=== PATIENT | male | born 1945 | race Caucasian/White ===

== ENCOUNTER 2017-05-23 09:51 | Emergency (ER) | payer MEDICARE, BC ==
[2017-05-23 09:58] VITALS: RESP 18
--- NOTE | 2017-05-23 10:19 | ED ---
General Adult HPI - General Chief complaint: Abdominal Pain Stated complaint: constipation Time Seen by Provider: 05/23/17 10:00 Source: patient, RN notes reviewed Mode of arrival: ambulatory Limitations: no limitations - History of Present Illness Initial comments: This is a 72-year-old male who presents emergency Department stating he has been constipated for the last week. Patient states he's been taking MiraLAX but has not helped is done some suppositories and handheld fleets enemas and nothing is helping. Patient states he seems to be having some stool but he feels as though is going around a blockage. Patient states he had a colonoscopy this year was normal. Patient states she's decreased his by mouth intake because of the constant feeling like he has to go to bathroom. Patient denies any fever chills. Patient denies any recent abdominal pain. Patient just complains abdominal distention. Patient denies any epigastric pain patient denies any vomiting. - Related Data Home Medications Medication Instructions Recorded Confirmed Aspirin EC [Ecotrin Low Dose] 81 mg PO HS 05/23/17 05/23/17 Cholecalciferol [Vitamin D3] 1,000 unit PO HS 05/23/17 05/23/17 Glucosamine Sulfate 500 mg PO HS 05/23/17 05/23/17 HYDROcodone/APAP 7.5-325MG [[place] 1 tab PO Q6H PRN 05/23/17 05/23/17 7.5-325] Pravastatin Sodium [Pravachol] 40 mg PO HS 05/23/17 05/23/17 Allergies Allergy/AdvReac Type Severity Reaction Status Date / Time No Known Allergies Allergy Verified 05/23/17 10:24 Review of Systems ROS Statement: Those systems with pertinent positive or pertinent negative responses have been documented in the HPI. ROS Other: All systems not noted in ROS Statement are negative. Past Medical History Past Medical History: COPD, Hyperlipidemia Additional Past Medical History / Comment(s): chronic back pain History of Any Multi-Drug Resistant Organisms: None Reported Past Surgical History: Orthopedic Surgery Past Psychological History: No Psychological Hx Reported Smoking Status: Current some day smoker Past Alcohol Use History: Occasional Past Drug Use History: None Reported General Exam - General Exam Comments Initial Comments: GENERAL: Patient is well-developed and well-nourished. Patient is nontoxic and well- hydrated and is in mild distress. ENT: Neck is soft and supple. No significant lymphadenopathy is noted. Oropharynx is clear. Moist mucous membranes. Neck has full range of motion without eliciting any pain. EYES: The sclera were anicteric and conjunctiva were pink and moist. Extraocular movements were intact and pupils were equal round and reactive to light. Eyelids were unremarkable. PULMONARY: Unlabored respirations. Good breath sounds bilaterally. No audible rales rhonchi or wheezing was noted. CARDIOVASCULAR: There is a regular rate and rhythm without any murmurs gallops or rubs. ABDOMEN: Soft and nontender with normal bowel sounds. No palpable organomegaly was noted. There is no palpable pulsatile mass. SKIN: Skin is clear with no lesions or rashes and otherwise unremarkable. NEUROLOGIC: Patient is alert and oriented x3. Cranial nerves II through XII are grossly intact. Motor and sensory are also intact. Normal speech, volume and content. Symmetrical smile. MUSCULOSKELETAL: Normal extremities with adequate strength and full range of motion. LYMPHATICS: No significant lymphadenopathy is noted PSYCHIATRIC: Normal psychiatric evaluation. Limitations: no limitations Course Vital Signs 05/23/17 05/23/17 09:53 11:54 Temperature 98.2 F 97.9 F Pulse Rate 67 60 Respiratory 18 18 Rate Blood Pressure 180/84 143/73 O2 Sat by Pulse 91 L 100 Oximetry Medical Decision Making - Medical Decision Making KUB shows no constipation. I spoke with Dr. Guy he is willing to follow the patient in his office. Disposition Clinical Impression: Bowel habit changes Disposition: HOME SELF-CARE Condition: Good Instructions: High Fiber Diet (ED), Constipation (ED) Additional Instructions: Patient should take Benefiber daily. Referrals: Fritz Guy MD [Primary Care Provider] - 1-2 days Time of Disposition: 12:05
--- NOTE | 2017-05-23 11:16 | XR ---
Abdomen HISTORY: Pain and constipation Frontal view of the abdomen on 2 images Lung bases are clear. Heart may be enlarged. No pneumoperitoneum or bowel obstruction evident. There are air-fluid levels without bowel distention. Vascular calcifications noted incidentally. Degenerati ve disc changes in the visualized spine. IMPRESSION: Findings could represent an enteritis or ileus, follow-up as indicated. Possible cardiome sarina.
[2017-05-23 11:56] VITALS: BP 143/73; PULSE 60; TEMP 97.9
== END 2017-05-23 12:36 | disposition home or self-care (01) ==
LOC: EC 09:51
DX: R19.4 Change in bowel habit (principal); J44.9 Chronic obstructive pulmonary disease, unspecified; E78.5 Hyperlipidemia, unspecified; F17.200 Nicotine dependence, unspecified, uncomplicated; Z79.82 Long term (current) use of aspirin; Z79.899 Other long term (current) drug therapy
CPT/HCPCS: 74000; 99284

== ENCOUNTER 2017-08-17 10:07 | Inpatient (IN) | payer MEDICARE, BC ==
[2017-08-17] MEDS ORDERED: NITROGLYCERIN SL TABS 0.4 MG TAB SUBLINGUAL STA ×3 (10:21)
[2017-08-17] MEDS ORDERED: ASPIRIN 81 MG PO STA (10:21)
--- NOTE | 2017-08-17 10:24 | ED ---
General Adult HPI - General Chief complaint: Chest Pain Stated complaint: Chest pressure Time Seen by Provider: 08/17/17 10:16 Source: patient, family, RN notes reviewed Mode of arrival: wheelchair Limitations: no limitations - History of Present Illness Initial comments: Patient is a pleasant 72-year-old male presenting to the emergency department chest discomfort. Symptoms have been intermittent since Sunday. Discomfort feels like an ache with radiation to the left shoulder. Discomfort is currently 5/10. No associated dyspnea or nausea. Patient has been sweaty at times. Symptoms at times are somewhat positional. Patient does have a history of A. fib and is scheduled to have pacemaker. - Related Data Home Medications Medication Instructions Recorded Confirmed Cholecalciferol [Vitamin D3] 1,000 unit PO HS 05/23/17 08/17/17 Glucosamine Sulfate 500 mg PO HS 05/23/17 08/17/17 HYDROcodone/APAP 7.5-325MG [[place] 1 tab PO Q6H PRN 05/23/17 08/17/17 7.5-325] Pravastatin Sodium [Pravachol] 40 mg PO HS 05/23/17 08/17/17 Tamsulosin HCl [Flomax] 0.8 mg PO HS 05/29/17 08/17/17 Zolpidem [Ambien] 10 mg PO HS PRN 06/10/17 08/17/17 Nadolol [Corgard] 10 mg PO HS 08/17/17 08/17/17 Rivaroxaban [Xarelto] 20 mg PO HS 08/17/17 08/17/17 Allergies Allergy/AdvReac Type Severity Reaction Status Date / Time cefuroxime Allergy Anaphylaxis Verified 08/17/17 11:02 ciprofloxacin [From Cipro] Allergy Unknown Verified 08/17/17 11:02 metronidazole Allergy Anaphylaxis Verified 08/17/17 11:02 Review of Systems ROS Statement: Those systems with pertinent positive or pertinent negative responses have been documented in the HPI. ROS Other: All systems not noted in ROS Statement are negative. Constitutional: Denies: fever Eyes: Denies: eye pain ENT: Denies: ear pain Respiratory: Denies: cough Cardiovascular: Reports: chest pain Endocrine: Denies: fatigue Gastrointestinal: Denies: abdominal pain Genitourinary: Denies: dysuria Musculoskeletal: Reports: arthralgia (Chronic) Skin: Denies: rash Neurological: Denies: weakness Past Medical History Past Medical History: Atrial Fibrillation, COPD, Hyperlipidemia Additional Past Medical History / Comment(s): chronic back pain, diverticulosis, History of Any Multi-Drug Resistant Organisms: None Reported Past Surgical History: Orthopedic Surgery Past Anesthesia/Blood Transfusion Reactions: No Reported Reaction Past Psychological History: No Psychological Hx Reported Smoking Status: Former smoker Past Alcohol Use History: None Reported Past Drug Use History: None Reported - Past Family History Father Family Medical History: Coronary Artery Disease (CAD) General Exam Limitations: no limitations General appearance: alert, in no apparent distress Head exam: Present: atraumatic Eye exam: Present: normal appearance, EOMI ENT exam: Present: normal oropharynx Neck exam: Present: normal inspection Respiratory exam: Present: normal lung sounds bilaterally. Absent: chest wall tenderness Cardiovascular Exam: Present: regular rate, normal rhythm Expanded Peripheral pulses: 2+: Radial (R), Radial (L), Posterior Tibialis (R), Posterior Tibialis (L) GI/Abdominal exam: Present: soft. Absent: tenderness Extremities exam: Present: normal inspection. Absent: pedal edema, calf tenderness Neurological exam: Present: alert Psychiatric exam: Present: normal affect, normal mood Skin exam: Present: normal color Course Vital Signs 08/17/17 08/17/17 08/17/17 10:11 10:39 10:55 Temperature 98 F Pulse Rate 54 L 58 L 55 L Respiratory 16 16 16 Rate Blood Pressure 149/71 125/71 96/60 O2 Sat by Pulse 97 95 98 Oximetry EKG Findings - EKG Comments: EKG Findings:: Sinus bradycardia with frequent PVCs at 58. W[place] 132. QRS 124. QT 410. QTc 402. Left axis. Right bundle branch block. Left anterior fascicular block. No acute ST change. Medical Decision Making - Medical Decision Making Patient reevaluated and resting comfortably in bed. Patient did receive improvement with nitroglycerin. Patient and family updated on results and plan. Dr. Coronado has been paged for admission for Dr. Guy. Patient is already on anticoagulation at this time. - Lab Data Result diagrams: 08/17/17 10:24 08/17/17 10:24 Lab Results 08/17/17 08/17/17 08/17/17 Range/Units 10:24 10:24 10:24 WBC 9.8 (3.8-10.6) k/uL RBC 5.13 (4.30-5.90) m/uL Hgb 15.9 (13.0-17.5) gm/dL Hct 49.4 (39.0-53.0) % MCV 96.3 (80.0-100.0) fL MCH 30.9 (25.0-35.0) pg MCHC 32.1 (31.0-37.0) g/dL RDW 12.5 (11.5-15.5) % Plt Count 242 (150-450) k/uL Neutrophils % 72 % Lymphocytes % 19 % Monocytes % 4 % Eosinophils % 3 % Basophils % 0 % Neutrophils # 7.0 (1.3-7.7) k/uL Lymphocytes # 1.8 (1.0-4.8) k/uL Monocytes # 0.4 (0-1.0) k/uL Eosinophils # 0.3 (0-0.7) k/uL Basophils # 0.0 (0-0.2) k/uL PT (9.0-12.0) sec INR (<1.2) APTT (22.0-30.0) sec Sodium 140 (137-145) mmol/L Potassium 4.9 (3.5-5.1) mmol/L Chloride 101 (98-107) mmol/L Carbon Dioxide 30 (22-30) mmol/L Anion Gap 9 mmol/L BUN 32 H (9-20) mg/dL Creatinine 0.80 (0.66-1.25) mg/dL Est GFR (MDRD) Af Amer >60 (>60 ml/min/1.73 sqM) Est GFR (MDRD) Non-Af >60 (>60 ml/min/1.73 sqM) Glucose 94 (74-99) mg/dL Calcium 9.9 (8.4-10.2) mg/dL Magnesium 2.1 (1.6-2.3) mg/dL Total Bilirubin 0.6 (0.2-1.3) mg/dL AST 28 (17-59) U/L ALT 30 (21-72) U/L Alkaline Phosphatase 56 (38-126) U/L Total Creatine Kinase 50 L (55-170) U/L CK-MB (CK-2) 0.8 (0.0-2.4) ng/mL CK-MB (CK-2) Rel Index 1.6 Troponin I <0.012 (0.000-0.034) ng/mL Total Protein 7.0 (6.3-8.2) g/dL Albumin 4.2 (3.5-5.0) g/dL 08/17/17 Range/Units 10:24 WBC (3.8-10.6) k/uL RBC (4.30-5.90) m/uL Hgb (13.0-17.5) gm/dL Hct (39.0-53.0) % MCV (80.0-100.0) fL MCH (25.0-35.0) pg MCHC (31.0-37.0) g/dL RDW (11.5-15.5) % Plt Count (150-450) k/uL Neutrophils % % Lymphocytes % % Monocytes % % Eosinophils % % Basophils % % Neutrophils # (1.3-7.7) k/uL Lymphocytes # (1.0-4.8) k/uL Monocytes # (0-1.0) k/uL Eosinophils # (0-0.7) k/uL Basophils # (0-0.2) k/uL PT 10.3 (9.0-12.0) sec INR 1.1 (<1.2) APTT 25.2 (22.0-30.0) sec Sodium (137-145) mmol/L Potassium (3.5-5.1) mmol/L Chloride (98-107) mmol/L Carbon Dioxide (22-30) mmol/L Anion Gap mmol/L BUN (9-20) mg/dL Creatinine (0.66-1.25) mg/dL Est GFR (MDRD) Af Amer (>60 ml/min/1.73 sqM) Est GFR (MDRD) Non-Af (>60 ml/min/1.73 sqM) Glucose (74-99) mg/dL Calcium (8.4-10.2) mg/dL Magnesium (1.6-2.3) mg/dL Total Bilirubin (0.2-1.3) mg/dL AST (17-59) U/L ALT (21-72) U/L Alkaline Phosphatase (38-126) U/L Total Creatine Kinase (55-170) U/L CK-MB (CK-2) (0.0-2.4) ng/mL CK-MB (CK-2) Rel Index Troponin I (0.000-0.034) ng/mL Total Protein (6.3-8.2) g/dL Albumin (3.5-5.0) g/dL - Radiology Data Radiology results: image reviewed (Chest x-ray shows right basilar atelectasis or scar.) Disposition Clinical Impression: Chest pain, Bradycardia Disposition: ADMITTED IP TO THIS HOSP Referrals: Fritz Guy MD [Primary Care Provider] - 1-2 days Decision Time: 11:40
[2017-08-17 10:39] LABS: Basophils % (A) 0 %; Eosinophils # (A) 0.3 k/uL (0-0.7); Eosinophils % (A) 3 %; HCT 49.4 % (39.0-53.0); HGB 15.9 gm/dL (13.0-17.5); Lymphocytes # (A) 1.8 k/uL (1.0-4.8); Lymphocytes % (A) 19 %; MCH 30.9 pg (25.0-35.0); MCHC 32.1 g/dL (31.0-37.0); MCV 96.3 fL (80.0-100.0); Mean Platelet Volume 6.8; Monocytes # (A) 0.4 k/uL (0-1.0); Monocytes % (A) 4 %; Neutrophils % (A) 72 %; Platelet Count 242 k/uL (150-450); RBC 5.13 m/uL (4.30-5.90); RDW 12.5 % (11.5-15.5); WBC 9.8 k/uL (3.8-10.6)
--- NOTE | 2017-08-17 10:46 | XR ---
EXAMINATION TYPE: XR chest 2V DATE OF EXAM: 08/17/2017 COMPARISON: 07/08/2017 TECHNIQUE: PA and lateral views submitted. HISTORY: Chest pain FINDINGS: The lungs are clear and there is no pneumothorax, pleural effusion, or focal pneumonia. Diffuse ost eopenia and arthropathy of the shoulders. No overt failure. Linear change right lung base. Hypertroph ic and degenerative change of the spine noted. IMPRESSION: 1. Right basilar atelectasis or scar.
[2017-08-17 10:48] LABS: ALT 30 U/L (21-72); AST 28 U/L (17-59); Albumin 4.2 g/dL (3.5-5.0); Alkaline Phosphatase 56 U/L (38-126); Anion Gap 9 mmol/L; Blood Urea Nitrogen 32 mg/dL (9-20); Calcium 9.9 mg/dL (8.4-10.2); Carbon Dioxide 30 mmol/L (22-30); Chloride 101 mmol/L (98-107); Glucose 94 mg/dL (74-99); INR 1.1 (<1.2); Magnesium 2.1 mg/dL (1.6-2.3); Partial Thromboplastin Time 25.2 sec (22.0-30.0); Potassium 4.9 mmol/L (3.5-5.1); Prothrombin Time 10.3 sec (9.0-12.0); Sodium 140 mmol/L (137-145); Total Bilirubin 0.6 mg/dL (0.2-1.3)
[2017-08-17 11:12] LABS: Creatine Kinase 50 U/L (55-170)
[2017-08-17 11:23] LABS: Creatine Kinase MB 0.8 ng/mL (0.0-2.4); Troponin I <0.012 ng/mL (0.000-0.034)
[2017-08-17] MEDS ORDERED: NITROGLYCERIN SL TABS 0.4 MG TAB SUBLINGUAL PRN (11:41)
[2017-08-17] MEDS ORDERED: HYDROcodone/APAP 7.5-325MG 1 EACH TAB PO PRN (15:09)
[2017-08-17 16:57] LABS: Creatine Kinase 43 U/L (55-170)
[2017-08-17 17:10] LABS: Creatine Kinase MB 0.5 ng/mL (0.0-2.4); Troponin I <0.012 ng/mL (0.000-0.034)
[2017-08-17] MEDS: NITROGLYCERIN OINT 1 INCH/GM PACKET TOPICAL SCH ×2 (20:26→23:19)
[2017-08-17] MEDS ORDERED: NADOLOL 20 MG TAB PO SCH (21:00)
[2017-08-17] MEDS: HYDROcodone/APAP 10-325MG 1 EACH TAB PO PRN (21:08)
[2017-08-17] MEDS: RIVAROXABAN 10 MG TAB PO SCH (21:48)
[2017-08-17] MEDS: PRAVASTATIN SODIUM 40 MG TAB PO SCH (21:48)
--- NOTE | 2017-08-17 21:51 | P.HPIM ---
History of Present Illness H&P Date: 08/17/17 Chief Complaint: Chest pain Patient is a pleasant 72-year-old male with a known history of COPD, diverticulosis, recently diagnosed atrial fibrillation, hyperlipidemia and chronic back pain presenting to the emergency department chest discomfort. Symptoms have been intermittent since Sunday. Patient presented to Dr. Guy's office today and was sent to ER for further evaluation. Discomfort feels like an ache with radiation to the left shoulder. Discomfort is currently 5/10. No associated dyspnea or nausea. Patient does have dizziness and lightheadedness. Patient has been sweaty at times. Symptoms at times are somewhat positional. Patient was initially diagnosed with atrial fibrillation in early June 2017 and was also admitted about a month back and has also had cardioversion. Patient does follow with Dr. Nair and Dr. Mckeon. Patient is scheduled for pacemaker placement on August 27. Denied any fever or chills. No nausea vomiting or abdominal pain. Chest x-ray showed right basilar atelectasis EKG showed sinus bradycardia with heart rate 48 Review of Systems Constitutional: Patient denies any fever or chills . No generalized weakness or weight loss. Abdomen: Patient denied nausea vomiting and diarrhea and abdominal pain. Cardiovascular: Patient does have chest pain radiating down the left arm and no short of breath no palpitations. Respiratory: patient denied any cough is from production. No shortness of breath Neurologic: Patient denied any numbness or tingling headache. Musculoskeletal: Patient denies any complaints of joint swelling or deformity. Skin: Negative Psychiatric: Negative Endocrine: No heat or cold intolerance. No recent weight gain. Genitourinary: No dysuria or hematuria. All other 14 point ROS negative except the above Past Medical History Past Medical History: Atrial Fibrillation, COPD, Hyperlipidemia Additional Past Medical History / Comment(s): chronic back pain, diverticulosis, History of Any Multi-Drug Resistant Organisms: None Reported Past Surgical History: Orthopedic Surgery Past Anesthesia/Blood Transfusion Reactions: No Reported Reaction Past Psychological History: No Psychological Hx Reported Smoking Status: Former smoker Past Alcohol Use History: None Reported Past Drug Use History: None Reported - Past Family History Father Family Medical History: Coronary Artery Disease (CAD) Mother History Unknown: Yes Medications and Allergies Home Medications Medication Instructions Recorded Confirmed Type Cholecalciferol [Vitamin D3] 1,000 unit PO HS 05/23/17 08/17/17 History Glucosamine Sulfate 500 mg PO HS 05/23/17 08/17/17 History Pravastatin Sodium [Pravachol] 40 mg PO HS 05/23/17 08/17/17 History Tamsulosin HCl [Flomax] 0.8 mg PO HS 05/29/17 08/17/17 History Hydrocodone/Acetaminophen 1 each PO Q6H PRN 08/17/17 08/17/17 History [Hydrocodon-Acetaminophn 10-325] Nadolol [Corgard] 10 mg PO HS 08/17/17 08/17/17 History Rivaroxaban [Xarelto] 20 mg PO HS 08/17/17 08/17/17 History Zolpidem Tartrate [Ambien Cr] 12.5 mg PO HS PRN 08/17/17 08/17/17 History Allergies Allergy/AdvReac Type Severity Reaction Status Date / Time cefuroxime Allergy Anaphylaxis Verified 08/17/17 11:02 ciprofloxacin [From Cipro] Allergy Unknown Verified 08/17/17 11:02 metronidazole Allergy Anaphylaxis Verified 08/17/17 11:02 Physical Exam Vitals: Vital Signs Temp Pulse Resp BP Pulse Ox 08/17/17 13:00 51 L 16 129/68 96 08/17/17 12:14 45 L 16 155/76 95 08/17/17 10:55 55 L 16 96/60 98 08/17/17 10:39 58 L 16 125/71 95 08/17/17 10:11 98 F 54 L 16 149/71 97 Intake and Output 08/17/17 08/17/17 08/17/17 06:59 14:59 22:59 Other: Weight 76.204 kg Patient Weight 08/18/17 06:59 Weight 76.204 kg PHYSICAL EXAMINATION: Patient is lying in the bed comfortably, no acute distress, awake alert and oriented.. HEENT: Normocephalic. Neck is supple. Pupils reactive. Nostrils clear. Oral cavity is moist. Ears reveal no drainage. Neck reveals no JVD, carotid bruits, or thyromegaly. CHEST EXAMINATION: Trachea is central. Symmetrical expansion. No wheezing. Diminished breath sounds bibasilar. CARDIAC: Normal S1, S2 with no gallops. No murmurs ABDOMEN: Soft. Bowel sounds normal. No organomegaly. No abdominal bruits. Extremities: reveal no edema. No clubbing or cyanosis Neurologically awake, alert, oriented x3 with well-coordinated movements. No focal deficits noted Skin: No rash or skin lesions. Psychiatric: Coperative. Nonsuicidal Musculoskeletal: No joint swelling or deformity. Normal range of motion. Results CBC & Chem 7: 08/17/17 10:24 08/17/17 10:24 Labs: Abnormal Lab Results - Last 24 Hours (Table) 08/17/17 08/17/17 Range/Units 10:24 10:24 BUN 32 H (9-20) mg/dL Total Creatine Kinase 50 L (55-170) U/L Assessment and Plan Assessment: Chest pain. possible unstable angina Sinus bradycardia Persistent atrial fibrillation with recent history of cardioversion Severely enlarged right ventricle Diverticulosis Hyperlipidemia COPD Plan: Patient will be continued on telemetry monitoring. Serial EKG and troponin. Currently on anticoagulation with Riveroxaban. Will hold nadolol due to bradycardia. Cardiology has been consulted. Patient is supposed to be getting pacemaker placement on August 27. Will follow closely. Further recommendations based on the clinical course. Time with Patient: Greater than 30
[2017-08-17 22:48] LABS: Creatine Kinase 39 U/L (55-170)
[2017-08-17 23:01] LABS: Creatine Kinase MB 0.4 ng/mL (0.0-2.4); Troponin I <0.012 ng/mL (0.000-0.034)
[2017-08-17] MEDS: ZOLPIDEM 10 MG TAB PO PRN (23:23)
[2017-08-17 23:41] LABS: Cholesterol 175 mg/dL (<200); HDL Cholesterol 48 mg/dL (40-60); LDL Cholesterol,Calculated 79 mg/dL (0-99); Triglycerides 240 mg/dL (<150)
[2017-08-18] MEDS: NITROGLYCERIN OINT 1 INCH/GM PACKET TOPICAL SCH ×4 (06:12→22:28)
[2017-08-18] MEDS: HYDROcodone/APAP 10-325MG 1 EACH TAB PO PRN ×3 (07:08→19:40)
[2017-08-18] MEDS: ASPIRIN 325 MG TAB PO SCH (10:09)
--- NOTE | 2017-08-18 13:32 | P.CRDCN ---
History of Present Illness Consult date: 08/18/17 Requesting physician: Fritz Guy Reason for Consult (text): chest pain, bradycardia Chief complaint: intermittent left-sided chest and arm pain History of present illness: This is a pleasant 72-year-old gentleman who follows with Dr. Nair in the office. He has a history of symptomatic atrial fibrillation, status post MATEUS and cardioversion last month and subsequently developed symptomatic bradycardia while on very low dose beta blockers. He is scheduled on August 27 to undergo permanent pacemaker implantation by Dr. Mckeon. Presented to his primary care physician for preoperative blood draw and was complaining of some intermittent left-sided chest discomfort and left arm pain and weakness. The pain seems to be positional as he noticed that when he raised his arms for chest x-ray and while lifting his 5 pound dog as well as turning to his left side in bed. EKG on admission showed sinus bradycardia with a right bundle branch block and PVCs, similar to previous. Heart rates are maintaining between the high 30s to 50. His nadolol 10 mg is on hold. Troponins have been negative 3. Chest x-ray on admission showed right basilar atelectasis or scar. Echocardiogram from prior admission in June 2017 showed LV systolic function to be low normal with an ejection fraction between 50-55%, moderate to severely enlarged RV, severely dilated LA, mildly enlarged RA, mild aortic valve sclerosis, mild mitral regurgitation, mild tricuspid regurgitation with no evidence of pulmonary hypertension. Upon examination, patient is resting in bed. He reports overall not feeling well but has not been feeling well since initial episode of atrial fibrillation. He continues to complain of intermittent left-sided chest discomfort, lasting about 4 or 5 minutes, some radiation to the interscapular area and radiation to his left bicep area. Currently pain-free. Past Medical History Past Medical History: Atrial Fibrillation, COPD, Hyperlipidemia Additional Past Medical History / Comment(s): chronic back pain, diverticulosis, History of Any Multi-Drug Resistant Organisms: None Reported Past Surgical History: Orthopedic Surgery Additional Past Surgical History / Comment(s): cardioversion,mateus rt knee/lower leg ssx has 3 screws, colonoscopy, "bone aspiration" Past Anesthesia/Blood Transfusion Reactions: No Reported Reaction Past Psychological History: No Psychological Hx Reported Smoking Status: Former smoker Past Alcohol Use History: None Reported Past Drug Use History: None Reported - Past Family History Father Family Medical History: Coronary Artery Disease (CAD) Mother History Unknown: Yes Medications and Allergies Home Medications Medication Instructions Recorded Confirmed Type Cholecalciferol [Vitamin D3] 1,000 unit PO HS 05/23/17 08/17/17 History Glucosamine Sulfate 500 mg PO HS 05/23/17 08/17/17 History Pravastatin Sodium [Pravachol] 40 mg PO HS 05/23/17 08/17/17 History Tamsulosin HCl [Flomax] 0.8 mg PO HS 05/29/17 08/17/17 History Hydrocodone/Acetaminophen 1 each PO Q6H PRN 08/17/17 08/17/17 History [Hydrocodon-Acetaminophn 10-325] Nadolol [Corgard] 10 mg PO HS 08/17/17 08/17/17 History Rivaroxaban [Xarelto] 20 mg PO HS 08/17/17 08/17/17 History Zolpidem Tartrate [Ambien Cr] 12.5 mg PO HS PRN 08/17/17 08/17/17 History Allergies Allergy/AdvReac Type Severity Reaction Status Date / Time cefuroxime Allergy Anaphylaxis Verified 08/17/17 11:02 ciprofloxacin [From Cipro] Allergy Unknown Verified 08/17/17 11:02 metronidazole Allergy Anaphylaxis Verified 08/17/17 11:02 Physical Exam Vitals: Vital Signs Temp Pulse Pulse Resp BP BP Pulse Ox 08/18/17 04:00 97.0 F L 46 L 18 110/62 93 L 08/18/17 00:00 96.9 F L 52 L 18 116/60 92 L 08/17/17 21:00 97.6 F 40 L 18 115/57 94 L 08/17/17 19:35 97.3 F L 56 L 18 127/67 95 08/17/17 17:00 56 L 16 158/89 100 08/17/17 13:00 51 L 16 129/68 96 08/17/17 12:14 45 L 16 155/76 95 08/17/17 10:55 55 L 16 96/60 98 08/17/17 10:39 58 L 16 125/71 95 08/17/17 10:11 98 F 54 L 16 149/71 97 Intake and Output 08/17/17 08/18/17 08/18/17 22:59 06:59 14:59 Intake Total 0 Output Total 300 Balance -300 0 Intake: Oral 0 Output: Urine 300 Other: # Voids 1 1 Weight 74.7 kg PHYSICAL EXAMINATION: HEENT: Head is atraumatic, normocephalic. Pupils equal, round. Neck is supple. There is no elevated jugular venous pressure. HEART EXAMINATION: Heart sounds regular, S1 and S2 normal. No murmur or gallop heard. The cardia noted. CHEST EXAMINATION: Lungs are clear to auscultation and precussion. No chest wall tenderness is noted on palpation or with deep breathing. ABDOMEN: Soft, nontender. Bowel sounds are heard. No organomegaly noted. EXTREMITIES: 2+ peripheral pulses with no evidence of peripheral edema and no calf tenderness noted. NEUROLOGIC patient is awake, alert and oriented x3. . Results 08/17/17 10:24 08/17/17 10:24 Cardiac Enzymes 08/17/17 08/17/17 08/17/17 Range/Units 10:24 10:24 16:23 AST 28 (17-59) U/L CK-MB (CK-2) 0.8 0.5 (0.0-2.4) ng/mL Troponin I <0.012 <0.012 (0.000-0.034) ng/mL 08/17/17 Range/Units 21:56 AST (17-59) U/L CK-MB (CK-2) 0.4 (0.0-2.4) ng/mL Troponin I <0.012 (0.000-0.034) ng/mL Coagulation 08/17/17 Range/Units 10:24 PT 10.3 (9.0-12.0) sec APTT 25.2 (22.0-30.0) sec Lipids 08/17/17 Range/Units 10:24 Triglycerides 240 H (<150) mg/dL Cholesterol 175 (<200) mg/dL HDL Cholesterol 48 (40-60) mg/dL CBC 08/17/17 Range/Units 10:24 WBC 9.8 (3.8-10.6) k/uL RBC 5.13 (4.30-5.90) m/uL Hgb 15.9 (13.0-17.5) gm/dL Hct 49.4 (39.0-53.0) % Plt Count 242 (150-450) k/uL Comprehensive Metabolic Panel 08/17/17 Range/Units 10:24 Sodium 140 (137-145) mmol/L Potassium 4.9 (3.5-5.1) mmol/L Chloride 101 (98-107) mmol/L Carbon Dioxide 30 (22-30) mmol/L BUN 32 H (9-20) mg/dL Creatinine 0.80 (0.66-1.25) mg/dL Glucose 94 (74-99) mg/dL Calcium 9.9 (8.4-10.2) mg/dL AST 28 (17-59) U/L ALT 30 (21-72) U/L Alkaline Phosphatase 56 (38-126) U/L Total Protein 7.0 (6.3-8.2) g/dL Albumin 4.2 (3.5-5.0) g/dL Current Medications Generic Name Dose Route Start Last Admin Trade Name Freq PRN Reason Stop Dose Admin Hydrocodone Bitart/Acetaminophen 1 each 08/17/17 19:58 08/18/17 07:08 Kinsley 10 PO 1 each Q6H PRN Administration Pain Aspirin 325 mg 08/18/17 09:00 Aspirin PO DAILY EVENS Nitroglycerin 1 inch 08/17/17 18:00 08/18/17 06:12 Nitro-Bid Oint TOPICAL 1 inch Q6HR EVENS Administration Nitroglycerin 0.4 mg 08/17/17 11:41 Nitrostat SUBLINGUAL Q5M PRN Chest Pain Pravastatin Sodium 40 mg 08/17/17 21:00 08/17/17 21:48 Pravachol PO 40 mg HS EVENS Administration Rivaroxaban 20 mg 08/17/17 21:00 08/17/17 21:48 Xarelto PO 20 mg HS EVENS Administration Sodium Chloride 10 ml 08/17/17 21:00 08/17/17 21:09 Saline Flush IV 10 ml BID EVENS Administration Zolpidem Tartrate 10 mg 08/17/17 19:58 08/17/17 23:23 Ambien PO 10 mg HS PRN Administration Insomnia Intake and Output 08/17/17 08/18/17 08/18/17 22:59 06:59 14:59 Intake Total 0 Output Total 300 Balance -300 0 Intake: Oral 0 Output: Urine 300 Other: # Voids 1 1 Weight 74.7 kg 08/17/17 10:24 08/17/17 10:24 Assessment and Plan Assessment: #1 symptoms of atypical chest pain with negative troponins and no evidence of EKG changes, likely musculoskeletal in origin #2 symptomatic bradycardia, scheduled to undergo permanent pacemaker implantation on August 27 #3 persistent atrial fibrillation, status post cardioversion, maintaining sinus rhythm Plan: From 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 Patient continues to have symptomatic bradycardia. Continue to hold nadolol. We will discuss with Dr. Nair and Dr. Mckeon regarding possible pacemaker implantation at a sooner date. Further recommendations to follow. JEWELRY MANAGER note has been reviewed, I agree with a documented findings and plan of care. Patient was seen and examined.
[2017-08-18] MEDS: PRAVASTATIN SODIUM 40 MG TAB PO SCH (20:17)
[2017-08-18] MEDS: RIVAROXABAN 10 MG TAB PO SCH (20:17)
[2017-08-18] MEDS: ZOLPIDEM 10 MG TAB PO PRN (22:28)
[2017-08-19] MEDS: NITROGLYCERIN OINT 1 INCH/GM PACKET TOPICAL SCH ×4 (06:25→22:10)
[2017-08-19] MEDS: HYDROcodone/APAP 10-325MG 1 EACH TAB PO PRN ×3 (07:14→18:51)
[2017-08-19] MEDS: ASPIRIN 325 MG TAB PO SCH (08:33)
[2017-08-19] MEDS ORDERED: POLYETHYLENE GLYCOL 3350 17 GM POWD.PACK PO STA (09:13)
--- NOTE | 2017-08-19 12:29 | P.PN ---
Subjective Progress Note Date: 08/19/17 Mr. George is seen and examined today resting comfortably in bed with family at the bedside. He continues to complain of generalized weakness and fatigue with intermittent episodes of dizziness. Telemetry tracings reveal sinus bradycardia with rate as low as 40. He denies chest pain, palpitations, nausea, vomiting or acute diaphoresis. He does still have left shoulder pain with movement of the left arm. He is scheduled for pacemaker insertion with Dr. Mckeon 08/27, this will be discussed with Dr. Mckeon to possibly move up to tomorrow for symptomatic bradycardia. Nadolol continues to be held. Objective - Vital Signs Vital signs: Vital Signs Temp 97.0 F L 08/19/17 09:02 Pulse 52 L 08/19/17 09:02 Resp 18 08/19/17 09:02 BP 101/56 08/19/17 09:02 Pulse Ox 95 08/19/17 09:02 Intake & Output 08/18/17 08/19/17 08/19/17 18:59 06:59 18:59 Intake Total 240 600 240 Balance 240 600 240 Weight 74.6 kg Intake: Oral 240 600 240 Other: # Voids 1 2 2 - Exam Blood pressure 101/56 heart rate 52 afebrile. GENERAL: Well-appearing, well-nourished and in no acute distress. NECK: Supple without JVD or thyromegaly. LUNGS: Breath sounds clear to auscultation bilaterally. Respiration equal and unlabored. No wheezes, rales or rhonchi. HEART: Regular rate and rhythm without murmurs, rubs or gallops. S1 and S2 heard. EXTREMITIES: Normal range of motion, no edema. No clubbing or cyanosis. Peripheral pulses intact and strong. - Labs CBC & Chem 7: 08/17/17 10:24 08/17/17 10:24 Assessment and Plan Assessment: ASSESSMENT 1. Atypical chest pain, musculoskeletal in nature. Acute coronary event has been ruled out. 2. Symptomatic bradycardia s/p CARON and cardioversion 3. Atrial fibrillation maintain sinus mechanism s/p cardioversion 4. Dyslipidemia 5. COPD 6. Constipation, chronic PLAN Continue to hold nadolol. Case will be discussed with Dr. Mckeon tomorrow for possible pacemaker implantation. NPO after midnight until decision is made. Hold dose of xarelto tonight. Further recommendations will be based upon clinical course. Nurse Practitioner note has been reviewed, I agree with a documented findings and plan of care. Patient was seen and examined.
--- NOTE | 2017-08-19 16:30 | P.PN ---
Subjective Progress Note Date: 08/18/17 Principal diagnosis: Symptomatic bradycardia Patient is a pleasant 72-year-old male with a known history of COPD, diverticulosis, recently diagnosed atrial fibrillation, hyperlipidemia and chronic back pain presenting to the emergency department chest discomfort. Symptoms have been intermittent since Sunday. Patient presented to Dr. Guy's office today and was sent to ER for further evaluation. Discomfort feels like an ache with radiation to the left shoulder. Discomfort is currently 5/10. No associated dyspnea or nausea. Patient does have dizziness and lightheadedness. Patient has been sweaty at times. Symptoms at times are somewhat positional. Patient was initially diagnosed with atrial fibrillation in early June 2017 and was also admitted about a month back and has also had cardioversion. Patient does follow with Dr. Nair and Dr. Mckeon. Patient is scheduled for pacemaker placement on August 27. Denied any fever or chills. No nausea vomiting or abdominal pain. Chest x-ray showed right basilar atelectasis EKG showed sinus bradycardia with heart rate 48 On 08/18/2017 Patient is having chest pain is reproducible with left hand moment and applying pressure on the left lateral chest wall. Otherwise patient still bradycardic. EP consult is pending for possible pacemaker placement. Otherwise no short of breath. No nausea vomiting or abdominal pain. No other acute overnight issues. Patient is still feeling dizziness when he is trying to get up and walk. All other review of systems negative except the above Current medications reviewed Objective - Vital Signs Vital signs: Vital Signs Temp 97.1 F L 08/18/17 16:41 Pulse 47 L 08/18/17 16:41 Resp 18 08/18/17 16:41 BP 101/59 08/18/17 16:41 Pulse Ox 96 08/18/17 16:41 Intake & Output 08/18/17 08/18/17 08/19/17 06:59 18:59 06:59 Intake Total 240 Output Total 300 Balance -300 240 Weight 74.7 kg Intake: Oral 240 Output: Urine 300 Other: # Voids 1 1 - Exam PHYSICAL EXAMINATION: Patient is lying in the bed comfortably, no acute distress, awake alert and oriented.. HEENT: Normocephalic. Neck is supple. Pupils reactive. Nostrils clear. Oral cavity is moist. Ears reveal no drainage. Neck reveals no JVD, carotid bruits, or thyromegaly. CHEST EXAMINATION: Trachea is central. Symmetrical expansion. Lung varela clear to auscultation and percussion. CARDIAC: Normal S1, S2 with no gallops. No murmurs . Left lateral chest wall tenderness. ABDOMEN: Soft. Bowel sounds normal. No organomegaly. No abdominal bruits. Extremities: reveal no edema. No clubbing or cyanosis Neurologically awake, alert, oriented x3 with well-coordinated movements. No focal deficits noted Skin: No rash or skin lesions. Psychiatric: Coperative. Nonsuicidal Musculoskeletal: No joint swelling or deformity. Normal range of motion. - Labs CBC & Chem 7: 08/17/17 10:24 08/17/17 10:24 Labs: Abnormal Lab Results - Last 24 Hours (Table) 08/17/17 08/17/17 Range/Units 10:24 21:56 Total Creatine Kinase 39 L (55-170) U/L Triglycerides 240 H (<150) mg/dL Assessment and Plan Assessment: Chest pain. Likely due to musculoskeletal origin Sinus bradycardia/symptomatic bradycardia Persistent atrial fibrillation with recent history of cardioversion Severely enlarged right ventricle Diverticulosis Hyperlipidemia COPD Plan: Patient will be continued on telemetry monitoring. Serial EKG and troponin. Currently on anticoagulation with Riveroxaban. Will hold nadolol due to bradycardia. Cardiology has been consulted. Patient is supposed to be getting pacemaker placement on August 27. EP consult while in the hospital. Further recommendations based on the clinical course. Time with Patient: Greater than 30
[2017-08-19] MEDS ORDERED: IBUPROFEN 400 MG TAB PO STA (16:32)
--- NOTE | 2017-08-19 16:33 | P.PN ---
Subjective Progress Note Date: 08/19/17 Principal diagnosis: Symptomatic bradycardia Patient is a pleasant 72-year-old male with a known history of COPD, diverticulosis, recently diagnosed atrial fibrillation, hyperlipidemia and chronic back pain presenting to the emergency department chest discomfort. Symptoms have been intermittent since Sunday. Patient presented to Dr. Guy's office today and was sent to ER for further evaluation. Discomfort feels like an ache with radiation to the left shoulder. Discomfort is currently 5/10. No associated dyspnea or nausea. Patient does have dizziness and lightheadedness. Patient has been sweaty at times. Symptoms at times are somewhat positional. Patient was initially diagnosed with atrial fibrillation in early June 2017 and was also admitted about a month back and has also had cardioversion. Patient does follow with Dr. Nair and Dr. Mckeon. Patient is scheduled for pacemaker placement on August 27. Denied any fever or chills. No nausea vomiting or abdominal pain. Chest x-ray showed right basilar atelectasis EKG showed sinus bradycardia with heart rate 48 On 08/18/2017 Patient is having chest pain is reproducible with left hand moment and applying pressure on the left lateral chest wall. Otherwise patient still bradycardic. EP consult is pending for possible pacemaker placement. Otherwise no short of breath. No nausea vomiting or abdominal pain. No other acute overnight issues. Patient is still feeling dizziness when he is trying to get up and walk. 08/19/2017 Patient denied any new complaints today. Still having sinus bradycardia. Possible pacemaker placement tomorrow after EP evaluation. Nothing by mouth from midnight. Will hold and anticoagulation. All other review of systems negative except the above Current medications reviewed Objective - Vital Signs Vital signs: Vital Signs Temp 97.2 F L 08/19/17 12:00 Pulse 47 L 08/19/17 12:00 Resp 18 08/19/17 12:00 BP 110/54 08/19/17 12:00 Pulse Ox 96 08/19/17 12:00 Intake & Output 08/18/17 08/19/17 08/19/17 18:59 06:59 18:59 Intake Total 240 600 480 Balance 240 600 480 Weight 74.6 kg Intake: Oral 240 600 480 Other: # Voids 1 2 2 - Exam PHYSICAL EXAMINATION: Patient is lying in the bed comfortably, no acute distress, awake alert and oriented.. HEENT: Normocephalic. Neck is supple. Pupils reactive. Nostrils clear. Oral cavity is moist. Ears reveal no drainage. Neck reveals no JVD, carotid bruits, or thyromegaly. CHEST EXAMINATION: Trachea is central. Symmetrical expansion. Lung varela clear to auscultation and percussion. CARDIAC: Normal S1, S2 with no gallops. No murmurs . Left lateral chest wall tenderness. ABDOMEN: Soft. Bowel sounds normal. No organomegaly. No abdominal bruits. Extremities: reveal no edema. No clubbing or cyanosis Neurologically awake, alert, oriented x3 with well-coordinated movements. No focal deficits noted Skin: No rash or skin lesions. Psychiatric: Coperative. Nonsuicidal Musculoskeletal: No joint swelling or deformity. Normal range of motion. - Labs CBC & Chem 7: 08/17/17 10:24 08/17/17 10:24 Assessment and Plan Assessment: Chest pain. Likely due to musculoskeletal origin Sinus bradycardia/symptomatic bradycardia Persistent atrial fibrillation with recent history of cardioversion Severely enlarged right ventricle Diverticulosis Hyperlipidemia COPD Mild hypertriglyceridemia Plan: Patient will be continued on telemetry monitoring. Serial EKG and troponin negative . Currently on anticoagulation with Riveroxaban. Will hold nadolol due to bradycardia. Cardiology has been consulted. Patient is supposed to be getting pacemaker placement on August 27. EP consult while in the hospital. Possible pacemaker placement tomorrow. Further recommendations based on the clinical course. Time with Patient: Greater than 30
[2017-08-19] MEDS: TAMSULOSIN 0.4 MG CAP.ER.24H PO SCH (21:54)
[2017-08-19] MEDS: PRAVASTATIN SODIUM 40 MG TAB PO SCH (21:55)
[2017-08-19] MEDS: ZOLPIDEM 10 MG TAB PO PRN (22:09)
[2017-08-20] MEDS: NITROGLYCERIN OINT 1 INCH/GM PACKET TOPICAL SCH ×3 (04:44→19:06)
[2017-08-20] MEDS: ASPIRIN 325 MG TAB PO SCH (06:17)
[2017-08-20] MEDS: HYDROcodone/APAP 10-325MG 1 EACH TAB PO PRN ×2 (06:17→14:31)
[2017-08-20] MEDS ORDERED: ceFAZolin IN SWFI 2 GM/20 ML SYRINGE IVP ONE (09:23)
[2017-08-20] MEDS ORDERED: ceFAZolin 1,000 MG in SODIUM CHLORIDE 0.9% IRRIGATIO 250 ML IRRIGATION ONE (09:23)
[2017-08-20] MEDS ORDERED: CLINDAMYCIN 900 MG in DEXTROSE 5% IN WATER 50 ML IVPB ONE ×2 (09:28)
[2017-08-20] MEDS ORDERED: CLINDAMYCIN 600 MG in SODIUM CHLORIDE 0.9% IRRIGATIO 250 ML IRRIGATION ONE (09:28)
[2017-08-20] MEDS ORDERED: SODIUM CHLORIDE 0.9% 1,000 ML IV SCH (09:30)
--- NOTE | 2017-08-20 11:07 | P.PN ---
Subjective Patient resting in bed without complaint. Nothing by mouth at this time for pacemaker placement this afternoon Objective - Vital Signs Vital signs: Vital Signs Temp 97 F L 08/20/17 08:00 Pulse 50 L 08/20/17 08:00 Resp 18 08/20/17 08:00 BP 128/61 08/20/17 08:00 Pulse Ox 92 L 08/20/17 08:00 Intake & Output 08/19/17 08/20/17 08/20/17 18:59 06:59 18:59 Intake Total 960 250 Balance 960 250 Weight 75.1 kg 75.3 kg Intake: Oral 960 250 Other: # Voids 2 2 - Constitutional General appearance: Present: average body habitus - EENT Eyes: Present: PERRLA Ears: bilateral: normal - Neck Neck: Present: normal ROM - Respiratory Respiratory: bilateral: CTA - Cardiovascular Rhythm: regular - Gastrointestinal General gastrointestinal: Present: soft - Integumentary Integumentary: Present: normal - Neurologic Neurologic: Present: CNII-XII intact - Musculoskeletal Musculoskeletal: Present: gait normal - Psychiatric Psychiatric: Present: A&O x's 3, appropriate affect, intact judgment & insight - Labs CBC & Chem 7: 08/17/17 10:24 08/17/17 10:24 - Imaging and Cardiology Chest x-ray: report reviewed Assessment and Plan Plan: Assessment Chest pain atypical likely musculoskeletal in origin Symptomatic bradycardia Paroxysmal atrial fibrillation with recent cardioversion Enlarged right ventricle History of diverticulosis Hyperlipidemia COPD stable Hypertriglyceridemia Plan Pacemaker this afternoon Continue consultation with cardiology
[2017-08-20] MEDS: SODIUM CHLORIDE 0.9% 1,000 ML IV SCH ×2 (13:57→20:30)
[2017-08-20 15:44] LABS: Hemoglobin A1C 6.3 % (4.0-6.0)
[2017-08-20] MEDS ORDERED: HYDROcodone/APAP 5-325MG 1 EACH TAB PO PRN (16:45)
[2017-08-20] MEDS ORDERED: ACETAMINOPHEN TAB 325 MG TAB PO PRN (16:45)
[2017-08-20] MEDS ORDERED: CLINDAMYCIN 900 MG in DEXTROSE 5% IN WATER 50 ML IVPB SCH ×2 (16:45)
--- NOTE | 2017-08-20 16:45 | P.PN ---
Progress Note - Text Patient referred by Dr. Montoya and Dr. Sorensen for implantation of dual- chamber pacemaker Symptomatic bradycardia, sinus despite holding nadolol. Patient has atrial fibrillation RVR, tachybradycardia syndrome preserved LV systolic function with mild LV enlargement, dilated RA and dilated atria, bilaterally Normal cardiac enzymes Normal electrolytes Plan Dual-chamber pacemaker implant
[2017-08-20] MEDS ORDERED: SODIUM CHLORIDE 0.9% 1,000 ML IV ONE (16:46)
[2017-08-20] MEDS ORDERED: IOHEXOL 300 MG/ML 50 ML BOTTLE IV ONE (16:57)
[2017-08-20] MEDS ORDERED: IODIXANOL 270 MG/ML 50 ML ML IV ONE (16:57)
[2017-08-20] MEDS ORDERED: IOHEXOL 350 MG/ML 50ML BOTTLE INJ ONE (16:57)
[2017-08-20] MEDS ORDERED: ACETAMINOPHEN IV (For NPO) 1,000 MG in EMPTY BAG 1 BAG IVPB ONE (17:00)
[2017-08-20] MEDS ORDERED: fentaNYL (PF) 50 MCG/ML 2 ML AMP ONE (17:02)
[2017-08-20] MEDS ORDERED: MIDAZOLAM 2 MG/2 ML VIAL ONE (17:02)
[2017-08-20] MEDS ORDERED: fentaNYL (PF) 50 MCG/ML 2 ML AMP IV ONE (17:08)
[2017-08-20] MEDS ORDERED: LIDOCAINE 1% INJ 10MG/ML (20 ML MDV) SQ ONE ×2 (17:15→17:34)
[2017-08-20] MEDS: MIDAZOLAM 2 MG/2 ML VIAL IV ONE ×2 (17:17→17:29)
[2017-08-20] MEDS: LIDOCAINE 1% INJ 10MG/ML (20 ML MDV) SQ ONE ×2 (17:24→17:30)
[2017-08-20] MEDS ORDERED: ASPIRIN 81 MG PO SCH (18:30)
--- NOTE | 2017-08-20 18:36 | P.PCN ---
Preoperative Diagnosis: Patient underwent EP procedure under conscious sedation/moderate sedation, monitoring of the level of consciousness and physiologic parameters including but not limited to vital signs and oxygenation. Patient tolerated the procedure well without any acute complications. Start time: 1711 Stop time: 1824
[2017-08-20] MEDS: RIVAROXABAN 10 MG TAB PO SCH (20:17)
[2017-08-20] MEDS: NADOLOL 20 MG TAB PO SCH (20:25)
[2017-08-20] MEDS: PRAVASTATIN SODIUM 40 MG TAB PO SCH (20:30)
[2017-08-20] MEDS: TAMSULOSIN 0.4 MG CAP.ER.24H PO SCH (20:30)
--- NOTE | 2017-08-20 21:18 | PCN ---
PROCEDURE NOTE Mr. George is a 72-year-old male patient, who presented with symptomatic sinus bradycardia. He was complaining of tiredness and fatigue and was unable to carry on his activities of daily living. Low-dose beta blockers are being discontinued and he had been scheduled for a dual-chamber pacemaker as an outpatient in mid August. However, he came in over the weekend complaining of tiredness, fatigue and chest pain and a dual-chamber pacemaker was recommended. His 2D echo shows preserved LV systolic function, mildly dilated LV, dilated RV and biatrial enlargement with severe enlargement of the left atrium. He has known coronary artery disease. PROCEDURE: The patient is brought to the EP lab in a fasting state. Written informed consent was obtained prior to the procedure. The left shoulder area was prepped and draped as per protocol. 1% lidocaine was used for local anesthesia. A 4 cm incision made parallel to the deltopectoral groove, about 1.5 cm medial to it. The incision was carried down to the level of the pectoralis muscle. A subfascial pocket was made. Hemostasis was assured. The left axillary vein was accessed at 2 points under fluoroscopy and via appropriately-sized introducer sheaths 2 leads were positioned in the right heart. The atrial lead was a [employer]onic model #5076, 45 cm cm in length and serial number [id number]. P waves were between 1 and 1.5 mV, pacing impedance 945 ohms, pacing threshold 0.9 V at 0.5 milliseconds, 10 V test negative. The lead was stable with deep inspiration and coughing. The RV lead was a Medtronic model #5076, 58 cm length, serial number [id number]. R- waves 5.2, mV pacing impedance 708 ohms, pacing threshold 0.4 V at 0.5 milliseconds, 0 V test negative. Both leads were secured to the underlying pectoralis fascia. The RV lead was positioned in the mid RV septum. Both leads were secured to the underlying pectoralis fascia using 2 nonabsorbable sutures. Pocket was irrigated with antibiotic solution. Leads were connected to the generator. ([employer] [place] SDR MRI, model number X2HRC08, serial number [id number]). The leads and the generator were then placed in the subfascial pocket. The wound was closed in 3 layers and dressed per protocol. The leads and generator were then placed in subfascial pocket and the wound was closed in 3 layers and dressed per protocol. RESULTS: Successful dual chamber pacemaker implantation for symptomatic sick sinus syndrome, tachy-marcello syndrome, history of atrial fibrillation with RVR, status post electrical cardioversion. PLAN: Restart beta blockers. Restart Xarelto and follow with Dr. Nair. JONATHAN / STEPHEN: [id number] /
[2017-08-20] MEDS: CLINDAMYCIN 900 MG in DEXTROSE 5% IN WATER 50 ML IVPB SCH ×2 (22:15)
[2017-08-20] MEDS: ZOLPIDEM 10 MG TAB PO PRN (22:15)
[2017-08-21] MEDS: NITROGLYCERIN OINT 1 INCH/GM PACKET TOPICAL SCH ×5 (00:13→22:37)
[2017-08-21] MEDS: CLINDAMYCIN 900 MG in DEXTROSE 5% IN WATER 50 ML IVPB SCH ×6 (05:11→16:40)
[2017-08-21] MEDS: HYDROcodone/APAP 10-325MG 1 EACH TAB PO PRN ×2 (07:00→15:05)
--- NOTE | 2017-08-21 08:36 | XR ---
EXAMINATION TYPE: XR chest 2V DATE OF EXAM: 08/21/2017 COMPARISON: Prior chest x-ray 08/17/2017 HISTORY: Lead placement check TECHNIQUE: Frontal and lateral views of the chest are obtained. FINDINGS: Prominent lung volumes may be indicative of underlying COPD. There is been interval placem ent of a generator in the left pectoral region, leads are present in the right atrium and ventricle. No evident pneumothorax or pleural effusion. Cardiac mediastinal silhouette, pulmonary vascularity an d elida are stable. Patchy basilar density noted on the right. There are overlying cardiac leads. IMPRESSION: No evident complication status post pacemaker placement. Right lower lobe atelectasis.
[2017-08-21] MEDS: ASPIRIN 81 MG PO SCH (09:49)
--- NOTE | 2017-08-21 13:24 | P.DS ---
Providers Date of admission: 08/17/17 11:41 Expected date of discharge: 08/21/17 Attending physician: Fritz Guy Consults: 08/17/17 11:41 Consult Physician Urgent Consulting Provider: Christoph Nair Consult Reason/Comments: cp, bradycardia Do you want consulting provider notified?: Yes Primary care physician: Fritz Guy [facility] Course: 72 year old male presented to [facility] from PCP Dr Fritz Guy with complaints of chest pain and fatigue. Decision was made to insert pacemaker for symptomatic bradycardia.Chest pain deemed muscular skeletal.Pacemaker waas inserted.May be discharged after last dose of clindamyacin. assessment chest pain atypical symptomatic bradycardia with pacemaker insertion atrial fib enlarged rt ventricle hx diverticulosis hyperlipidemia COPD Plan Follow up with cardiology and PCP Dr Fritz Guy Plan - Discharge Summary Discharge Rx Participant: No New Discharge Prescriptions: New Aspirin 81 mg PO DAILY chew Continue Cholecalciferol [Vitamin D3] 1,000 unit PO HS Glucosamine Sulfate 500 mg PO HS Pravastatin Sodium [Pravachol] 40 mg PO HS Tamsulosin HCl [Flomax] 0.8 mg PO HS Rivaroxaban [Xarelto] 20 mg PO HS Nadolol [Corgard] 10 mg PO HS Zolpidem Tartrate [Ambien Cr] 12.5 mg PO HS PRN PRN Reason: Insomnia Hydrocodone/Acetaminophen [Hydrocodon-Acetaminophn 10-325] 1 each PO Q6H PRN PRN Reason: Pain Discharge Medication List Cholecalciferol [Vitamin D3] 1,000 unit PO HS 05/23/17 [History] Glucosamine Sulfate 500 mg PO HS 05/23/17 [History] Pravastatin Sodium [Pravachol] 40 mg PO HS 05/23/17 [History] Tamsulosin HCl [Flomax] 0.8 mg PO HS 05/29/17 [History] Hydrocodone/Acetaminophen [Hydrocodon-Acetaminophn 10-325] 1 each PO Q6H PRN 03/26 [History] Nadolol [Corgard] 10 mg PO HS 08/17/17 [History] Rivaroxaban [Xarelto] 20 mg PO HS 08/17/17 [History] Zolpidem Tartrate [Ambien Cr] 12.5 mg PO HS PRN 08/17/17 [History] Aspirin 81 mg PO DAILY chew 08/21/17 [Rx] Follow up Appointment(s)/Referral(s): Fritz Guy MD [Primary Care Provider] - 08/28/17 10:30 am (sunday) Christoph Nair MD [STAFF PHYSICIAN] - 1 Week Patient Instructions/Handouts: Chest Pain (DC), Bradycardia (DC) Activity/Diet/Wound Care/Special Instructions: PATIENT EDUCATION MATERIAL Instructions following a heart rhythm device implant. 1. Keep dressing DRY for 5 DAYS. You may cover the area with Saran or Cling Wrap, prior to a shower. 2. The dressing will be removed in the Device Clinic @ [facility]. Absorbable sutures were used to close the wound. 3. Avoid raising the [left] arm above the shoulder level. [4 week restriction] 4. Avoid arm movements, like backscratching, rubbing the head, or pulling on a cord. (4 weeks restriction) 5. Gentle range of motion movements of the shoulder, closest to the incision should be performed to avoid a frozen shoulder. (Pendulum exercises of the shoulder) 6. The opposite arm may be used freely. 7. Avoid driving for 7 days. 8. Avoid activities such as golfing, swimming, weed whacking, lifting more than 10 pounds weight, bowling, gymnastics and weight training/lifting. (6 weeks restriction) 9. Activities such as wood chopping with an axe, pull-ups in the gymnasium, power lifting, arc-welding, being close to home induction cooktops will always be a problem. 10. Arm sling is a mere reminder not to raise the arm above the head. However you do not need to keep the arm completely immobilized. Your free to move the arm and use it and for normal activities. In case of any problems, please call [facility], [place], @ [phone], Attention: Device Clinic Discharge Disposition: HOME SELF-CARE
--- NOTE | 2017-08-21 14:57 | P.PN ---
Subjective Progress Note Date: 08/21/17 This is a pleasant 72-year-old gentleman who follows with Dr. Nair in the office. He has a history of symptomatic atrial fibrillation, status post CARON and cardioversion last month and subsequently developed symptomatic bradycardia while on very low dose beta blockers. He is scheduled on August 27 to undergo permanent pacemaker implantation by Dr. Mckeno. Presented to his primary care physician for preoperative blood draw and was complaining of some intermittent left-sided chest discomfort and left arm pain and weakness. The pain seems to be positional as he noticed that when he raised his arms for chest x-ray and while lifting his 5 pound dog as well as turning to his left side in bed. EKG on admission showed sinus bradycardia with a right bundle branch block and PVCs, similar to previous. Heart rates are maintaining between the high 30s to 50. His nadolol 10 mg is on hold. Troponins have been negative 3. Chest x-ray on admission showed right basilar atelectasis or scar. Echocardiogram from prior admission in June 2017 showed LV systolic function to be low normal with an ejection fraction between 50-55%, moderate to severely enlarged RV, severely dilated LA, mildly enlarged RA, mild aortic valve sclerosis, mild mitral regurgitation, mild tricuspid regurgitation with no evidence of pulmonary hypertension. Upon examination, patient is resting in bed. He reports overall not feeling well but has not been feeling well since initial episode of atrial fibrillation. He continues to complain of intermittent left-sided chest discomfort, lasting about 4 or 5 minutes, some radiation to the interscapular area and radiation to his left bicep area. Currently pain-free. 08/21/2017 Patient underwent implantation of a permanent pacemaker for symptomatic bradycardia. Seen and examined this morning, device was interrogated and is functioning appropriately. Chest x-ray was reviewed and does not reveal any evidence of pneumothorax. Patient had some symptoms of mild dizziness and lightheadedness when he was up to the bathroom, he states that he has had these symptoms previously when he was on an antibiotic and refuses to take the antibiotic any further. The IV antibiotic was stopped, and within a few minutes patient states his symptoms resolved. Therefore he does attribute symptoms to that. He is otherwise hemodynamically stable. Objective - Vital Signs Vital signs: Vital Signs Temp 97.8 F 08/21/17 11:19 Pulse 54 L 08/21/17 11:19 Resp 16 08/21/17 11:19 BP 108/67 08/21/17 11:19 Pulse Ox 94 L 08/21/17 11:19 Intake & Output 08/20/17 08/21/17 08/21/17 18:59 06:59 18:59 Intake Total 431 400 960 Output Total 250 Balance 431 150 960 Weight 75.3 kg 75.4 kg Intake: IV 181 Intake, IV Titration 400 240 Amount ACETAMINOPHEN IV (For NPO 400 ) 1,000 mg In Empty Bag 1 bag @ 400 mls/hr IVPB ONCE ONE Rx#:[id number] Clindamycin 900 mg In 100 Dextrose 5% in Water 50 ml @ 100 mls/hr IVPB Q6H [facility] Rx#:[id number] Sodium Chloride 0.9% 1, 140 000 ml @ 20 mls/hr IV . Q24H [facility] Rx#:[id number] Oral 250 720 Output: Urine 250 Other: Voiding Method Toilet Toilet Urinal Urinal # Voids 3 1 - Exam PHYSICAL EXAMINATION: HEENT: Head is atraumatic, normocephalic. Pupils equal, round. Neck is supple. There is no elevated jugular venous pressure. HEART EXAMINATION: Heart S1, S2 normal. No murmur or gallop heard. Site of pacemaker implantation dressing dry and intact. CHEST EXAMINATION: Lungs are clear to auscultation and precussion. No chest wall tenderness is noted on palpation or with deep breathing. ABDOMEN: Soft, nontender. Bowel sounds are heard. No organomegaly noted. EXTREMITIES: 2+ peripheral pulses with no evidence of peripheral edema and no calf tenderness noted. NEUROLOGIC patient is awake, alert and oriented -3. . - Labs CBC & Chem 7: 08/17/17 10:24 08/17/17 10:24 Labs: Abnormal Lab Results - Last 24 Hours (Table) 08/17/17 Range/Units 10:24 Hemoglobin A1c 6.3 H (4.0-6.0) % Assessment and Plan Plan: Assessment: #1 symptoms of atypical chest pain with negative troponins and no evidence of EKG changes, likely musculoskeletal in origin #2 symptomatic bradycardia, status post implantation of a permanent pacemaker yesterday #3 persistent atrial fibrillation, status post cardioversion, maintaining sinus rhythm Plan I will discuss with Dr. Mckeon regarding use of antibiotic as the patient is refusing to take the Cleocin, and is ALLERGIC to Keflex. Continue Other medications. Plan for discharge home once patient has received adequate antibiotic coverage. DNP note has been reviewed, I agree with a documented findings and plan of care. Patient was seen and examined.
--- NOTE | 2017-08-21 15:10 | P.PN ---
Progress Note - Text Progress Note Date: 08/21/17 This is an addendum to the cardiology progress note dictated today. I spoke with Dr. Mckeon regarding the fact the patient refuses to take current antibiotic because he may be having a reaction. Dr. Mckeon stated to hold the last antibiotic based on this, he may be able to be discharged home tomorrow if stable. DNP note has been reviewed, I agree with a documented findings and plan of care. Patient was seen and examined.
[2017-08-21] MEDS: RIVAROXABAN 10 MG TAB PO SCH (17:43)
[2017-08-21] MEDS: NADOLOL 20 MG TAB PO SCH (21:52)
[2017-08-21] MEDS: PRAVASTATIN SODIUM 40 MG TAB PO SCH (21:53)
[2017-08-21] MEDS: TAMSULOSIN 0.4 MG CAP.ER.24H PO SCH (21:54)
[2017-08-21] MEDS: ZOLPIDEM 10 MG TAB PO PRN (21:59)
[2017-08-22] MEDS: NITROGLYCERIN OINT 1 INCH/GM PACKET TOPICAL SCH (06:30)
[2017-08-22] MEDS: ASPIRIN 81 MG PO SCH (07:45)
[2017-08-22] MEDS: HYDROcodone/APAP 10-325MG 1 EACH TAB PO PRN (07:58)
[2017-08-22 09:06] VITALS: RESP 16; TEMP 97.1
[2017-08-22] MEDS: SODIUM CHLORIDE 0.9% 1,000 ML IV SCH (09:45)
--- NOTE | 2017-08-22 11:04 | P.PN ---
Progress Note - Text Discussed case with cardiology cleared for discharge. No evidence of ALLERGIC reaction to clindamycin
[2017-08-22 11:47] VITALS: BP 138/87
[2017-08-22 12:49] VITALS: PULSE 51
--- NOTE | 2017-08-22 15:58 | P.PN ---
Subjective Progress Note Date: 08/22/17 This is a pleasant 72-year-old gentleman who follows with Dr. Nair in the office. He has a history of symptomatic atrial fibrillation, status post CARON and cardioversion last month and subsequently developed symptomatic bradycardia while on very low dose beta blockers. He is scheduled on August 27 to undergo permanent pacemaker implantation by Dr. Mckeon. Presented to his primary care physician for preoperative blood draw and was complaining of some intermittent left-sided chest discomfort and left arm pain and weakness. The pain seems to be positional as he noticed that when he raised his arms for chest x-ray and while lifting his 5 pound dog as well as turning to his left side in bed. EKG on admission showed sinus bradycardia with a right bundle branch block and PVCs, similar to previous. Heart rates are maintaining between the high 30s to 50. His nadolol 10 mg is on hold. Troponins have been negative 3. Chest x-ray on admission showed right basilar atelectasis or scar. Echocardiogram from prior admission in June 2017 showed LV systolic function to be low normal with an ejection fraction between 50-55%, moderate to severely enlarged RV, severely dilated LA, mildly enlarged RA, mild aortic valve sclerosis, mild mitral regurgitation, mild tricuspid regurgitation with no evidence of pulmonary hypertension. Upon examination, patient is resting in bed. He reports overall not feeling well but has not been feeling well since initial episode of atrial fibrillation. He continues to complain of intermittent left-sided chest discomfort, lasting about 4 or 5 minutes, some radiation to the interscapular area and radiation to his left bicep area. Currently pain-free. 08/21/2017 Patient underwent implantation of a permanent pacemaker for symptomatic bradycardia. Seen and examined this morning, device was interrogated and is functioning appropriately. Chest x-ray was reviewed and does not reveal any evidence of pneumothorax. Patient had some symptoms of mild dizziness and lightheadedness when he was up to the bathroom, he states that he has had these symptoms previously when he was on an antibiotic and refuses to take the antibiotic any further. The IV antibiotic was stopped, and within a few minutes patient states his symptoms resolved. Therefore he does attribute symptoms to that. He is otherwise hemodynamically stable. 08/22/2017 Patient seen and examined this morning, denies any palpitations, no shortness of breath, no dizziness or lightheadedness. He's been up ambulating without any difficulty. Hemodynamically stable. Objective - Vital Signs Vital signs: Vital Signs Temp 97.1 F L 08/22/17 11:05 Pulse 51 L 08/22/17 11:46 Resp 16 08/22/17 11:05 BP 138/87 08/22/17 11:46 Pulse Ox 91 L 08/22/17 08:30 Intake & Output 08/21/17 08/22/17 08/22/17 18:59 06:59 18:59 Intake Total 1182 200 440 Output Total 200 Balance 1182 0 440 Weight 75.1 kg Intake: Intake, IV Titration 240 0 Amount Clindamycin 900 mg In 100 Dextrose 5% in Water 50 ml @ 100 mls/hr IVPB Q6H [facility] Rx#:[id number] Sodium Chloride 0.9% 1, 140 0 000 ml @ 20 mls/hr IV . Q24H [facility] Rx#:[id number] Oral 942 200 440 Output: Urine 200 Other: Voiding Method Toilet Toilet Toilet Urinal Urinal # Voids 1 - Exam PHYSICAL EXAMINATION: HEENT: Head is atraumatic, normocephalic. Pupils equal, round. Neck is supple. There is no elevated jugular venous pressure. HEART EXAMINATION: Heart S1, S2 normal. No murmur or gallop heard. Site of pacemaker implantation dressing dry and intact. CHEST EXAMINATION: Lungs are clear to auscultation and precussion. No chest wall tenderness is noted on palpation or with deep breathing. ABDOMEN: Soft, nontender. Bowel sounds are heard. No organomegaly noted. EXTREMITIES: 2+ peripheral pulses with no evidence of peripheral edema and no calf tenderness noted. NEUROLOGIC patient is awake, alert and oriented -3. . - Labs CBC & Chem 7: 08/17/17 10:24 08/17/17 10:24 Assessment and Plan Plan: Assessment: #1 symptoms of atypical chest pain with negative troponins and no evidence of EKG changes, likely musculoskeletal in origin #2 symptomatic bradycardia, status post implantation of a permanent pacemaker yesterday #3 persistent atrial fibrillation, status post cardioversion, maintaining sinus rhythm Plan Patient may be discharged home today from cardiology's perspective, we'll make an appointment in the office as well as a device clinic in one week. DNP note has been reviewed, I agree with a documented findings and plan of care. Patient was seen and examined.
--- NOTE | 2017-08-28 16:16 | CDI ---
Last Revision, June 2017 Documentation Clarification Form Date: 08/28/2017 4:01:00 PM From: Lisette Browne Phone: If you have a question regarding this query, please contact Ariana [facility] Emergency Services Professional at [phone] between 8am and 5pm. Admit Date: 08/17/2017 11:41:00 AM Patient Name: Hossein George Visit Number: [id number] Discharge Date: ATTENTION: The Clinical Documentation Specialists (CDI) and [facility] Coding Staff appreciate your assistance in clarifying documentation. Please respond to the clarification below the line at the bottom and electronically sign. The CDI & [facility] Coding staff will review the response and follow-up if needed. Please note: Queries are made part of the Legal Health Record. If you have any questions, please contact the author of this message via ITS. Dr. Fritz Guy Conflicting documentation has been found in the medical record. Documentation in Dr. Montoya's progress notes states symptomatic bracycardia. Documentation in Dr. oLpez's H&P also states sinus bradycardia. Gemma Singh also documented symptomatic bradycardia in the discharge summary and in her progress notes. Dr. Mckeon gave a diagnosis of symptomatic sick sinus syndrome in the procedure note for the pacemaker implantation. History/Risk Factors: Patient has a history of persistent atrial fibrillation with a recent history of cardioversion. The patient was scheduled to get a pacemaker placement on August 27. He also has a history of CAD. Clinical Indicators: Pulse running in the 40s on the day of admission. Treatment: Placement of dual chamber pacemaker. In your opinion what is the most clinically appropriate diagnosis for this patient? Bradycardia Sick Sinus Syndrome Other explanation of clinical findings Unable to determine (no explanation for clinical findings) Please continue to document in your progress notes and discharge summary in order to capture severity of illness and risk of mortality. Include clinical findings that support your diagnosis. MTDD
--- NOTE | 2017-09-04 10:17 | P.PN ---
Progress Note - Text Addendum Clarification of bradycardia Symptomatic bradycardia secondary to sick sinus syndrome Post pacemaker placement
== END 2017-08-22 12:50 | disposition home or self-care (01) | DRG 243 ==
LOC: EC 10:07 → 3OBS 11:41 → OBSVTOIN 11:41 → 6SEL 12:17
PROVIDERS: ADMIT Family Medicine; ATTEND Family Medicine
PROC: 02H63JZ Insertion of Pacemaker Lead into Right Atrium, Percutaneous Approach (ICD-10-PCS; 2017-08-20)
PROC: 02HK3JZ Insertion of Pacemaker Lead into Right Ventricle, Percutaneous Approach (ICD-10-PCS; 2017-08-20)
PROC: 0JH606Z Insertion of Pacemaker, Dual Chamber into Chest Subcutaneous Tissue and Fascia, Open Approach (ICD-10-PCS; principal; 2017-08-20 16:46)
DX: I49.5 Sick sinus syndrome (principal); J98.11 Atelectasis; I48.1 Persistent atrial fibrillation; I08.3 Combined rheumatic disorders of mitral, aortic and tricuspid valves; I45.10 Unspecified right bundle-branch block; I48.0 Paroxysmal atrial fibrillation; J44.9 Chronic obstructive pulmonary disease, unspecified; R07.89 Other chest pain; E78.1 Pure hyperglyceridemia; E78.5 Hyperlipidemia, unspecified; I25.10 Atherosclerotic heart disease of native coronary artery without angina pectoris; K57.90 Diverticulosis of intestine, part unspecified, without perforation or abscess without bleeding; G89.29 Other chronic pain; M54.9 Dorsalgia, unspecified; K59.09 Other constipation; I51.7 Cardiomegaly; Z79.01 Long term (current) use of anticoagulants; Z79.899 Other long term (current) drug therapy; Z87.891 Personal history of nicotine dependence; Z88.1 Allergy status to other antibiotic agents; Z82.49 Family history of ischemic heart disease and other diseases of the circulatory system
CPT/HCPCS: 33208; 36415; 71046; 80053; 80061; 82550; 82553; 83036; 83735; 84484; 85025; 85610; 85730; 93005; 99285

== ENCOUNTER 2017-09-10 06:25 | Day surgery (SDC) | payer MEDICARE, BC ==
[2017-09-05 14:48] VITALS: BMI 24.0
[~2017-09-10 06:25] MED LIST: ALPRAZolam 0.25 MG TAB PO PRN; ASPIRIN 325 MG TAB PO ONE; SODIUM CHLORIDE 0.9% 1,000 ML in EMPTY BAG 1 BAG IV ONE
[2017-09-10] MEDS ORDERED: ASPIRIN 81 MG ONE (06:46)
[2017-09-10] MEDS ORDERED: LIDOCAINE 2% INJ 20 MG/ML (20 ML MDV) ONE (07:10)
[2017-09-10] MEDS ORDERED: MIDAZOLAM 2 MG/2 ML VIAL ONE ×2 (07:10→07:46)
[2017-09-10] MEDS ORDERED: MIDAZOLAM 2 MG/2 ML VIAL IVP ONE (07:40)
[2017-09-10] MEDS ORDERED: LIDOCAINE 2% INJ 20 MG/ML SQ ONE ×2 (07:45→07:46)
[2017-09-10] MEDS: VERAPAMIL SYRINGE (5 MG/10 ML) INTRAARTER ONE ×2 (07:46→08:29)
[2017-09-10] MEDS: MIDAZOLAM 2 MG/2 ML VIAL IVP ONE ×2 (07:47→08:09)
[2017-09-10] MEDS ORDERED: CLOPIDOGREL 75 MG TAB ONE ×2 (08:07)
[2017-09-10] MEDS ORDERED: CLOPIDOGREL 75 MG TAB PO ONE (08:10)
[2017-09-10] MEDS ORDERED: HEPARIN SODIUM 1,000 UN/ML (10ML VL) ONE ×2 (08:11→08:30)
[2017-09-10] MEDS ORDERED: NITROGLYCERIN 1000MCG/10ML SYRINGE INTRACORON ONE (08:24)
[2017-09-10] MEDS ORDERED: IOHEXOL INJ ONE (08:28)
[2017-09-10] MEDS ORDERED: IOHEXOL 350 MG/ML 125ML BOTTLE INJ ONE (08:28)
[2017-09-10] MEDS ORDERED: ZOLPIDEM 10 MG TAB PO PRN (08:32)
[2017-09-10] MEDS ORDERED: NITROGLYCERIN SL TABS 0.4 MG TAB SUBLINGUAL PRN (08:33)
[2017-09-10] MEDS ORDERED: MAG HYDROX/AL HYDROX/SIMETH 30 ML CUP PO PRN (08:33)
[2017-09-10] MEDS ORDERED: RX INFO: IV CONTRAST WAS GIVEN 1 EACH MISC MISCELLANE PRN (08:33)
[2017-09-10] MEDS ORDERED: ZOLPIDEM 5 MG TAB PO PRN (08:33)
[2017-09-10] MEDS ORDERED: ATROPINE SULFATE 0.1 MG/ML 10ML SYRINGE IV PRN (08:33)
[2017-09-10] MEDS ORDERED: SODIUM CHLORIDE 0.9% 1,000 ML IV SCH (08:45)
[2017-09-10] MEDS ORDERED: ASPIRIN 325 MG TAB PO SCH (09:00)
--- NOTE | 2017-09-10 09:38 | LTR ---
September 10, 2017 Re: Hossein George Dear. Dr. Guy: Mr. Hossein George underwent a heart catheterization and underwent successful stenting of the LAD with good angiographic results and without any complication. I want to thank you for allowing me to participate in his care and please do not hesitate to call if you have any question or concern. Sincerely, MD ELLE RainesL / CORBINN: [id number] /
--- NOTE | 2017-09-10 09:38 | CC ---
CARDIAC CATHETERIZATION REPORT DATE OF SERVICE: 09/10/2017 PERFORMING PHYSICIAN: Christoph Nair MD, [employer]. PROCEDURE PERFORMED: 1. Selective right and left coronary angiogram. 2. Left heart catheterization. 3. Successful stenting of the mid LAD using 2.75 x 16 mm Promus Premier drug-eluting stent with good angiographic results. INDICATION: This is a pleasant 72-year-old gentleman who continues to be not feeling well and having low energy. I was concerned about severe underlying CAD and for that reason, he was brought today to undergo a heart catheterization. APPROACH: Right radial artery. COMPLICATION: None. LEVEL OF SEDATION: Moderate sedation length of 45 minutes. PROCEDURE DESCRIPTION: After obtaining an informed consent, the patient was brought to the [facility] [employer]. The right radial artery was cannulated using micropuncture technique and a micropuncture wire passed easily, then I placed a 6-Indonesian sheath in the right radial artery. After that, I did give the patient 2 mg of verapamil IA and 8000 units of heparin IV. Additional 2000 units of heparin were given during the procedure. After that, I did selective right and left coronary angiogram using JR4 and JL3.5 catheters. I did also use JL3 to get to the LAD. After that, I did left heart catheterization using the JR4 which flipped into the LV then I did pullback across aortic valve. After that, I did intervene on the LAD, please see a separate paragraph for that. SELECTIVE CORONARY ANGIOGRAM: 1. The RCA is a large caliber vessel and it is a codominant vessel. The RCA appeared to be angiographically normal. 2. The left main does not exist. There is separate ostial of the left circumflex and LAD. 3. The left circumflex is a large caliber vessel. It is a codominant vessel with the left circumflex is angiographically normal. In the proximal portion gives rise into a medium size first OM branch. In the midportion, gives rise into two, a second and third OM branches. Distally bifurcates into PDA and PLV branches both are angiographically normal. 4. The left anterior descending artery, the proximal LAD appeared to be angiographically normal. The mid LAD has a lesion appeared to be in the range of 70%, seems to be eccentric. The LAD distally appeared to be angiographically normal. HEMODYNAMICS: The left ventricular end-diastolic pressure was 12 mmHg and no gradient was identified across the aortic valve. PCI of the LAD anticoagulation was initiated using Angiomax. Subsequently, I took JL3 guide and the LAD was engaged. A whisper wire was used to wire the LAD. After that, I did PTCA ballooning using 2.5 x 12 mm balloon, then I deployed 2.75 x 15 mm Promus KERA where the stent was positioned under fluoroscopic guidance and deployed under 16 atmospheres for 20 seconds with the following angiogram showing excellent angiographic results. The procedure was completed without any complication. CONCLUSION: 1. Calcified left coronary system. 2. Separate ostial between the left circumflex and left anterior descending artery with non-existing left main coronary artery. 3. Severe disease involving the mid left anterior descending artery. 4. Successful stenting of the left anterior descending artery as described above. POSTPROCEDURE MANAGEMENT: 1. Maximize medical treatment. 2. Follow up with the patient. JONATHAN / CORBINN: [id number] /
[2017-09-10] MEDS: HYDROcodone/APAP 10-325MG 1 EACH TAB PO PRN (15:29)
[2017-09-10] MEDS ORDERED: RIVAROXABAN 20 MG TAB PO SCH (19:45)
[2017-09-10] MEDS ORDERED: CHOLECALCIFEROL 1,000 UNIT TAB PO SCH (21:00)
[2017-09-10] MEDS ORDERED: PRAVASTATIN SODIUM 40 MG TAB PO SCH (21:00)
[2017-09-10] MEDS ORDERED: NON-FORMULARY DRUG (Glucosamine Sulfate 500 MG) PO SCH (21:00)
[2017-09-10] MEDS ORDERED: ATORVASTATIN 80 MG TAB PO SCH (21:00)
[2017-09-10] MEDS ORDERED: TAMSULOSIN 0.4 MG CAP.ER.24H PO SCH (21:00)
[2017-09-10] MEDS ORDERED: NADOLOL 20 MG TAB PO SCH (21:00)
[2017-09-11 01:06] VITALS: RESP 16
[2017-09-11] MEDS: HYDROcodone/APAP 10-325MG 1 EACH TAB PO PRN (06:22)
[2017-09-11 06:37] LABS: Basophils % (A) 1 %; Eosinophils # (A) 0.2 k/uL (0-0.7); Eosinophils % (A) 3 %; HGB 13.9 gm/dL (13.0-17.5); Lymphocytes % (A) 26 %; MCH 31.9 pg (25.0-35.0); MCHC 34.7 g/dL (31.0-37.0); MCV 91.8 fL (80.0-100.0); Mean Platelet Volume 6.9; Monocytes # (A) 0.4 k/uL (0-1.0); Monocytes % (A) 5 %; Neutrophils % (A) 64 %; Platelet Count 193 k/uL (150-450); RBC 4.36 m/uL (4.30-5.90); RDW 13.1 % (11.5-15.5); WBC 7.7 k/uL (3.8-10.6)
[2017-09-11 06:49] LABS: Anion Gap 6 mmol/L; Blood Urea Nitrogen 19 mg/dL (9-20); Calcium 9.5 mg/dL (8.4-10.2); Carbon Dioxide 29 mmol/L (22-30); Chloride 104 mmol/L (98-107); Glucose 88 mg/dL (74-99); Potassium 4.4 mmol/L (3.5-5.1); Sodium 139 mmol/L (137-145)
[2017-09-11 07:58] VITALS: BP 114/60; PULSE 54; TEMP 98
[2017-09-11] MEDS ORDERED: CLOPIDOGREL 75 MG TAB PO SCH (09:00)
[2017-09-11] MEDS ORDERED: ASPIRIN 81 MG PO SCH (09:00)
--- NOTE | 2017-09-11 09:44 | DS ---
DISCHARGE SUMMARY ADMISSION DATE: 09/10/2017. DISCHARGE DATE: 09/10/2017 BRIEF HISTORY: This is a pleasant 72-year-old gentleman who was not feeling well. He was feeling tired and fatigued and short of breath. A heart catheterization was recommended. The patient underwent a heart catheterization yesterday and that revealed severe disease involving the mid LAD where he underwent successful stenting of the LAD with good angiographic results and without any complication. He is going to be discharged today on Xarelto at 15 mg p.o. daily along with Plavix and without any aspirin. I will follow up with the patient next week in the office. MMODL / IJN: [id number] /
== END 2017-09-11 10:12 | disposition home or self-care (01) ==
LOC: CATHCVL 06:25 → 6SEL 08:27 → CATHCVL 09-11 10:12
PROVIDERS: ATTEND Internal Medicine Interventional Cardiology
DX: I25.110 Atherosclerotic heart disease of native coronary artery with unstable angina pectoris (principal); I25.84 Coronary atherosclerosis due to calcified coronary lesion; R00.1 Bradycardia, unspecified; I10 Essential (primary) hypertension; Z87.891 Personal history of nicotine dependence; E78.5 Hyperlipidemia, unspecified; I48.0 Paroxysmal atrial fibrillation; Z79.01 Long term (current) use of anticoagulants; Z79.82 Long term (current) use of aspirin; Z79.899 Other long term (current) drug therapy; Z88.1 Allergy status to other antibiotic agents
CPT/HCPCS: 93458; 80048; 85025; C9600; C1769; C1887; C1725; C1894; C1874; J2001; J2250; Q9967 ×2; J1644

== ENCOUNTER → 2017-10-17 | Outpatient (CLI) | payer MEDICARE, BC ==
[2017-10-17 12:37] LABS: Basophils % (A) 0 %; Eosinophils # (A) 0.2 k/uL (0-0.7); Eosinophils % (A) 2 %; HCT 42.6 % (39.0-53.0); HGB 14.3 gm/dL (13.0-17.5); Lymphocytes # (A) 1.7 k/uL (1.0-4.8); Lymphocytes % (A) 21 %; MCH 31.1 pg (25.0-35.0); MCHC 33.7 g/dL (31.0-37.0); MCV 92.5 fL (80.0-100.0); Mean Platelet Volume 6.8; Monocytes # (A) 0.4 k/uL (0-1.0); Monocytes % (A) 4 %; Neutrophils # (A) 5.7 k/uL (1.3-7.7); Neutrophils % (A) 70 %; Platelet Count 203 k/uL (150-450); RBC 4.61 m/uL (4.30-5.90); RDW 12.7 % (11.5-15.5); WBC 8.2 k/uL (3.8-10.6)
[2017-10-17 13:00] LABS: ALT 29 U/L (21-72); AST 21 U/L (17-59); Albumin 4.2 g/dL (3.5-5.0); Alkaline Phosphatase 67 U/L (38-126); Anion Gap 13 mmol/L; Blood Urea Nitrogen 15 mg/dL (9-20); C Reactive Protein 6.8 mg/L (<10.0); Carbon Dioxide 29 mmol/L (22-30); Chloride 102 mmol/L (98-107); Glucose 101 mg/dL (74-99); Potassium 4.3 mmol/L (3.5-5.1); Sodium 144 mmol/L (137-145); Total Bilirubin 0.5 mg/dL (0.2-1.3); Total Protein 6.9 g/dL (6.3-8.2)
[2017-10-17 14:01] LABS: Erythrocyte Sedimentation Rate 17 mm/hr (0-15)
[2017-10-17 16:39] LABS: Hepatitis A Antibody IgM Non-Reactive (Non-Reactive); Hepatitis B Core IgM Non-Reactive (Non-Reactive)
== END | disposition home or self-care (01) ==
LOC: LABWHC1 11:54
PROVIDERS: ATTEND Internal Medicine Infectious Disease
DX: M46.23 Osteomyelitis of vertebra, cervicothoracic region (principal); R53.83 Other fatigue
CPT/HCPCS: 36415; 80053; 80074; 84443; 85025; 85652; 86140

== ENCOUNTER 2018-03-05 14:28 | Inpatient (IN) | payer MEDICARE, BC ==
[2018-03-05] MEDS ORDERED: SODIUM CHLORIDE 0.9% 1,000 ML IV STA (14:55)
[2018-03-05] MEDS ORDERED: SODIUM CHLORIDE 0.9% 500 ML IV STA (14:55)
--- NOTE | 2018-03-05 14:57 | ED ---
Chest Pain HPI - General Chief Complaint: Chest Pain Stated Complaint: chest pain Time Seen by Provider: 03/05/18 14:41 Source: patient, family, RN notes reviewed Mode of arrival: wheelchair Limitations: no limitations - History of Present Illness Initial Comments: This is a 73-year-old male who presents with complaints of chest pain, generalized weakness and progressive decline in his health. Apparently went to get up this morning and passed out briefly he felt lightheaded. His him some nonspecific chest discomfort. He apparently had a declining since April of last year. He developed a colon infection was placed on antibiotics was started. Atrial fibrillation heater for ablation. His been evaluated. He had a cardiac stent and pacemaker. He states he's had decreased oral intake and appetite. No overt fevers chills or sweats no dysuria. MD Complaint: chest pain, other - Related Data Home Medications Medication Instructions Recorded Confirmed Cholecalciferol [Vitamin D3] 1,000 unit PO HS 05/23/17 03/05/18 Glucosamine Sulfate 500 mg PO HS 05/23/17 03/05/18 Pravastatin Sodium [Pravachol] 40 mg PO HS 05/23/17 03/05/18 Tamsulosin HCl [Flomax] 0.8 mg PO HS 05/29/17 03/05/18 Hydrocodone/Acetaminophen 1 each PO Q6H PRN 08/17/17 03/05/18 [Hydrocodon-Acetaminophn 10-325] Nadolol [Corgard] 10 mg PO DAILY 08/17/17 03/05/18 Aspirin [Adult Low Dose Aspirin EC] 81 mg PO DAILY 03/05/18 03/05/18 Psyllium Husk (with Sugar) 6 gm PO DAILY 03/05/18 03/05/18 [Metamucil Powder] Rivaroxaban [Xarelto] 20 mg PO DAILY 03/05/18 03/05/18 Zolpidem Tartrate [Ambien] 10 mg PO HS PRN 03/05/18 03/05/18 Allergies Allergy/AdvReac Type Severity Reaction Status Date / Time clindamycin Allergy Severe Rapid Verified 03/05/18 15:18 Heart Rate cefuroxime Allergy Intermediate Rapid Verified 03/05/18 15:18 Heart Rate ciprofloxacin [From Cipro] Allergy Unknown Verified 03/05/18 15:18 metronidazole Allergy Anaphylaxis Verified 03/05/18 15:18 Review of Systems ROS Statement: Those systems with pertinent positive or pertinent negative responses have been documented in the HPI. ROS Other: All systems not noted in ROS Statement are negative. 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) Past Medical History Past Medical History: Atrial Fibrillation, COPD, Hyperlipidemia Additional Past Medical History / Comment(s): chronic back pain, diverticulosis, History of Any Multi-Drug Resistant Organisms: None Reported Past Surgical History: Orthopedic Surgery Additional Past Surgical History / Comment(s): cardioversion,mateus rt knee/lower leg sx has 3 screws, colonoscopy, "bone aspiration" Past Anesthesia/Blood Transfusion Reactions: No Reported Reaction Past Psychological History: No Psychological Hx Reported Smoking Status: Current every day smoker Past Alcohol Use History: None Reported Past Drug Use History: None Reported - Past Family History Father Family Medical History: Coronary Artery Disease (CAD) Mother History Unknown: Yes General Exam - General Exam Comments Initial Comments: This is a well-developed well-nourished awake alert oriented 3 male General appearance: alert, lethargic Head exam: Present: atraumatic, normocephalic, normal inspection Eye exam: Present: normal appearance, PERRL, EOMI. Absent: scleral icterus, conjunctival injection, periorbital swelling ENT exam: Present: mucous membranes dry Neck exam: Present: normal inspection. Absent: tenderness, meningismus, lymphadenopathy Respiratory exam: Present: normal lung sounds bilaterally. Absent: respiratory distress, wheezes, rales, rhonchi, stridor Cardiovascular Exam: Present: irregular rhythm. Absent: systolic murmur, diastolic murmur, rubs, gallop, clicks GI/Abdominal exam: Present: soft, normal bowel sounds. Absent: distended, tenderness, guarding, rebound, rigid Extremities exam: Present: normal inspection, full ROM, normal capillary refill. Absent: tenderness, pedal edema, joint swelling, calf tenderness Back exam: Present: normal inspection Neurological exam: Present: alert, oriented X3, CN II-XII intact Psychiatric exam: Present: normal affect, normal mood Skin exam: Present: warm, dry, intact, normal color. Absent: rash Course Vital Signs 03/05/18 14:29 Temperature 97.6 F Pulse Rate 68 Respiratory 18 Rate Blood Pressure 128/69 O2 Sat by Pulse 98 Oximetry - Reevaluation(s) Reevaluation #1: 03/05/18 16:20 31 minutes of critical care time which includes initial presentation with history physical labs x-rays several reevaluation patient response to therapy discuss with the admitting physician discussion with the patient's . Admission orders documentation the above. Chest Pain MDM - MDM Review the imaging shows no acute findings. I did discuss [employer] the patient has as well as with Dr. Guy patient will be admitted for evaluation. Cardiology will be consulted. Disposition Clinical Impression: Syncope and collapse, Chronic atrial fibrillation Disposition: ADMITTED IP TO THIS HOSP Condition: Stable Referrals: Fritz Guy MD [Primary Care Provider] - 1-2 days
[2018-03-05 15:14] LABS: Basophils % (A) 0 %; Eosinophils # (A) 0.2 k/uL (0-0.7); Eosinophils % (A) 2 %; HCT 48.6 % (39.0-53.0); HGB 15.7 gm/dL (13.0-17.5); Lymphocytes # (A) 2.1 k/uL (1.0-4.8); Lymphocytes % (A) 18 %; MCH 30.6 pg (25.0-35.0); MCHC 32.2 g/dL (31.0-37.0); MCV 95.1 fL (80.0-100.0); Mean Platelet Volume 6.8; Monocytes # (A) 0.6 k/uL (0-1.0); Monocytes % (A) 5 %; Neutrophils # (A) 8.4 k/uL (1.3-7.7); Neutrophils % (A) 73 %; Platelet Count 249 k/uL (150-450); RBC 5.11 m/uL (4.30-5.90); RDW 12.2 % (11.5-15.5); WBC 11.4 k/uL (3.8-10.6)
[2018-03-05 15:20] LABS: ALT 38 U/L (21-72); AST 27 U/L (17-59); Albumin 4.2 g/dL (3.5-5.0); Alkaline Phosphatase 58 U/L (38-126); Amylase 47 U/L (30-110); Anion Gap 9 mmol/L; Blood Urea Nitrogen 19 mg/dL (9-20); Calcium 9.8 mg/dL (8.4-10.2); Carbon Dioxide 25 mmol/L (22-30); Chloride 104 mmol/L (98-107); Glucose 111 mg/dL (74-99); Lipase 146 U/L (23-300); Potassium 4.4 mmol/L (3.5-5.1); Sodium 138 mmol/L (137-145); Total Bilirubin 0.6 mg/dL (0.2-1.3); Total Protein 6.9 g/dL (6.3-8.2)
[2018-03-05 15:36] LABS: Appearance,Urine Clear (Clear); Bilirubin,Urine Negative (Negative); Blood,Urine Negative (Negative); Color,Urine Light Yellow; Glucose,Urine (UA) Negative (Negative); Ketones,Urine Negative (Negative); Leukocyte Esterase,Urine Negative (Negative); Nitrite,Urine Negative (Negative); Protein,Urine Trace (Negative); Specific Gravity,Urine 1.007 (1.001-1.035); Urobilinogen,Urine <2.0 mg/dL (<2.0)
[2018-03-05 15:39] LABS: Creatine Kinase 50 U/L (55-170)
[2018-03-05 15:40] LABS: INR 1.2 (<1.2); Partial Thromboplastin Time 29.1 sec (22.0-30.0); Prothrombin Time 11.4 sec (9.0-12.0)
--- NOTE | 2018-03-05 15:45 | XR ---
EXAMINATION TYPE: XR chest 2V DATE OF EXAM: 03/05/2018 COMPARISON: 08/21/2017 HISTORY: 73-year-old male with chest pain TECHNIQUE: PA and lateral views FINDINGS: Heart normal size. Elongation/ectasia of the thoracic aorta unchanged. Mild interstitial prominence a s a chronic appearance. Strandy atelectasis left base. No consolidation or pleural effusion. Left ant erior chest wall pacemaker generator with right atrial and right ventricular leads. Endplate spondylo sis throughout the thoracic spine. IMPRESSION: Chronic changes without acute cardiopulmonary process.
[2018-03-05 15:52] LABS: Creatine Kinase MB 0.9 ng/mL (0.0-2.4); Troponin I <0.012 ng/mL (0.000-0.034)
[2018-03-05] MEDS ORDERED: NALOXONE 0.4 MG/ML 1 ML VIAL IV PRN (16:22)
[2018-03-05] MEDS: HYDROcodone/APAP 10-325MG 1 EACH TAB PO PRN ×2 (17:47→22:17)
[2018-03-05] MEDS: TAMSULOSIN 0.4 MG CAP.ER.24H PO SCH (20:05)
[2018-03-05] MEDS: CHOLECALCIFEROL 1,000 UNIT TAB PO SCH (20:05)
[2018-03-05] MEDS: PRAVASTATIN SODIUM 40 MG TAB PO SCH (20:05)
[2018-03-05] MEDS ORDERED: NON-FORMULARY DRUG (Glucosamine Sulfate 500 MG) PO SCH (21:00)
[2018-03-05 21:01] LABS: Creatine Kinase 44 U/L (55-170)
[2018-03-05 21:10] LABS: Creatine Kinase MB 0.7 ng/mL (0.0-2.4); Troponin I <0.012 ng/mL (0.000-0.034)
[2018-03-05] MEDS: ZOLPIDEM 10 MG TAB PO PRN (22:18)
[2018-03-06 02:59] LABS: Basophils # (A) 0.1 k/uL (0-0.2); Basophils % (A) 1 %; Eosinophils # (A) 0.3 k/uL (0-0.7); Eosinophils % (A) 3 %; HCT 45.1 % (39.0-53.0); HGB 14.5 gm/dL (13.0-17.5); Lymphocytes # (A) 3.3 k/uL (1.0-4.8); Lymphocytes % (A) 35 %; MCH 31.2 pg (25.0-35.0); MCHC 32.2 g/dL (31.0-37.0); MCV 96.7 fL (80.0-100.0); Mean Platelet Volume 6.3; Monocytes # (A) 0.5 k/uL (0-1.0); Monocytes % (A) 5 %; Neutrophils # (A) 5.2 k/uL (1.3-7.7); Neutrophils % (A) 55 %; Platelet Count 184 k/uL (150-450); RBC 4.66 m/uL (4.30-5.90); RDW 12.3 % (11.5-15.5); WBC 9.4 k/uL (3.8-10.6)
[2018-03-06 03:10] LABS: Calcium 9.1 mg/dL (8.4-10.2); Potassium 4.3 mmol/L (3.5-5.1)
[2018-03-06 03:18] LABS: Creatine Kinase 42 U/L (55-170)
[2018-03-06 03:31] LABS: Creatine Kinase MB 0.6 ng/mL (0.0-2.4); Troponin I <0.012 ng/mL (0.000-0.034)
[2018-03-06] MEDS: HYDROcodone/APAP 10-325MG 1 EACH TAB PO PRN ×3 (07:26→19:48)
--- NOTE | 2018-03-06 08:57 | P.CRDCN ---
History of Present Illness Consult date: 03/06/18 Requesting physician: Fritz Guy Consult reason: chest pain Chief complaint: Weakness, dizziness, brief syncopal episode History of present illness: This is a pleasant 73-year-old gentleman who follows regularly with Dr. Sorensen in the office. He has known history of paroxysmal atrial fibrillation , hypertension, hyperlipidemia, COPD, prior history of smoking, family history of premature coronary artery disease, underwent successful stenting of the LAD in September of this year, he also has history of dual-chamber pacemaker which was placed in August of this year, and has undergone a cardioversion electively in the past by Dr. Sorensen. Patient presents to the hospital with symptoms of dizziness and lightheadedness with progressive weakness. Patient also states that he had 1 episode where he became extremely weak and lost consciousness for a few seconds. He states that since his stenting in September he has not felt well , he has been laying around more than usual because of his weakness and symptoms of dizziness. Chest x-ray on admission showed chronic changes without acute cardiopulmonary process. His initial EKG on presentation here showed atrial fibrillation with a right bundle branch block pattern, left anterior fascicular block, heart rate in the 80s. On review of his rhythm strips, it was noted that the patient had an episode of A. fib with RVR at around 7:30 this morning. He continues to be in A. fib at this time his rate is under adequate control. Blood pressure on arrival here 128/60, 98% on room air. White blood cell count 11.4, hemoglobin 15.7, platelet count 249. Sodium 138, potassium 4.4, BUN 18, creatinine 0.8. Troponins are negative 3. At the time of my examination, patient continues to state that he feels so weak. Denies any dizziness or lightheadedness at present. He does state that he had 1 episode of chest discomfort at home which she described as a sharp pain which felt like a line being drawn across his heart. Very atypical in nature, worsened with breathing. Past Medical History Past Medical History: Atrial Fibrillation, Chest Pain / Angina, COPD, Hyperlipidemia Additional Past Medical History / Comment(s): chronic back pain, diverticulosis, History of Any Multi-Drug Resistant Organisms: None Reported Past Surgical History: Orthopedic Surgery, Pacemaker Additional Past Surgical History / Comment(s): cardioversion,mateus rt knee/lower leg sx has 3 screws, colonoscopy, "bone aspiration" Past Anesthesia/Blood Transfusion Reactions: No Reported Reaction Additional Past Anesthesia/Blood Transfusion Reaction / Comment(s): per -pt never recieved any blood in past Type of Cardiac Device: Permanent Pacemaker Device Placement Date:: . Smoking Status: Former smoker - Past Family History Father Family Medical History: Coronary Artery Disease (CAD) Mother History Unknown: Yes Medications and Allergies Home Medications Medication Instructions Recorded Confirmed Type Cholecalciferol [Vitamin D3] 1,000 unit PO HS 05/23/17 03/05/18 History Glucosamine Sulfate 500 mg PO HS 05/23/17 03/05/18 History Pravastatin Sodium [Pravachol] 40 mg PO HS 05/23/17 03/05/18 History Tamsulosin HCl [Flomax] 0.8 mg PO HS 05/29/17 03/05/18 History Hydrocodone/Acetaminophen 1 each PO Q6H PRN 08/17/17 03/05/18 History [Hydrocodon-Acetaminophn 10-325] Nadolol [Corgard] 10 mg PO DAILY 08/17/17 03/05/18 History Aspirin [Adult Low Dose Aspirin EC] 81 mg PO DAILY 03/05/18 03/05/18 History Psyllium Husk (with Sugar) 6 gm PO DAILY 03/05/18 03/05/18 History [Metamucil Powder] Rivaroxaban [Xarelto] 20 mg PO DAILY 03/05/18 03/05/18 History Zolpidem Tartrate [Ambien] 10 mg PO HS PRN 03/05/18 03/05/18 History Allergies Allergy/AdvReac Type Severity Reaction Status Date / Time clindamycin Allergy Severe Rapid Verified 03/05/18 15:18 Heart Rate cefuroxime Allergy Intermediate Rapid Verified 03/05/18 15:18 Heart Rate ciprofloxacin [From Cipro] Allergy Unknown Verified 03/05/18 15:18 metronidazole Allergy Anaphylaxis Verified 03/05/18 15:18 Physical Exam Vitals: Vital Signs Temp Pulse Pulse Pulse Pulse Resp BP 03/06/18 04:00 97.6 F 65 64 17 03/06/18 00:00 97.4 F L 65 60 16 03/05/18 20:00 97.1 F L 86 75 17 03/05/18 18:31 97.1 F L 93 18 03/05/18 17:00 76 105/75 03/05/18 16:30 78 116/83 03/05/18 16:00 76 118/73 03/05/18 15:30 76 119/85 03/05/18 15:00 78 115/75 03/05/18 14:29 97.6 F 68 18 128/69 BP BP BP Pulse Ox 03/06/18 04:00 98/57 95 03/06/18 00:00 103/66 97 03/05/18 20:00 88/54 104/67 91/51 95 03/05/18 18:31 121/71 94 L 03/05/18 17:00 94 L 03/05/18 16:30 94 L 03/05/18 16:00 94 L 03/05/18 15:30 92 L 03/05/18 15:00 96 03/05/18 14:29 98 Intake and Output 03/05/18 03/06/18 03/06/18 22:59 06:59 14:59 Intake Total 236 Output Total 0 375 Balance 236 -375 Intake: Oral 236 Output: Urine 0 375 Other: Voiding Method Toilet Toilet Urinal Urinal Weight 65.5 kg PHYSICAL EXAMINATION: GENERAL: 73-year-old gentleman in no acute distress at the time of my examination HEENT: Head is atraumatic, normocephalic. Pupils equal, round. Sclera anicteric. Conjunctiva are clear. Mucous membranes of the mouth are moist. Neck is supple. There is no elevated jugular venous pressure.] bruit is heard. HEART EXAMINATION: Heart S1, S2 irregularly irregular . No murmur or gallop heard. CHEST EXAMINATION: Lungs are clear to auscultation and precussion. No chest wall tenderness is noted on palpation or with deep breathing. ABDOMEN: Soft, nontender. Bowel sounds are heard. No organomegaly noted. EXTREMITIES: 2+ peripheral pulses with no evidence of peripheral edema and no calf tenderness noted. NEUROLOGIC patient is awake, alert and oriented ?-3. . Results 03/06/18 02:43 03/06/18 02:43 Cardiac Enzymes 03/05/18 03/05/18 03/05/18 Range/Units 14:45 14:45 20:28 AST 27 (17-59) U/L CK-MB (CK-2) 0.9 0.7 (0.0-2.4) ng/mL Troponin I <0.012 <0.012 (0.000-0.034) ng/mL 03/06/18 Range/Units 02:43 AST (17-59) U/L CK-MB (CK-2) 0.6 (0.0-2.4) ng/mL Troponin I <0.012 (0.000-0.034) ng/mL Coagulation 03/05/18 Range/Units 14:45 PT 11.4 (9.0-12.0) sec APTT 29.1 (22.0-30.0) sec CBC 03/05/18 03/06/18 Range/Units 14:45 02:43 WBC 11.4 H 9.4 (3.8-10.6) k/uL RBC 5.11 4.66 (4.30-5.90) m/uL Hgb 15.7 14.5 (13.0-17.5) gm/dL Hct 48.6 45.1 (39.0-53.0) % Plt Count 249 184 (150-450) k/uL Comprehensive Metabolic Panel 03/05/18 03/06/18 Range/Units 14:45 02:43 Sodium 138 139 (137-145) mmol/L Potassium 4.4 4.3 (3.5-5.1) mmol/L Chloride 104 107 (98-107) mmol/L Carbon Dioxide 25 27 (22-30) mmol/L BUN 19 23 H (9-20) mg/dL Creatinine 0.80 1.00 (0.66-1.25) mg/dL Glucose 111 H 86 (74-99) mg/dL Calcium 9.8 9.1 (8.4-10.2) mg/dL AST 27 (17-59) U/L ALT 38 (21-72) U/L Alkaline Phosphatase 58 (38-126) U/L Total Protein 6.9 (6.3-8.2) g/dL Albumin 4.2 (3.5-5.0) g/dL Current Medications Generic Name Dose Route Start Last Admin Trade Name Freq PRN Reason Stop Dose Admin Hydrocodone Bitart/Acetaminophen 1 each 03/05/18 16:25 03/06/18 07:26 [place] 10 PO 1 each Q6H PRN Administration Pain Aspirin 81 mg 03/06/18 09:00 Aspirin PO DAILY [facility]1983 Cholecalciferol 1,000 unit 03/05/18 21:00 03/05/18 20:05 Vitamin D3 PO 1,000 unit HS [place] Administration Nadolol 10 mg 03/06/18 09:00 Corgard PO DAILY [facility], [facility]–1983 Naloxone HCl 0.2 mg 03/05/18 16:22 Narcan IV Q2M PRN Opioid Reversal Pravastatin Sodium 40 mg 03/05/18 21:00 03/05/18 20:05 Pravachol PO 40 mg HS [place] Administration Psyllium Hydrophilic Mucilloid 6 gm 03/06/18 12:00 Metamucil PO 1200 [place] Rivaroxaban 20 mg 03/06/18 09:00 Xarelto PO DAILY [place] Tamsulosin HCl 0.8 mg 03/05/18 21:00 03/05/18 20:05 Flomax PO 0.8 mg HS [place] Administration Zolpidem Tartrate 10 mg 03/05/18 16:25 03/05/18 22:18 Ambien PO 10 mg HS PRN Administration Insomnia Intake and Output 03/05/18 03/06/18 03/06/18 22:59 06:59 14:59 Intake Total 236 Output Total 0 375 Balance 236 -375 Intake: Oral 236 Output: Urine 0 375 Other: Voiding Method Toilet Toilet Urinal Urinal Weight 65.5 kg 03/06/18 02:43 03/06/18 02:43 EKG Interpretations (text) EKG shows atrial fibrillation with a controlled ventricular response Assessment and Plan Plan: Assessment and plan #1 symptoms of progressive weakness with associated dizziness and lightheadedness. One episode of brief syncope. We will check orthostatic, continue to monitor for significant tachycardia or bradycardia arrhythmias. #2 paroxysmal atrial fibrillation, patient is currently in atrial fibrillation, on Xarelto for anticoagulation #3 coronary artery disease with stenting of the LAD in September of this year, patient was taken off Plavix in the office last week because he refuses to take it any longer, he felt that some of his symptoms of weakness and muscle aching or secondary to that. #4 hypertension #5 hyperlipidemia #6 nicotine dependence #7 COPD #8 prior pacemaker implantation, [employer] Plan We will check orthostatic blood pressure and heart rate every shift. We will also repeat an echocardiogram with Doppler study and interrogate the pacemaker. Further recommendations to follow. DNP note has been reviewed, I agree with a documented findings and plan of care. Patient was seen and examined.
[2018-03-06] MEDS: ASPIRIN 81 MG PO SCH (09:34)
[2018-03-06] MEDS: RIVAROXABAN 20 MG TAB PO SCH (09:34)
[2018-03-06] MEDS: NADOLOL 20 MG TAB PO SCH (09:36)
[2018-03-06] MEDS ORDERED: MAGNESIUM HYDROXIDE 2,400 MG/10 ML CUP PO PRN (11:11)
--- NOTE | 2018-03-06 11:53 | P.HPIM ---
History of Present Illness 73-year-old male states that for the past few days he's been having increasing problems with dizziness weakness and memory loss. Patient was evaluated in the emergency room and found to be in chronic atrial fibrillation Review of Systems Constitutional: Reports fatigue, Reports weakness Cardiovascular: Reports shortness of breath Neurological: Reports memory loss, Reports syncope, Reports weakness, Reports visual changes Past Medical History Past Medical History: Atrial Fibrillation, Chest Pain / Angina, COPD, Hyperlipidemia Additional Past Medical History / Comment(s): chronic back pain, diverticulosis, History of Any Multi-Drug Resistant Organisms: None Reported Past Surgical History: Orthopedic Surgery, Pacemaker Additional Past Surgical History / Comment(s): cardioversion,mateus rt knee/lower leg sx has 3 screws, colonoscopy, "bone aspiration" Past Anesthesia/Blood Transfusion Reactions: No Reported Reaction Additional Past Anesthesia/Blood Transfusion Reaction / Comment(s): per -pt never recieved any blood in past Type of Cardiac Device: Permanent Pacemaker Device Placement Date:: . Smoking Status: Former smoker - Past Family History Father Family Medical History: Coronary Artery Disease (CAD) Mother History Unknown: Yes Medications and Allergies Home Medications Medication Instructions Recorded Confirmed Type Cholecalciferol [Vitamin D3] 1,000 unit PO HS 05/23/17 03/05/18 History Glucosamine Sulfate 500 mg PO HS 05/23/17 03/05/18 History Pravastatin Sodium [Pravachol] 40 mg PO HS 05/23/17 03/05/18 History Tamsulosin HCl [Flomax] 0.8 mg PO HS 05/29/17 03/05/18 History Hydrocodone/Acetaminophen 1 each PO Q6H PRN 08/17/17 03/05/18 History [Hydrocodon-Acetaminophn 10-325] Nadolol [Corgard] 10 mg PO DAILY 08/17/17 03/05/18 History Aspirin [Adult Low Dose Aspirin EC] 81 mg PO DAILY 03/05/18 03/05/18 History Psyllium Husk (with Sugar) 6 gm PO DAILY 03/05/18 03/05/18 History [Metamucil Powder] Rivaroxaban [Xarelto] 20 mg PO DAILY 03/05/18 03/05/18 History Zolpidem Tartrate [Ambien] 10 mg PO HS PRN 03/05/18 03/05/18 History Allergies Allergy/AdvReac Type Severity Reaction Status Date / Time clindamycin Allergy Severe Rapid Verified 03/05/18 15:18 Heart Rate cefuroxime Allergy Intermediate Rapid Verified 03/05/18 15:18 Heart Rate ciprofloxacin [From Cipro] Allergy Unknown Verified 03/05/18 15:18 metronidazole Allergy Anaphylaxis Verified 03/05/18 15:18 Physical Exam Vitals: Vital Signs Temp Pulse Pulse Pulse Pulse Resp BP 03/06/18 08:00 97.6 F 89 20 03/06/18 04:00 97.6 F 65 64 17 03/06/18 00:00 97.4 F L 65 60 16 03/05/18 20:00 97.1 F L 86 75 17 03/05/18 18:31 97.1 F L 93 18 03/05/18 17:00 76 105/75 03/05/18 16:30 78 116/83 03/05/18 16:00 76 118/73 03/05/18 15:30 76 119/85 03/05/18 15:00 78 115/75 03/05/18 14:29 97.6 F 68 18 128/69 BP BP BP Pulse Ox 03/06/18 08:00 123/79 96 03/06/18 04:00 98/57 95 03/06/18 00:00 103/66 97 03/05/18 20:00 88/54 104/67 91/51 95 03/05/18 18:31 121/71 94 L 03/05/18 17:00 94 L 03/05/18 16:30 94 L 03/05/18 16:00 94 L 03/05/18 15:30 92 L 03/05/18 15:00 96 03/05/18 14:29 98 Intake and Output 03/05/18 03/06/18 03/06/18 22:59 06:59 14:59 Intake Total 236 120 Output Total 0 375 Balance 236 -375 120 Intake: Oral 236 120 Output: Urine 0 375 Other: Voiding Method Toilet Toilet Urinal Urinal # Voids 1 Weight 65.5 kg - Constitutional General appearance: mild distress - EENT Eyes: PERRLA Ears: bilateral: normal - Neck Neck: normal ROM - Respiratory Respiratory: bilateral: CTA - Cardiovascular Rhythm: irregularly irregular - Gastrointestinal General gastrointestinal: soft - Integumentary Integumentary: normal - Neurologic Neurologic: CNII-XII intact - Musculoskeletal Musculoskeletal: strength equal bilaterally - Psychiatric Psychiatric: A&O x's 3, appropriate affect, intact judgment & insight Results CBC & Chem 7: 03/06/18 02:43 03/06/18 02:43 Labs: Abnormal Lab Results - Last 24 Hours (Table) 03/05/18 03/05/18 03/05/18 Range/Units 14:45 14:45 14:45 WBC 11.4 H (3.8-10.6) k/uL Neutrophils # 8.4 H (1.3-7.7) k/uL INR (<1.2) BUN (9-20) mg/dL Glucose 111 H (74-99) mg/dL Total Creatine Kinase 50 L (55-170) U/L Urine Protein (Negative) 03/05/18 03/05/18 03/05/18 Range/Units 14:45 15:29 20:28 WBC (3.8-10.6) k/uL Neutrophils # (1.3-7.7) k/uL INR 1.2 H (<1.2) BUN (9-20) mg/dL Glucose (74-99) mg/dL Total Creatine Kinase 44 L (55-170) U/L Urine Protein Trace H (Negative) 03/06/18 03/06/18 Range/Units 02:43 02:43 WBC (3.8-10.6) k/uL Neutrophils # (1.3-7.7) k/uL INR (<1.2) BUN 23 H (9-20) mg/dL Glucose (74-99) mg/dL Total Creatine Kinase 42 L (55-170) U/L Urine Protein (Negative) Chest x-ray: report reviewed Thrombosis Risk Factor Assmnt - Choose All That Apply Any of the Below Risk Factors Present?: No Other Risk Factors: Yes Each Risk Factor Represents 2 Points: Age 61-74 years Thrombosis Risk Factor Assessment Total Risk Factor Score: 2 Thrombosis Risk Factor Assessment Level: Low Risk Assessment and Plan Plan: Assessment Syncope Dizziness with visual disturbance Memory loss History of pacemaker History of coronary disease with LAD stent COPD Chronic back pain BPH Plan Continue consultation with cardiology Neurology consult
[2018-03-06] MEDS ORDERED: PSYLLIUM HUSK 100% 6 GM PACKET PO SCH (12:00)
--- NOTE | 2018-03-06 13:21 | CT ---
EXAMINATION TYPE: CT brain wo con DATE OF EXAM: 03/06/2018 COMPARISON: 07/08/2017 HISTORY: Syncopal episode CT DLP: [address] of the brain was performed. The ventricles, basal cisterns and sulci overlying the cerebral convexities demonstrate mild enlargem ent. There is no evidence for intracranial hemorrhage or sulcal effacement. There is decreased attenuation about the periventricular white matter and deep white matter of both c erebral hemispheres, compatible with chronic small vessel ischemia. Differential diagnosis does inclu de demyelination. No mass effects are seen.No midline shift. Osseous calvarium is intact. If symptoms persist consider MRI. IMPRESSION: 1. Age related atrophic and chronic small vessel ischemic change without acute intracranial process s een at this time.
[2018-03-06] MEDS: POLYETHYLENE GLYCOL 3350 17 GM POWD.PACK PO SCH (13:26)
--- NOTE | 2018-03-06 13:45 | US ---
EXAMINATION TYPE: US carotid duplex BILAT DATE OF EXAM: 03/06/2018 COMPARISON: NONE CLINICAL HISTORY: syncope memory problems. EXAM MEASUREMENTS: RIGHT: Peak Systolic Velocity (PSV) cm/sec ----- Right CCA: 36.6 ----- Right ICA: 72.4 ----- Right ECA: 54.0 ICA/CCA ratio: 2.0 RIGHT: End Diastole cm/sec ----- Right CCA: 21.1 ----- Right ICA: 27.4 ----- Right ECA: 5.1 LEFT: Peak Systolic Velocity (PSV) cm/sec ----- Left CCA: 54.9 ----- Left ICA: 57.1 ----- Left ECA: 69.1 ICA/CCA ratio: 1.0 LEFT: End Diastole cm/sec ----- Left CCA: 17.1 ----- Left ICA: 23.7 ----- Left ECA: 9.8 VERTEBRALS (direction of flow): Right Vertebral: Antegrade Left Vertebral: Antegrade Rhythm: Arrhythmia Grayscale, color Doppler, spectral Doppler imaging performed of the carotid arteries. Waveform analys is does not show significant stenosis of the proximal internal carotid arteries bilaterally. Mild ath erosclerotic changes seen. soft and calcified plaque bilaterally. No elevated velocities seen. IMPRESSION: No hemodynamic significant stenosis of the proximal internal carotid arteries bilaterall y by Doppler criteria, an indirect measurement of carotid stenosis, additional findings above
[2018-03-06] MEDS: TAMSULOSIN 0.4 MG CAP.ER.24H PO SCH (19:49)
[2018-03-06] MEDS: CHOLECALCIFEROL 1,000 UNIT TAB PO SCH (19:49)
[2018-03-06] MEDS: PRAVASTATIN SODIUM 40 MG TAB PO SCH (19:49)
[2018-03-06] MEDS: ZOLPIDEM 10 MG TAB PO PRN (22:49)
[2018-03-07] MEDS: HYDROcodone/APAP 10-325MG 1 EACH TAB PO PRN ×4 (05:20→23:01)
--- NOTE | 2018-03-07 08:37 | CONS ---
CONSULTATION DATE OF CONSULTATION: 03/06/2018 CHIEF COMPLAINT: Syncope. HISTORY OF PRESENT ILLNESS: The patient is a pleasant 73-year-old male, who is being evaluated today on 03/06/2018 by the neurology service per the request of Dr. Fritz Guy for a syncopal spell. The patient was brought into [facility] Emergency Room after he had a witnessed syncope at home. The patient was sitting on his couch and then as he was trying to stand up, he passed out. His witnessed the episode. She states that he was unconscious for approximately 1 to 2 minutes with no seizure-like activity. The patient has been having significant lightheadedness lately. He does have an extensive history of cardiac arrhythmia and is in chronic atrial fibrillation. He does see [facility] and has had ablations and pacemaker implant with no resolution. He is on Xarelto at home. He denies any lateralizing numbness or weakness. PAST MEDICAL HISTORY: Atrial fibrillation, coronary artery disease with stent placement, chronic obstructive pulmonary disease, dyslipidemia, chronic back pain, diverticulosis, history of pacemaker implant, orthopedic surgeries, cardioversion. SOCIAL HISTORY: The patient is a current every day smoker. He denies any alcohol or drug use. FAMILY HISTORY: Positive for heart disease. HOME MEDICATIONS: Reviewed in the chart. ALLERGIES: CLINDAMYCIN, CEFUROXIME, CIPROFLOXACIN, METRONIDAZOLE. REVIEW OF SYSTEM: As mentioned above and otherwise negative. PHYSICAL EXAM: Vital signs show a temperature of 97.4, pulse 85, respiration 20, blood pressure 103/65. GENERAL APPEARANCE: The patient is a well-developed male, who appears to be in no acute distress. HEENT: Normocephalic, atraumatic. No facial asymmetry is seen. NECK: Supple with no masses felt. CARDIOVASCULAR: Irregularly, irregular rhythm with a normal rate. ABDOMEN: Nontender, nondistended. Extremities showed no edema or clubbing. NEUROLOGICAL EXAM: The patient is awake and oriented x3. Speech and language are normal. Strength is full in all 4 extremities. Sensory exam was normal to light touch in all 4 extremities. No facial asymmetry is seen on cranial nerve testing. No tremors or seizure-like activity is seen. INVESTIGATION: His CT scan of the brain showed generalized atrophy and small-vessel ischemic changes. His carotid Doppler showed no hemodynamically significant stenosis. His CBC, comprehensive metabolic profile, cardiac enzymes and urinalysis were normal. IMPRESSION: 1. Syncopal spell. 2. Atrial fibrillation. RECOMMENDATION: The patient did have a witnessed the syncopal episode with no seizure-like activity. His syncope appears to be cardiovascular in etiology. His CT scan of the brain showed no significant abnormalities. I do recommend further cardiovascular workup and management. An EEG has been ordered. No further inpatient neurological workup is needed. I will continue to follow with you as needed. Thank you Dr. Guy for allowing me to participate in the care of your patient. If you have any questions, please feel free to contact me. MMODL / IJN: [id number] /
[2018-03-07] MEDS: RIVAROXABAN 20 MG TAB PO SCH (08:42)
[2018-03-07] MEDS: NADOLOL 20 MG TAB PO SCH (08:42)
[2018-03-07] MEDS: ASPIRIN 81 MG PO SCH (08:42)
[2018-03-07] MEDS: POLYETHYLENE GLYCOL 3350 17 GM POWD.PACK PO SCH (08:43)
[2018-03-07 09:38] VITALS: BMI 24.0
--- NOTE | 2018-03-07 12:09 | P.PN ---
Subjective Patient complains of fatigue and weakness. Noted heart rate up to 130s with ambulation. Patient had a neurology consultation cryogen and CAT scan in the normal range Objective - Vital Signs Vital signs: Vital Signs Temp 96.0 F L 03/07/18 08:00 Pulse 79 03/07/18 08:00 Resp 18 03/07/18 08:00 BP 104/68 03/07/18 08:00 Pulse Ox 93 L 03/07/18 08:00 Intake & Output 03/06/18 03/07/18 03/07/18 18:59 06:59 18:59 Intake Total 480 690 Output Total 300 Balance 480 390 Weight 76.1 kg 76.1 kg Intake: Intake, IV Titration 450 Amount Sodium Chloride 0.9% 1, 450 000 ml @ 75 mls/hr IV . [id number] STA Rx#:[id number] Oral 480 240 Output: Urine 300 Other: Voiding Method Toilet Urinal # Voids 1 2 - Constitutional General appearance: Present: mild distress - EENT Eyes: Present: PERRLA Ears: bilateral: normal - Neck Neck: Present: normal ROM - Respiratory Respiratory: bilateral: CTA - Cardiovascular Rhythm: irregularly irregular - Neurologic Neurologic: Present: CNII-XII intact - Musculoskeletal Musculoskeletal: Present: generalized weakness - Psychiatric Psychiatric: Present: A&O x's 3, appropriate affect, intact judgment & insight - Labs CBC & Chem 7: 03/06/18 02:43 03/06/18 02:43 - Imaging and Cardiology CT Scan - head: report reviewed Assessment and Plan Plan: Assessment Syncope Weakness Chronic atrial fib with RVR History of pacemaker History of coronary disease with LAD stent COPD Chronic back pain BPH Memory impairment Plan Continue consultation with cardiology
--- NOTE | 2018-03-07 12:51 | ECHOF ---
Referral Reason:weakness MEASUREMENTS -------- HEIGHT: 177.8 cm WEIGHT: 65.3 kg BP: 98/57 RVIDd: 3.2 cm (< 3.3) IVSd: 1.0 cm (0.6 - 1.1) LVIDd: 4.0 cm (3.9 - 5.3) LVPWd: 1.0 cm (0.6 - 1.1) IVSs: 1.3 cm LVIDs: 2.9 cm LVPWs: 1.2 cm LAESV Index (A-L): 34.59 ml/m Ao Diam: 3.6 cm (2.0 - 3.7) AV Cusp: 1.8 cm (1.5 - 2.6) LA Diam: 2.5 cm (2.7 - 3.8) MV E Amrik: 0.73 m/s MV DecT: 221 ms MV A Amrik: 0.00 m/s MV E/A Ratio: 759.30 RAP: 15.00 mmHg RVSP: 34.71 mmHg FINDINGS -------- Atrial fibrillation. This was a technically good study. The left ventricular size is normal. Left ventricular wall thickness is normal. Overall left vent ricular systolic function is normal with, an EF between 55 - 60 %. The right ventricle is normal in size and function. LA is moderately dilated 34-39 ml/m2 Electronic pacemaker lead seen in the right ventricular cavity. RA appears enlarged. There is mild aortic valve sclerosis. There is no evidence of aortic regurgitation. There is no e vidence of aortic stenosis. The mitral valve leaflets are mildly thickened. Mild mitral regurgitation is present. Mild tricuspid regurgitation present. There is no evidence of pulmonary hypertension. The right v entricular systolic pressure, as measured by Doppler, is 34.71mmHg. The pulmonic valve was not well visualized. There is no pulmonic regurgitation present. The aortic root size is normal. The inferior vena cava is dilated with poor inspiratory collapse which is consistent with estimated r ight atrial pressure of 20 mmHg. There is no pericardial effusion. CONCLUSIONS -------- 1. Atrial fibrillation. 2. This was a technically good study. 3. The left ventricular size is normal. 4. Left ventricular wall thickness is normal. 5. Overall left ventricular systolic function is normal with, an EF between 55 - 60 %. 6. LA is moderately dilated 34-39 ml/m2 7. Electronic pacemaker lead seen in the right ventricular cavity. 8. RA appears enlarged. 9. There is mild aortic valve sclerosis. 10. The mitral valve leaflets are mildly thickened. 11. Mild mitral regurgitation is present. 12. Mild tricuspid regurgitation present. 13. There is no evidence of pulmonary hypertension. 14. The pulmonic valve was not well visualized. 15. There is no pulmonic regurgitation present. 16. The aortic root size is normal. 17. The inferior vena cava is dilated with poor inspiratory collapse which is consistent with estimat ed right atrial pressure of 20 mmHg. 18. There is no pericardial effusion. BUFFER CHROME: Sarkis Mejia RDCS
--- NOTE | 2018-03-07 15:02 | P.PN ---
Subjective Progress Note Date: 03/07/18 This is a pleasant 73-year-old gentleman who follows regularly with Dr. Sorensen in the office. He has known history of paroxysmal atrial fibrillation , hypertension, hyperlipidemia, COPD, prior history of smoking, family history of premature coronary artery disease, underwent successful stenting of the LAD in September of this year, he also has history of dual-chamber pacemaker which was placed in August of this year, and has undergone a cardioversion electively in the past by Dr. Sorensen. Patient presents to the hospital with symptoms of dizziness and lightheadedness with progressive weakness. Patient also states that he had 1 episode where he became extremely weak and lost consciousness for a few seconds. He states that since his stenting in September he has not felt well , he has been laying around more than usual because of his weakness and symptoms of dizziness. Chest x-ray on admission showed chronic changes without acute cardiopulmonary process. His initial EKG on presentation here showed atrial fibrillation with a right bundle branch block pattern, left anterior fascicular block, heart rate in the 80s. On review of his rhythm strips, it was noted that the patient had an episode of A. fib with RVR at around 7:30 this morning. He continues to be in A. fib at this time his rate is under adequate control. Blood pressure on arrival here 128/60, 98% on room air. White blood cell count 11.4, hemoglobin 15.7, platelet count 249. Sodium 138, potassium 4.4, BUN 18, creatinine 0.8. Troponins are negative 3. At the time of my examination, patient continues to state that he feels so weak. Denies any dizziness or lightheadedness at present. He does state that he had 1 episode of chest discomfort at home which she described as a sharp pain which felt like a line being drawn across his heart. Very atypical in nature, worsened with breathing. 03/07/2018 Pattient seen and examined this morning, he is quite frustrated in how he is feeling overall, however according to the patient is really has not felt well since the time of his stent placement. In spite of several different things being done in the meantime. Patient is noted on the monitor that when he is up ambulating his heart rate goes up into the 1:30 range, continues to be persistently in atrial fibrillation. His pacemaker was interrogated and showed that approximately 10% of the time he was in atrial fibrillation. He is currently on nadolol 10 mg which we will increase to 20 today, blood pressure this morning 104/60, this afternoon 128/70. CBC is normal, sodium 139, potassium 4.3, BUN 23, creatinine 1.0. Suggestion was given by Dr. Montoya that perhaps patient may benefit from cardioversion. We will speak with Dr. Sorensen regarding this. We have also put a consult in for Dr. Mckeon to see the patient for possible ablation. Objective - Vital Signs Vital signs: Vital Signs Temp 96.9 F L 03/07/18 12:00 Pulse 77 03/07/18 12:00 Resp 18 03/07/18 12:00 BP 128/79 03/07/18 12:00 Pulse Ox 93 L 03/07/18 12:00 Intake & Output 03/06/18 03/07/18 03/07/18 18:59 06:59 18:59 Intake Total 480 690 Output Total 300 300 Balance 480 390 -300 Weight 76.1 kg 76.1 kg Intake: Intake, IV Titration 450 Amount Sodium Chloride 0.9% 1, 450 000 ml @ 75 mls/hr IV . [id number] STA Rx#:[id number] Oral 480 240 Output: Urine 300 300 Other: Voiding Method Toilet Urinal # Voids 1 2 - Exam PHYSICAL EXAMINATION: GENERAL: 73-year-old gentleman in no acute distress at the time of my examination HEENT: Head is atraumatic, normocephalic. Pupils equal, round. Sclera anicteric. Conjunctiva are clear. Mucous membranes of the mouth are moist. Neck is supple. There is no elevated jugular venous pressure.] bruit is heard. HEART EXAMINATION: Heart S1, S2 irregularly irregular . No murmur or gallop heard. CHEST EXAMINATION: Lungs are clear to auscultation and precussion. No chest wall tenderness is noted on palpation or with deep breathing. ABDOMEN: Soft, nontender. Bowel sounds are heard. No organomegaly noted. EXTREMITIES: 2+ peripheral pulses with no evidence of peripheral edema and no calf tenderness noted. NEUROLOGIC patient is awake, alert and oriented ?-3. - Labs CBC & Chem 7: 03/06/18 02:43 03/06/18 02:43 Assessment and Plan Plan: Assessment and plan #1 symptoms of progressive weakness with associated dizziness and lightheadedness. One episode of brief syncope. We will check orthostatic, continue to monitor for significant tachycardia or bradycardia arrhythmias. #2 paroxysmal atrial fibrillation, patient is currently in atrial fibrillation, on Xarelto for anticoagulation #3 coronary artery disease with stenting of the LAD in September of this year, patient was taken off Plavix in the office last week because he refuses to take it any longer, he felt that some of his symptoms of weakness and muscle aching or secondary to that. #4 hypertension #5 hyperlipidemia #6 nicotine dependence #7 COPD #8 prior pacemaker implantation, [employer] Plan Patient did not have any significant orthostatic changes, however it is noted that the heart rate does go up into the 130s with ambulation. We will speak with Dr. Sorensen regarding possible cardioversion. We will also consult Dr. Guadarrama to see the patient for possible ablation. Further recommendations to follow DNP note has been reviewed, I agree with a documented findings and plan of care. Patient was seen and examined.
[2018-03-07] MEDS: TAMSULOSIN 0.4 MG CAP.ER.24H PO SCH (19:38)
[2018-03-07] MEDS: CHOLECALCIFEROL 1,000 UNIT TAB PO SCH (19:38)
[2018-03-07] MEDS: PRAVASTATIN SODIUM 40 MG TAB PO SCH (19:43)
--- NOTE | 2018-03-07 21:13 | P.CRDCN ---
History of Present Illness History of present illness: This is Dr. Mckeon dictating a consult on this patient The patient was interviewed and examined by me IMPRESSION / ASSESSMENT: Symptoms of tiredness and fatigue weakness and very weak symptoms but just not feeling well for the last several months Persistent atrial fibrillation with RVR upon walking despite an nadolol 20 mg by mouth daily On CAD status post coronary stenting earlier this year Noncompliance with dual antiplatelet therapy Sick sinus syndrome status post permanent pacemaker implantation in the past PLAN: I would recommend an electrical cardioversion with prior MATEUS Once in sinus rhythm his symptoms should be reevaluated. If his symptoms continue then a stress test should be performed to make sure that his LAD stent is still patent since he has not been taking his Plavix regularly following coronary stenting If his symptoms improve significantly then atrial fibrillation is the cause of his symptoms and it should be treated with antiarrhythmic drug therapy preferably oral amiodarone. I would not use a class I and troponin truck on this gentleman. He has known CAD and a mid LAD stent was placed in August. He has not been compliant with dual antiplatelet therapy Complete abstinence from alcohol, Sleep apnea assessment TSH HPI The last several months the patient has been feeling terrible he feels weak tired inability to stand unable to do what he would normally do before no chest pain or loss of consciousness but just weakness ROS: No fever chills or rigors, no cough, phlegm or expectoration, no nausea, vomiting or diarrhea, no hematuria, dysuria, no musculoskeletal complaints, no strokes or seizures, no skin lesions. EXAMINATION Afebrile 97.3F pulse rate while supine 73 beats a minute blood pressure 128 of 79 mmHg normal pulse ox Breath sounds are reduced bilaterally no rhonchi no crackles Heart sounds are irregular normal heart rates at rest Abdomen soft nontender Extremity is warm no edema REVIEW OF LABS, ECG ECG shows atrial fibrillation Hemoglobin is normal Electrolytes and normal renal function is normal liver functions normal Past Medical History Past Medical History: Atrial Fibrillation, Chest Pain / Angina, COPD, Hyperlipidemia Additional Past Medical History / Comment(s): chronic back pain, diverticulosis, History of Any Multi-Drug Resistant Organisms: None Reported Past Surgical History: Orthopedic Surgery, Pacemaker Additional Past Surgical History / Comment(s): cardioversion,mateus rt knee/lower leg sx has 3 screws, colonoscopy, "bone aspiration" Past Anesthesia/Blood Transfusion Reactions: No Reported Reaction Additional Past Anesthesia/Blood Transfusion Reaction / Comment(s): per -pt never recieved any blood in past Type of Cardiac Device: Permanent Pacemaker Device Placement Date:: . Smoking Status: Former smoker - Past Family History Father Family Medical History: Coronary Artery Disease (CAD) Mother History Unknown: Yes Medications and Allergies Home Medications Medication Instructions Recorded Confirmed Type Cholecalciferol [Vitamin D3] 1,000 unit PO HS 05/23/17 03/05/18 History Glucosamine Sulfate 500 mg PO HS 05/23/17 03/05/18 History Pravastatin Sodium [Pravachol] 40 mg PO HS 05/23/17 03/05/18 History Tamsulosin HCl [Flomax] 0.8 mg PO HS 05/29/17 03/05/18 History Hydrocodone/Acetaminophen 1 each PO Q6H PRN 08/17/17 03/05/18 History [Hydrocodon-Acetaminophn 10-325] Nadolol [Corgard] 10 mg PO DAILY 08/17/17 03/05/18 History Aspirin [Adult Low Dose Aspirin EC] 81 mg PO DAILY 03/05/18 03/05/18 History Psyllium Husk (with Sugar) 6 gm PO DAILY 03/05/18 03/05/18 History [Metamucil Powder] Rivaroxaban [Xarelto] 20 mg PO DAILY 03/05/18 03/05/18 History Zolpidem Tartrate [Ambien] 10 mg PO HS PRN 03/05/18 03/05/18 History Allergies Allergy/AdvReac Type Severity Reaction Status Date / Time clindamycin Allergy Severe Rapid Verified 03/05/18 15:18 Heart Rate cefuroxime Allergy Intermediate Rapid Verified 03/05/18 15:18 Heart Rate ciprofloxacin [From Cipro] Allergy Unknown Verified 03/05/18 15:18 metronidazole Allergy Anaphylaxis Verified 03/05/18 15:18 Physical Exam Vitals: Vital Signs Temp Pulse Pulse Pulse Resp BP BP 03/07/18 15:48 97.3 F L 93 73 18 03/07/18 11:50 96.9 F L 77 18 03/07/18 08:45 96.0 F L 79 18 03/07/18 04:00 98.1 F 93 85 91 18 110/71 03/07/18 00:00 98.0 F 93 85 78 18 108/73 BP Pulse Ox 03/07/18 15:48 102/65 91 L 03/07/18 11:50 128/79 93 L 03/07/18 08:45 104/68 93 L 03/07/18 04:00 96 03/07/18 00:00 95 Intake and Output 03/07/18 03/07/18 03/07/18 06:59 14:59 22:59 Intake Total 690 357 Output Total 300 300 Balance 390 -300 357 Intake: Intake, IV Titration 450 Amount Sodium Chloride 0.9% 1, 450 000 ml @ 75 mls/hr IV . [id number] STA Rx#:[id number] Oral 240 357 Output: Urine 300 300 Other: Voiding Method Toilet Urinal # Voids 2 Weight 76.1 kg 76.1 kg Results 03/06/18 02:43 03/06/18 02:43 Current Medications Generic Name Dose Route Start Last Admin Trade Name Freq PRN Reason Stop Dose Admin Hydrocodone Bitart/Acetaminophen 1 each 03/05/18 16:25 03/07/18 17:27 Dorris 10 PO 1 each Q6H PRN Administration Pain Aspirin 81 mg 03/06/18 09:00 03/07/18 08:42 Aspirin PO 81 mg DAILY [facility]ENS Administration Cholecalciferol 1,000 unit 03/05/18 21:00 03/07/18 19:38 Vitamin D3 PO 1,000 unit HS EVENS Administration Magnesium Hydroxide 1,200 mg 03/06/18 11:11 03/06/18 13:27 Milk Of Magnesia PO 1,200 mg QID PRN Administration Constipation Nadolol 20 mg 03/08/18 09:00 Corgard PO DAILY [facility] Naloxone HCl 0.2 mg 03/05/18 16:22 Narcan IV Q2M PRN Opioid Reversal Polyethylene Glycol 17 gm 03/06/18 12:00 03/07/18 08:43 Miralax PO 17 gm DAILY@1200 [facility] Administration Pravastatin Sodium 40 mg 03/05/18 21:00 03/07/18 19:43 Pravachol PO Not Given HS [facility] Rivaroxaban 20 mg 03/06/18 09:00 03/07/18 08:42 Xarelto PO 20 mg DAILY [facility] Administration Tamsulosin HCl 0.8 mg 03/05/18 21:00 03/07/18 19:38 Flomax PO 0.8 mg HS [facility] Administration Zolpidem Tartrate 10 mg 03/05/18 16:25 03/06/18 22:49 Ambien PO 10 mg HS PRN Administration Insomnia Intake and Output 03/07/18 03/07/18 03/07/18 06:59 14:59 22:59 Intake Total 690 357 Output Total 300 300 Balance 390 -300 357 Intake: Intake, IV Titration 450 Amount Sodium Chloride 0.9% 1, 450 000 ml @ 75 mls/hr IV . [id number] STA Rx#:[id number] Oral 240 357 Output: Urine 300 300 Other: Voiding Method Toilet Urinal # Voids 2 Weight 76.1 kg 76.1 kg Patient Weight 03/08/18 06:59 Weight 76.1 kg 03/06/18 02:43 03/06/18 02:43
[2018-03-07] MEDS: ZOLPIDEM 10 MG TAB PO PRN (23:01)
[2018-03-08] MEDS: HYDROcodone/APAP 10-325MG 1 EACH TAB PO PRN ×3 (06:36→20:10)
[2018-03-08] MEDS: ASPIRIN 81 MG PO SCH (08:04)
[2018-03-08] MEDS: NADOLOL 20 MG TAB PO SCH (08:04)
[2018-03-08] MEDS: RIVAROXABAN 20 MG TAB PO SCH (08:04)
[2018-03-08] MEDS ORDERED: LACTATED RINGERS 1,000 ML IV ONE ×3 (13:50)
[2018-03-08] MEDS: SODIUM CHLORIDE 0.9% 1,000 ML IV SCH (13:51)
[2018-03-08] MEDS: POLYETHYLENE GLYCOL 3350 17 GM POWD.PACK PO SCH (14:25)
--- NOTE | 2018-03-08 14:48 | P.PN ---
Subjective Progress Note Date: 03/08/18 Progress note being dictated for Dr. Loepz. Interval history: 73-year-old male states that for the past few days he's been having increasing problems with dizziness weakness and memory loss. Patient was evaluated in the emergency room and found to be in chronic atrial fibrillation Evaluated by cardiology, neurology with recommendations noted. Awaiting CARON/ cardioversion today. Negative for orthostatic hypotension. Telemetry controlled atrial fib with controlled ventricular rate at rest, up to 150s with activity/ambulation. Objective - Vital Signs Vital signs: Vital Signs Temp 97.2 F L 03/08/18 08:10 Pulse 84 03/08/18 13:00 Resp 20 03/08/18 08:10 BP 117/69 03/08/18 08:10 Pulse Ox 94 L 03/08/18 04:00 Intake & Output 03/07/18 03/08/18 03/08/18 18:59 06:59 18:59 Intake Total 357 480 Output Total 300 Balance 57 480 Weight 76.1 kg 76.5 kg Intake: Oral 357 480 Output: Urine 300 Other: Voiding Method Toilet Urinal # Voids 2 1 1 - Exam PHYSICAL EXAM: VITAL SIGNS: As above GENERAL: Sitting up in bed, no acute distress, significant other at bedside HEENT: Conjunctivae normal. eyes normal. NECK: No JVD. No thyroid enlargement. No LNs CARDIOVASCULAR: S1, S2 muffled. Irregular with controlled ventricular rate at rest ,No murmur RESPIRATION: Breath sounds diminished in the bases. No rhonchi or crackles. No bronchial breathing. ABDOMEN: Soft, nontender . No guarding. no masses palpable.Bowel sounds heard. LEGS: No edema. no swelling PSYCHIATRY: Alert and oriented -3, mood and affect normal. NERVOUS SYSTEM: Cranial N 2-12 grossly normal. Moves all 4 limbs. Diffuse weakness No focal deficits. - Labs CBC & Chem 7: 03/06/18 02:43 03/06/18 02:43 Assessment and Plan Assessment: Syncope with progressive weakness,Dizziness, lightheadedness. Negative for orthostatic hypotension Paroxysmal atrial fibrillation, uncontrolled with activity CAD with recent stenting of the LAD in September 2017 History of pacemaker Hypertension COPD Chronic back pain BPH Ongoing nicotine dependence Plan: Continue on current medication regime ,monitoring and symptomatic treatment.NPO, awaiting CARON with cardioversion today. Smoking cessation readdressed. The impression and plan of care has been dictated as directed. : I performed a history and examination of this patient, discussed the same with the dictator. I agree with the dictator's note ,documented as a scribe. Any additional findings or plans will be noted.
[2018-03-08] MEDS ORDERED: PROPOFOL 10 MG/ML 20 ML VIAL IV ONE (18:15)
--- NOTE | 2018-03-08 18:47 | CE ---
CARDIAC ELECTROPHYSIOLOGY REPORT DATE OF SERVICE: March 08, 2018 PERFORMING PHYSICIAN: Christoph Nair MD, golf cart attendant. PROCEDURE PERFORMED: Cardioversion. INDICATION: This is a pleasant 73-year-old gentleman, history of paroxysmal atrial fibrillation, who was admitted to the hospital not feeling well and he was found to be in A. fib. With RVR. COMPLICATION: None. LEVEL OF SEDATION: The procedure was performed under general anesthesia. PROCEDURE DESCRIPTION: After obtaining an informed consent, the patient was brought to the cardioversion suite. The patient cardioverted from A. fib. to normal sinus mechanism using 200 joules on first attempt and without any complication. CONCLUSION: Successful cardioversion of atrial fibrillation to normal sinus mechanism using 200 joules on first attempt. MMODL / IJN: [id number] /
[2018-03-08] MEDS: PRAVASTATIN SODIUM 40 MG TAB PO SCH (20:10)
[2018-03-08] MEDS: CHOLECALCIFEROL 1,000 UNIT TAB PO SCH (20:10)
[2018-03-08] MEDS: TAMSULOSIN 0.4 MG CAP.ER.24H PO SCH (20:10)
[2018-03-08] MEDS: ZOLPIDEM 10 MG TAB PO PRN (23:19)
[2018-03-09 01:38] VITALS: RESP 18
[2018-03-09] MEDS: ASPIRIN 81 MG PO SCH (07:54)
[2018-03-09] MEDS: NADOLOL 20 MG TAB PO SCH (07:54)
[2018-03-09] MEDS: RIVAROXABAN 20 MG TAB PO SCH (07:54)
[2018-03-09] MEDS: HYDROcodone/APAP 10-325MG 1 EACH TAB PO PRN ×2 (07:56→14:02)
[2018-03-09 08:01] VITALS: BP 102/58; PULSE 63; TEMP 97.8
[2018-03-09] MEDS: SODIUM CHLORIDE 0.9% 1,000 ML IV SCH (10:55)
[2018-03-09] MEDS: POLYETHYLENE GLYCOL 3350 17 GM POWD.PACK PO SCH (11:04)
[2018-03-09 12:09] LABS: Glucose,Whole Blood 103 mg/dL (75-99)
--- NOTE | 2018-03-09 13:30 | P.PN ---
Subjective Progress Note Date: 03/09/18 This is a pleasant 73-year-old gentleman who follows regularly with Dr. Sorensen in the office. He has known history of paroxysmal atrial fibrillation , hypertension, hyperlipidemia, COPD, prior history of smoking, family history of premature coronary artery disease, underwent successful stenting of the LAD in September of this year, he also has history of dual-chamber pacemaker which was placed in August of this year, and has undergone a cardioversion electively in the past by Dr. Sorensen. Patient presents to the hospital with symptoms of dizziness and lightheadedness with progressive weakness. Patient also states that he had 1 episode where he became extremely weak and lost consciousness for a few seconds. He states that since his stenting in September he has not felt well , he has been laying around more than usual because of his weakness and symptoms of dizziness. Chest x-ray on admission showed chronic changes without acute cardiopulmonary process. His initial EKG on presentation here showed atrial fibrillation with a right bundle branch block pattern, left anterior fascicular block, heart rate in the 80s. On review of his rhythm strips, it was noted that the patient had an episode of A. fib with RVR at around 7:30 this morning. He continues to be in A. fib at this time his rate is under adequate control. Blood pressure on arrival here 128/60, 98% on room air. White blood cell count 11.4, hemoglobin 15.7, platelet count 249. Sodium 138, potassium 4.4, BUN 18, creatinine 0.8. Troponins are negative 3. At the time of my examination, patient continues to state that he feels so weak. Denies any dizziness or lightheadedness at present. He does state that he had 1 episode of chest discomfort at home which she described as a sharp pain which felt like a line being drawn across his heart. Very atypical in nature, worsened with breathing. 03/07/2018 Pattient seen and examined this morning, he is quite frustrated in how he is feeling overall, however according to the patient is really has not felt well since the time of his stent placement. In spite of several different things being done in the meantime. Patient is noted on the monitor that when he is up ambulating his heart rate goes up into the 1:30 range, continues to be persistently in atrial fibrillation. His pacemaker was interrogated and showed that approximately 10% of the time he was in atrial fibrillation. He is currently on nadolol 10 mg which we will increase to 20 today, blood pressure this morning 104/60, this afternoon 128/70. CBC is normal, sodium 139, potassium 4.3, BUN 23, creatinine 1.0. Suggestion was given by Dr. Montoya that perhaps patient may benefit from cardioversion. We will speak with Dr. Sorensen regarding this. We have also put a consult in for Dr. Mckeon to see the patient for possible ablation. 03/09/2018 Patient underwent elective cardioversion yesterday by Dr. Sorensen, continues to be in a normal sinus rhythm this morning. He was seen and examined, states that he has no further shortness of breath or palpitations with ambulation. From our perspective he may be able to be discharged home today, we'll make him a follow-up appointment see Dr. Sorensen in the office post discharge. Objective - Vital Signs Vital signs: Vital Signs Temp 97.8 F 03/09/18 08:00 Pulse 63 03/09/18 08:00 Resp 18 03/09/18 08:00 BP 102/58 03/09/18 08:00 Pulse Ox 96 03/09/18 08:00 Intake & Output 03/08/18 03/09/18 03/09/18 18:59 06:59 18:59 Intake Total 580 490 Balance 580 490 Weight 76.5 kg 76.4 kg Intake: IV 100 10 Invasive Line 1 10 Oral 480 480 Other: Voiding Method Urinal # Voids 1 1 - Exam PHYSICAL EXAMINATION: GENERAL: 73-year-old gentleman in no acute distress at the time of my examination HEENT: Head is atraumatic, normocephalic. Pupils equal, round. Sclera anicteric. Conjunctiva are clear. Mucous membranes of the mouth are moist. Neck is supple. There is no elevated jugular venous pressure.] bruit is heard. HEART EXAMINATION: Heart S1, S2 irregularly irregular . No murmur or gallop heard. CHEST EXAMINATION: Lungs are clear to auscultation and precussion. No chest wall tenderness is noted on palpation or with deep breathing. ABDOMEN: Soft, nontender. Bowel sounds are heard. No organomegaly noted. EXTREMITIES: 2+ peripheral pulses with no evidence of peripheral edema and no calf tenderness noted. NEUROLOGIC patient is awake, alert and oriented ?-3. - Labs CBC & Chem 7: 03/06/18 02:43 03/06/18 02:43 Labs: Abnormal Lab Results - Last 24 Hours (Table) 03/09/18 Range/Units 11:55 POC Glucose (mg/dL) 103 H (75-99) mg/dL Assessment and Plan Plan: Assessment and plan #1 symptoms of progressive weakness with associated dizziness and lightheadedness. One episode of brief syncope. We will check orthostatic, continue to monitor for significant tachycardia or bradycardia arrhythmias. #2 paroxysmal atrial fibrillation, patient is currently in atrial fibrillation, on Xarelto for anticoagulation #3 coronary artery disease with stenting of the LAD in September of this year, patient was taken off Plavix in the office last week because he refuses to take it any longer, he felt that some of his symptoms of weakness and muscle aching or secondary to that. #4 hypertension #5 hyperlipidemia #6 nicotine dependence #7 COPD #8 prior pacemaker implantation, [employer] Plan Patient underwent cardioversion yesterday continues to be in a normal sinus rhythm today. From cardiology's perspective he may be able to be discharged home once cleared by primary, we will make him a follow-up appointment with Dr. Sorensen post discharge. DNP note has been reviewed, I agree with a documented findings and plan of care. Patient was seen and examined.
--- NOTE | 2018-03-09 18:00 | DS ---
DISCHARGE SUMMARY FINAL DIAGNOSES: 1. Syncope with weakness and lightheadedness with approximate fibrillation with rate uncontrolled. 2. Coronary artery disease, recent stenting. 3. History of pacemaker. 4. Hypertension. 5. History of chronic obstructive pulmonary disease. 6. History of chronic back pain. 7. Benign prostatic hypertrophy,. 8. History of ongoing nicotine dependence. DISCHARGE DISPOSITION: The patient will be discharged in stable condition with guarded prognosis. HISTORY OF PRESENT ILLNESS: This 73-year-old gentleman with a past history of multiple medical problems, admitted with syncope and progressive weakness and dizziness. The patient had paroxysmal atrial fibrillation. Patient underwent cardioversion by Cardiology. Medication adjusted. The patient improved significantly. Patient followed by Dr. Fritz Guy in the outpatient setting. Cardiology recommended the patient be discharged and follow up in the outpatient setting. The patient is discharged in stable condition with guarded prognosis. On exam, vital signs are stable. Cardiovascular: S1, S2. Abdomen: Soft. Nervous System: No focal deficit. DISCHARGE ADVICE AND MEDICATIONS: 1. Diet is cardiac. 2. Activity limited until followup. 3. Follow up with Dr. Fritz Guy in 2-3 days. 4. Follow with Cardiology as recommended. MEDICATIONS: 1. Aspirin 81 mg p.o. daily. 2. Vitamin D3 1000 q.h.s. 3. Glucosamine 500 mg q.h.s. 4. Hydrocodone 1 tablet every 6 hours p.r.n. 5. Pravachol 40 mg q.h.s. 6. metamucil 6 g daily. 7. Xarelto 20 mg p.o. daily. 8. Flomax 0.8 q.h.s. 9. Ambien 10 mg q.h.s. p.r.n. 10.Corgard 20 mg p.o. daily. Once again the patient is discharged in stable condition with guarded prognosis. MMODL / IJN: [id number] / MTDD
--- NOTE | 2018-03-12 13:30 | EEG ---
ELECTROENCEPHALOGRAM REPORT DATE OF SERVICE: 03/08/2018. REASON FOR TESTING: Dizziness and memory loss. DESCRIPTION OF THE PROCEDURE: This EEG was performed using a 21 channel digital electroencephalograph, following international 10-20 system. DESCRIPTION OF THE RECORDING: From the beginning of the tracing, and with patient's eyes closed, the background rhythm was mostly consisting of 8-9 Hz alpha frequency in the posterior occipital leads. No obvious asymmetry is seen. Photic stimulation was performed with a minimal driving response seen. No pathological waves were elicited. Hyperventilation was not performed. The patient does reach stage II of sleep during the tracing and occasional sleep spindles are seen. No epileptiform discharges were seen. His EKG lead showed an irregularly irregular rhythm with a normal rate. INTERPRETATION: This asleep and awake EEG can be considered within normal limits except his EKG lead showed an irregularly irregular rhythm with a normal rate. No epileptiform discharges were seen. The absence of epileptiform discharges does not rule out the diagnosis of epilepsy; therefore clinical correlation is recommended. MMBRAIN / STEPHEN: [id number] /
== END 2018-03-09 14:11 | disposition home or self-care (01) | DRG 310 ==
LOC: EC 14:28 → 6SEL 16:22
PROVIDERS: ADMIT Family Medicine; ATTEND Family Medicine
PROC: 5A2204Z Restoration of Cardiac Rhythm, Single (ICD-10-PCS; principal; 2018-03-05)
DX: I48.0 Paroxysmal atrial fibrillation (principal); J44.9 Chronic obstructive pulmonary disease, unspecified; I45.2 Bifascicular block; E78.5 Hyperlipidemia, unspecified; I10 Essential (primary) hypertension; I25.10 Atherosclerotic heart disease of native coronary artery without angina pectoris; G89.29 Other chronic pain; M54.9 Dorsalgia, unspecified; N40.0 Benign prostatic hyperplasia without lower urinary tract symptoms; H53.9 Unspecified visual disturbance; K57.90 Diverticulosis of intestine, part unspecified, without perforation or abscess without bleeding; Z91.19 Patient's noncompliance with other medical treatment and regimen; Z79.82 Long term (current) use of aspirin; Z79.01 Long term (current) use of anticoagulants; Z79.899 Other long term (current) drug therapy; Z87.891 Personal history of nicotine dependence; Z95.5 Presence of coronary angioplasty implant and graft; Z95.0 Presence of cardiac pacemaker; Z88.1 Allergy status to other antibiotic agents; Z82.49 Family history of ischemic heart disease and other diseases of the circulatory system
CPT/HCPCS: 36415; 70450; 71046; 80048; 80053; 81003; 82150; 82550; 82553; 83690; 83735; 84443; 84484; 85025; 85379; 85610; 85730; 92960; 93005; 93306; 93880; 95819; 96360; 99291

== ENCOUNTER 2018-03-30 20:37 | Emergency (ER) | payer MEDICARE, BC ==
[2018-03-30] MEDS ORDERED: SODIUM CHLORIDE 0.9% 1,000 ML IV STA (20:45)
[2018-03-30] MEDS ORDERED: SODIUM CHLORIDE 0.9% 500 ML IV STA (20:45)
[2018-03-30 20:47] VITALS: RESP 16
--- NOTE | 2018-03-30 20:47 | ED ---
Arrhythmia/Palpitations HPI - General Stated Complaint: Hypertension Time Seen by Provider: 03/30/18 20:37 Source: patient, EMS, RN notes reviewed Mode of arrival: EMS - History of Present Illness Initial Comments: This is a 73-year-old male was brought in by EMS and is complaining of hypertension. Apparently he was switched from beta blockers to an other medication and blood pressure has been elevated he was told to come the hospital for evaluation for stated above 140 systolic. In route he was noted to have intermittent episodes of atrial fibrillation. He also complained of blurry vision and ringing in his years. He denies any fevers chills nausea vomiting sweats does admit to drinking alcohol today. MD Complaint: rapid heart beat - Related Data Home Medications Medication Instructions Recorded Confirmed Cholecalciferol [Vitamin D3] 1,000 unit PO HS 05/23/17 03/30/18 Glucosamine Sulfate 500 mg PO HS 05/23/17 03/30/18 Pravastatin Sodium [Pravachol] 40 mg PO HS 05/23/17 03/30/18 Tamsulosin HCl [Flomax] 0.8 mg PO HS 05/29/17 03/30/18 Hydrocodone/Acetaminophen 1 each PO Q6H PRN 08/17/17 03/30/18 [Hydrocodon-Acetaminophn 10-325] Aspirin [Adult Low Dose Aspirin EC] 81 mg PO DAILY 03/05/18 03/30/18 Psyllium Husk (with Sugar) 6 gm PO DAILY 03/05/18 03/30/18 [Metamucil Powder] Rivaroxaban [Xarelto] 20 mg PO DAILY 03/05/18 03/30/18 Zolpidem Tartrate [Ambien] 10 mg PO HS PRN 03/05/18 03/30/18 Diltiazem HCl [Cartia Xt] 180 mg PO DAILY 03/30/18 03/30/18 Allergies Allergy/AdvReac Type Severity Reaction Status Date / Time clindamycin Allergy Severe Rapid Verified 03/05/18 15:18 Heart Rate cefuroxime Allergy Intermediate Rapid Verified 03/05/18 15:18 Heart Rate ciprofloxacin [From Cipro] Allergy Unknown Verified 03/05/18 15:18 metronidazole Allergy Anaphylaxis Verified 03/05/18 15:18 Review of Systems ROS Statement: Those systems with pertinent positive or pertinent negative responses have been documented in the HPI. ROS Other: All systems not noted in ROS Statement are negative. Past Medical History Past Medical History: Atrial Fibrillation, Chest Pain / Angina, COPD, Hyperlipidemia Additional Past Medical History / Comment(s): chronic back pain, diverticulosis, History of Any Multi-Drug Resistant Organisms: None Reported Past Surgical History: Orthopedic Surgery, Pacemaker Additional Past Surgical History / Comment(s): cardioversion,mateus rt knee/lower leg sx has 3 screws, colonoscopy, "bone aspiration" Past Anesthesia/Blood Transfusion Reactions: No Reported Reaction Additional Past Anesthesia/Blood Transfusion Reaction / Comment(s): per -pt never recieved any blood in past Type of Cardiac Device: Permanent Pacemaker Device Placement Date:: . Smoking Status: Former smoker - Past Family History Father Family Medical History: Coronary Artery Disease (CAD) Mother History Unknown: Yes General Exam - General Exam Comments Initial Comments: This is a well-developed well-nourished awake alert oriented 3 male General appearance: alert, in no apparent distress Head exam: Present: atraumatic, normocephalic, normal inspection Eye exam: Present: normal appearance, PERRL, EOMI. Absent: scleral icterus, conjunctival injection, periorbital swelling ENT exam: Present: mucous membranes dry Neck exam: Present: normal inspection. Absent: tenderness, meningismus, lymphadenopathy Respiratory exam: Present: normal lung sounds bilaterally. Absent: respiratory distress, wheezes, rales, rhonchi, stridor Cardiovascular Exam: Present: regular rate, normal rhythm, normal heart sounds. Absent: systolic murmur, diastolic murmur, rubs, gallop, clicks GI/Abdominal exam: Present: soft, normal bowel sounds. Absent: distended, tenderness, guarding, rebound, rigid Extremities exam: Present: normal inspection, full ROM, normal capillary refill. Absent: tenderness, pedal edema, joint swelling, calf tenderness Back exam: Present: normal inspection Neurological exam: Present: alert, oriented X3, CN II-XII intact Psychiatric exam: Present: normal affect, normal mood Skin exam: Present: warm, dry, intact, normal color. Absent: rash Course Vital Signs 03/30/18 03/30/18 20:39 21:27 Temperature 97.3 F L Pulse Rate 76 62 Respiratory 16 16 Rate Blood Pressure 155/78 141/72 O2 Sat by Pulse 93 L Oximetry - Reevaluation(s) Reevaluation #1: 03/30/18 22:13 The patient was switched from natolol to Cartia XT 180 mg daily. EKG Findings - EKG Results: EKG: interpreted by GUTIERREZ (Atrial paced rhythm of 71 appear interval 174 QRS 132 QT since QTC of 400/434 red bundle-branch block pattern with anterior fascicular block pattern) Medical Decision Making - Medical Decision Making Patient is feeling improved he feels back to normal. I did discuss the findings with him and his I did discuss admission for observation and cardiology consultation they have refuse admission at this time and have elected to go home. - Lab Data Result diagrams: 03/30/18 20:47 03/30/18 20:47 Lab Results 03/30/18 03/30/18 03/30/18 Range/Units 20:47 20:47 20:47 WBC 7.0 (3.8-10.6) k/uL RBC 4.88 (4.30-5.90) m/uL Hgb 15.4 (13.0-17.5) gm/dL Hct 45.3 (39.0-53.0) % MCV 93.0 (80.0-100.0) fL MCH 31.5 (25.0-35.0) pg MCHC 33.9 (31.0-37.0) g/dL RDW 12.1 (11.5-15.5) % Plt Count 201 (150-450) k/uL Neutrophils % 65 % Lymphocytes % 25 % Monocytes % 5 % Eosinophils % 4 % Basophils % 0 % Neutrophils # 4.6 (1.3-7.7) k/uL Lymphocytes # 1.7 (1.0-4.8) k/uL Monocytes # 0.3 (0-1.0) k/uL Eosinophils # 0.3 (0-0.7) k/uL Basophils # 0.0 (0-0.2) k/uL Sodium 141 (137-145) mmol/L Potassium 4.0 (3.5-5.1) mmol/L Chloride 102 (98-107) mmol/L Carbon Dioxide 29 (22-30) mmol/L Anion Gap 10 mmol/L BUN 14 (9-20) mg/dL Creatinine 1.11 (0.66-1.25) mg/dL Est GFR (CKD-EPI)AfAm 76 (>60 ml/min/1.73 sqM) Est GFR (CKD-EPI)NonAf 66 (>60 ml/min/1.73 sqM) Glucose 116 H (74-99) mg/dL Calcium 9.9 (8.4-10.2) mg/dL Magnesium 2.2 (1.6-2.3) mg/dL Total Bilirubin 0.5 (0.2-1.3) mg/dL AST 21 (17-59) U/L ALT 22 (21-72) U/L Alkaline Phosphatase 58 (38-126) U/L Total Creatine Kinase 61 (55-170) U/L CK-MB (CK-2) 0.7 (0.0-2.4) ng/mL CK-MB (CK-2) Rel Index 1.1 Troponin I <0.012 (0.000-0.034) ng/mL Total Protein 7.3 (6.3-8.2) g/dL Albumin 4.4 (3.5-5.0) g/dL Serum Alcohol <10 mg/dL - Radiology Data Radiology results: report reviewed (I did review the imaging and report no acute findings.), image reviewed Disposition Clinical Impression: Labile hypertension Disposition: HOME SELF-CARE Condition: Good Instructions: Hypertension (ED) Additional Instructions: Follow-up with Dr. Sorensen in 2 days Is patient prescribed a controlled substance at d/c from ED?: No Referrals: Fritz Guy MD [Primary Care Provider] - 1-2 days
[2018-03-30 21:02] LABS: Basophils % (A) 0 %; Eosinophils # (A) 0.3 k/uL (0-0.7); Eosinophils % (A) 4 %; HCT 45.3 % (39.0-53.0); HGB 15.4 gm/dL (13.0-17.5); Lymphocytes # (A) 1.7 k/uL (1.0-4.8); Lymphocytes % (A) 25 %; MCH 31.5 pg (25.0-35.0); MCHC 33.9 g/dL (31.0-37.0); Mean Platelet Volume 6.7; Monocytes # (A) 0.3 k/uL (0-1.0); Monocytes % (A) 5 %; Neutrophils # (A) 4.6 k/uL (1.3-7.7); Neutrophils % (A) 65 %; Platelet Count 201 k/uL (150-450); RBC 4.88 m/uL (4.30-5.90); RDW 12.1 % (11.5-15.5)
--- NOTE | 2018-03-30 21:04 | XR ---
EXAMINATION TYPE: XR chest 2V DATE OF EXAM: 03/30/2018 COMPARISON: Chest radiograph 02/25/2018 HISTORY: Cough TECHNIQUE: Frontal and lateral views of the chest are obtained. FINDINGS: Dual-lead cardiac duction device is unchanged in position. The cardiac silhouette remains within normal limits. No pneumothorax or pleural effusion. Bibasilar subsegmental atelectasis. Osseou s structures are intact. IMPRESSION: No acute process. No significant interval change.
[2018-03-30 21:15] LABS: Creatine Kinase 61 U/L (55-170)
[2018-03-30 21:18] LABS: ALT 22 U/L (21-72); AST 21 U/L (17-59); Albumin 4.4 g/dL (3.5-5.0); Alcohol <10 mg/dL; Alkaline Phosphatase 58 U/L (38-126); Anion Gap 10 mmol/L; Blood Urea Nitrogen 14 mg/dL (9-20); Calcium 9.9 mg/dL (8.4-10.2); Carbon Dioxide 29 mmol/L (22-30); Chloride 102 mmol/L (98-107); Glucose 116 mg/dL (74-99); Magnesium 2.2 mg/dL (1.6-2.3); Sodium 141 mmol/L (137-145); Total Bilirubin 0.5 mg/dL (0.2-1.3); Total Protein 7.3 g/dL (6.3-8.2)
[2018-03-30 21:29] LABS: Creatine Kinase MB 0.7 ng/mL (0.0-2.4); Troponin I <0.012 ng/mL (0.000-0.034)
[2018-03-30 22:34] VITALS: BP 148/71; PULSE 56; TEMP 97.9
== END 2018-03-30 22:34 | disposition home or self-care (01) ==
LOC: EC 20:37
DX: I10 Essential (primary) hypertension (principal); I48.91 Unspecified atrial fibrillation; E78.5 Hyperlipidemia, unspecified; Z79.82 Long term (current) use of aspirin; Z79.01 Long term (current) use of anticoagulants; Z79.899 Other long term (current) drug therapy; Z88.1 Allergy status to other antibiotic agents; Z87.891 Personal history of nicotine dependence; Z95.0 Presence of cardiac pacemaker
CPT/HCPCS: 36415; 93005; 80053; 82550; 82553; 83735; 84484; 85025; 71046; 99285; 96360; G0480; 80320

== ENCOUNTER 2018-10-13 15:59 | Emergency (ER) | payer MEDICARE, BC ==
[2018-10-13 16:03] LABS: Glucose,Whole Blood 103 mg/dL (75-99)
[2018-10-13] MEDS ORDERED: MECLIZINE 12.5 MG TAB PO STA (16:16)
[2018-10-13 16:22] VITALS: RESP 16; TEMP 97.4
--- NOTE | 2018-10-13 16:27 | ED ---
General Adult HPI - General Chief complaint: Syncope Stated complaint: Weakness,dizzy Time Seen by Provider: 10/13/18 16:01 Source: patient, EMS Mode of arrival: EMS Limitations: no limitations - History of Present Illness Initial comments: Dictation was produced using [employer] dictation software. please excuse any grammatical, word or spelling errors. Chief Complaint: 73-year-old male with multiple comorbidities presents with dizziness. History of Present Illness: 73-year-old male multiple comorbidities. He reports today for worsening syncope since yesterday. Patient states he's been unwell for the last 15-18 months. Patient was recently diagnosed with atrial fibrillation. Patient states that he had multiple episode where he tried to stand up from a chair. He states that he was unable to because he felt like the room was spinning. Patient denies any symptoms at rest however with movements he reports worsening symptoms. Patient denies any focal neurologic deficits. Patient states he is unable to walk given his symptoms. Patient denies any complaints at this time. EMS was called and reported that upon initial evaluation is stable vital signs. The ROS documented in this emergency department record has been reviewed and confirmed by me. Those systems with pertinent positive or negative responses have been documented in the HPI. All other systems are other negative and/or noncontributory. PHYSICAL EXAM: General Impression: Alert and oriented x3, not in acute distress HEENT: Normocephalic atraumatic, extra-ocular movements intact, pupils equal and reactive to light bilaterally, mucous membranes moist. Cardiovascular: Heart regular rate and rhythm, S1&S2 audible, no murmurs, rubs or gallops Chest: Lungs clear to auscultation bilaterally, no rhonchi, no wheeze, no rales Abdomen: Bowel sounds present, abdomen soft, non-tender, non-distended, no organomegaly Musculoskeletal: Pulses present and equal in all extremities, no peripheral edema Motor: no focal deficits noted Neurological: CN II-XII grossly intact, no focal motor or sensory deficits noted, persistent right beating nystagmus elicited with right lateral gaze Skin: Intact with no visualized rashes Psych: Normal affect and mood ED course: 73-year-old male with multiple comorbidities presents with chief complaint of vertigo and syncope. EKG is unchanged compared to most recent. Clinical presentation consistent with peripheral vertigo. Laboratory evaluation obtained. CBC, metabolic panel, urinalysis is unremarkable. There is 1+ ketones however. Rapid urine drug triage positive for opiates. Stool occult blood is negative. Patient is normal hemoglobin. Brain CT was obtained given that patient did fall there is no signs of external head injury however he had an unwitnessed episode of passing out. EKGs benign. Clinical presentation consistent with peripheral vertigo. Patient given Antivert intravenous fluids. Patient's symptoms are improved. Discussed with patient that he should follow- up with his primary care physician. Patient given prescription for Antivert to take when necessary vertiginous symptoms. Patient understandable agreeable to disposition. Patient given outpatient referral to neurology. EKG interpretation: Ventricular rate 73, atrial paced rhythm, QS 1:30, QTc 462. No DC prolongation, no QTC prolongation, no ST or T-wave changes noted. EKG compared to 03/30/2018 showing no changes. Overall, this EKG is unremarkable - Related Data Home Medications Medication Instructions Recorded Confirmed Cholecalciferol [Vitamin D3] 1,000 unit PO HS 05/23/17 10/13/18 Glucosamine Sulfate 500 mg PO HS 05/23/17 10/13/18 Pravastatin Sodium [Pravachol] 40 mg PO HS 05/23/17 10/13/18 Tamsulosin HCl [Flomax] 0.8 mg PO HS 05/29/17 10/13/18 Hydrocodone/Acetaminophen 1 tab PO QID PRN 08/17/17 10/13/18 [Hydrocodon-Acetaminophn 10-325] Aspirin [Adult Low Dose Aspirin EC] 81 mg PO DAILY 03/05/18 10/13/18 Rivaroxaban [Xarelto] 20 mg PO DAILY 03/05/18 10/13/18 Zolpidem Tartrate [Ambien] 10 mg PO HS 03/05/18 10/13/18 ALPRAZolam [Xanax] 0.25 mg PO DAILY PRN 10/13/18 10/13/18 Diltiazem HCl [Cartia Xt] 240 mg PO DAILY 10/13/18 10/13/18 Previous Rx's Medication Instructions Recorded Meclizine [Antivert] 25 mg PO BID PRN #12 tab 10/13/18 Allergies Allergy/AdvReac Type Severity Reaction Status Date / Time clindamycin Allergy Severe Rapid Verified 10/13/18 17:31 Heart Rate cefuroxime Allergy Intermediate Rapid Verified 10/13/18 17:31 Heart Rate ciprofloxacin [From Cipro] Allergy Anaphylaxis Verified 10/13/18 17:31 metronidazole Allergy Anaphylaxis Verified 10/13/18 17:31 Review of Systems ROS Statement: Those systems with pertinent positive or pertinent negative responses have been documented in the HPI. ROS Other: All systems not noted in ROS Statement are negative. Past Medical History Past Medical History: Atrial Fibrillation, Chest Pain / Angina, COPD, Hyperlipidemia Additional Past Medical History / Comment(s): chronic back pain, diverticulosis, History of Any Multi-Drug Resistant Organisms: None Reported Past Surgical History: Orthopedic Surgery, Pacemaker Additional Past Surgical History / Comment(s): cardioversion,mateus rt knee/lower leg sx has 3 screws, colonoscopy, "bone aspiration" Past Anesthesia/Blood Transfusion Reactions: No Reported Reaction Additional Past Anesthesia/Blood Transfusion Reaction / Comment(s): per -pt never recieved any blood in past Type of Cardiac Device: Permanent Pacemaker Device Placement Date:: . Smoking Status: Former smoker - Past Family History Father Family Medical History: Coronary Artery Disease (CAD) Mother History Unknown: Yes General Exam Limitations: no limitations Course Vital Signs 10/13/18 10/13/18 10/13/18 16:12 17:20 18:42 Temperature 97.4 F L Pulse Rate 60 51 L 51 L Respiratory 16 16 16 Rate Blood Pressure 129/76 127/79 141/85 O2 Sat by Pulse 94 L 98 96 Oximetry Medical Decision Making - Lab Data Result diagrams: 10/13/18 16:10 10/13/18 16:10 Lab Results 10/13/18 10/13/18 10/13/18 Range/Units 16:02 16:10 16:10 WBC 6.9 (3.8-10.6) k/uL RBC 4.82 (4.30-5.90) m/uL Hgb 14.8 (13.0-17.5) gm/dL Hct 41.9 (39.0-53.0) % MCV 87.0 (80.0-100.0) fL MCH 30.6 (25.0-35.0) pg MCHC 35.2 (31.0-37.0) g/dL RDW 15.7 H (11.5-15.5) % Plt Count 196 (150-450) k/uL Neutrophils % 69 % Lymphocytes % 20 % Monocytes % 6 % Eosinophils % 3 % Basophils % 0 % Neutrophils # 4.8 (1.3-7.7) k/uL Lymphocytes # 1.4 (1.0-4.8) k/uL Monocytes # 0.4 (0-1.0) k/uL Eosinophils # 0.2 (0-0.7) k/uL Basophils # 0.0 (0-0.2) k/uL Sodium 139 (137-145) mmol/L Potassium 3.9 (3.5-5.1) mmol/L Chloride 104 (98-107) mmol/L Carbon Dioxide 24 (22-30) mmol/L Anion Gap 11 mmol/L BUN 21 H (9-20) mg/dL Creatinine 0.74 (0.66-1.25) mg/dL Est GFR (CKD-EPI)AfAm >90 (>60 ml/min/1.73 sqM) Est GFR (CKD-EPI)NonAf >90 (>60 ml/min/1.73 sqM) Glucose 103 H (74-99) mg/dL POC Glucose (mg/dL) 103 H (75-99) mg/dL POC Glu Station Engineer Chief Florencia Sheets Calcium 9.8 (8.4-10.2) mg/dL Magnesium 2.1 (1.6-2.3) mg/dL Total Bilirubin 0.6 (0.2-1.3) mg/dL AST 18 (17-59) U/L ALT 26 (21-72) U/L Alkaline Phosphatase 87 (38-126) U/L Troponin I (0.000-0.034) ng/mL Total Protein 6.8 (6.3-8.2) g/dL Albumin 4.2 (3.5-5.0) g/dL Urine Color Urine Appearance (Clear) Urine pH (5.0-8.0) Ur Specific [place] (1.001-1.035) Urine Protein (Negative) Urine Glucose (UA) (Negative) Urine Ketones (Negative) Urine Blood (Negative) Urine Nitrite (Negative) Urine Bilirubin (Negative) Urine Urobilinogen (<2.0) mg/dL Ur Leukocyte Esterase (Negative) Urine RBC (0-5) /hpf Urine WBC (0-5) /hpf Hyaline Casts (0-2) /lpf Urine Mucus (None) /hpf Stool Occult Blood (Negative) Urine Opiates Screen (NotDetected) Ur Oxycodone Screen (NotDetected) Urine Methadone Screen (NotDetected) Ur Propoxyphene Screen (NotDetected) Ur Barbiturates Screen (NotDetected) U Tricyclic Antidepress (NotDetected) Ur Phencyclidine Scrn (NotDetected) Ur Amphetamines Screen (NotDetected) U Methamphetamines Scrn (NotDetected) U Benzodiazepines Scrn (NotDetected) Urine Cocaine Screen (NotDetected) U Marijuana (THC) Screen (NotDetected) Serum Alcohol <10 mg/dL 10/13/18 10/13/18 10/13/18 Range/Units 16:10 16:10 Unknown WBC (3.8-10.6) k/uL RBC (4.30-5.90) m/uL Hgb (13.0-17.5) gm/dL Hct (39.0-53.0) % MCV (80.0-100.0) fL MCH (25.0-35.0) pg MCHC (31.0-37.0) g/dL RDW (11.5-15.5) % Plt Count (150-450) k/uL Neutrophils % % Lymphocytes % % Monocytes % % Eosinophils % % Basophils % % Neutrophils # (1.3-7.7) k/uL Lymphocytes # (1.0-4.8) k/uL Monocytes # (0-1.0) k/uL Eosinophils # (0-0.7) k/uL Basophils # (0-0.2) k/uL Sodium (137-145) mmol/L Potassium (3.5-5.1) mmol/L Chloride (98-107) mmol/L Carbon Dioxide (22-30) mmol/L Anion Gap mmol/L BUN (9-20) mg/dL Creatinine (0.66-1.25) mg/dL Est GFR (CKD-EPI)AfAm (>60 ml/min/1.73 sqM) Est GFR (CKD-EPI)NonAf (>60 ml/min/1.73 sqM) Glucose (74-99) mg/dL POC Glucose (mg/dL) (75-99) mg/dL POC Glu Station Engineer Chief ID Calcium (8.4-10.2) mg/dL Magnesium (1.6-2.3) mg/dL Total Bilirubin (0.2-1.3) mg/dL AST (17-59) U/L ALT (21-72) U/L Alkaline Phosphatase (38-126) U/L Troponin I <0.012 (0.000-0.034) ng/mL Total Protein (6.3-8.2) g/dL Albumin (3.5-5.0) g/dL Urine Color Yellow Urine Appearance Clear (Clear) Urine pH 5.0 (5.0-8.0) Ur Specific [place] 1.029 (1.001-1.035) Urine Protein 1+ H (Negative) Urine Glucose (UA) Negative (Negative) Urine Ketones 1+ H (Negative) Urine Blood Negative (Negative) Urine Nitrite Negative (Negative) Urine Bilirubin Negative (Negative) Urine Urobilinogen <2.0 (<2.0) mg/dL Ur Leukocyte Esterase Negative (Negative) Urine RBC 1 (0-5) /hpf Urine WBC 2 (0-5) /hpf Hyaline Casts 4 H (0-2) /lpf Urine Mucus Rare H (None) /hpf Stool Occult Blood Negative (Negative) Urine Opiates Screen (NotDetected) Ur Oxycodone Screen (NotDetected) Urine Methadone Screen (NotDetected) Ur Propoxyphene Screen (NotDetected) Ur Barbiturates Screen (NotDetected) U Tricyclic Antidepress (NotDetected) Ur Phencyclidine Scrn (NotDetected) Ur Amphetamines Screen (NotDetected) U Methamphetamines Scrn (NotDetected) U Benzodiazepines Scrn (NotDetected) Urine Cocaine Screen (NotDetected) U Marijuana (THC) Screen (NotDetected) Serum Alcohol mg/dL 10/13/18 Range/Units Unknown WBC (3.8-10.6) k/uL RBC (4.30-5.90) m/uL Hgb (13.0-17.5) gm/dL Hct (39.0-53.0) % MCV (80.0-100.0) fL MCH (25.0-35.0) pg MCHC (31.0-37.0) g/dL RDW (11.5-15.5) % Plt Count (150-450) k/uL Neutrophils % % Lymphocytes % % Monocytes % % Eosinophils % % Basophils % % Neutrophils # (1.3-7.7) k/uL Lymphocytes # (1.0-4.8) k/uL Monocytes # (0-1.0) k/uL Eosinophils # (0-0.7) k/uL Basophils # (0-0.2) k/uL Sodium (137-145) mmol/L Potassium (3.5-5.1) mmol/L Chloride (98-107) mmol/L Carbon Dioxide (22-30) mmol/L Anion Gap mmol/L BUN (9-20) mg/dL Creatinine (0.66-1.25) mg/dL Est GFR (CKD-EPI)AfAm (>60 ml/min/1.73 sqM) Est GFR (CKD-EPI)NonAf (>60 ml/min/1.73 sqM) Glucose (74-99) mg/dL POC Glucose (mg/dL) (75-99) mg/dL POC Glu Station Engineer Chief ID Calcium (8.4-10.2) mg/dL Magnesium (1.6-2.3) mg/dL Total Bilirubin (0.2-1.3) mg/dL AST (17-59) U/L ALT (21-72) U/L Alkaline Phosphatase (38-126) U/L Troponin I (0.000-0.034) ng/mL Total Protein (6.3-8.2) g/dL Albumin (3.5-5.0) g/dL Urine Color Urine Appearance (Clear) Urine pH (5.0-8.0) Ur Specific [place] (1.001-1.035) Urine Protein (Negative) Urine Glucose (UA) (Negative) Urine Ketones (Negative) Urine Blood (Negative) Urine Nitrite (Negative) Urine Bilirubin (Negative) Urine Urobilinogen (<2.0) mg/dL Ur Leukocyte Esterase (Negative) Urine RBC (0-5) /hpf Urine WBC (0-5) /hpf Hyaline Casts (0-2) /lpf Urine Mucus (None) /hpf Stool Occult Blood (Negative) Urine Opiates Screen Detected H (NotDetected) Ur Oxycodone Screen Not Detected (NotDetected) Urine Methadone Screen Not Detected (NotDetected) Ur Propoxyphene Screen Not Detected (NotDetected) Ur Barbiturates Screen Not Detected (NotDetected) U Tricyclic Antidepress Not Detected (NotDetected) Ur Phencyclidine Scrn Not Detected (NotDetected) Ur Amphetamines Screen Not Detected (NotDetected) U Methamphetamines Scrn Not Detected (NotDetected) U Benzodiazepines Scrn Not Detected (NotDetected) Urine Cocaine Screen Not Detected (NotDetected) U Marijuana (THC) Screen Not Detected (NotDetected) Serum Alcohol mg/dL Disposition Clinical Impression: Vertigo Disposition: HOME SELF-CARE Condition: Good Instructions (If sedation given, give patient instructions): Vertigo (ED) Prescriptions: Meclizine [Antivert] 25 mg PO BID PRN #12 tab PRN Reason: Vertigo Is patient prescribed a controlled substance at d/c from ED?: No Referrals: Fritz Guy MD [Primary Care Provider] - 1-2 days Nando Spivey MD [STAFF PHYSICIAN] - 1-2 days Time of Disposition: 19:43
[2018-10-13 16:32] LABS: Basophils % (A) 0 %; Eosinophils # (A) 0.2 k/uL (0-0.7); Eosinophils % (A) 3 %; HCT 41.9 % (39.0-53.0); HGB 14.8 gm/dL (13.0-17.5); Lymphocytes # (A) 1.4 k/uL (1.0-4.8); Lymphocytes % (A) 20 %; MCH 30.6 pg (25.0-35.0); MCHC 35.2 g/dL (31.0-37.0); Mean Platelet Volume 9.6; Monocytes # (A) 0.4 k/uL (0-1.0); Monocytes % (A) 6 %; Neutrophils # (A) 4.8 k/uL (1.3-7.7); Neutrophils % (A) 69 %; Platelet Count 196 k/uL (150-450); RBC 4.82 m/uL (4.30-5.90); RDW 15.7 % (11.5-15.5); WBC 6.9 k/uL (3.8-10.6)
[2018-10-13 16:42] LABS: ALT 26 U/L (21-72); AST 18 U/L (17-59); Albumin 4.2 g/dL (3.5-5.0); Alcohol <10 mg/dL; Alkaline Phosphatase 87 U/L (38-126); Anion Gap 11 mmol/L; Blood Urea Nitrogen 21 mg/dL (9-20); Calcium 9.8 mg/dL (8.4-10.2); Carbon Dioxide 24 mmol/L (22-30); Chloride 104 mmol/L (98-107); Glucose 103 mg/dL (74-99); Magnesium 2.1 mg/dL (1.6-2.3); Potassium 3.9 mmol/L (3.5-5.1); Sodium 139 mmol/L (137-145); Total Bilirubin 0.6 mg/dL (0.2-1.3); Total Protein 6.8 g/dL (6.3-8.2)
--- NOTE | 2018-10-13 16:54 | CT ---
EXAMINATION TYPE: CT brain wo con DATE OF EXAM: 10/13/2018 COMPARISON: CT brain 03/06/2018 HISTORY: weakness, dizzy CT DLP: 1142.4 mGycm Automated exposure control for dose reduction was used. CT brain performed. FINDINGS: There is no hemorrhage or hydrocephalus. Mild cortical atrophy is likely age-related. Brain density i s remarkable for some frontal white matter hypoattenuation similar to prior exam. Orbits show symmetr ic appearance. Paranasal sinuses and mastoid air cells are normal. IMPRESSION: NO ACUTE ABNORMALITY. MRI could be performed for better evaluation as indicated.
--- NOTE | 2018-10-13 17:26 | XR ---
EXAMINATION TYPE: XR chest 2V DATE OF EXAM: 10/13/2018 COMPARISON: Prior chest x-ray 03/30/2018 HISTORY: Weakness and syncope, abnormal chest x-ray TECHNIQUE: Frontal and lateral views of the chest are obtained. FINDINGS: There is no focal air space opacity, pleural effusion, or pneumothorax seen. The cardiac silhouette size is stable. Generator in the left pectoral region, leads in the right atrium and rickie tricle are again noted. There is some improvement in the subsegmental atelectatic changes at the lung bases. No pneumothorax. The osseous structures are intact. Prominent lung volumes suggest underlying COPD. Suspect coronary artery calcifications are present. IMPRESSION: No acute cardiopulmonary process.
[2018-10-13 17:41] LABS: Appearance,Urine Clear (Clear); Bilirubin,Urine Negative (Negative); Blood,Urine Negative (Negative); Color,Urine Yellow; Glucose,Urine (UA) Negative (Negative); Hyaline Casts,Urine 4 /lpf (0-2); Ketones,Urine 1+ (Negative); Leukocyte Esterase,Urine Negative (Negative); Mucus,Urine Rare /hpf; Nitrite,Urine Negative (Negative); Protein,Urine 1+ (Negative); RBC,Urine 1 /hpf (0-5); Specific Gravity,Urine 1.029 (1.001-1.035); Urobilinogen,Urine <2.0 mg/dL (<2.0)
[2018-10-13 17:52] LABS: Amphetamine Screen,Urine Not Detected (NotDetected); Barbiturate Screen,Urine Not Detected (NotDetected); Benzodiazepines Screen,Urine Not Detected (NotDetected); Cocaine Screen,Urine Not Detected (NotDetected); Methadone Screen, Urine Not Detected (NotDetected); Opiate Screen,Urine Detected (NotDetected); Oxycodone Screen, Urine Not Detected (NotDetected); Phencyclidine Screen,Urine Not Detected (NotDetected); Tricyclic Antidepressant,Urine Not Detected (NotDetected); Urn Cannabinoid Scrn Not Detected (NotDetected)
--- NOTE | 2018-10-13 20:29 | ED ---
Medical Decision Making - Lab Data Result diagrams: 10/13/18 16:10 10/13/18 16:10 Lab Results 10/13/18 10/13/18 10/13/18 Range/Units 16:02 16:10 16:10 WBC 6.9 (3.8-10.6) k/uL RBC 4.82 (4.30-5.90) m/uL Hgb 14.8 (13.0-17.5) gm/dL Hct 41.9 (39.0-53.0) % MCV 87.0 (80.0-100.0) fL MCH 30.6 (25.0-35.0) pg MCHC 35.2 (31.0-37.0) g/dL RDW 15.7 H (11.5-15.5) % Plt Count 196 (150-450) k/uL Neutrophils % 69 % Lymphocytes % 20 % Monocytes % 6 % Eosinophils % 3 % Basophils % 0 % Neutrophils # 4.8 (1.3-7.7) k/uL Lymphocytes # 1.4 (1.0-4.8) k/uL Monocytes # 0.4 (0-1.0) k/uL Eosinophils # 0.2 (0-0.7) k/uL Basophils # 0.0 (0-0.2) k/uL Sodium 139 (137-145) mmol/L Potassium 3.9 (3.5-5.1) mmol/L Chloride 104 (98-107) mmol/L Carbon Dioxide 24 (22-30) mmol/L Anion Gap 11 mmol/L BUN 21 H (9-20) mg/dL Creatinine 0.74 (0.66-1.25) mg/dL Est GFR (CKD-EPI)AfAm >90 (>60 ml/min/1.73 sqM) Est GFR (CKD-EPI)NonAf >90 (>60 ml/min/1.73 sqM) Glucose 103 H (74-99) mg/dL POC Glucose (mg/dL) 103 H (75-99) mg/dL POC Glu Cardiologist ID Florencia Emery Calcium 9.8 (8.4-10.2) mg/dL Magnesium 2.1 (1.6-2.3) mg/dL Total Bilirubin 0.6 (0.2-1.3) mg/dL AST 18 (17-59) U/L ALT 26 (21-72) U/L Alkaline Phosphatase 87 (38-126) U/L Troponin I (0.000-0.034) ng/mL Total Protein 6.8 (6.3-8.2) g/dL Albumin 4.2 (3.5-5.0) g/dL Urine Color Urine Appearance (Clear) Urine pH (5.0-8.0) Ur Specific [place] (1.001-1.035) Urine Protein (Negative) Urine Glucose (UA) (Negative) Urine Ketones (Negative) Urine Blood (Negative) Urine Nitrite (Negative) Urine Bilirubin (Negative) Urine Urobilinogen (<2.0) mg/dL Ur Leukocyte Esterase (Negative) Urine RBC (0-5) /hpf Urine WBC (0-5) /hpf Hyaline Casts (0-2) /lpf Urine Mucus (None) /hpf Stool Occult Blood (Negative) Urine Opiates Screen (NotDetected) Ur Oxycodone Screen (NotDetected) Urine Methadone Screen (NotDetected) Ur Propoxyphene Screen (NotDetected) Ur Barbiturates Screen (NotDetected) U Tricyclic Antidepress (NotDetected) Ur Phencyclidine Scrn (NotDetected) Ur Amphetamines Screen (NotDetected) U Methamphetamines Scrn (NotDetected) U Benzodiazepines Scrn (NotDetected) Urine Cocaine Screen (NotDetected) U Marijuana (THC) Screen (NotDetected) Serum Alcohol <10 mg/dL 10/13/18 10/13/18 10/13/18 Range/Units 16:10 16:10 Unknown WBC (3.8-10.6) k/uL RBC (4.30-5.90) m/uL Hgb (13.0-17.5) gm/dL Hct (39.0-53.0) % MCV (80.0-100.0) fL MCH (25.0-35.0) pg MCHC (31.0-37.0) g/dL RDW (11.5-15.5) % Plt Count (150-450) k/uL Neutrophils % % Lymphocytes % % Monocytes % % Eosinophils % % Basophils % % Neutrophils # (1.3-7.7) k/uL Lymphocytes # (1.0-4.8) k/uL Monocytes # (0-1.0) k/uL Eosinophils # (0-0.7) k/uL Basophils # (0-0.2) k/uL Sodium (137-145) mmol/L Potassium (3.5-5.1) mmol/L Chloride (98-107) mmol/L Carbon Dioxide (22-30) mmol/L Anion Gap mmol/L BUN (9-20) mg/dL Creatinine (0.66-1.25) mg/dL Est GFR (CKD-EPI)AfAm (>60 ml/min/1.73 sqM) Est GFR (CKD-EPI)NonAf (>60 ml/min/1.73 sqM) Glucose (74-99) mg/dL POC Glucose (mg/dL) (75-99) mg/dL POC Glu Cardiologist ID Calcium (8.4-10.2) mg/dL Magnesium (1.6-2.3) mg/dL Total Bilirubin (0.2-1.3) mg/dL AST (17-59) U/L ALT (21-72) U/L Alkaline Phosphatase (38-126) U/L Troponin I <0.012 (0.000-0.034) ng/mL Total Protein (6.3-8.2) g/dL Albumin (3.5-5.0) g/dL Urine Color Yellow Urine Appearance Clear (Clear) Urine pH 5.0 (5.0-8.0) Ur Specific [place] 1.029 (1.001-1.035) Urine Protein 1+ H (Negative) Urine Glucose (UA) Negative (Negative) Urine Ketones 1+ H (Negative) Urine Blood Negative (Negative) Urine Nitrite Negative (Negative) Urine Bilirubin Negative (Negative) Urine Urobilinogen <2.0 (<2.0) mg/dL Ur Leukocyte Esterase Negative (Negative) Urine RBC 1 (0-5) /hpf Urine WBC 2 (0-5) /hpf Hyaline Casts 4 H (0-2) /lpf Urine Mucus Rare H (None) /hpf Stool Occult Blood Negative (Negative) Urine Opiates Screen (NotDetected) Ur Oxycodone Screen (NotDetected) Urine Methadone Screen (NotDetected) Ur Propoxyphene Screen (NotDetected) Ur Barbiturates Screen (NotDetected) U Tricyclic Antidepress (NotDetected) Ur Phencyclidine Scrn (NotDetected) Ur Amphetamines Screen (NotDetected) U Methamphetamines Scrn (NotDetected) U Benzodiazepines Scrn (NotDetected) Urine Cocaine Screen (NotDetected) U Marijuana (THC) Screen (NotDetected) Serum Alcohol mg/dL 10/13/18 Range/Units Unknown WBC (3.8-10.6) k/uL RBC (4.30-5.90) m/uL Hgb (13.0-17.5) gm/dL Hct (39.0-53.0) % MCV (80.0-100.0) fL MCH (25.0-35.0) pg MCHC (31.0-37.0) g/dL RDW (11.5-15.5) % Plt Count (150-450) k/uL Neutrophils % % Lymphocytes % % Monocytes % % Eosinophils % % Basophils % % Neutrophils # (1.3-7.7) k/uL Lymphocytes # (1.0-4.8) k/uL Monocytes # (0-1.0) k/uL Eosinophils # (0-0.7) k/uL Basophils # (0-0.2) k/uL Sodium (137-145) mmol/L Potassium (3.5-5.1) mmol/L Chloride (98-107) mmol/L Carbon Dioxide (22-30) mmol/L Anion Gap mmol/L BUN (9-20) mg/dL Creatinine (0.66-1.25) mg/dL Est GFR (CKD-EPI)AfAm (>60 ml/min/1.73 sqM) Est GFR (CKD-EPI)NonAf (>60 ml/min/1.73 sqM) Glucose (74-99) mg/dL POC Glucose (mg/dL) (75-99) mg/dL POC Glu Cardiologist ID Calcium (8.4-10.2) mg/dL Magnesium (1.6-2.3) mg/dL Total Bilirubin (0.2-1.3) mg/dL AST (17-59) U/L ALT (21-72) U/L Alkaline Phosphatase (38-126) U/L Troponin I (0.000-0.034) ng/mL Total Protein (6.3-8.2) g/dL Albumin (3.5-5.0) g/dL Urine Color Urine Appearance (Clear) Urine pH (5.0-8.0) Ur Specific [place] (1.001-1.035) Urine Protein (Negative) Urine Glucose (UA) (Negative) Urine Ketones (Negative) Urine Blood (Negative) Urine Nitrite (Negative) Urine Bilirubin (Negative) Urine Urobilinogen (<2.0) mg/dL Ur Leukocyte Esterase (Negative) Urine RBC (0-5) /hpf Urine WBC (0-5) /hpf Hyaline Casts (0-2) /lpf Urine Mucus (None) /hpf Stool Occult Blood (Negative) Urine Opiates Screen Detected H (NotDetected) Ur Oxycodone Screen Not Detected (NotDetected) Urine Methadone Screen Not Detected (NotDetected) Ur Propoxyphene Screen Not Detected (NotDetected) Ur Barbiturates Screen Not Detected (NotDetected) U Tricyclic Antidepress Not Detected (NotDetected) Ur Phencyclidine Scrn Not Detected (NotDetected) Ur Amphetamines Screen Not Detected (NotDetected) U Methamphetamines Scrn Not Detected (NotDetected) U Benzodiazepines Scrn Not Detected (NotDetected) Urine Cocaine Screen Not Detected (NotDetected) U Marijuana (THC) Screen Not Detected (NotDetected) Serum Alcohol mg/dL Disposition Clinical Impression: Vertigo Disposition: OTHER INSTITUTION NOT DEFINED Condition: Good Instructions (If sedation given, give patient instructions): Vertigo (ED) Prescriptions: Meclizine [Antivert] 25 mg PO BID PRN #12 tab PRN Reason: Vertigo Referrals: Fritz Guy MD [Primary Care Provider] - 1-2 days Nando Spivey MD [STAFF PHYSICIAN] - 1-2 days Time of Disposition: 20:29 - Out of Hospital Transfer - Req. Specs Out of Hospital Transfer - Requested Specifics: Other Emergency Center ([facility]
[2018-10-13] MEDS ORDERED: HYDROcodone/APAP 10-325MG 1 EACH TAB PO ONE (20:37)
[2018-10-13 20:57] VITALS: BP 149/78; PULSE 60
== END 2018-10-13 21:05 | disposition other institution (70) ==
LOC: EC 15:59
DX: R42 Dizziness and giddiness (principal); R55 Syncope and collapse; R53.1 Weakness; I48.91 Unspecified atrial fibrillation; E78.5 Hyperlipidemia, unspecified; Z79.01 Long term (current) use of anticoagulants; Z79.82 Long term (current) use of aspirin; Z79.899 Other long term (current) drug therapy; Z88.1 Allergy status to other antibiotic agents; Z87.891 Personal history of nicotine dependence; Z95.0 Presence of cardiac pacemaker
CPT/HCPCS: 36415; 93005; 80053; 83735; 84484; 85025; 82272; 81001; 80306; 71046; 70450; 99285; G0480; 80320; 99284

== ENCOUNTER → 2019-03-19 | Outpatient (CLI) | payer MEDICARE, BC ==
[2019-03-19 14:01] LABS: Calcium 9.9 mg/dL (8.4-10.2); Potassium 4.3 mmol/L (3.5-5.1)
== END | disposition home or self-care (01) ==
LOC: LABPAT 13:17
PROVIDERS: ATTEND Internal Medicine Clinical Cardiac Electrophysiology
DX: Z01.812 Encounter for preprocedural laboratory examination (principal); I48.91 Unspecified atrial fibrillation; I25.10 Atherosclerotic heart disease of native coronary artery without angina pectoris
CPT/HCPCS: 36415; 80048

== ENCOUNTER 2019-03-25 06:11 | Day surgery (SDC) | payer MEDICARE, BC ==
[2019-03-20 11:14] VITALS: BMI 23.6
[~2019-03-25 06:11] MED LIST changes: -ALPRAZolam 0.25 MG TAB PO PRN; -ASPIRIN 325 MG TAB PO ONE; +SODIUM CHLORIDE 0.9% 1,000 ML IV SCH; -SODIUM CHLORIDE 0.9% 1,000 ML in EMPTY BAG 1 BAG IV ONE
[2019-03-25 06:27] VITALS: BP 126/75; PULSE 78; RESP 16; TEMP 97.9
[2019-03-25] MEDS ORDERED: IOPAMIDOL-250 50ML BTL IV ONE ×2 (07:20)
--- NOTE | 2019-03-25 08:55 | P.HPCAR ---
History of Present Illness IMPRESSION / ASSESSMENT: Symptomatic atrial fibrillation, high RV pacing percentage, Persistent atrial fibrillation with RVR on Cardizem 120 mg by mouth daily After increasing the dose to 240 mg by mouth daily the patient feels weak and tired and fatigued and unable to tolerate this dose He has been intolerant of metoprolol also in the past and hence Dr. Sorensen and switched him to oral Cardizem but low doses could not control his heart rates line hence Dr. Sorensen increased the dose of Cardizem to 240 mg by mouth daily. Intolerant of higher doses. Intolerant to metoprolol Known coronary artery disease Underlying Sick Sinus Syndrome and bradycardia Plan Add a detailed discussion with the patient and his and I gave them the option of rate control only for now with the patient cannot tolerate the higher doses of Cardizem similar to his intolerance to even average dose of metoprolol At low doses of Cardizem he had A. fib with RVR and he would become extremely symptomatic He has sick sinus syndrome status post permanent pacemaker implantation His RV pacing percentage is approaching 40% I discussed the option of A. fib ablation and explained that he will require multiple A. fib ablations success rate of about 60% of the long run He is not a good candidate for antiarrhythmic drug therapy with class I. Antiarrhythmic drugs He is known coronary artery disease status post cardiac stenting His other option is upgrade to a biventricular pacemaker and AV node ablation following that The advantage of this approach would be that his RV pacing percentage be minimized and he would remain biventricular paced, in addition we will be able to reduce the dose of Cardizem or stop it completely dependent on his blood pressure The patient is intolerant of Cardizem as well as metoprolol I will schedule the procedure for him History of present illness Patient complains of palpitations shortness of breath and weakness and shortness of breath with activities of daily living when he has atrial fibrillation with RVR on Cardizem 120 mg by mouth daily After increasing the dose of Cardizem to 240 mg by mouth daily he feels weak as a lightheaded and is not able to tolerate this dose either This is similar to what happened to him when he was treated with metoprolol for rate control of his atrial fibrillation He has a 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 On examination his blood pressure is 126/75 mmHg pulse rate is irregular in the 70s afebrile 97.9F Breath sounds are clear no rhonchi no crackles but air entry is reduced bilaterally Heart sounds are irregular no murmurs or gallops or rub No JVD No lower extremity edema Physical Exam Vitals: Vital Signs Temp Pulse Resp BP Pulse Ox 03/25/19 06:25 97.9 F 78 16 126/75 95 Intake and Output 03/24/19 03/25/19 03/25/19 22:59 06:59 14:59 Intake Total 30 20 Balance 30 20 Intake: IV 30 20 Past Medical History Past Medical History: COPD, GERD/Reflux, Hyperlipidemia, Pneumonia, Skin Disorder Additional Past Medical History / Comment(s): diverticulitis, migraines, See Dr Mckeon H&P, SOB, itchy skin, History of Any Multi-Drug Resistant Organisms: None Reported Past Surgical History: Heart Catheterization With Stent, Orthopedic Surgery, Pacemaker Additional Past Surgical History / Comment(s): cardioversion, CARON, rt knee/lower leg sx has 3 screws, "bone aspiration" Past Anesthesia/Blood Transfusion Reactions: Motion Sickness Additional Past Anesthesia/Blood Transfusion Reaction / Comment(s): per -pt never recieved any blood in past Date of Last Stent Placement:: 2016? Type of Cardiac Device: Permanent Pacemaker Device Placement Date:: 08/20/17 Medtronic Smoking Status: Former smoker - Past Family History Father Family Medical History: Coronary Artery Disease (CAD) Mother History Unknown: Yes Family Medical History: No Reported History Physical Examination Vital Signs Temp Pulse Resp BP Pulse Ox 03/25/19 06:25 97.9 F 78 16 126/75 95 Intake and Output 03/24/19 03/25/19 03/25/19 22:59 06:59 14:59 Intake Total 30 20 Balance 30 20 Intake: IV 30 20 Results Current Medications Generic Name Dose Route Start Last Admin Trade Name Freq PRN Reason Stop Dose Admin Sodium Chloride 1,000 mls @ 50 mls/hr 03/25/19 05:57 03/25/19 06:28 Saline 0.9% IV 50 mls .Q20H EVENS Administration Intake and Output 03/24/19 03/25/19 03/25/19 22:59 06:59 14:59 Intake Total 30 20 Balance 30 20 Intake: IV 30 20
--- NOTE | 2019-03-25 08:59 | P.PCN ---
Preoperative Diagnosis: Diagnosis Symptomatically atrial fibrillation Sick Sinus Syndrome status post dual-chamber pacemaker implantation Plan for upgrade to a biventricular device followed by AV junction modification Procedures Left upper extremity venography 15 mL IV dye injected in the left upper extremity. Patent left axillary and subclavian venous systems Cinefluoroscopy of the leads Dual-chamber pacemaker device. Atrial lead in the right atrial appendage RV lead in the low RV septum No fractures or breaks noted Pacemaker interrogation Pacemaker interrogation reveals excellent RV pacing thresholds, persistent atrial fibrillation for the last 2 months, rates are controlled on Cardizem 240 mg by mouth daily RV pacing percentage 35% Atrial pacing impedance 494 ohms Atrial sensing 0.1 mV RV pacing impedance 456 ohms PC threshold 0.5 V at 0.4 ms R waves 6.4 mV
== END 2019-03-25 08:50 | disposition home or self-care (01) ==
LOC: CATHEP 06:11
PROVIDERS: ATTEND Internal Medicine Clinical Cardiac Electrophysiology
DX: I48.1 Persistent atrial fibrillation (principal); I25.10 Atherosclerotic heart disease of native coronary artery without angina pectoris; E78.5 Hyperlipidemia, unspecified; G43.909 Migraine, unspecified, not intractable, without status migrainosus; K21.9 Gastro-esophageal reflux disease without esophagitis; J44.9 Chronic obstructive pulmonary disease, unspecified; Z82.49 Family history of ischemic heart disease and other diseases of the circulatory system; Z87.891 Personal history of nicotine dependence; Z95.0 Presence of cardiac pacemaker; Z95.5 Presence of coronary angioplasty implant and graft; Z87.01 Personal history of pneumonia (recurrent); Z79.899 Other long term (current) drug therapy
CPT/HCPCS: 75820; 76000; 36012; Q9966

== ENCOUNTER 2019-04-15 07:01 | Day surgery (SDC) | payer MEDICARE, BC ==
[2019-04-10 10:48] VITALS: BMI 23.6
[~2019-04-15 07:01] MED LIST changes: +HYDROmorphone 0.5 MG/0.5 ML SYRINGE IVP PRN; +LACTATED RINGERS 1,000 ML IV SCH; -SODIUM CHLORIDE 0.9% 1,000 ML IV SCH
[2019-04-15] MEDS ORDERED: VANCOMYCIN 1,250 MG in SODIUM CHLORIDE 0.9% 250 ML IVPB ONE (07:15)
[2019-04-15] MEDS ORDERED: VANCOMYCIN IRRIGATION ONE (07:15)
[2019-04-15] MEDS ORDERED: SODIUM CHLORIDE 0.9% IRRIGATION ONE (07:15)
[2019-04-15] MEDS: SODIUM CHLORIDE 0.9% 1,000 ML IV SCH ×2 (07:30→23:09)
[2019-04-15 07:50] LABS: Basophils % (A) 1 %; Eosinophils # (A) 0.2 k/uL (0-0.7); Eosinophils % (A) 2 %; HCT 43.3 % (39.0-53.0); HGB 15.2 gm/dL (13.0-17.5); Lymphocytes # (A) 1.7 k/uL (1.0-4.8); Lymphocytes % (A) 25 %; MCH 32.3 pg (25.0-35.0); MCV 92.3 fL (80.0-100.0); Mean Platelet Volume 6.1; Monocytes # (A) 0.3 k/uL (0-1.0); Monocytes % (A) 4 %; Neutrophils # (A) 4.5 k/uL (1.3-7.7); Neutrophils % (A) 67 %; Platelet Count 186 k/uL (150-450); RBC 4.69 m/uL (4.30-5.90); RDW 12.1 % (11.5-15.5); WBC 6.7 k/uL (3.8-10.6)
[2019-04-15] MEDS ORDERED: MIDAZOLAM 2 MG/2 ML VIAL ONE (08:24)
[2019-04-15] MEDS ORDERED: ePHEDrine SULFATE/0.9% NACL/PF 50 MG/5 ML SYRINGE IV ONE (08:24)
[2019-04-15] MEDS ORDERED: PHENYLEPHRINE-0.9% NACL SYG 1 MG/10 ML SYRINGE ONE (08:24)
[2019-04-15] MEDS ORDERED: PROPOFOL 10 MG/ML 20 ML VIAL IV ONE (08:24)
[2019-04-15] MEDS ORDERED: fentaNYL (PF) 50 MCG/ML 2 ML AMP ONE (08:24)
[2019-04-15] MEDS ORDERED: LIDOCAINE 1% INJ 10MG/ML (20 ML MDV) ONE ×2 (08:59)
[2019-04-15] MEDS ORDERED: LIDOCAINE 1% INJ 10MG/ML (20 ML MDV) SQ ONE (09:41)
[2019-04-15] MEDS ORDERED: ACETAMINOPHEN TAB 325 MG TAB PO PRN (10:51)
[2019-04-15] MEDS ORDERED: ACETAMINOPHEN IV (For NPO) 1,000 MG in EMPTY BAG 1 BAG IVPB ONE (10:51)
--- NOTE | 2019-04-15 11:57 | CE ---
CARDIAC ELECTROPHYSIOLOGY REPORT Hossein George is a gentleman with paroxysmal atrial fibrillation with RVR with very difficult rate control on high-dose calcium channel blockers. He is intolerant of beta blockers. He is intolerant of multiple antiarrhythmic drugs, which have been discontinued. He is scheduled for an AV node ablation. 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 Patient was brought to the EP lab in a fasting state. Written informed consent was obtained prior to the procedure. IV antibiotics were administered prior to the procedure. The left pectoral area was prepped and draped as per protocol. Lidocaine was used for local anesthesia. An incision was made directly over the previous surgical site and carried down to the level of the generator. The generator was explanted. Partial capsulectomy was performed. The leads were freed from the surrounding soft tissue. Axillary vein access was obtained and sheath was placed in the subclavian vein. Via this, Medtronic model #3830 lead was positioned in the right heart. The His bundle was mapped. The lead was screwed in this area, nonselective His bundle capture was obtained. The sheath was removed and the lead was secured to the underlying pectoralis muscle and then connected to the new generator and the leads and generator were then placed in subfascial pocket. The wound was closed in 3 layers and dressed per protocol. The explanted generator was a Medtronic model number W3DR01, serial number [id number]. The new generator implanted was a Shu NUT PICKER-P, model number W1TR02, serial number [id number]. The new lead implanted was Medtronic model #3830, 69 cm in length and serial number [id number]. Nonselective His bundle capture was obtained down to 2.3 V at 1 millisecond and complete loss of capture at 1.8 V at 1 millisecond. Pacing impedance of 564 ohms. The patient tolerated the procedure well without any acute complications. RESULT: 1. The patient with symptomatic paroxysmal atrial fibrillation which is drug refractory. 2. Patient is awaiting AV node ablation within the next 1 to 2 months. He has a dual-chamber pacemaker with increased RV pacing percentage which increased further with the AV node ablation to 100%. He was upgraded to a biventricular system today with physiologic septal pacing and demonstrated nonselective capture. PLAN: Continue current medications. Continue anticoagulation and once his AV node ablation is performed in the future, diltiazem will be discontinued. MMODL / IJN: [id number] /
--- NOTE | 2019-04-15 12:02 | LTR ---
April 15, 2019 Re: Hossein George Dear Fritz: I had the pleasure of seeing Mr. George in electrophysiology followup. Mr. George underwent upgrade to a biventricular pacemaker system prior to planned AV node ablation in the future. Once I confirm that his His bundle lead is in stable position and functioning normally, next month, I will proceed with the AV junction modification. At that time, we will stop diltiazem since this gentleman is intolerant of most medications for atrial fibrillation. He will continue his anticoagulation lifelong. I have also asked him to abstain from alcohol consumption. Sincerely yours, MD JONATHAN Waters / CORBINN: [id number] /
[2019-04-15] MEDS: HYDROcodone/APAP 5-325MG 1 EACH TAB PO PRN ×2 (16:46→21:05)
[2019-04-15] MEDS ORDERED: TAMSULOSIN 0.4 MG CAP.ER.24H PO SCH (21:00)
[2019-04-15] MEDS ORDERED: ZOLPIDEM 10 MG TAB PO SCH (21:00)
[2019-04-15] MEDS ORDERED: PRAVASTATIN SODIUM 40 MG TAB PO SCH (21:00)
[2019-04-15] MEDS: VANCOMYCIN 1,250 MG in SODIUM CHLORIDE 0.9% 250 ML IVPB SCH (23:09)
[2019-04-16] MEDS: HYDROcodone/APAP 5-325MG 1 EACH TAB PO PRN ×2 (06:49→11:06)
--- NOTE | 2019-04-16 08:14 | XR ---
EXAMINATION TYPE: XR chest 2V DATE OF EXAM: 04/16/2019 COMPARISON: 10/13/2018 TECHNIQUE: PA and lateral views submitted. HISTORY: Lead placement FINDINGS: The lungs are clear and there is no pneumothorax, pleural effusion, or focal pneumonia. There is a cardiac device with triple leads. Hypertrophic and degenerative change of the spine. Underlying COPD suggested. IMPRESSION: 1. No acute process.
--- NOTE | 2019-04-16 08:16 | P.DS ---
Providers Attending physician: Rikki Mckeon Primary care physician: Fritz Guy [facility] Course: Patient is doing well. No chest discomfort dizziness lightheadedness or palpitations His pacemaker site is sore with minimal soakage No dizziness lightheadedness palpitations he's been ablating to the bathroom Pulse rate ranges from 67 to 1:30 beats a minute Blood pressure 114/71 mmHg Rhythm is irregular Breath sounds are reduced bilaterally no rhonchi no crackles Abdomen is soft Extremity is warm no edema Impression [place] I atrial fibrillation with RVR, symptomatic Intolerant of most AV node blocking drugs as well as antiarrhythmic drugs History he was upgrade to a biventricular pacemaker. He has underlying sick sinus syndrome and had undergone dual-chamber pacemaker implantation about 1-2 years back He is awaiting AV node ablation and is being scheduled for this in mid May his lungs is he's a functioning normally Today's plan is to complete IV antibiotics chest x-ray and discharge home on usual medications including anticoagulation and follow-up in the device clinic [facility]ola childers one week in follow-up with Dr. Lomeli as previously scheduled Plan - Discharge Summary Discharge Rx Participant: No New Discharge Prescriptions: No Action Cholecalciferol [Vitamin D3 (25 Mcg = 1000 Iu)] 1,000 unit PO HS Glucosamine Sulfate 500 mg PO HS Pravastatin Sodium [Pravachol] 40 mg PO HS Tamsulosin HCl [Flomax] 0.8 mg PO HS Hydrocodone/Acetaminophen [Hydrocodon-Acetaminophn 10-325] 1 tab PO Q6HR PRN PRN Reason: Pain Zolpidem Tartrate [Ambien] 10 mg PO HS Rivaroxaban [Xarelto] 20 mg PO DAILY Aspirin [Adult Low Dose Aspirin EC] 81 mg PO DAILY ALPRAZolam [Xanax] 0.25 mg PO DAILY PRN PRN Reason: Anxiety Diltiazem HCl [Cartia Xt] 240 mg PO DAILY Discharge Medication List Cholecalciferol [Vitamin D3 (25 Mcg = 1000 Iu)] 1,000 unit PO HS 05/23/17 [History] Glucosamine Sulfate 500 mg PO HS 05/23/17 [History] Pravastatin Sodium [Pravachol] 40 mg PO HS 05/23/17 [History] Tamsulosin HCl [Flomax] 0.8 mg PO HS 05/29/17 [History] Hydrocodone/Acetaminophen [Hydrocodon-Acetaminophn 10-325] 1 tab PO Q6HR PRN 08/17/17 [History] Aspirin [Adult Low Dose Aspirin EC] 81 mg PO DAILY 03/05/18 [History] Rivaroxaban [Xarelto] 20 mg PO DAILY 03/05/18 [History] Zolpidem Tartrate [Ambien] 10 mg PO HS 03/05/18 [History] ALPRAZolam [Xanax] 0.25 mg PO DAILY PRN 10/13/18 [History] Diltiazem HCl [Cartia Xt] 240 mg PO DAILY 10/13/18 [History] Follow up Appointment(s)/Referral(s): Fritz Lomeli MD [STAFF PHYSICIAN] - 1 Week (Follow-up in the device clinic in one week Follow up with Dr. Lomeli/ozzy as previously scheduled or within 3-4 months) Activity/Diet/Wound Care/Special Instructions: PATIENT EDUCATION MATERIAL Instructions following a heart rhythm device implant. 1. Keep dressing DRY for 5 DAYS. You may cover the area with Saran or Cling Wrap, prior to a shower. 2. The dressing will be removed in the Device Clinic at [facility]. Absorbable sutures were used to close the wound. 3. Avoid raising the left arm above the shoulder level. 4 week restriction 4. Avoid arm movements, like backscratching, rubbing the head, or pulling on a cord. 4 weeks restriction 5. Gentle range of motion movements of the shoulder, closest to the incision should be performed to avoid a frozen shoulder. (Pendulum exercises of the shoulder) 6. The opposite arm may be used freely. 7. Avoid driving for 7 days. 8. Avoid activities such as golfing, swimming, weed whacking, lifting more than 10 pounds weight, bowling, gymnastics and weight training/lifting. (6 weeks restriction) 9. Activities such as wood chopping with an axe, pull-ups in the gymnasium, power lifting, arc-welding, being close to home induction cooktops will always be a problem. 10. Arm sling is only a reminder not to raise the arm above the head. You do not need to keep the arm completely immobilized. Your free to move the arm and use it and for normal activities. In case of any problems, please call [facility], Sam Marinelli, @ [phone], Attention: Device Clinic Device clinic follow-up in 5 days Follow-up with primary pawn broker in 2-3 months Continue current medications, including xarelto
[2019-04-16] MEDS ORDERED: ASPIRIN 81 MG PO SCH (09:00)
[2019-04-16] MEDS ORDERED: RIVAROXABAN 20 MG TAB PO SCH (09:00)
[2019-04-16] MEDS ORDERED: DILTIAZEM CD 240 MG CAP.ER.24H PO SCH (09:00)
[2019-04-16] MEDS: VANCOMYCIN 1,250 MG in SODIUM CHLORIDE 0.9% 250 ML IVPB SCH (11:02)
[2019-04-16 11:48] VITALS: BP 106/73; PULSE 85; RESP 18; TEMP 97.9
== END 2019-04-16 14:06 | disposition home or self-care (01) ==
LOC: CATHEP 07:01 → 1SOBS 10:48 → CATHEP 04-16 14:06
PROVIDERS: ATTEND Internal Medicine Clinical Cardiac Electrophysiology
DX: I49.5 Sick sinus syndrome (principal); I48.0 Paroxysmal atrial fibrillation; I10 Essential (primary) hypertension; Z72.0 Tobacco use; E78.5 Hyperlipidemia, unspecified; I25.10 Atherosclerotic heart disease of native coronary artery without angina pectoris; N40.0 Benign prostatic hyperplasia without lower urinary tract symptoms; Z95.5 Presence of coronary angioplasty implant and graft; Z82.49 Family history of ischemic heart disease and other diseases of the circulatory system; Z79.01 Long term (current) use of anticoagulants; Z79.82 Long term (current) use of aspirin; Z79.899 Other long term (current) drug therapy; Z88.1 Allergy status to other antibiotic agents
CPT/HCPCS: 33225; 33229; 85025; 71046; C1769 ×3; C1892; C1898; C2621; J3370 ×2; J2001

== ENCOUNTER → 2019-05-08 | Outpatient (CLI) | payer MEDICARE, BC ==
[2019-05-08 14:22] LABS: HCT 43.7 % (39.0-53.0); HGB 14.8 gm/dL (13.0-17.5); MCHC 33.8 g/dL (31.0-37.0); MCV 94.7 fL (80.0-100.0); Mean Platelet Volume 6.1; Platelet Count 197 k/uL (150-450); RBC 4.62 m/uL (4.30-5.90); RDW 12.3 % (11.5-15.5); WBC 6.8 k/uL (3.8-10.6)
[2019-05-08 14:39] LABS: Potassium 4.6 mmol/L (3.5-5.1)
== END | disposition home or self-care (01) ==
LOC: LABPAT 13:30
PROVIDERS: ATTEND Internal Medicine Clinical Cardiac Electrophysiology
DX: Z01.812 Encounter for preprocedural laboratory examination (principal); I48.91 Unspecified atrial fibrillation; E78.5 Hyperlipidemia, unspecified
CPT/HCPCS: 80051; 82565; 82947; 84520; 85027

== ENCOUNTER 2019-05-12 13:53 | Day surgery (SDC) | payer MEDICARE, BC ==
[2019-05-08 09:27] VITALS: BMI 23.3
[2019-05-12] MEDS: SODIUM CHLORIDE 0.9% 1,000 ML IV SCH ×2 (06:33→16:05)
[~2019-05-12 13:53] MED LIST changes: +ALPRAZolam 0.25 MG TAB PO ONE; +MIDAZOLAM 2 MG/2 ML VIAL IV PRN
[2019-05-12 15:15] LABS: Calcium 9.6 mg/dL (8.4-10.2); Potassium 4.3 mmol/L (3.5-5.1)
[2019-05-12] MEDS ORDERED: VANCOMYCIN 1,000 MG in SODIUM CHLORIDE 0.9% 250 ML IVPB STA (15:15)
[2019-05-12] MEDS ORDERED: PROPOFOL 10 MG/ML 20 ML VIAL IV ONE (16:20)
[2019-05-12] MEDS ORDERED: ePHEDrine SULFATE/0.9% NACL/PF 50 MG/5 ML SYRINGE IV ONE (16:20)
[2019-05-12] MEDS ORDERED: fentaNYL (PF) 50 MCG/ML 2 ML AMP ONE (16:20)
[2019-05-12] MEDS ORDERED: MIDAZOLAM 2 MG/2 ML VIAL ONE (16:20)
[2019-05-12] MEDS ORDERED: LIDOCAINE 1% INJ 10MG/ML (20 ML MDV) ONE (16:29)
[2019-05-12] MEDS ORDERED: LIDOCAINE 1% INJ 10MG/ML (20 ML MDV) SQ ONE (16:49)
[2019-05-12] MEDS ORDERED: HEPARIN SODIUM (1,000 UNIT/ML) 1,000 UNIT in SODIUM CHLORIDE 0.9% 1,000 ML IRRIGATION ONE (16:57)
[2019-05-12] MEDS ORDERED: ALPRAZolam 0.25 MG TAB PO PRN (17:47)
--- NOTE | 2019-05-12 17:47 | P.PRLE ---
RE: Hossein George Dear Fritz Catalan underwent successful AV node ablation day after the recently implanted biventricular pacemaker/His bundle lead Hopefully this resulted in improvement in his A. fib controlled and his symptoms He will continue anticoagulation as before but does not need any AV node blocking drugs now Thank you for entrusting me with the care of the patient Warm regards Sincerely Rikki Mckeon
[2019-05-12] MEDS ORDERED: ACETAMINOPHEN TAB 325 MG TAB PO PRN (17:48)
[2019-05-12] MEDS ORDERED: ACETAMINOPHEN IV (For NPO) 1,000 MG in EMPTY BAG 1 BAG IVPB ONE (17:48)
--- NOTE | 2019-05-12 17:51 | P.PCN ---
Preoperative Diagnosis: Procedure: Device interrogation with reprogramming prior to the procedure Cardioversion for atrial fibrillation AV Node Ablation/modification. Device interrogation with reprogramming postprocedure Patient was brought to the EP lab in a fasting state. Written, informed consent was obtained prior to the procedure. Access was obtained, sheath placed in right femoral vein. 1. Preprocedure device interrogation and reprogramming Device interrogation with reprogramming performed. Rate responsiveness was turned off and the pacing rate was reprogrammed to a backup mode prior to ablation. Tachycardia detections turned off. Lead impedance is documented, sensing and pacing thresholds performed prior to the procedure Backup pacing, VVI 40 bpm Pacing impedance of the his lead 494 ohms, pacing threshold 3 V at 1 ms. RV lead impedance at baseline 437 ohms 3. AV node ablation A Mapping/Ablation catheter was placed and right-sided AV node radiofrequency ablation/modification was performed. Complete heart block was achieved with occasional junctional escape rhythm above 40 bpm 4. Device programming postprocedure Post ablation, device reprogramming was performed. Base Pacing rate was programmed to 90 bpm. VVIR 90-1:30 bpm Patient's device was reprogrammed and the interrogated. Pacing thresholds and impedances stable Vascular sheaths were removed at the end of the procedure, hemostasis was assured, the patient was then transferred to recovery room/telemetry in stable condition. Conclusions: Successful ablation of the AV node. Plan: Pacing at 90 bpm for at least 3 weeks. Telemetry monitoring for 24-48 hours. Continue anticoagulation. Patient tolerated the procedure well without any acute complications
[2019-05-12 18:33] VITALS: RESP 18
[2019-05-12] MEDS: HYDROcodone/APAP 5-325MG 1 EACH TAB PO PRN (20:44)
[2019-05-12] MEDS: DICYCLOMINE 10 MG CAP PO SCH (20:47)
[2019-05-12] MEDS ORDERED: TAMSULOSIN 0.4 MG CAP.ER.24H PO SCH (21:00)
[2019-05-12] MEDS ORDERED: PRAVASTATIN SODIUM 40 MG TAB PO SCH (21:00)
[2019-05-13] MEDS: HYDROcodone/APAP 5-325MG 1 EACH TAB PO PRN (05:47)
--- NOTE | 2019-05-13 07:15 | P.DS ---
Providers Attending physician: Rikki Mckeon Primary care physician: Fritz Guy [facility] Course: Patient is doing well. His resting comfortably in bed. He has walked up to the bathroom. His groin is healed well On examination no JVD No orthopnea no chest discomfort Breath sounds are clear no rhonchi no crackles Normal heart sounds and regular no murmurs Abdomen is soft Eccentric 70s warm no edema Runs of healed well No hematoma Impression Persistent sympathetic atrial fibrillation with RVR Intolerant of medications Failed A. fib ablation Status post biventricular pacemaker in the past for management A. fib with RVR Status post AV junction modification yesterday He had a junctional escape rhythm at 40 beats a minute yesterday. He was tested on atropine and ephedrine post ablation and his heart rate remained in junctional rhythm Today he is paced on the His bundle with an incomplete right bundle branch block pattern with underlying atrial fibrillation Suggest Reduce the dose of verapamil to 120 mg by mouth daily Continue anticoagulation Follow-up with Dr. Sorensen/Nancy Driver within the week Device clinic follow-up in 3 weeks for pacemaker reprogramming For the next 3 weeks the pacemaker has been programmed to VVIR 90-130 After 3 weeks this will be reprogrammed to 60-130 bpm Plan - Discharge Summary Discharge Rx Participant: No New Discharge Prescriptions: No Action Cholecalciferol [Vitamin D3 (25 Mcg = 1000 Iu)] 1,000 unit PO HS Glucosamine Sulfate 500 mg PO HS Pravastatin Sodium [Pravachol] 40 mg PO HS Tamsulosin HCl [Flomax] 0.8 mg PO HS Hydrocodone/Acetaminophen [Hydrocodon-Acetaminophn 10-325] 1 tab PO Q6HR PRN PRN Reason: Pain Zolpidem Tartrate [Ambien] 10 mg PO HS Rivaroxaban [Xarelto] 20 mg PO DAILY Aspirin [Adult Low Dose Aspirin EC] 81 mg PO DAILY ALPRAZolam [Xanax] 0.25 mg PO DAILY PRN PRN Reason: Anxiety Diltiazem HCl [Cartia Xt] 240 mg PO DAILY Dicyclomine [Bentyl] 10 mg PO TID Discharge Medication List Cholecalciferol [Vitamin D3 (25 Mcg = 1000 Iu)] 1,000 unit PO HS 05/23/17 [History] Glucosamine Sulfate 500 mg PO HS 05/23/17 [History] Pravastatin Sodium [Pravachol] 40 mg PO HS 05/23/17 [History] Tamsulosin HCl [Flomax] 0.8 mg PO HS 05/29/17 [History] Hydrocodone/Acetaminophen [Hydrocodon-Acetaminophn 10-325] 1 tab PO Q6HR PRN 08/17/17 [History] Aspirin [Adult Low Dose Aspirin EC] 81 mg PO DAILY 03/05/18 [History] Rivaroxaban [Xarelto] 20 mg PO DAILY 03/05/18 [History] Zolpidem Tartrate [Ambien] 10 mg PO HS 03/05/18 [History] ALPRAZolam [Xanax] 0.25 mg PO DAILY PRN 10/13/18 [History] Diltiazem HCl [Cartia Xt] 240 mg PO DAILY 10/13/18 [History] Dicyclomine [Bentyl] 10 mg PO TID 05/08/19 [History] Follow up Appointment(s)/Referral(s): Christoph Nair MD [STAFF PHYSICIAN] - 1 Week (Groin check with Dr. Nair/Nancy Driver Pacemaker clinic follow-up in 3 weeks, no sooner) Activity/Diet/Wound Care/Special Instructions: Post EP study - Ablation instructions 1. Keep access sites dry for 2 days. 2. No heavy lifting or straining for 2 days. 3. Avoid bending the hips repeatedly for 2 days. 4. You may go up and down stairs slowly Call if the following is noted 1. Bleeding, increasing swelling or pain at the access sites. 2. Increasing chest discomfort, especially upon taking a deep breath. 3. Increasing shortness of breath, at rest or with exertion. 4. Undue cough / phlegm 5. Difficulty or pain while swallowing. 6. Pain or change in color in the extremities. 7. Fever, chills, rigors. 8. Increasing headache or neurologic symptoms. 9. Dizziness, fainting, palpitations Follow-up with Dr. Sorensen/Nancy Driver within one week Pacemaker clinic follow-up in 3 weeks, no sooner Discharge Disposition: HOME SELF-CARE
[2019-05-13 07:26] VITALS: BP 102/68; PULSE 88; TEMP 98.1
[2019-05-13] MEDS ORDERED: ASPIRIN 81 MG PO SCH (09:00)
[2019-05-13] MEDS ORDERED: DILTIAZEM CD 240 MG CAP.ER.24H PO SCH (09:00)
[2019-05-13] MEDS ORDERED: RIVAROXABAN 20 MG TAB PO SCH (09:00)
[2019-05-13] MEDS: DICYCLOMINE 10 MG CAP PO SCH (10:13)
== END 2019-05-13 10:51 | disposition home or self-care (01) ==
LOC: CATHEP 13:53 → 1SOBS 17:47 → CATHEP 05-13 10:51
PROVIDERS: ATTEND Internal Medicine Clinical Cardiac Electrophysiology
DX: I48.0 Paroxysmal atrial fibrillation (principal); I49.5 Sick sinus syndrome; I25.10 Atherosclerotic heart disease of native coronary artery without angina pectoris; I10 Essential (primary) hypertension; E78.5 Hyperlipidemia, unspecified; Z95.0 Presence of cardiac pacemaker; Z95.5 Presence of coronary angioplasty implant and graft; Z72.0 Tobacco use; Z79.01 Long term (current) use of anticoagulants; Z79.82 Long term (current) use of aspirin; Z79.899 Other long term (current) drug therapy; Z88.1 Allergy status to other antibiotic agents
CPT/HCPCS: 93650; 80048; C1894; C1769; C1893; C1732; J2250; J3370; J2001; J3010; J1644; J2704

== ENCOUNTER 2023-11-12 10:08 | Inpatient (IN) | payer MEDICARE ==
--- NOTE | 2023-11-12 11:33 | CT ---
EXAMINATION TYPE: CT brain wo con CT DLP: 1233 mGycm, Automated exposure control for dose reduction was used. DATE OF EXAM: 11/12/2023 11:18 AM COMPARISON: 10/13/2018. CLINICAL INDICATION:Male, 78 years old with history of weakness, AMS and weakness TECHNIQUE: Brain: Axial CT images of the brain were obtained with coronal and sagittal reformats created and rev iewed. Contrast used: None. Oral contrast used: None. FINDINGS: Brain: Extra-axial spaces: No abnormal extra-axial fluid collections. Ventricular system: Dilatation in proportion to cerebral atrophy. Cerebral parenchyma: Cerebral atrophy. No acute intraparenchymal hemorrhage or mass effect. The song -white junction is well differentiated. Scattered hypoattenuating areas are seen within the white mat ter. Cerebellum: Unremarkable. Mass effect: No evidence of midline shift. Intracranial vasculature: Atherosclerotic calcifications of the intracranial vessels. Soft tissues: Normal. Calvarium/osseous structures: No depressed skull fracture. Paranasal sinuses and mastoid air cells: Mild scattered paranasal sinus disease. Visualized orbits: Orbital contents are intact. IMPRESSION: 1. No acute intracranial process. 2. Nonspecific white matter changes, likely secondary to chronic small vessel ischemic disease.
[2023-11-12] MEDS: SODIUM CHLORIDE 0.9% 1,000 ML IV STA ×3 (11:52→14:59)
[2023-11-12 12:13] LABS: Appearance,Urine Clear (Clear); Bilirubin,Urine Negative (Negative); Blood,Urine Negative (Negative); Color,Urine Yellow; Glucose,Urine (UA) Negative (Negative); Granular Casts,Urine 1 /lpf (0); Hyaline Casts,Urine 82 /lpf (0-2); Ketones,Urine Negative (Negative); Leukocyte Esterase,Urine Small (Negative); Mucus,Urine Occasional /hpf; Nitrite,Urine Negative (Negative); Protein,Urine Trace (Negative); RBC,Urine 4 /hpf (0-5); Specific Gravity,Urine 1.016 (1.001-1.035); Squamous Epithelial Cell,Urine <1 /hpf (0-4); Urobilinogen,Urine <2.0 mg/dL (<2.0); WBC,Urine 7 /hpf (0-5)
[2023-11-12 12:14] LABS: Lactic Acid, Venous 0.6 mmol/L (0.7-2.0)
--- NOTE | 2023-11-12 12:15 | XR ---
EXAMINATION TYPE: XR chest 2V DATE OF EXAM: 11/12/2023 COMPARISON: 04/16/2019 TECHNIQUE: PA and lateral views submitted. HISTORY: Weakness FINDINGS: In the right lung apex there is a nodular density measuring 1.4 cm. Cardiac device noted with subsegm ental basilar consolidation. There is coarsened interstitium. Diffuse osteopenia. Arthropathy of the shoulder. There is a lucent lesion of the left humerus. Patchy mineralization in the bilateral scapula and left clavicle. Osseous structures demonstrate hypertroph ic and degenerative changes of the spine. IMPRESSION: 1. Basilar atelectasis or infiltrate with tiny effusion. Mild venous congestion in the differential d iagnosis. Underlying pneumonia not excluded. 2. COPD 3. There is a rounded lucent lesion of the proximal left humerus. 3. There is a nodule in the right upper lobe apex measuring 1.[address] of the chest to excl ude pulmonary mass.
[2023-11-12 12:28] LABS: Basophils % (A) 0 %; Eosinophils % (A) 0 %; HGB 14.5 gm/dL (13.0-17.5); Lymphocytes # (A) 0.4 k/uL (1.0-4.8); Lymphocytes % (A) 4 %; MCH 33.5 pg (25.0-35.0); MCHC 32.2 g/dL (31.0-37.0); MCV 103.8 fL (80.0-100.0); Macrocytosis Slight; Mean Platelet Volume 10.5; Monocytes # (A) 0.3 k/uL (0-1.0); Monocytes % (A) 3 %; Neutrophils % (A) 92 %; Platelet Count 145 k/uL (150-450); RBC 4.34 m/uL (4.30-5.90); RDW 14.2 % (11.5-15.5); WBC 9.8 k/uL (3.8-10.6)
[2023-11-12 12:47] LABS: INR 1.2 (<1.2); Partial Thromboplastin Time 24.8 sec (22.0-30.0); Prothrombin Time 12.7 sec (10.0-12.5)
[2023-11-12 14:25] LABS: ALT 16 U/L (4-49); AST 30 U/L (17-59); African American GFR (CKD) 42 (>60 ml/min/1.73 sqM); Albumin 3.3 g/dL (3.5-5.0); Alkaline Phosphatase 188 U/L (38-126); Anion Gap 7 mmol/L; Blood Urea Nitrogen 77 mg/dL (9-20); Calcium 11.8 mg/dL (8.4-10.2); Carbon Dioxide 32 mmol/L (22-30); Chloride 108 mmol/L (98-107); Creatine Kinase 53 U/L (55-170); Glucose 79 mg/dL (74-99); Non-African American GFR(CKD) 36 (>60 ml/min/1.73 sqM); Potassium 3.1 mmol/L (3.5-5.1); Sodium 147 mmol/L (137-145); Total Bilirubin 1.9 mg/dL (0.2-1.3); Total Protein 9.3 g/dL (6.3-8.2)
[2023-11-12 14:33] LABS: NT-Pro-B-Type Natriuretic Pept 1810 pg/mL
[2023-11-12] MEDS: POTASSIUM CHLORIDE ER 20 MEQ TAB.ER PO STA (14:58)
[2023-11-12] MEDS ORDERED: PNEUMONIA PROTOCOL UTILIZED 1 EACH MISC PO PRN (15:03)
[2023-11-12] MEDS ORDERED: IPRATROPIUM-ALBUTEROL 3 ML NEB INHALATION PRN (15:03)
--- NOTE | 2023-11-12 15:11 | ED ---
General Adult HPI - General Chief complaint: Weakness Stated complaint: AMS Time Seen by Provider: 11/12/23 10:16 Source: patient, RN notes reviewed, old records reviewed - History of Present Illness Initial comments: Patient is a 78-year-old male who presents emergency department complaining of generalized weakness. Has been ongoing for a week. Has had poor oral intake. Is complaining of generalized chronic body pain which is chronic for the patient. Has a history of A-fib with ablations and is on Xarelto. Rolled out of his bed today at home and landed on the ground. No loss of consciousness. Has been less responsive due to to feeling weak. Is not normally on oxygen at home. Endorses generalized body pain including rib cage pain that is worse with movements as well as palpation but also complaining of bone pain diffusely. This includes legs and arms. Has no other acute complaints at this time. Presents for further evaluation at this time. Patient's is at bedside and aids in history.Patient denies orthopnea, lower extremity edema. Does endorse dyspnea on exertion. Has had poor oral intake over the last week. Appears dehydrated. Is complaining of generalized bodyaches and pain particular over chest wall, upper extremities, lower extremities. This is chronic for the patient. - Related Data Home Medications Medication Instructions Recorded Confirmed Cholecalciferol [Vitamin D3 (25 25 mcg PO HS 05/23/17 11/12/23 Mcg = 1000 Iu)] Glucosamine Sulfate 500 mg PO HS 05/23/17 11/12/23 Pravastatin Sodium [Pravachol] 40 mg PO HS 05/23/17 11/12/23 Tamsulosin HCl [Flomax] 0.8 mg PO HS 05/29/17 11/12/23 Hydrocodone/Acetaminophen 1 tab PO Q6HR PRN 08/17/17 11/12/23 [Hydrocodone/Acetaminophen 10-325] Rivaroxaban [Xarelto] 20 mg PO DAILY 03/05/18 11/12/23 Zolpidem Tartrate [Ambien] 10 mg PO HS PRN 03/05/18 11/12/23 ALPRAZolam [Xanax] 0.25 mg PO DAILY PRN 10/13/18 11/12/23 Verapamil [Isoptin] 40 mg PO DAILY 11/12/23 11/12/23 Allergies Allergy/AdvReac Type Severity Reaction Status Date / Time cefuroxime Allergy Intermediate Diaphoretic, Verified 11/12/23 11:34 tingling sensation, anxiety, Rapid Heart Rate ciprofloxacin [From Cipro] Allergy Anaphylaxis Verified 11/12/23 11:34 metronidazole Allergy Anaphylaxis Verified 11/12/23 11:34 clindamycin AdvReac Severe Dizzy, Verified 11/12/23 11:34 diaphoretic, short of breath, tachycaRapid Heart Rate Review of Systems ROS Statement: Those systems with pertinent positive or pertinent negative responses have been documented in the HPI. Review of Systems: CONST: Denies fever EYES: Denies blurry vision ENT: Denies nasal congestion C/V: Denies Chest pain RESP: Denies shortness of breath GI: Denies abdominal pain : Denies dysuria SKIN: Denies rash. MSK: Endorses generalized joint aches NEURO: Endorses weakness ROS Other: All systems not noted in ROS Statement are negative. Past Medical History Past Medical History: Atrial Fibrillation, Chest Pain / Angina, COPD, Hyperlipidemia Additional Past Medical History / Comment(s): See Dr Mckeon H&P, chronic back pain, diverticulosis, History of Any Multi-Drug Resistant Organisms: None Reported Past Surgical History: Orthopedic Surgery, Pacemaker Additional Past Surgical History / Comment(s): 03/25/19 cinefluoroscpy, cardioversion,mateus rt knee/lower leg sx has 3 screws, colonoscopy, "bone aspiration" Past Anesthesia/Blood Transfusion Reactions: No Reported Reaction Additional Past Anesthesia/Blood Transfusion Reaction / Comment(s): per -pt never recieved any blood in past Type of Cardiac Device: Permanent Pacemaker Device Placement Date:: 04/15/19 Past Psychological History: No Psychological Hx Reported Past Alcohol Use History: None Reported Past Drug Use History: None Reported - Past Family History Mother History Unknown: Yes Family Medical History: No Reported History General Exam - General Exam Comments Initial Comments: General: Appears in mild distress. HEAD: Normal with no signs of head trauma. EYES: PERRLA, EOMI, conjunctiva normal, no discharge. Pupils 2mm and equal bilaterally. ENT: Hearing grossly intact, normal oropharynx.dry Dry mucous membranes RESPIRATORY: End expiratory wheezing bilaterally. Hypoxia on room air. Improved on 2 L nasal cannula oxygen. C/V: Regular rate and rhythm. S1 and S2 auscultated, no edema, peripheral pulses 2+ and intact throughout ABD: Abd is soft, nontender, nondistended EXT: Normal range of motion, no obvious deformity. Generalized myalgias on pa lpations, over both upper extremities, chest wall, denies back which are reproduced on palpation. SKIN: No rashes or lesions observed on exposed skin. NEURO: Alert and oriented x 4. Cranial nerves II-XII intact. No focal sensory or strength deficits. Generalized weakness. Course Vital Signs 11/12/23 11/12/23 10:11 14:27 Temperature 97.6 F Pulse Rate 67 60 Respiratory 14 14 Rate Blood Pressure 145/88 145/85 O2 Sat by Pulse 91 L 95 Oximetry Medical Decision Making - Medical Decision Making Was pt. sent in by a medical professional or institution (, [facility], RIDE [employer]CHANIC, urgent care, hospital, or long-term...) When possible be specific @ -No Did you speak to anyone other than the patient for history (EMS, parent, family, police, friend...)? What history was obtained from this source @ -Patient's aids with patient's past medical history. Did you review nursing and triage notes (agree or disagree)? Why? @ -I reviewed and agree with nursing and triage notes Were old charts reviewed (outside hosp., previous admission, EMS record, old EKG, old radiological studies, urgent care reports/EKG's, long-term records)? Report findings @ -Old charts reviewed Differential Diagnosis (chest pain, altered mental status, abdominal pain women, abdominal pain men, vaginal bleeding, weakness, fever, dyspnea, syncope, headache, dizziness, GI bleed, back pain, seizure, CVA, palpatations, mental health, musculoskeletal)? @ -Differential Weakness: Hypoglycemia, shock, sepsis, hyponatremia, anemia, infection, SD, ETOH, adverse medicine reaction, overdose, stroke, this is not meant to be an all-inclusive list. EKG interpreted by me (3pts min.). @ -As above X-rays interpreted by me (1pt min.). @ -Chest x-ray shows possible atypical pneumonia versus mild pulmonary vascular congestion. Patient also has findings consistent with pulmonary nodule as well as lucent lesion in the proximal left humerus. Possible malignancy. COPD changes as well. CT interpreted by me (1pt min.). @ -CT brain reveals no obvious acute intracranial injury or process. U/S interpreted by me (1pt. min.). @ -None done What testing was considered but not performed or refused? (CT, X-rays, U/S, labs)? Why? @ -None What meds were considered but not given or refused? Why? @ -None Did you discuss the management of the patient with other professionals (professionals i.e. , PA, RIDE MECHANIC, lab, RT, psych nurse, social security benefits interviewer, electric track switch maintainer, teacher, staff air defense officer, case manager specialist)? Give summary @ -Discussed with Dr. Lopez the admitting physician who accepted the patient. Was smoking cessation discussed for >3mins.? @ -No Was critical care preformed (if so, how long)? @ -Yes, 34 minutes. Were there social determinants of health that impacted care today? How? (Homele ssness, low income, unemployed, alcoholism, drug addiction, transportation, low edu. Level, literacy, decrease access to med. care, penitentiary, rehab)? @ -No Was there de-escalation of care discussed even if they declined (Discuss DNR or withdrawal of care, Hospice)? DNR status @ -No What co-morbidities impacted this encounter? (DM, HTN, Smoking, COPD, CAD, Cancer, CVA, ARF, Chemo, Hep., AIDS, mental health diagnosis, sleep apnea, morbid obesity)? @ -COPD, chronic pain Was patient admitted / discharged? Hospital course, mention meds given and route, prescriptions, significant lab abnormalities, going to OR and other pertinent info. @ -Patient presents complaining of weakness for 1 week, dehydration with decreased oral intake, as well as generalized chronic body pain. Patient is hypoxic on room air, improved on 2 L nasal cannula. Concern for COPD but also infectious process for the patient at this time. Appears clinically dehydrated with dry mucous membranes. We will obtain generalized weakness workup including CT brain. Patient is in agreement this plan. Patient's was in agreement this plan. Vital signs are currently within acceptable limits other than the mild hypoxia improved on 2 L nasal cannula. EKG shows no signs of acute ischemia. Chest x-ray shows possible atypical pneumonia versus pulmonary vascular congestion but clinically seems to be more atypical pneumonia. CT brain unremarkable. Laboratory studies remarkable for hypokalemia 3.1, TERRY which was treated with IV fluids, normal lactic acid. There was a long delay in obtaining troponin and BNP and troponin was elevated 0.124 with BNP elevation to 1800. Once again I have low suspicion for CHF at this time as clinically presents more as a dehydration and infectious presentation. After the patient as well as family members. For patient's NSTEMI, he will be started on a heparin drip. We will continue treatment of COPD with I be steroids as well as breathing treatments. He will be empirically started on antibiotics for pneumonia. Will trend the troponin. He is given an aspirin. He is given potassium. He will remain on his IV fluids for his TERRY. Family was in agreement this plan. Cardiology consulted. Echo ordered. I spoke with the admitting physician, Dr. Lopez who accepted the admission. Undiagnosed new problem with uncertain prognosis? @ -No Drug Therapy requiring intensive monitoring for toxicity (Heparin, Nitro, Insulin, Cardizem)? @ -Heparin Were any procedures done? @ -No Diagnosis/symptom? @ -Hypoxic respiratory failure likely secondary to COPD and possible pneumonia, dehydration, TERRY, hypokalemia, NSTEMI, weakness,Chronic generalized pain Acute, or Chronic, or Acute on Chronic? @ -Acute Uncomplicated (without systemic symptoms) or Complicated (systemic symptoms)? @ -Complicated Side effects of treatment? @ -No Exacerbation, Progression, or Severe Exacerbation? @ -No Poses a threat to life or bodily function? How? (Chest pain, USA, SD, pneumonia, PE, COPD, DKA, ARF, appy, cholecystitis, CVA, Diverticulitis, Homicidal, Suicidal, threat to staff... and all critical care pts) @ -Yes - Lab Data Result diagrams: 11/12/23 10:36 11/12/23 13:13 Lab Results 11/12/23 11/12/23 11/12/23 Range/Units 10:36 10:36 10:36 WBC 9.8 (3.8-10.6) k/uL RBC 4.34 (4.30-5.90) m/uL Hgb 14.5 (13.0-17.5) gm/dL Hct 45.0 (39.0-53.0) % MCV 103.8 H (80.0-100.0) fL MCH 33.5 (25.0-35.0) pg MCHC 32.2 (31.0-37.0) g/dL RDW 14.2 (11.5-15.5) % Plt Count 145 L (150-450) k/uL MPV 10.5 Neutrophils % 92 % Lymphocytes % 4 % Monocytes % 3 % Eosinophils % 0 % Basophils % 0 % Neutrophils # 9.0 H (1.3-7.7) k/uL Lymphocytes # 0.4 L (1.0-4.8) k/uL Monocytes # 0.3 (0-1.0) k/uL Eosinophils # 0.0 (0-0.7) k/uL Basophils # 0.0 (0-0.2) k/uL Macrocytosis Slight PT 12.7 H (10.0-12.5) sec INR 1.2 H (<1.2) APTT 24.8 (22.0-30.0) sec Sodium Cancelled Potassium Cancelled Chloride Cancelled Carbon Dioxide Cancelled Anion Gap Cancelled BUN Cancelled Creatinine Cancelled Est GFR (CKD-EPI) Cancelled Est GFR (CKD-EPI)AfAm Cancelled Est GFR (CKD-EPI)NonAf Cancelled Glucose Cancelled Plasma Lactic Acid Chte (0.7-2.0) mmol/L Calcium Cancelled Magnesium Cancelled Total Bilirubin Cancelled AST Cancelled ALT Cancelled Alkaline Phosphatase Cancelled Ammonia (<30) umol/L Creatine Kinase Cancelled Troponin I (0.000-0.034) ng/mL NT-Pro-B Natriuret Pep Cancelled Total Protein Cancelled Albumin Cancelled TSH 0.879 (0.465-4.680) mIU/L Urine Color Urine Appearance (Clear) Urine pH (5.0-8.0) Ur Specific [place] (1.001-1.035) Urine Protein (Negative) Urine Glucose (UA) (Negative) Urine Ketones (Negative) Urine Blood (Negative) Urine Nitrite (Negative) Urine Bilirubin (Negative) Urine Urobilinogen (<2.0) mg/dL Ur Leukocyte Esterase (Negative) Urine RBC (0-5) /hpf Urine WBC (0-5) /hpf Ur Squamous Epith Cells (0-4) /hpf Hyaline Casts (0-2) /lpf Granular Casts (0) /lpf Urine Mucus (None) /hpf Influenza Type A (PCR) (Not Detectd) Influenza Type B (PCR) (Not Detectd) RSV (PCR) (Not Detectd) SARS-CoV-2 (PCR) (Not Detectd) 11/12/23 11/12/23 11/12/23 Range/Units 10:36 10:36 10:36 WBC (3.8-10.6) k/uL RBC (4.30-5.90) m/uL Hgb (13.0-17.5) gm/dL Hct (39.0-53.0) % MCV (80.0-100.0) fL MCH (25.0-35.0) pg MCHC (31.0-37.0) g/dL RDW (11.5-15.5) % Plt Count (150-450) k/uL MPV Neutrophils % % Lymphocytes % % Monocytes % % Eosinophils % % Basophils % % Neutrophils # (1.3-7.7) k/uL Lymphocytes # (1.0-4.8) k/uL Monocytes # (0-1.0) k/uL Eosinophils # (0-0.7) k/uL Basophils # (0-0.2) k/uL Macrocytosis PT (10.0-12.5) sec INR (<1.2) APTT (22.0-30.0) sec Sodium Potassium Chloride Carbon Dioxide Anion Gap BUN Creatinine Est GFR (CKD-EPI) Est GFR (CKD-EPI)AfAm Est GFR (CKD-EPI)NonAf Glucose Plasma Lactic Acid Chet 0.6 L (0.7-2.0) mmol/L Calcium Magnesium Total Bilirubin AST ALT Alkaline Phosphatase Ammonia <9 (<30) umol/L Creatine Kinase Troponin I (0.000-0.034) ng/mL NT-Pro-B Natriuret Pep Total Protein Albumin TSH (0.465-4.680) mIU/L Urine Color Yellow Urine Appearance Clear (Clear) Urine pH 5.0 (5.0-8.0) Ur Specific [place] 1.016 (1.001-1.035) Urine Protein Trace H (Negative) Urine Glucose (UA) Negative (Negative) Urine Ketones Negative (Negative) Urine Blood Negative (Negative) Urine Nitrite Negative (Negative) Urine Bilirubin Negative (Negative) Urine Urobilinogen <2.0 (<2.0) mg/dL Ur Leukocyte Esterase Small H (Negative) Urine RBC 4 (0-5) /hpf Urine WBC 7 H (0-5) /hpf Ur Squamous Epith Cells <1 (0-4) /hpf Hyaline Casts 82 H (0-2) /lpf Granular Casts 1 (0) /lpf Urine Mucus Occasional H (None) /hpf Influenza Type A (PCR) Not Detected (Not Detectd) Influenza Type B (PCR) Not Detected (Not Detectd) RSV (PCR) Not Detected (Not Detectd) SARS-CoV-2 (PCR) Not Detected (Not Detectd) 11/12/23 11/12/23 Range/Units 13:13 13:13 WBC (3.8-10.6) k/uL RBC (4.30-5.90) m/uL Hgb (13.0-17.5) gm/dL Hct (39.0-53.0) % MCV (80.0-100.0) fL MCH (25.0-35.0) pg MCHC (31.0-37.0) g/dL RDW (11.5-15.5) % Plt Count (150-450) k/uL MPV Neutrophils % % Lymphocytes % % Monocytes % % Eosinophils % % Basophils % % Neutrophils # (1.3-7.7) k/uL Lymphocytes # (1.0-4.8) k/uL Monocytes # (0-1.0) k/uL Eosinophils # (0-0.7) k/uL Basophils # (0-0.2) k/uL Macrocytosis PT (10.0-12.5) sec INR (<1.2) APTT (22.0-30.0) sec Sodium 147 H Potassium 3.1 L Chloride 108 H Carbon Dioxide 32 H Anion Gap 7 BUN 77 H Creatinine 1.77 H Est GFR (CKD-EPI) Est GFR (CKD-EPI)AfAm 42 Est GFR (CKD-EPI)NonAf 36 Glucose 79 Plasma Lactic Acid Chet (0.7-2.0) mmol/L Calcium 11.8 H Magnesium Total Bilirubin 1.9 H AST 30 ALT 16 Alkaline Phosphatase 188 H Ammonia (<30) umol/L Creatine Kinase 53 L Troponin I 0.124 H* (0.000-0.034) ng/mL NT-Pro-B Natriuret Pep 1810 Total Protein 9.3 H Albumin 3.3 L TSH (0.465-4.680) mIU/L Urine Color Urine Appearance (Clear) Urine pH (5.0-8.0) Ur Specific [place] (1.001-1.035) Urine Protein (Negative) Urine Glucose (UA) (Negative) Urine Ketones (Negative) Urine Blood (Negative) Urine Nitrite (Negative) Urine Bilirubin (Negative) Urine Urobilinogen (<2.0) mg/dL Ur Leukocyte Esterase (Negative) Urine RBC (0-5) /hpf Urine WBC (0-5) /hpf Ur Squamous Epith Cells (0-4) /hpf Hyaline Casts (0-2) /lpf Granular Casts (0) /lpf Urine Mucus (None) /hpf Influenza Type A (PCR) (Not Detectd) Influenza Type B (PCR) (Not Detectd) RSV (PCR) (Not Detectd) SARS-CoV-2 (PCR) (Not Detectd) - EKG Data -: EKG Interpreted by Me EKG Comments: 12-lead Electrocardiogram Interpretation Note EKG was reviewed and interpreted by myself. 12-lead ECG performed at 1021 is interpreted by me as revealing paced rhythm at a rate of 64 beats per minute. Left axis deviation. QRS durations 156 ms, QTc is 334 ms.. There were no ST or T wave abnormalities to suggest myocardial ischemia or injury. R wave progression across the precordium was satisfactory. By my interpretation this EKG is non-diagnostic for acute ischemia. Critical Care Time Critical Care Time: Yes Total Critical Care Time: 34 Disposition Clinical Impression: NSTEMI (non-ST elevated myocardial infarction), Pneumonia, TERRY (acute kidney injury), Hypokalemia, COPD (chronic obstructive pulmonary disease), Weakness, Dehydration, Hypoxic respiratory failure, Chronic pain, Pulmonary nodule Disposition: ADMITTED IP TO THIS HOSP Condition: Serious Referrals: Fritz Guy MD [Primary Care Provider] - 1-2 days Time of Disposition: 15:11
[2023-11-12] MEDS ORDERED: ACETAMINOPHEN TAB 325 MG TAB PO PRN (15:26)
[2023-11-12] MEDS ORDERED: NALOXONE 0.4 MG/ML 1 ML VIAL IV PRN (15:26)
[2023-11-12] MEDS ORDERED: ONDANSETRON 4 MG/2 ML VIAL IVP PRN (15:26)
[2023-11-12] MEDS ORDERED: Potassium Replacement Protocol 1 EACH MISC MISCELLANE PRN (15:30)
[2023-11-12] MEDS: ASPIRIN 81 MG PO STA (15:53)
[2023-11-12] MEDS: methylPREDNISolone SOD SUCCI 40 MG/ML 1 ML VIAL IV STA (15:56)
[2023-11-12] MEDS: HEPARIN SODIUM 1,000 UN/ML (10ML VL) IV ONE (16:01)
[2023-11-12] MEDS: HEPARIN SOD,PORK IN 0.45% NACL 25,000 UNIT in 0.45% NACL 1 250ML.BAG IV SCH (16:02)
[2023-11-12] MEDS: PIPERACILLIN-TAZOBACTAM 3.375 GM in SODIUM CHLORIDE 0.9% 100 ML IVPB STA (16:10)
[2023-11-12] MEDS: SODIUM CHLORIDE 0.45% 1,000 ML IV SCH (17:07)
[2023-11-12] MEDS: AZITHROMYCIN 500 MG in SODIUM CHLORIDE 0.9% 250 ML IVPB STA (17:07)
[2023-11-12] MEDS: IPRATROPIUM-ALBUTEROL 3 ML NEB INHALATION STA (17:42)
[2023-11-12] MEDS: MORPHINE SULFATE 4 MG/ML SYRINGE IVP PRN (19:30)
[2023-11-12] MEDS: TAMSULOSIN 0.4 MG CAP.ER.24H PO SCH (21:13)
[2023-11-12] MEDS: PRAVASTATIN SODIUM 40 MG TAB PO SCH (21:14)
[2023-11-12] MEDS: methylPREDNISolone SOD SUCCI 40 MG/ML 1 ML VIAL IV SCH (21:14)
--- NOTE | 2023-11-12 23:56 | P.HPIM ---
History of Present Illness H&P Date: 11/12/23 Chief Complaint: Weakness and fall Patient is a 78-year-old male with a past medical history of atrial fibrillation on anticoagulation with Xarelto,COPD not on home oxygen, hyperlipidemia, history of permanent pacemaker placement and prior history of infection in the spine s/p antibiotic course/implant, Chronic back pain was brought to the hospital due to generalized weakness and poor oral intake. Apparently patient has not been eating well for the past 10 days. He was able to walk with cane at home before. He felt out of bed today as per his . Patient is somewhat poor historian. Denies any loss of consciousness with the fall. He felt very weak and able to get up by himself. He is also complaining of generalized body pains even with minimal palpation. No fever no chills. No cough or sputum production. No nausea or vomiting or diarrhea. Denies any abdominal pain. According to his at bedside, patient has lost a lot of weight recently. On admission blood pressure 1 44/88 pulse 67 respiration 14 pulse ox 91% on room air. CT head showed no acute intracranial process. Nonspecific white matter changes, likely secondary to chronic small vessel ischemic disease. Chest x-ray showed basilar atelectasis or infiltrate with tiny effusion. Mild venous congestion in the differential diagnosis. Underlying pneumonia not excluded. COPD. There is a rounded lucent lesion of the proximal left humerus. There is a nodule in the right upper lobe apex measuring 1.[address] of the chest to exclude pulmonary mass. EKG showed electronic ventricular paced rhythm. Laboratory test showed WBC 9.8 hemoglobin 14.5 MCV 103.8 and platelets 145, INR 1.2 Sodium 147, potassium 3.1 chloride 108 bicarb is 32 BUN 77 and creatinine 1.77, lactic acid 0.6 calcium 11.8 total bili 1.9 AST 30 ALT 16 and alk phos 188 and CK 53. Troponin 0.124, 0.132 and 0.109, proBNP 1810 and TSH 0.879. Urinalysis is negative for infection. Influenza AB RSV and COVID-19 PCR not detected. Review of Systems Complete review of systems could not be obtained from the patient except as per HPI Past Medical History Past Medical History: Atrial Fibrillation, Chest Pain / Angina, COPD, Hyperlipidemia Additional Past Medical History / Comment(s): See Dr Krishen H&P, chronic back pain, diverticulosis, History of Any Multi-Drug Resistant Organisms: None Reported Past Surgical History: Orthopedic Surgery, Pacemaker Additional Past Surgical History / Comment(s): 03/25/19 cinefluoroscpy, cardioversion,mateus rt knee/lower leg sx has 3 screws, colonoscopy, "bone aspiration" Past Anesthesia/Blood Transfusion Reactions: No Reported Reaction Additional Past Anesthesia/Blood Transfusion Reaction / Comment(s): per -pt never recieved any blood in past Type of Cardiac Device: Permanent Pacemaker Device Placement Date:: 04/15/19 Past Psychological History: No Psychological Hx Reported Past Alcohol Use History: None Reported Past Drug Use History: None Reported - Past Family History Mother History Unknown: Yes Family Medical History: No Reported History Medications and Allergies Home Medications Medication Instructions Recorded Confirmed Type Cholecalciferol [Vitamin D3 (25 25 mcg PO HS 05/23/17 11/12/23 History Mcg = 1000 Iu)] Glucosamine Sulfate 500 mg PO HS 05/23/17 11/12/23 History Pravastatin Sodium [Pravachol] 40 mg PO HS 05/23/17 11/12/23 History Tamsulosin HCl [Flomax] 0.8 mg PO HS 05/29/17 11/12/23 History Hydrocodone/Acetaminophen 1 tab PO Q6HR PRN 08/17/17 11/12/23 History [Hydrocodone/Acetaminophen 10-325] Rivaroxaban [Xarelto] 20 mg PO DAILY 03/05/18 11/12/23 History Zolpidem Tartrate [Ambien] 10 mg PO HS PRN 03/05/18 11/12/23 History ALPRAZolam [Xanax] 0.25 mg PO DAILY PRN 10/13/18 11/12/23 History Verapamil [Isoptin] 40 mg PO DAILY 11/12/23 11/12/23 History Allergies Allergy/AdvReac Type Severity Reaction Status Date / Time cefuroxime Allergy Intermediate Diaphoretic, Verified 11/12/23 11:34 tingling sensation, anxiety, Rapid Heart Rate ciprofloxacin [From Cipro] Allergy Anaphylaxis Verified 11/12/23 11:34 metronidazole Allergy Anaphylaxis Verified 11/12/23 11:34 clindamycin AdvReac Severe Dizzy, Verified 11/12/23 11:34 diaphoretic, short of breath, tachycaRapid Heart Rate Physical Exam Vitals: Vital Signs Temp Pulse Resp BP Pulse Ox 11/12/23 14:27 60 14 145/85 95 11/12/23 10:11 97.6 F 67 14 145/88 91 L Intake and Output 11/12/23 11/12/23 11/12/23 06:59 14:59 22:59 Other: Weight 58.06 kg PHYSICAL EXAMINATION: Patient is lying in the bed , no acute distress, awake alert but lethargic and weak.. Generalized tenderness with palpation.. HEENT: Normocephalic. Neck is supple. Pupils reactive. Nostrils clear. Oral c avity is moist. Neck reveals no JVD, carotid bruits, or thyromegaly. CHEST EXAMINATION: Trachea is central. Symmetrical expansion. Mild expiratory wheezing. Nonlabored breathing. CARDIAC: Normal S1, S2 with no gallops. Positive systolic murmur ABDOMEN: Soft. Bowel sounds present. No organomegaly. No abdominal bruits. Extremities: reveal no edema. No clubbing or cyanosis Neurologically awake, alert, oriented x 1-2 able to move extremities.. No gross focal deficits noted Skin: No rash or skin lesions. Psychiatric: Coperative. Could not be assessed completely Musculoskeletal: No joint swelling or deformity. Normal range of motion. Results CBC & Chem 7: 11/12/23 10:36 11/12/23 13:13 Labs: Abnormal Lab Results - Last 24 Hours (Table) 11/12/23 11/12/23 11/12/23 Range/Units 10:36 10:36 10:36 MCV 103.8 H (80.0-100.0) fL Plt Count 145 L (150-450) k/uL Neutrophils # 9.0 H (1.3-7.7) k/uL Lymphocytes # 0.4 L (1.0-4.8) k/uL PT 12.7 H (10.0-12.5) sec INR 1.2 H (<1.2) Sodium (137-145) mmol/L Potassium (3.5-5.1) mmol/L Chloride (98-107) mmol/L Carbon Dioxide (22-30) mmol/L BUN (9-20) mg/dL Creatinine (0.66-1.25) mg/dL Plasma Lactic Acid Chet 0.6 L (0.7-2.0) mmol/L Calcium (8.4-10.2) mg/dL Total Bilirubin (0.2-1.3) mg/dL Alkaline Phosphatase (38-126) U/L Creatine Kinase (55-170) U/L Troponin I (0.000-0.034) ng/mL Total Protein (6.3-8.2) g/dL Albumin (3.5-5.0) g/dL Urine Protein (Negative) Ur Leukocyte Esterase (Negative) Urine WBC (0-5) /hpf Hyaline Casts (0-2) /lpf Urine Mucus (None) /hpf 11/12/23 11/12/23 11/12/23 Range/Units 10:36 13:13 13:13 MCV (80.0-100.0) fL Plt Count (150-450) k/uL Neutrophils # (1.3-7.7) k/uL Lymphocytes # (1.0-4.8) k/uL PT (10.0-12.5) sec INR (<1.2) Sodium 147 H (137-145) mmol/L Potassium 3.1 L (3.5-5.1) mmol/L Chloride 108 H (98-107) mmol/L Carbon Dioxide 32 H (22-30) mmol/L BUN 77 H (9-20) mg/dL Creatinine 1.77 H (0.66-1.25) mg/dL Plasma Lactic Acid Chet (0.7-2.0) mmol/L Calcium 11.8 H (8.4-10.2) mg/dL Total Bilirubin 1.9 H (0.2-1.3) mg/dL Alkaline Phosphatase 188 H (38-126) U/L Creatine Kinase 53 L (55-170) U/L Troponin I 0.124 H* (0.000-0.034) ng/mL Total Protein 9.3 H (6.3-8.2) g/dL Albumin 3.3 L (3.5-5.0) g/dL Urine Protein Trace H (Negative) Ur Leukocyte Esterase Small H (Negative) Urine WBC 7 H (0-5) /hpf Hyaline Casts 82 H (0-2) /lpf Urine Mucus Occasional H (None) /hpf Thrombosis Risk Factor Assmnt - DVT/VTE Prophylaxis DVT/VTE Prophylaxis: Pharmacologic Prophylaxis ordered Assessment and Plan Assessment: Status post fall due to generalized weakness, fatigue along with poor oral intake and weight loss Acute hypoxic respiratory failure requiring oxygen at 2 L via nasal cannula. Multifactorial due to COPD exacerbation and pneumonia Right upper lobe 1.4 cm lung nodule with suspected malignancy Elevated troponin level with possible NSTEMI Hyponatremia due to dehydration and volume depletion Hypokalemia Acute kidney injury likely vasomotor nephropathy. Creatinine 1.77 on admission baseline creatinine 1.5 Chronic atrial fibrillation on anticoagulation with Xarelto and pacemaker placement Hyperlipidemia Plan: Continue with telemetry.. Was given IV fluid bolus in the ER. Continue with half-normal saline and encourage oral intake. Patient was started on antibiotics in the form of Zosyn and azithromycin. Xarelto is on hold and will be continued on heparin drip. Continue with pain management. Replace electrolytes. Continue with IV Solu- Medrol and DuoNebs and antibiotics. Follow-up procalcitonin level. Pulmonary and cardiology was consulted. Prognosis is guarded at this time. Time with Patient: Greater than 30
[2023-11-13] MEDS: PIPERACILLIN-TAZOBACTAM 3.375 GM in SODIUM CHLORIDE 0.9% 100 ML IVPB SCH (01:20)
--- NOTE | 2023-11-13 03:57 | P.CNPUL ---
History of Present Illness Consult date: 11/13/23 Requesting physician: Amish Castillo Reason for consult: COPD Chief complaint: Progressively worsening generalized weakness and fall History of present illness: Patient is a 78-year-old white male with past medical history significant for paroxysmal atrial fibrillation with previous AV node ablation, permanent pacemaker, COPD, and former heavy tobacco use. Patient presented to the emergency room yesterday morning with a chief complaint of progressively worsening generalized weakness over the last 10 days. He is a poor historian, his is at bedside, and answers all questions. He can no longer ambulate to his bedroom, and his has set up a air mattress on the floor on the lower level. He did fall off the air mattress. This prompted the to contact EMS. He is currently resting in bed, on 4 L/min nasal cannula, in no acute distress. He reportedly does not wear home oxygen. states that he has appeared short of breath at times. No significant coughing or sputum production. No hemoptysis. No measured fevers. No sick contacts. He has no specific complaints but diffuse nonlocalized/nonspecific pain. He is very weak. Dry mucous membranes. Reportedly not eating and drinking much while at home. Brain CT done on arrival did not show any acute intracranial process. There is nonspecific white matter changes, likely secondary to chronic small vessel isc hemic disease. Chest x-ray shows basilar atelectasis versus infiltrate with tiny effusion. Underlying pneumonia is not excluded. There is hyperinflation consistent with COPD. There is a 1.4 cm right apical opacity concerning for lung nodule. There is also a lucent lesion of the left proximal humerus. CBC on arrival unremarkable. No leukocytosis. Troponins elevated at 0.124, 0.132, and 0.109 respectively. EKG shows V paced rhythm. Patient was started on heparin infusion. Most recent APTT therapeutic. NT proBNP 1810. CMP done on arrival: Sodium 147, potassium 3.1, chloride 108, serum bicarb 32, BUN 77, creatinine 1.77, glucose 79. Lactic acid 0.6. CPK 53. TSH 0.879. Urinalysis shows trace protein, small leukocytes, otherwise unremarkable. Negative for influenza, RSV, COVID. Currently afebrile. Started on a combination of azithromycin and Zosyn in the emergency room. Half-normal saline is infusing at 75 mL/h. Vital signs are stable. Review of Systems REVIEW OF SYSTEMS: CONSTITUTIONAL: Denies any recent significant weight loss or weight gain. EYES: Denies change in vision. EARS, NOSE, MOUTH, THROAT: Denies headaches, denies sore throat. CARDIOVASCULAR: Denies substernal chest pain, palpitations or syncopal episodes. RESPIRATORY: See HPI. GASTROINTESTINAL: Denies abdominal pain, nausea and vomiting, or diarrhea. Admits reduced appetite/oral intake GENITOURINARY: Denies hematuria, denies infections. MUSKULOSKELETAL: Admits generalized diffuse pain INTEGUMENTARY: Denies rash, denies eczema. NEUROLOGICAL: Denies recent memory loss, no recent seizure activity. PSYCHIATRIC: Denies anxiety, denies depression. HEMATOLOGIC/LYMPHATIC: Denies anemia, denies enlarged lymph node Past Medical History Past Medical History: Atrial Fibrillation, Chest Pain / Angina, COPD, Hyperlipidemia Additional Past Medical History / Comment(s): See Dr Mckeon H&P, chronic back pain, diverticulosis, History of Any Multi-Drug Resistant Organisms: None Reported Past Surgical History: Orthopedic Surgery, Pacemaker Additional Past Surgical History / Comment(s): 03/25/19 cinefluoroscpy, cardioversion,mateus rt knee/lower leg sx has 3 screws, colonoscopy, "bone aspiration" Past Anesthesia/Blood Transfusion Reactions: No Reported Reaction Additional Past Anesthesia/Blood Transfusion Reaction / Comment(s): per -pt never recieved any blood in past Type of Cardiac Device: Permanent Pacemaker Device Placement Date:: 04/15/19 Past Psychological History: No Psychological Hx Reported Past Alcohol Use History: None Reported Past Drug Use History: None Reported - Past Family History Mother History Unknown: Yes Family Medical History: No Reported History Medications and Allergies Home Medications Medication Instructions Recorded Confirmed Type Cholecalciferol [Vitamin D3 (25 25 mcg PO HS 05/23/17 11/12/23 History Mcg = 1000 Iu)] Glucosamine Sulfate 500 mg PO HS 05/23/17 11/12/23 History Pravastatin Sodium [Pravachol] 40 mg PO HS 05/23/17 11/12/23 History Tamsulosin HCl [Flomax] 0.8 mg PO HS 05/29/17 11/12/23 History Hydrocodone/Acetaminophen 1 tab PO Q6HR PRN 08/17/17 11/12/23 History [Hydrocodone/Acetaminophen 10-325] Rivaroxaban [Xarelto] 20 mg PO DAILY 03/05/18 11/12/23 History Zolpidem Tartrate [Ambien] 10 mg PO HS PRN 03/05/18 11/12/23 History ALPRAZolam [Xanax] 0.25 mg PO DAILY PRN 10/13/18 11/12/23 History Verapamil [Isoptin] 40 mg PO DAILY 11/12/23 11/12/23 History Allergies Allergy/AdvReac Type Severity Reaction Status Date / Time cefuroxime Allergy Intermediate Diaphoretic, Verified 11/12/23 11:34 tingling sensation, anxiety, Rapid Heart Rate ciprofloxacin [From Cipro] Allergy Anaphylaxis Verified 11/12/23 11:34 metronidazole Allergy Anaphylaxis Verified 11/12/23 11:34 clindamycin AdvReac Severe Dizzy, Verified 11/12/23 11:34 diaphoretic, short of breath, tachycaRapid Heart Rate Physical Exam Vitals: Vital Signs Temp Pulse Resp BP Pulse Ox 11/13/23 01:00 59 L 22 122/71 92 L 11/12/23 22:30 65 22 144/92 94 L 11/12/23 21:22 60 18 141/82 93 L 11/12/23 17:54 60 11/12/23 17:45 60 11/12/23 17:13 60 16 139/80 94 L 11/12/23 14:27 60 14 145/85 95 11/12/23 10:11 97.6 F 67 14 145/88 91 L Intake and Output 11/12/23 11/12/23 11/13/23 14:59 22:59 06:59 Other: Weight 58.06 kg GENERAL EXAM: Alert, 78-year-old male, weak, disheveled, fairly comfortable in no apparent distress. HEAD: Normocephalic and atraumatic EYES: Normal reaction of pupils, equal size. NOSE: Clear with pink turbinates. THROAT: No erythema or exudates. Dry mucous membranes. NECK: No masses, no JVD. CHEST: No chest wall deformity. Left chest implanted device LUNGS: Equal air entry with diffuse coarse rhonchi heard bilaterally and throughout. On 4 L/min nasal cannula. No conversational dyspnea or accessory muscle use while at rest. CVS: S1 and S2 normal with no audible murmur, regular rhythm. No extra heart sounds ABDOMEN: No hepatosplenomegaly, active bowel sounds, no guarding or rigidity. SPINE: No scoliosis or deformity SKIN: No rashes CENTRAL NERVOUS SYSTEM: No focal deficits, tone is normal in all 4 extremities. EXTREMITIES: There is no peripheral edema, clubbing, or cyanosis. Peripheral pulses are intact. Results - Laboratory Findings CBC and BMP: 11/12/23 10:36 11/12/23 13:13 PT/INR, D-dimer PT 12.7 sec (10.0-12.5) H 11/12/23 10:36 INR 1.2 (<1.2) H 11/12/23 10:36 Abnormal lab findings: Abnormal Labs 11/12/23 11/12/23 11/12/23 10:36 10:36 10:36 MCV 103.8 H Plt Count 145 L Neutrophils # 9.0 H Lymphocytes # 0.4 L PT 12.7 H INR 1.2 H APTT Sodium Potassium Chloride Carbon Dioxide BUN Creatinine Plasma Lactic Acid Chet 0.6 L Calcium Total Bilirubin Alkaline Phosphatase Creatine Kinase Troponin I Total Protein Albumin Urine Protein Ur Leukocyte Esterase Urine WBC Hyaline Casts Urine Mucus 11/12/23 11/12/23 11/12/23 10:36 13:13 13:13 MCV Plt Count Neutrophils # Lymphocytes # PT INR APTT Sodium 147 H Potassium 3.1 L Chloride 108 H Carbon Dioxide 32 H BUN 77 H Creatinine 1.77 H Plasma Lactic Acid Chet Calcium 11.8 H Total Bilirubin 1.9 H Alkaline Phosphatase 188 H Creatine Kinase 53 L Troponin I 0.124 H* Total Protein 9.3 H Albumin 3.3 L Urine Protein Trace H Ur Leukocyte Esterase Small H Urine WBC 7 H Hyaline Casts 82 H Urine Mucus Occasional H 11/12/23 11/12/23 11/12/23 17:47 21:00 21:00 MCV Plt Count Neutrophils # Lymphocytes # PT INR APTT 57.2 H Sodium Potassium Chloride Carbon Dioxide BUN Creatinine Plasma Lactic Acid Chet Calcium Total Bilirubin Alkaline Phosphatase Creatine Kinase Troponin I 0.132 H* 0.109 H* Total Protein Albumin Urine Protein Ur Leukocyte Esterase Urine WBC Hyaline Casts Urine Mucus - Diagnostic Findings Chest x-ray: image reviewed Assessment and Plan Assessment: Acute hypoxemic respiratory failure, secondary to acute COPD exacerbation and possible left basilar community-acquired pneumonia. Chest x-ray demonstrates some left basilar atelectasis or infiltrate with tiny effusion. Underlying pneumonia is not excluded. Negative for influenza, RSV, COVID. Suspect right apical lung nodule measuring 1.4 cm, recommend follow-up CT of the chest with contrast once renal function stabilizes. No prior chest CT to review. Severe dehydration and reduced oral intake Acute kidney injury, secondary to above Hypokalemia, replaced Altered mental status, consider acute metabolic encephalopathy, secondary to pneumonia/sepsis Elevated troponins, rule out non-ST elevation RI, currently on heparin infusion per protocol. History of paroxysmal atrial fibrillation status post AV dalia ablation with previous permanent implantation V-paced rhythm History of hyperlipidemia History of hypertension History of tobacco dependence, quit smoking approximately 8 years ago, heavy smoker prior and greater than [id number] History of BPH Plan: Patient's medications, labs, imaging reviewed Continue supplemental oxygen maintain oxygen saturation 92% or greater Continue combination of DuoNebs [id number], add budesonide and formoterol inhalations, and continue IV Solu-Medrol Continue empiric Antibiotics Check procalcitonin level Blood cultures pending Continue IV maintenance fluids as is Recheck electrolytes in the morning Patient needs follow-up CT of the chest with contrast, once renal function stabilizes, to evaluate possible lung nodule. I did explain this to in detail. Consult speech for swallow evaluation Cardiology is following. Follow-up echocardiogram in the morning. Heparin is infusing per protocol. We will continue to follow I have personally seen and examined the patient, performed the documentation and the assessment and plan as written. Number of minutes spent on the visit:20 Time with Patient: Greater than 30
[2023-11-13] MEDS: BUDESONIDE 1 MG/2 ML NEBU INHALATION SCH (07:58)
[2023-11-13] MEDS: IPRATROPIUM-ALBUTEROL 3 ML NEB INHALATION SCH (07:58)
[2023-11-13] MEDS: FORMOTEROL FUMARATE 20 MCG/2 ML NEBU INHALATION SCH (07:58)
[2023-11-13] MEDS: AZITHROMYCIN 500 MG in SODIUM CHLORIDE 0.9% 250 ML IVPB SCH (09:15)
--- NOTE | 2023-11-13 09:23 | XR ---
EXAMINATION TYPE: XR chest 2V DATE OF EXAM: 11/13/2023 COMPARISON: 11/12/2019 TECHNIQUE: PA and lateral views submitted. HISTORY: Shortness of breath FINDINGS: Cardiac device is noted diffuse bilateral bilateral consolidation and pleural effusion. Vague area of nodularity in the right upper lobe measuring 1.4 cm persists. Diffuse osteopenia throughout shoulder. Lucent lesion left humerus not seen on today's exam may be pr ior exam. There is patchy demineralization bilateral scapula. Heart size normal and no overt failure. Osseous structures demonstrate hypertrophic and degenerative changes of the spine. IMPRESSION: 1. Bilateral infiltrates and small pleural effusion on the left. Correlation pneumonia. Mild venous c ongestion excluded. 2. There are persistent vague nodular density in the right lobe measuring 1.4 cm.
[2023-11-13] MEDS: VERAPAMIL 40 MG TAB PO SCH (09:39)
[2023-11-13 10:34] LABS: Basophils % (A) 0 %; Eosinophils % (A) 0 %; HCT 44.2 % (39.0-53.0); HGB 13.7 gm/dL (13.0-17.5); Lymphocytes # (A) 0.3 k/uL (1.0-4.8); Lymphocytes % (A) 4 %; MCH 32.9 pg (25.0-35.0); MCV 105.9 fL (80.0-100.0); Macrocytosis Moderate; Mean Platelet Volume 9.4; Monocytes # (A) 0.1 k/uL (0-1.0); Monocytes % (A) 2 %; Neutrophils # (A) 5.5 k/uL (1.3-7.7); Neutrophils % (A) 93 %; Platelet Count 172 k/uL (150-450); RBC 4.17 m/uL (4.30-5.90); RDW 14.2 % (11.5-15.5)
[2023-11-13 10:49] LABS: INR 1.3 (<1.2); Prothrombin Time 13.4 sec (10.0-12.5)
[2023-11-13 10:55] LABS: ALT 14 U/L (4-49); AST 24 U/L (17-59); African American GFR (CKD) 49 (>60 ml/min/1.73 sqM); Albumin 2.8 g/dL (3.5-5.0); Alkaline Phosphatase 181 U/L (38-126); Anion Gap 14 mmol/L; Blood Urea Nitrogen 69 mg/dL (9-20); Calcium 8.9 mg/dL (8.4-10.2); Carbon Dioxide 25 mmol/L (22-30); Chloride 113 mmol/L (98-107); Glucose 123 mg/dL (74-99); Non-African American GFR(CKD) 43 (>60 ml/min/1.73 sqM); Potassium 3.1 mmol/L (3.5-5.1); Sodium 152 mmol/L (137-145); Total Bilirubin 1.4 mg/dL (0.2-1.3)
[2023-11-13] MEDS: FUROSEMIDE 10 MG/ML 2 ML VIAL IV STA (13:56)
--- NOTE | 2023-11-13 14:43 | P.CRDCN ---
History of Present Illness Consult date: 11/13/23 Reason for Consult (text): NSTEMI History of present illness: History of present illness: This is a 78-year-old male patient of Dr. 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 We have been asked to evaluate the patient for non-ST elevated myocardial infarction. Patient's gives history that he came into the hospital because of dehydration and pain all over his body. Whether week ago he was able to walk and carry on normally but by Sunday he was having trouble with ambulation could not do the stairs. By Sunday he was unable to feed himself. Patient had a fall in the bathroom. Patient has had no appetite. He has been confused for last 1 to 2 days. He also has complained of chest pain. voices concern about pacemaker battery but this seems to be fine according to the office notes. Patient denies having any chest pain at this time. Patient has been started on heparin drip. Patient is seen today in the emergency center waiting for a bed on the cardiac stepdown unit. EKG ventricularly paced rhythm Chest x-ray: Bilateral infiltrates and small pleural effusion on the left. Correlation for pneumonia. Mild venous congestion excluded. There are persistent vague nodular density in the right lobe measuring 1.4 cm. WBC 6, hemoglobin 13.7, platelet count 172. INR 1.3. Sodium 152, potassium 3.1, chloride 113, CO2 25, BUN 69 and creatinine 1.5. Initially BUN was 77 and creatinine 1.77. Blood sugar 123. Troponins 0.124, 0.132, 0.109. proBNP 1810. Procalcitonin 0.2. Urinalysis revealed leukoesterase small cast 82. Influenza A, influenza B, COVID-19, RSV not detected. Home cardiac medications: Pravastatin 40 mg at bedtime, Xarelto 20 mg daily, verapamil 40 mg daily Echocardiogram performed in the office on 08/14/2022 revealed EF of 50 to 55% with mild concentric left ventricular hypertrophy. Mild aortic regurgitation. Moderate to severe mitral regurgitation. Severe tricuspid regurgitation. PASP of 52 mmHg. Mild pulmonic regurgitation. Review Of Systems: At the time of my exam: CONSTITUTIONAL: Denies fever or chills. Generalized weakness, generalized pain HEENT: Denies blurred vision, vision changes, or eye pain. Denies hemoptysis CARDIOVASCULAR: Denies chest pain. Denies orthopnea. Denies PND. Denies palpitations RESPIRATORY: Denies shortness of breath. GASTROINTESTINAL: Denies abdominal pain. Denies nausea or vomiting. Reports decreased appetite. HEMATOLOGIC: Denies bleeding disorders. GENITOURINARY: Denies any blood in urine. SKIN: Denies pruitis. Denies rash. Physical examination: Gen: This is a ill-appearing 78-year-old male in no acute distress. VS: reviewed, blood pressure 149/83, heart rate 60, pulse ox 93% on 4 L nasal cannula. HEENT: Head is atraumatic, normocephalic. Pupils equal, round. Sclerae is anicteric. NECK: Supple. No JVD. LUNGS: Diminished breath sounds. No intercostal retractions. HEART: Irregular ate and rhythm. Systolic murmur. ABDOMEN: Soft No tenderness. EXTREMITIES: No pedal edema. No calf tenderness. NEUROLOGICAL: Patient is awake. Assessment: Chest pain Elevated troponin, rule out non-ST VA Acute hypoxic respiratory failure secondary to acute exacerbation of COPD, possible pneumonia Right apical lung nodule Acute kidney injury Hypokalemia Metabolic encephalopathy Status post pacemaker Remote history of tobacco use and dependence Plan: Resume patient's home cardiac medications Xarelto was placed on hold and patient is currently on heparin drip Continue heparin drip for another 24 hours Obtain 2-D echocardiogram and Doppler study to assess cardiac structure and function Further recommendations to follow based upon clinical course Thank you kindly for this consultation. Nurse practitioner note has been reviewed, I agree with documented findings and plan of care. Patient was seen and examined. Past Medical History Past Medical History: Atrial Fibrillation, Chest Pain / Angina, COPD, Hyperlipidemia Additional Past Medical History / Comment(s): See Dr Mckeon H&P, chronic back pain, diverticulosis, History of Any Multi-Drug Resistant Organisms: None Reported Past Surgical History: Orthopedic Surgery, Pacemaker Additional Past Surgical History / Comment(s): 03/25/19 cinefluoroscpy, cardioversion,mateus rt knee/lower leg sx has 3 screws, colonoscopy, "bone aspirat ion" Past Anesthesia/Blood Transfusion Reactions: No Reported Reaction Additional Past Anesthesia/Blood Transfusion Reaction / Comment(s): per -pt never recieved any blood in past Type of Cardiac Device: Permanent Pacemaker Device Placement Date:: 04/15/19 Past Psychological History: No Psychological Hx Reported Past Alcohol Use History: None Reported Past Drug Use History: None Reported - Past Family History Mother History Unknown: Yes Family Medical History: No Reported History Medications and Allergies Home Medications Medication Instructions Recorded Confirmed Type Cholecalciferol [Vitamin D3 (25 25 mcg PO HS 05/23/17 11/12/23 History Mcg = 1000 Iu)] Glucosamine Sulfate 500 mg PO HS 05/23/17 11/12/23 History Pravastatin Sodium [Pravachol] 40 mg PO HS 05/23/17 11/12/23 History Tamsulosin HCl [Flomax] 0.8 mg PO HS 05/29/17 11/12/23 History Hydrocodone/Acetaminophen 1 tab PO Q6HR PRN 08/17/17 11/12/23 History [Hydrocodone/Acetaminophen 10-325] Rivaroxaban [Xarelto] 20 mg PO DAILY 03/05/18 11/12/23 History Zolpidem Tartrate [Ambien] 10 mg PO HS PRN 03/05/18 11/12/23 History ALPRAZolam [Xanax] 0.25 mg PO DAILY PRN 10/13/18 11/12/23 History Verapamil [Isoptin] 40 mg PO DAILY 11/12/23 11/12/23 History Allergies Allergy/AdvReac Type Severity Reaction Status Date / Time cefuroxime Allergy Intermediate Diaphoretic, Verified 11/12/23 11:34 tingling sensation, anxiety, Rapid Heart Rate ciprofloxacin [From Cipro] Allergy Anaphylaxis Verified 11/12/23 11:34 metronidazole Allergy Anaphylaxis Verified 11/12/23 11:34 clindamycin AdvReac Severe Dizzy, Verified 11/12/23 11:34 diaphoretic, short of breath, tachycaRapid Heart Rate Physical Exam Vitals: Vital Signs Temp Pulse Resp BP Pulse Ox 11/13/23 09:37 60 28 H 149/83 93 L 11/13/23 08:19 60 11/13/23 08:11 62 11/13/23 08:10 62 11/13/23 07:59 60 11/13/23 07:34 32 H 11/13/23 05:02 97.6 F 59 L 16 104/72 93 L 11/13/23 01:00 59 L 22 122/71 92 L 11/12/23 22:30 65 22 144/92 94 L 11/12/23 21:22 60 18 141/82 93 L 11/12/23 17:54 60 11/12/23 17:45 60 11/12/23 17:13 60 16 139/80 94 L 11/12/23 14:27 60 14 145/85 95 Intake and Output 11/12/23 11/13/23 11/13/23 22:59 06:59 14:59 Other: Voiding Method Incontinent Results 11/13/23 10:03 11/13/23 10:03 Cardiac Enzymes 11/12/23 11/12/23 11/12/23 Range/Units 10:36 13:13 13:13 AST Cancelled 30 Troponin I 0.124 H* (0.000-0.034) ng/mL 11/12/23 11/12/23 11/13/23 Range/Units 17:47 21:00 10:03 AST 24 Troponin I 0.132 H* 0.109 H* (0.000-0.034) ng/mL Coagulation 11/12/23 11/12/23 11/13/23 Range/Units 10:36 21:00 10:03 PT 12.7 H 13.4 H (10.0-12.5) sec APTT 24.8 57.2 H (22.0-30.0) sec CBC 11/12/23 11/13/23 Range/Units 10:36 10:03 WBC 9.8 6.0 (3.8-10.6) k/uL RBC 4.34 4.17 L (4.30-5.90) m/uL Hgb 14.5 13.7 (13.0-17.5) gm/dL Hct 45.0 44.2 (39.0-53.0) % Plt Count 145 L 172 (150-450) k/uL Comprehensive Metabolic Panel 11/12/23 11/12/23 11/13/23 Range/Units 10:36 13:13 10:03 Sodium Cancelled 147 H 152 H Potassium Cancelled 3.1 L 3.1 L Chloride Cancelled 108 H 113 H Carbon Dioxide Cancelled 32 H 25 BUN Cancelled 77 H 69 H Creatinine Cancelled 1.77 H 1.54 H Glucose Cancelled 79 123 H Calcium Cancelled 11.8 H 8.9 AST Cancelled 30 24 ALT Cancelled 16 14 Alkaline Phosphatase Cancelled 188 H 181 H Total Protein Cancelled 9.3 H 8.0 Albumin Cancelled 3.3 L 2.8 L Current Medications Generic Name Dose Route Start Last Admin Trade Name Freq PRN Reason Stop Dose Admin Acetaminophen 650 mg 11/12/23 15:26 Acetaminophen Tab 325 Mg Tab PO Q6HR PRN Mild Pain or Fever > 100.5 Hydrocodone Bitart/Acetaminophen 1 each 11/12/23 15:10 Hydrocodone/Apap 10-325mg 1 Each Tab PO Q6HR PRN Pain Albuterol/Ipratropium 3 ml 11/12/23 15:03 Ipratropium-Albuterol 3 Ml Neb INHALATION RT-Q4H PRN shortness of breath Albuterol/Ipratropium 3 ml 11/13/23 08:00 11/13/23 07:58 Ipratropium-Albuterol 3 Ml Neb INHALATION 3 ml RT-QID EVENS Administration Budesonide 1 mg 11/13/23 08:00 11/13/23 07:58 Budesonide 1 Mg/2 Ml Nebu INHALATION 1 mg RT-BID EVENS Administration Formoterol Fumarate 20 mcg 11/13/23 08:00 11/13/23 07:58 Formoterol Fumarate 20 Mcg/2 Ml Nebu INHALATION 20 mcg RT-BID EVENS Administration Heparin Sodium (Porcine) 0 unit 11/12/23 15:05 Heparin Sodium 1,000 Un/Ml (10ml Vl) IV PER PROTOCOL PRN Low PTT Protocol Piperacillin Sod/Tazobactam 100 mls @ 25 mls/hr 11/13/23 00:00 11/13/23 09:39 Sod 3.375 gm/ Sodium Chloride IVPB 11/18/23 00:01 25 mls/hr Q8HR EVENS Administration Protocol Heparin Sodium/Sodium Chloride 250 mls @ 6.967 mls/hr 11/12/23 15:15 11/12/23 16:02 25,000 unit/ Sodium Chloride IV 12 units/kg/hr .Q24H [facility]ENS 6.967 mls/hr Administration Protocol 12 UNITS/KG/HR Azithromycin 500 mg/ Sodium 250 mls @ 250 mls/hr 11/13/23 09:00 11/13/23 09:15 Chloride IVPB 11/14/23 09:59 250 mls/hr DAILY EVENS Administration Protocol Methylprednisolone Sodium Succinate 40 mg 11/12/23 21:00 11/13/23 09:15 Methylprednisolone Sod Succi 40 Mg/Ml 1 Ml Vial IV 40 mg Q12HR EVENS Administration Miscellaneous Information 1 each 11/12/23 15:03 Pneumonia Protocol Utilized 1 Each Misc PO ONCE PRN Per Protocol Miscellaneous Information 1 each 11/12/23 15:30 Potassium Replacement Protocol 1 Each Misc MISCELLANE DAILY PRN Per Protocol Protocol Morphine Sulfate 4 mg 11/12/23 15:24 11/13/23 10:46 Morphine Sulfate 4 Mg/Ml Syringe IVP 4 mg Q4HR PRN Administration Pain Naloxone HCl 0.2 mg 11/12/23 15:26 Naloxone 0.4 Mg/Ml 1 Ml Vial IV Q2M PRN Opioid Reversal Ondansetron HCl 4 mg 11/12/23 15:26 Ondansetron 4 Mg/2 Ml Vial IVP Q8HR PRN Nausea And Vomiting Pravastatin Sodium 40 mg 11/12/23 21:00 11/12/23 21:14 Pravastatin Sodium 40 Mg Tab PO 40 mg HS EVENS Administration Tamsulosin HCl 0.8 mg 11/12/23 21:00 11/12/23 21:13 Tamsulosin 0.4 Mg Cap.Er.24h PO 0.8 mg HS EVENS Administration Verapamil HCl 40 mg 11/13/23 09:00 11/13/23 09:39 Verapamil 40 Mg Tab PO 40 mg DAILY [facility]ENS Administration Intake and Output 11/12/23 11/13/23 11/13/23 22:59 06:59 14:59 Other: Voiding Method Incontinent 11/13/23 10:03 11/13/23 10:03
[2023-11-13] MEDS: HEPARIN SODIUM 1,000 UN/ML (10ML VL) IV PRN (16:21)
--- NOTE | 2023-11-13 21:36 | P.PN ---
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 Apparently patient has not been eating well for the past 10 days. He was able to walk with cane at home before. He felt out of bed today as per his . Patient is somewhat poor historian. Denies any loss of consciousness with the fall. He felt very weak and able to get up by himself. He is also complaining of generalized body pains even with minimal palpation. No fever no chills. No cough or sputum production. No nausea or vomiting or diarrhea. Denies any abdominal pain. According to his at bedside, patient has lost a lot of weight recently. On admission blood pressure 1 44/88 pulse 67 respiration 14 pulse ox 91% on room air. CT head showed no acute intracranial process. Nonspecific white matter changes, likely secondary to chronic small vessel ischemic disease. Chest x-ray showed basilar atelectasis or infiltrate with tiny effusion. Mild venous congestion in the differential diagnosis. Underlying pneumonia not excluded. COPD. There is a rounded lucent lesion of the proximal left humerus. There is a nod ule in the right upper lobe apex measuring 1.[address] of the chest to exclude pulmonary mass. EKG showed electronic ventricular paced rhythm. Laboratory test showed WBC 9.8 hemoglobin 14.5 MCV 103.8 and platelets 145, INR 1.2 Sodium 147, potassium 3.1 chloride 108 bicarb is 32 BUN 77 and creatinine 1.77, lactic acid 0.6 calcium 11.8 total bili 1.9 AST 30 ALT 16 and alk phos 188 and CK 53. Troponin 0.124, 0.132 and 0.109, proBNP 1810 and TSH 0.879. Urinalysis is negative for infection. Influenza AB RSV and COVID-19 PCR not detected. 11/13/2023 Patient is in the ER. Seems to be more awake today. Was able to communicate slowly. Still having generalized pain. Requiring oxygen at 4 L via nasal cannula. No complaints of nausea or vomiting. Patient has very minimal poor oral intake. No complaints of chest pain. Denies any worsening shortness of breath. No fever no chills. Repeat chest x-ray this morning showed bilateral infiltrates and small pleural effusion on the left. Correlate for pneumonia. Mild venous congestion excluded. There are persistent vague nodular density in the right lobe measuring 1.4 cm Patient remains on heparin drip and also antibiotics Zosyn and azithromycin. Also on IV steroids Solu-Medrol 40 mg every 12 Laboratories show procalcitonin level 0.20. Sodium 152, potassium 3.1 chloride 113 BUN 69 creatinine slightly improved to 1.54 Cardiology and pulmonary is on board. Current medications reviewed. Objective - Vital Signs Vital signs: Vital Signs Temp 97.6 F 11/13/23 05:02 Pulse 59 L 11/13/23 19:44 Resp 28 H 11/13/23 09:37 BP 149/83 11/13/23 09:37 Pulse Ox 93 L 11/13/23 09:37 FiO2 Intake & Output 11/13/23 11/13/23 11/14/23 06:59 18:59 06:59 Intake Total 169.182 Balance 169.182 Intake: Intake, IV Titration 169.182 Amount Heparin Sod,Pork in 0.45% 169.182 NaCl 25,000 unit In 0.45 % NaCl 1 250ml.bag @ 12 UNITS/KG/HR 6.967 mls/hr IV .Q24H [facility] Rx#: [id number] Other: Voiding Method Incontinent - Exam PHYSICAL EXAMINATION: Patient is lying in the bed , no acute distress, awake alert but lethargic and weak.. Generalized tenderness with palpation.. HEENT: Normocephalic. Neck is supple. Pupils reactive. Nostrils clear. Oral cavity is moist. Neck reveals no JVD, carotid bruits, or thyromegaly. CHEST EXAMINATION: Trachea is central. Symmetrical expansion. Mild expiratory wheezing. Bibasal coarse breath sounds. Nonlabored breathing. CARDIAC: Normal S1, S2 with no gallops. Positive systolic murmur ABDOMEN: Soft. Bowel sounds present. No organomegaly. No abdominal bruits. Extremities: reveal no edema. No clubbing or cyanosis Neurologically awake, alert, oriented x 1-2 able to move extremities.. No gross focal deficits noted Skin: No rash or skin lesions. Psychiatric: Coperative. Could not be assessed completely Musculoskeletal: No joint swelling or deformity. - Labs CBC & Chem 7: 11/13/23 10:03 11/13/23 10:03 Labs: Abnormal Lab Results - Last 24 Hours (Table) 11/12/23 11/12/23 11/13/23 Range/Units 13:13 21:00 10:03 RBC 4.17 L (4.30-5.90) m/uL MCV 105.9 H (80.0-100.0) fL Lymphocytes # 0.3 L (1.0-4.8) k/uL PT (10.0-12.5) sec INR (<1.2) Sodium (137-145) mmol/L Potassium (3.5-5.1) mmol/L Chloride (98-107) mmol/L BUN (9-20) mg/dL Creatinine (0.66-1.25) mg/dL Glucose (74-99) mg/dL Total Bilirubin (0.2-1.3) mg/dL Alkaline Phosphatase (38-126) U/L Troponin I 0.109 H* (0.000-0.034) ng/mL Albumin (3.5-5.0) g/dL Vitamin B12 (200.0-944.0) pg/mL Procalcitonin 0.20 H (0.02-0.09) ng/mL 11/13/23 11/13/23 Range/Units 10:03 10:03 RBC (4.30-5.90) m/uL MCV (80.0-100.0) fL Lymphocytes # (1.0-4.8) k/uL PT 13.4 H (10.0-12.5) sec INR 1.3 H (<1.2) Sodium 152 H (137-145) mmol/L Potassium 3.1 L (3.5-5.1) mmol/L Chloride 113 H (98-107) mmol/L BUN 69 H (9-20) mg/dL Creatinine 1.54 H (0.66-1.25) mg/dL Glucose 123 H (74-99) mg/dL Total Bilirubin 1.4 H (0.2-1.3) mg/dL Alkaline Phosphatase 181 H (38-126) U/L Troponin I (0.000-0.034) ng/mL Albumin 2.8 L (3.5-5.0) g/dL Vitamin B12 969.0 H (200.0-944.0) pg/mL Procalcitonin (0.02-0.09) ng/mL Microbiology - Last 24 Hours (Table) 11/12/23 15:35 Blood Culture - Preliminary Blood 11/12/23 15:50 Blood Culture - Preliminary Blood Assessment and Plan Assessment: Status post fall due to generalized weakness, fatigue along with poor oral intake and weight loss Acute hypoxic respiratory failure requiring oxygen at 4 L via nasal cannula. Multifactorial due to COPD exacerbation and pneumonia. Procalcitonin level is 0.2 Right upper lobe 1.4 cm lung nodule with suspected malignancy Elevated troponin level with possible NSTEMI Hypernatremia due to dehydration and volume depletion Hypokalemia Acute kidney injury likely vasomotor nephropathy. Creatinine 1.77 on admission baseline creatinine 1.5 Chronic atrial fibrillation on anticoagulation with Xarelto and pacemaker placement Hyperlipidemia Plan: Continue with telemetry. Continue Supplementation. Was given IV fluid bolus in the ER. Patient will be continued on antibiotics in the form of Zosyn and azithromycin. Blood cultures negative so far. IV fluids changed to D5 water. Follow-up repeat CBC and BMP Xarelto is on hold and will be continued on heparin drip. 2D echocardiogram was ordered. Continue with pain management. Replace electrolytes. Continue with IV Solu- Medrol and DuoNebs and antibiotics. Pulmonary and cardiology is on board. Prognosis is guarded at this time. Discussed with his at bedside in detail. Time with Patient: Greater than 30
[2023-11-13] MEDS: POTASSIUM CHLORIDE 20 MEQ in WATER FOR INJECTION 1 100ML.BAG IVPB STA (22:53)
[2023-11-13] MEDS: DEXTROSE 5% IN WATER 1,000 ML IV SCH (22:54)
[2023-11-13] MEDS: POTASSIUM CHLORIDE ER 20 MEQ TAB.ER PO STA (23:00)
[2023-11-14 03:05] LABS: Basophils % (A) 0 %; Eosinophils % (A) 0 %; HCT 44.1 % (39.0-53.0); HGB 14.1 gm/dL (13.0-17.5); Lymphocytes # (A) 0.2 k/uL (1.0-4.8); Lymphocytes % (A) 2 %; MCH 33.3 pg (25.0-35.0); MCHC 32.1 g/dL (31.0-37.0); Macrocytosis Moderate; Monocytes # (A) 0.3 k/uL (0-1.0); Monocytes % (A) 3 %; Neutrophils # (A) 11.4 k/uL (1.3-7.7); Neutrophils % (A) 95 %; Platelet Count 153 k/uL (150-450); RBC 4.24 m/uL (4.30-5.90); RDW 14.6 % (11.5-15.5)
[2023-11-14 03:18] LABS: African American GFR (CKD) 40 (>60 ml/min/1.73 sqM); Anion Gap 10 mmol/L; Blood Urea Nitrogen 85 mg/dL (9-20); Calcium 10.9 mg/dL (8.4-10.2); Carbon Dioxide 26 mmol/L (22-30); Chloride 107 mmol/L (98-107); Glucose 172 mg/dL (74-99); Non-African American GFR(CKD) 35 (>60 ml/min/1.73 sqM); Potassium 3.8 mmol/L (3.5-5.1); Sodium 143 mmol/L (137-145)
--- NOTE | 2023-11-14 07:14 | CA ---
Transthoracic Echo Report Name: Hossein George Age: 78 Gender: M : 1945 Exam Date: 11/13/2023 08:33 Exam Location: [place] [facility] Ht (in): 70 Wt (lb): 128 Ordering Physician: Amish Castillo MD Attending/Referring Phys: Esl Tutor Janet Calderon RDCS Procedure CPT: Indications: nstemi Cardiac Hx: Technical Quality: Good Contrast 1: Total Dose (mL): Contrast 2: Total Dose (mL): MEASUREMENTS (Male / Female) Normal Values 2D ECHO LV Diastolic Diameter PLAX 4.5 cm 4.2 - 5.9 / 3.9 - 5.3 cm LV Systolic Diameter PLAX 2.9 cm IVS Diastolic Thickness 1.5 cm 0.6 - 1.0 / 0.6 - 0.9 cm LVPW Diastolic Thickness 1.2 cm 0.6 - 1.0 / 0.6 - 0.9 cm LV Relative Wall Thickness 0.6 RV Internal Dim ED PLAX 3.4 cm LVOT Diameter 1.9 cm Aortic Root Diameter 3.6 cm LV Diastolic Volume MOD BP 73.8 cm??? 67 - 155 / 56 - 104 cm??? LV Systolic Volume MOD BP 22.7 cm??? 22 - 58 / 19 - 49 cm??? LV Ejection Fraction MOD BP 69.2 % >= 55 % LV Cardiac Index MOD BP 2036.8 cm???/min???m??? LV Diastolic Volume MOD 4C 68.6 cm??? LV Systolic Volume MOD 4C 22.3 cm??? LV Ejection Fraction MOD 4C 67.5 % LV Cardiac Index MOD 4C 1847.7 cm???/min???m??? LV Diastolic Length 4C 7.0 cm LV Systolic Length 4C 5.9 cm LV Diastolic Volume MOD 2C 74.1 cm??? LV Systolic Volume MOD 2C 21.6 cm??? LV Ejection Fraction MOD 2C 70.9 % LV Cardiac Index MOD 2C 2093.7 cm???/min???m??? LV Diastolic Length 2C 7.5 cm LV Systolic Length 2C 5.4 cm Ascending Aorta Diameter 3.0 cm DOPPLER AV Peak Velocity 126.9 cm/s AV Peak Gradient 6.4 mmHg AV Mean Velocity 83.0 cm/s AV Mean Gradient 3.1 mmHg AV Velocity Time Integral 22.8 cm LVOT Peak Velocity 83.7 cm/s LVOT Peak Gradient 2.8 mmHg LVOT Velocity Time Integral 16.3 cm LVOT Stroke Volume 47.9 cm??? LVOT Stroke Volume Index 27.8 ml/m??? LVOT Cardiac Index 1911.6 cm???/min???m??? AV Area Cont Eq vti 2.1 cm??? AV Area Cont Eq pk 1.9 cm??? TR Peak Velocity 282.3 cm/s TR Peak Gradient 31.9 mmHg Right Atrial Pressure 15.0 mmHg Pulmonary Artery Systolic Pressu 46.9 mmHg Right Ventricular Systolic Press 46.9 mmHg PV Peak Velocity 97.3 cm/s PV Peak Gradient 3.8 mmHg FINDINGS Left Ventricle Left ventricular ejection fraction is estimated at 60-65 %. Moderately increased septal wall thickness. Left ventricular cavity size normal. No obvious regional wall motion abnormalities. Right Ventricle Mild right ventricular dilatation with normal function. Moderately elevated right ventricular systolic pressure. Right Atrium Severe right atrial dilatation. Left Atrium Severe left atrial dilatation. Mitral Valve Mitral valve thickened. No evidence for mitral valve prolapse. No mitral stenosis. Mild mitral regurgitation. Aortic Valve Trileaflet aortic valve. No aortic stenosis. Trace aortic regurgitation. Tricuspid Valve Structurally normal tricuspid valve. No tricuspid stenosis. Mild to moderate tricuspid regurgitation. Tricuspid regurgitation jet eccentric. Pulmonic Valve Structurally normal pulmonic valve. No pulmonic stenosis. Mild pulmonic regurgitation. Pericardium No pericardial effusion. Aorta Normal size aortic root and proximal ascending aorta. CONCLUSIONS Normal LV systolic function. Moderate left ventricular hypertrophy Moderate pulmonary hypertension Mild RV enlargement with normal RV function [id number] tricuspid regurgitation Mild aortic and mitral regurgitation Previewed by: Dr. Christoph Nair MD (Electronically Signed) Final Date: 14 Nov 2023 07:13
[2023-11-14] MEDS: PIPERACILLIN-TAZOBACTAM 3.375 GM in SODIUM CHLORIDE 0.9% 100 ML IVPB SCH (08:35)
[2023-11-14] MEDS: ASPIRIN 81 MG PO SCH (10:26)
--- NOTE | 2023-11-14 10:44 | P.PN ---
Subjective Progress Note Date: 11/14/23 Reason for Consult (text): NSTEMI History of present illness: History of present illness: This is a 78-year-old male patient of Dr. 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 We have been asked to evaluate the patient for non-ST elevated myocardial infarction. Patient's gives history that he came into the hospital because of dehydrat ion and pain all over his body. Whether week ago he was able to walk and carry on normally but by Sunday he was having trouble with ambulation could not do the stairs. By Sunday he was unable to feed himself. Patient had a fall in the bathroom. Patient has had no appetite. He has been confused for last 1 to 2 days. He also has complained of chest pain. voices concern about pacemaker battery but this seems to be fine according to the office notes. Patient denies having any chest pain at this time. Patient has been started on heparin drip. Patient is seen today in the emergency center waiting for a bed on the cardiac stepdown unit. EKG ventricularly paced rhythm Chest x-ray: Bilateral infiltrates and small pleural effusion on the left. Correlation for pneumonia. Mild venous congestion excluded. There are persistent vague nodular density in the right lobe measuring 1.4 cm. WBC 6, hemoglobin 13.7, platelet count 172. INR 1.3. Sodium 152, potassium 3.1, chloride 113, CO2 25, BUN 69 and creatinine 1.5. Initially BUN was 77 and creatinine 1.77. Blood sugar 123. Troponins 0.124, 0.132, 0.109. proBNP 1810. Procalcitonin 0.2. Urinalysis revealed leukoesterase small cast 82. Influenza A, influenza B, COVID-19, RSV not detected. Home cardiac medications: Pravastatin 40 mg at bedtime, Xarelto 20 mg daily, verapamil 40 mg daily Echocardiogram performed in the office on 08/14/2022 revealed EF of 50 to 55% with mild concentric left ventricular hypertrophy. Mild aortic regurgitation. Moderate to severe mitral regurgitation. Severe tricuspid regurgitation. PASP of 52 mmHg. Mild pulmonic regurgitation. 11/13 Patient is seen today in follow-up in the emergency center. Echocardiogram reveals EF of 60 to 65%, moderate left ventricular hypertrophy. Moderate pulmonary hypertension. Mild RV enlargement with normal RV function. Mild to moderate tricuspid regurgitation. Mild aortic and mitral regurgitation. Blood pressure 141/65, heart rate 61, pulse ox 95% on 5 L nasal cannula. Repeat blood work reveals hemoglobin 14.1. Potassium 4.4, BUN 85 creatinine 1.82. Patient states that his breathing is okay. No complaints of chest pain. Physical examination: Gen: This is a ill-appearing 78-year-old male in no acute distress. VS: reviewed HEENT: Head is atraumatic, normocephalic. Pupils equal, round. Sclerae is anicteric. NECK: Supple. No JVD. LUNGS: Diminished breath sounds. No intercostal retractions. HEART: Irregular ate and rhythm. Systolic murmur. ABDOMEN: Soft No tenderness. EXTREMITIES: No pedal edema. No calf tenderness. NEUROLOGICAL: Patient is awake. Assessment: Chest pain Elevated troponin, type II [place] Acute hypoxic respiratory failure secondary to acute exacerbation of COPD, possible pneumonia Right apical lung nodule Acute kidney injury Hypokalemia Metabolic encephalopathy Permanent atrial fibrillation Status post pacemaker Remote history of tobacco use and dependence Plan: Continue patient's home cardiac medications Discontinue heparin drip and resume patient on Xarelto No plan for any cardiac ischemic workup at this time due to multiple medical problems including acute kidney injury. Patient has no chest pain at this time and echocardiogram is stable. Start patient on aspirin 81 mg daily Discontinue verapamil and start patient on Toprol XL 12.5 mg daily Further recommendations to follow based upon clinical course Nurse practitioner note has been reviewed, I agree with documented findings and plan of care. Patient was seen and examined. Objective - Vital Signs Vital signs: Vital Signs Temp 97.5 F L 11/13/23 23:01 Pulse 62 11/14/23 07:59 Resp 16 11/14/23 06:00 BP 141/65 11/14/23 06:00 Pulse Ox 95 11/14/23 07:39 FiO2 Intake & Output 11/13/23 11/14/23 11/14/23 18:59 06:59 18:59 Intake Total 169.182 58.06 Balance 169.182 58.06 Intake: Intake, IV Titration 169.182 58.06 Amount Heparin Sod,Pork in 0.45% 169.182 58.06 NaCl 25,000 unit In 0.45 % NaCl 1 250ml.bag @ 12 UNITS/KG/HR 6.967 mls/hr IV .Q24H [facility] Rx#: [id number] Other: Voiding Method Incontinent Diaper Incontinent External Catheter - Labs CBC & Chem 7: 11/14/23 02:36 11/14/23 02:36 Labs: Abnormal Lab Results - Last 24 Hours (Table) 11/13/23 11/13/23 11/13/23 Range/Units 10:03 10:03 10:03 WBC (3.8-10.6) k/uL RBC 4.17 L (4.30-5.90) m/uL MCV 105.9 H (80.0-100.0) fL Neutrophils # (1.3-7.7) k/uL Lymphocytes # 0.3 L (1.0-4.8) k/uL PT 13.4 H (10.0-12.5) sec INR 1.3 H (<1.2) APTT (22.0-30.0) sec Sodium 152 H (137-145) mmol/L Potassium 3.1 L (3.5-5.1) mmol/L Chloride 113 H (98-107) mmol/L BUN 69 H (9-20) mg/dL Creatinine 1.54 H (0.66-1.25) mg/dL Glucose 123 H (74-99) mg/dL Calcium (8.4-10.2) mg/dL Total Bilirubin 1.4 H (0.2-1.3) mg/dL Alkaline Phosphatase 181 H (38-126) U/L Albumin 2.8 L (3.5-5.0) g/dL Vitamin B12 969.0 H (200.0-944.0) pg/mL 11/13/23 11/14/23 11/14/23 Range/Units 22:38 02:36 02:36 WBC 12.0 H (3.8-10.6) k/uL RBC 4.24 L (4.30-5.90) m/uL MCV 104.0 H (80.0-100.0) fL Neutrophils # 11.4 H (1.3-7.7) k/uL Lymphocytes # 0.2 L (1.0-4.8) k/uL PT (10.0-12.5) sec INR (<1.2) APTT 60.0 H (22.0-30.0) sec Sodium (137-145) mmol/L Potassium (3.5-5.1) mmol/L Chloride (98-107) mmol/L BUN 85 H (9-20) mg/dL Creatinine 1.82 H (0.66-1.25) mg/dL Glucose 172 H (74-99) mg/dL Calcium 10.9 H (8.4-10.2) mg/dL Total Bilirubin (0.2-1.3) mg/dL Alkaline Phosphatase (38-126) U/L Albumin (3.5-5.0) g/dL Vitamin B12 (200.0-944.0) pg/mL Microbiology - Last 24 Hours (Table) 11/12/23 15:35 Blood Culture - Preliminary Blood 11/12/23 15:50 Blood Culture - Preliminary Blood
[2023-11-14] MEDS: RIVAROXABAN 15 MG TAB PO SCH (11:28)
[2023-11-14] MEDS: SODIUM CHLORIDE 0.45% 1,000 ML IV SCH (11:33)
--- NOTE | 2023-11-14 12:27 | CDI ---
Documentation Clarification Form Date: 11/14/2023 11:40:07 AM From: Lynnette Pacheco RN, CCDS Phone: [phone] Admit Date: 11/12/2023 03:27:00 PM Patient Name: Hossein George Visit Number: [id number] Discharge Date: ATTENTION: The Clinical Documentation Specialists (CDI) and [facility] Coding Staff appreciate your assistance in clarifying documentation. Please respond to the clarification below the line at the bottom and electronically sign. The CDI & [facility] Coding staff will review the response and follow-up if needed. Please note: Queries are made part of the Legal Health Record. If you have any questions, please contact the author of this message via ITS. Dr. Gordon Metz Sepsis is documented in the Pulmonary consult which may lack sufficient clinical evidence/support in the medical record. Additional clarification is requested. History/Risk Factors: Atrial Fibrillation, Chest Pain / Angina, COPD, Hyperlipidemia Clinical Indicators: 78-year-old male present with complaints of worsening generalized weakness. CT Brain No ac intracranial process. CXR: shows basilar atelectasis, Underlying pneumonia is not excluded. There is hyperinflation consistent with COPD. There is a 1.4 cm right apical opacity concerning for lung nodule. CBC on arrival unremarkable. No leukocytosis. Vital signs are stable. 5/6 VS: ( 10:11)145/88 67 14 97.6 (AX) 91% RA (17:13) 139/80 60 16 94% 2/L NC 5/6 Labs: WBC 9.8, Neutrophils 9.0, Na 147, K+ 3.1, BUN 77, CR 1.77, Troponin 0.124, 0.132, 0.109, Procalcitonin 0.20 , Blood Cultures-Pending Treatment: Cardiac Monitoring/Telemetry .9NS 1,000 Bolus /6 Zosyn 3.375 GM IVPB Q 8 HRS 5/6-5/8 Azithromycin 500 MG IVPB Once Please clarify if Sepsis is a valid diagnosis? [ ] Yes, Sepsis is present as evidence by (additional clinical support): [x ] No, Sepsis is ruled out [ ] Other (please specify diagnosis) [ ] Unable to determine (Template Last Revised: September 2020) MTDD
--- NOTE | 2023-11-14 13:28 | CT ---
EXAMINATION TYPE: CT chest wo con CT DLP: 232.9 mGycm, Automated exposure control for dose reduction was used. DATE OF EXAM: 11/14/2023 11:30 AM COMPARISON: Chest radiograph from same day. Multiple CTs of the chest with most recent on . CLINICAL INDICATION:Male, 78 years old with history of Infiltrate versus nodule; PHH, Infiltrate vers us nodule TECHNIQUE: Multiple axial images were obtained through the chest. Sagittal and coronal reformats were created for review. Contrast used: mL of (None if empty) Oral contrast used: (None if empty) FINDINGS: LUNGS/ PLEURA: Small bilateral pleural effusions. Bilateral airspace consolidation is seen with enha ncing lung tissue air bronchograms. Imaging findings are nonspecific. Continued treatment for pneumo chanda and follow-up chest radiographs after appropriate delay to allow for differentiating infectious f rom neoplastic process. If more immediate answer is clinically necessary, a PET/CT may provide furt her information. AIRWAY: Patent and unremarkable. HEART: Size within normal limits. MEDIASTINUM: No gross evidence of adenopathy. VASCULATURE: No aortic aneurysm. MUSCULOSKELETAL: No acute osseous abnormalities. Diffuse multilevel osteopenic process and osteoporot ic anterior wedge compression fracture approximately T6 SOFT TISSUES/LYMPH NODES: Unremarkable. LOWER NECK: No significant findings. UPPER ABDOMEN: No significant findings. IMPRESSION: Bilateral lung base airspace disease is the favored diagnosis. The process should be treated as pneum onia and follow-up chest radiograph obtained after 2-3 weeks to look for improvement and rule out harjeet plasm..
--- NOTE | 2023-11-14 14:17 | P.PN ---
Subjective Progress Note Date: 11/14/23 Patient is a 78-year-old white male with past medical history significant for paroxysmal atrial fibrillation with previous AV node ablation, permanent pacemaker, COPD, and former heavy tobacco use. Patient presented to the emergency room yesterday morning with a chief complaint of progressively worsening generalized weakness over the last 10 days. He is a poor historian, his is at bedside, and answers all questions. He can no longer ambulate to his bedroom, and his has set up a air mattress on the floor on the lower level. He did fall off the air mattress. This prompted the to contact EMS. He is currently resting in bed, on 4 L/min nasal cannula, in no acute distress. He reportedly does not wear home oxygen. states that he has appeared short of breath at times. No significant coughing or sputum production. No hemoptysis. No measured fevers. No sick contacts. He has no specific complaints but diffuse nonlocalized/nonspecific pain. He is very weak. Dry mucous membranes. Reportedly not eating and drinking much while at home. Brain CT done on arrival did not show any acute intracranial process. There is nonspecific white matter changes, likely secondary to chronic small vessel ischemic disease. Chest x-ray shows basilar atelectasis versus infiltrate with tiny effusion. Underlying pneumonia is not excluded. There is hyperinflation consistent with COPD. There is a 1.4 cm right apical opacity concerning for lung nodule. There is also a lucent lesion of the left proximal humerus. CBC on arrival unremarkable. No leukocytosis. Troponins elevated at 0.124, 0.132, and 0.109 respectively. EKG shows V paced rhythm. Patient was started on heparin infusion. Most recent APTT therapeutic. NT proBNP 1810. CMP done on arrival: Sodium 147, potassium 3.1, chloride 108, serum bicarb 32, BUN 77, creatinine 1.77, glucose 79. Lactic acid 0.6. CPK 53. TSH 0.879. Urinalysis shows trace protein, small leukocytes, otherwise unremarkable. Negative for influenza, RSV, COVID. Currently afebrile. Started on a combination of azithromycin and Zosyn in the emergency room. Half-normal saline is infusing at 75 mL/h. Vital signs are stable. The patient is seen today November 14, 2023 in follow-up in the emergency department. He is currently awake and alert in no acute distress. He is maintaining O2 saturations in the 90s on 5 L/min per nasal cannula. Currently afebrile. Hemodynamically stable. His procalcitonin is 0.20. His proBNP is 1810. Blood cultures are pending. White count 12.0. Hemoglobin 14.1. Platelets 153. Sodium 143. Potassium 4.4. Bicarb 26. BUN 85. Creatinine 1.82. He has been transition to Xarelto. Remains on Zosyn. Completed azithromycin. Remains on bronchodilators and steroids. Receiving 0.45% normal saline at [address] scan of the chest reveals bilateral airspace disease most likely pneumonia. Objective - Vital Signs Vital signs: Vital Signs Temp 97.5 F L 11/13/23 23:01 Pulse 60 11/14/23 13:00 Resp 18 11/14/23 13:00 BP 122/72 11/14/23 13:00 Pulse Ox 98 11/14/23 13:00 FiO2 Intake & Output 11/13/23 11/14/23 11/14/23 18:59 06:59 18:59 Intake Total 169.182 58.06 Balance 169.182 58.06 Intake: Intake, IV Titration 169.182 58.06 Amount Heparin Sod,Pork in 0.45% 169.182 58.06 NaCl 25,000 unit In 0.45 % NaCl 1 250ml.bag @ 12 UNITS/KG/HR 6.967 mls/hr IV .Q24H [facility] Rx#: [id number] Other: Voiding Method Incontinent Diaper Incontinent External Catheter - Exam GENERAL EXAM: Alert, 78-year-old weak, disheveled male patient, on 5 L nasal cannula, comfortable in no apparent distress. HEAD: Normocephalic and atraumatic EYES: Normal reaction of pupils, equal size. NOSE: Clear with pink turbinates. THROAT: No erythema or exudates. Dry mucous membranes. NECK: No masses, no JVD. CHEST: No chest wall deformity. Left chest implanted device LUNGS: Equal air entry with diffuse coarse rhonchi heard bilaterally and throughout. No conversational dyspnea. CVS: S1 and S2 normal with no audible murmur, regular rhythm. No extra heart sounds ABDOMEN: No hepatosplenomegaly, active bowel sounds, no guarding or rigidity. SPINE: No scoliosis or deformity SKIN: No rashes CENTRAL NERVOUS SYSTEM: No focal deficits, tone is normal in all 4 extremities. EXTREMITIES: There is no peripheral edema, clubbing, or cyanosis. Peripheral pulses are intact. - Labs CBC & Chem 7: 11/14/23 02:36 11/14/23 02:36 Labs: Abnormal Lab Results - Last 24 Hours (Table) 11/13/23 11/13/23 11/14/23 Range/Units 10:03 22:38 02:36 WBC 12.0 H (3.8-10.6) k/uL RBC 4.24 L (4.30-5.90) m/uL MCV 104.0 H (80.0-100.0) fL Neutrophils # 11.4 H (1.3-7.7) k/uL Lymphocytes # 0.2 L (1.0-4.8) k/uL APTT 60.0 H (22.0-30.0) sec BUN (9-20) mg/dL Creatinine (0.66-1.25) mg/dL Glucose (74-99) mg/dL Calcium (8.4-10.2) mg/dL Vitamin B12 969.0 H (200.0-944.0) pg/mL 11/14/23 Range/Units 02:36 WBC (3.8-10.6) k/uL RBC (4.30-5.90) m/uL MCV (80.0-100.0) fL Neutrophils # (1.3-7.7) k/uL Lymphocytes # (1.0-4.8) k/uL APTT (22.0-30.0) sec BUN 85 H (9-20) mg/dL Creatinine 1.82 H (0.66-1.25) mg/dL Glucose 172 H (74-99) mg/dL Calcium 10.9 H (8.4-10.2) mg/dL Vitamin B12 (200.0-944.0) pg/mL Microbiology - Last 24 Hours (Table) 11/12/23 15:35 Blood Culture - Preliminary Blood 11/12/23 15:50 Blood Culture - Preliminary Blood Assessment and Plan Assessment: Acute hypoxemic respiratory failure, secondary to acute COPD exacerbation and possible left basilar community-acquired pneumonia. Chest x-ray demonstrates some left basilar atelectasis or infiltrate with tiny effusion. Underlying pneumonia is not excluded. Negative for influenza, RSV, COVID. Suspect right apical lung nodule measuring 1.[address] scan of the chest without contrast reveals small bilateral pleural effusions. Bilateral airspace consolidation with air bronchograms. No mention of right upper lobe pulmonary nodule Severe dehydration and reduced oral intake Acute kidney injury, secondary to above Hypokalemia, replaced and recovered Altered mental status, consider acute metabolic encephalopathy, secondary to pneumonia/sepsis Elevated troponins, rule out non-ST elevation ND, currently on heparin infusion per protocol. History of paroxysmal atrial fibrillation status post AV dalia ablation with previous permanent implantation V-paced rhythm History of hyperlipidemia History of hypertension History of tobacco dependence, quit smoking approximately 8 years ago, heavy smoker prior and greater than [id number] History of BPH Plan: The patient was seen and evaluated The scan of the chest, labs and medications reviewed Continue Zosyn Completed azithromycin Continue bronchodilators and steroids Transitioned back to Xarelto per cardiology Titrate the FiO2 as tolerated We will continue to follow I have personally seen and examined the patient, performed the documentation and the assessment and plan as written. Number of minutes spent on the visit: 10.
[2023-11-14] MEDS: HYDROcodone/APAP 10-325MG 1 EACH TAB PO PRN (15:20)
[2023-11-15] MEDS: HYDROmorphone 0.5 MG/0.5 ML SYRINGE IVP PRN (04:56)
[2023-11-15] MEDS: FUROSEMIDE 10 MG/ML 2 ML VIAL IV ONE ×2 (05:16→14:53)
[2023-11-15] MEDS: METOPROLOL SUCCINATE (ER) 25 MG TAB.ER.24H PO SCH (09:28)
[2023-11-15 10:39] LABS: Basophils % (A) 0 %; Eosinophils % (A) 0 %; HCT 44.1 % (39.0-53.0); HGB 13.8 gm/dL (13.0-17.5); Lymphocytes # (A) 0.2 k/uL (1.0-4.8); Lymphocytes % (A) 2 %; MCH 32.7 pg (25.0-35.0); MCHC 31.2 g/dL (31.0-37.0); Macrocytosis Moderate; Mean Platelet Volume 9.8; Monocytes # (A) 0.5 k/uL (0-1.0); Monocytes % (A) 4 %; Neutrophils # (A) 11.5 k/uL (1.3-7.7); Neutrophils % (A) 93 %; Platelet Count 152 k/uL (150-450); RDW 14.4 % (11.5-15.5); WBC 12.3 k/uL (3.8-10.6)
[2023-11-15 10:59] LABS: African American GFR (CKD) 31 (>60 ml/min/1.73 sqM); Anion Gap 8 mmol/L; Blood Urea Nitrogen 81 mg/dL (9-20); Calcium 10.4 mg/dL (8.4-10.2); Carbon Dioxide 28 mmol/L (22-30); Chloride 106 mmol/L (98-107); Glucose 94 mg/dL (74-99); Non-African American GFR(CKD) 27 (>60 ml/min/1.73 sqM); Potassium 3.7 mmol/L (3.5-5.1); Sodium 142 mmol/L (137-145)
--- NOTE | 2023-11-15 11:10 | P.PN ---
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 Apparently patient has not been eating well for the past 10 days. He was able to walk with cane at home before. He felt out of bed today as per his . Patient is somewhat poor historian. Denies any loss of consciousness with the fall. He felt very weak and able to get up by himself. He is also complaining of generalized body pains even with minimal palpation. No fever no chills. No cough or sputum production. No nausea or vomiting or diarrhea. Denies any abdominal pain. According to his at bedside, patient has lost a lot of weight recently. On admission blood pressure 1 44/88 pulse 67 respiration 14 pulse ox 91% on room air. CT head showed no acute intracranial process. Nonspecific white matter changes, likely secondary to chronic small vessel ischemic disease. Chest x-ray showed basilar atelectasis or infiltrate with tiny effusion. Mild venous congestion in the differential diagnosis. Underlying pneumonia not excluded. COPD. There is a rounded lucent lesion of the proximal left humerus. There is a nod ule in the right upper lobe apex measuring 1.[address] of the chest to exclude pulmonary mass. EKG showed electronic ventricular paced rhythm. Laboratory test showed WBC 9.8 hemoglobin 14.5 MCV 103.8 and platelets 145, INR 1.2 Sodium 147, potassium 3.1 chloride 108 bicarb is 32 BUN 77 and creatinine 1.77, lactic acid 0.6 calcium 11.8 total bili 1.9 AST 30 ALT 16 and alk phos 188 and CK 53. Troponin 0.124, 0.132 and 0.109, proBNP 1810 and TSH 0.879. Urinalysis is negative for infection. Influenza AB RSV and COVID-19 PCR not detected. 11/13/2023 Patient is in the ER. Seems to be more awake today. Was able to communicate slowly. Still having generalized pain. Requiring oxygen at 4 L via nasal cannula. No complaints of nausea or vomiting. Patient has very minimal poor oral intake. No complaints of chest pain. Denies any worsening shortness of breath. No fever no chills. Repeat chest x-ray this morning showed bilateral infiltrates and small pleural effusion on the left. Correlate for pneumonia. Mild venous congestion excluded. There are persistent vague nodular density in the right lobe measuring 1.4 cm Patient remains on heparin drip and also antibiotics Zosyn and azithromycin. Also on IV steroids Solu-Medrol 40 mg every 12 Laboratories show procalcitonin level 0.20. Sodium 152, potassium 3.1 chloride 113 BUN 69 creatinine slightly improved to 1.54 Cardiology and pulmonary is on board. 11/14/2023 Patient is in the ER currently. Awake alert but could not provide any history. Patient is weak and lethargic. Oral patient is afebrile. Requiring 4 L oxygen via nasal cannula currently. Denies any chest pain. Patient is still short of breath. Patient is also complaining of generalized pain and morning. 2D echocardiogram showed ejection fraction 60 to 65% with moderately increased septal wall thickness. Moderate pulmonary hypertension, moderate tricuspid regurgitation and mild aortic and mitral regurgitation. Patient also had CT chest this afternoon which showed bilateral lung base airspace disease is favored for diagnosis. Laboratory showed WBC 12.0 hemoglobin 14.1 and platelets 153 Sodium 143 potassium 4.4 chloride 107 bicarb is 26 BUN 85 and creatinine 1.82 and blood sugar 172 and calcium 10.7 Current medications reviewed. Objective - Vital Signs Vital signs: Vital Signs Temp 97.5 F L 11/13/23 23:01 Pulse 62 11/14/23 07:59 Resp 16 11/14/23 06:00 BP 141/65 11/14/23 06:00 Pulse Ox 95 11/14/23 07:39 FiO2 Intake & Output 11/13/23 11/14/23 11/14/23 18:59 06:59 18:59 Intake Total 169.182 58.06 Balance 169.182 58.06 Intake: Intake, IV Titration 169.182 58.06 Amount Heparin Sod,Pork in 0.45% 169.182 58.06 NaCl 25,000 unit In 0.45 % NaCl 1 250ml.bag @ 12 UNITS/KG/HR 6.967 mls/hr IV .Q24H [facility] Rx#: [id number] Other: Voiding Method Incontinent Diaper Incontinent External Catheter - Exam PHYSICAL EXAMINATION: Patient is lying in the bed , no acute distress, awake alert but lethargic and weak.. Generalized tenderness with palpation.. HEENT: Normocephalic. Neck is supple. Pupils reactive. Nostrils clear. Oral cavity is moist. Neck reveals no JVD, carotid bruits, or thyromegaly. CHEST EXAMINATION: Trachea is central. Symmetrical expansion. Mild expiratory wheezing. Bibasal coarse breath sounds. Nonlabored breathing. CARDIAC: Normal S1, S2 with no gallops. Positive systolic murmur ABDOMEN: Soft. Bowel sounds present. No organomegaly. No abdominal bruits. Extremities: reveal no edema. No clubbing or cyanosis Neurologically awake, alert, oriented x 1-2 able to move extremities.. No gross focal deficits noted Skin: No rash or skin lesions. Psychiatric: Coperative. Could not be assessed completely Musculoskeletal: No joint swelling or deformity. - Labs CBC & Chem 7: 11/15/23 09:36 11/15/23 09:36 Labs: Abnormal Lab Results - Last 24 Hours (Table) 11/13/23 11/13/23 11/13/23 Range/Units 10:03 10:03 22:38 WBC (3.8-10.6) k/uL RBC (4.30-5.90) m/uL MCV (80.0-100.0) fL Neutrophils # (1.3-7.7) k/uL Lymphocytes # (1.0-4.8) k/uL PT 13.4 H (10.0-12.5) sec INR 1.3 H (<1.2) APTT 60.0 H (22.0-30.0) sec Sodium 152 H (137-145) mmol/L Potassium 3.1 L (3.5-5.1) mmol/L Chloride 113 H (98-107) mmol/L BUN 69 H (9-20) mg/dL Creatinine 1.54 H (0.66-1.25) mg/dL Glucose 123 H (74-99) mg/dL Calcium (8.4-10.2) mg/dL Total Bilirubin 1.4 H (0.2-1.3) mg/dL Alkaline Phosphatase 181 H (38-126) U/L Albumin 2.8 L (3.5-5.0) g/dL Vitamin B12 969.0 H (200.0-944.0) pg/mL 11/14/23 11/14/23 Range/Units 02:36 02:36 WBC 12.0 H (3.8-10.6) k/uL RBC 4.24 L (4.30-5.90) m/uL MCV 104.0 H (80.0-100.0) fL Neutrophils # 11.4 H (1.3-7.7) k/uL Lymphocytes # 0.2 L (1.0-4.8) k/uL PT (10.0-12.5) sec INR (<1.2) APTT (22.0-30.0) sec Sodium (137-145) mmol/L Potassium (3.5-5.1) mmol/L Chloride (98-107) mmol/L BUN 85 H (9-20) mg/dL Creatinine 1.82 H (0.66-1.25) mg/dL Glucose 172 H (74-99) mg/dL Calcium 10.9 H (8.4-10.2) mg/dL Total Bilirubin (0.2-1.3) mg/dL Alkaline Phosphatase (38-126) U/L Albumin (3.5-5.0) g/dL Vitamin B12 (200.0-944.0) pg/mL Microbiology - Last 24 Hours (Table) 11/12/23 15:35 Blood Culture - Preliminary Blood 11/12/23 15:50 Blood Culture - Preliminary Blood Assessment and Plan Assessment: Status post fall due to generalized weakness, fatigue along with poor oral intake and weight loss Acute hypoxic respiratory failure requiring oxygen at 4 L via nasal cannula. Multifactorial due to COPD exacerbation and pneumonia. Procalcitonin level is 0.2 Bibasilar pneumonia/airspace disease. Right upper lobe 1.4 cm lung nodule with suspected malignancy Elevated troponin level with possible NSTEMI Hypernatremia due to dehydration and volume depletion Hypokalemia Acute kidney injury likely vasomotor nephropathy. Creatinine 1.77 on admission baseline creatinine 1.5 Chronic atrial fibrillation on anticoagulation with Xarelto and pacemaker placement Hyperlipidemia Plan: Continue with telemetry. Continue oxygen supplementation. Was given IV fluid bolus in the ER. Patient will be continued on antibiotics in the form of Zosyn and azithromycin. Blood cultures negative so far. Continue gentle IV hydration with D5 half- normal saline. Follow-up repeat CBC and BMP Xarelto is on hold and will be continued on heparin drip. Patient was started back on Xarelto today. Heparin has been discontinued. 2D echocardiogram showed normal EF and valvular abnormalities as noted above CT chest report reviewed. Continue with pain management. Replace electrolytes. Continue with IV Solu-Medrol 40 every 12 and DuoNebs and antibiotics. Pulmonary and cardiology is on board. Prognosis is guarded at this time. Discussed with his at bedside in detail. Time with Patient: Greater than 30
--- NOTE | 2023-11-15 11:20 | P.PN ---
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 Apparently patient has not been eating well for the past 10 days. He was able to walk with cane at home before. He felt out of bed today as per his . Patient is somewhat poor historian. Denies any loss of consciousness with the fall. He felt very weak and able to get up by himself. He is also complaining of generalized body pains even with minimal palpation. No fever no chills. No cough or sputum production. No nausea or vomiting or diarrhea. Denies any abdominal pain. According to his at bedside, patient has lost a lot of weight recently. On admission blood pressure 1 44/88 pulse 67 respiration 14 pulse ox 91% on room air. CT head showed no acute intracranial process. Nonspecific white matter changes, likely secondary to chronic small vessel ischemic disease. Chest x-ray showed basilar atelectasis or infiltrate with tiny effusion. Mild venous congestion in the differential diagnosis. Underlying pneumonia not excluded. COPD. There is a rounded lucent lesion of the proximal left humerus. There is a nod ule in the right upper lobe apex measuring 1.[address] of the chest to exclude pulmonary mass. EKG showed electronic ventricular paced rhythm. Laboratory test showed WBC 9.8 hemoglobin 14.5 MCV 103.8 and platelets 145, INR 1.2 Sodium 147, potassium 3.1 chloride 108 bicarb is 32 BUN 77 and creatinine 1.77, lactic acid 0.6 calcium 11.8 total bili 1.9 AST 30 ALT 16 and alk phos 188 and CK 53. Troponin 0.124, 0.132 and 0.109, proBNP 1810 and TSH 0.879. Urinalysis is negative for infection. Influenza AB RSV and COVID-19 PCR not detected. 11/13/2023 Patient is in the ER. Seems to be more awake today. Was able to communicate slowly. Still having generalized pain. Requiring oxygen at 4 L via nasal cannula. No complaints of nausea or vomiting. Patient has very minimal poor oral intake. No complaints of chest pain. Denies any worsening shortness of breath. No fever no chills. Repeat chest x-ray this morning showed bilateral infiltrates and small pleural effusion on the left. Correlate for pneumonia. Mild venous congestion excluded. There are persistent vague nodular density in the right lobe measuring 1.4 cm Patient remains on heparin drip and also antibiotics Zosyn and azithromycin. Also on IV steroids Solu-Medrol 40 mg every 12 Laboratories show procalcitonin level 0.20. Sodium 152, potassium 3.1 chloride 113 BUN 69 creatinine slightly improved to 1.54 Cardiology and pulmonary is on board. 11/14/2023 Patient is in the ER currently. Awake alert but could not provide any history. Patient is weak and lethargic. Oral patient is afebrile. Requiring 4 L oxygen via nasal cannula currently. Denies any chest pain. Patient is still short of breath. Patient is also complaining of generalized pain and morning. 2D echocardiogram showed ejection fraction 60 to 65% with moderately increased septal wall thickness. Moderate pulmonary hypertension, moderate tricuspid regurgitation and mild aortic and mitral regurgitation. Patient also had CT chest this afternoon which showed bilateral lung base airspace disease is favored for diagnosis. Laboratory showed WBC 12.0 hemoglobin 14.1 and platelets 153 Sodium 143 potassium 4.4 chloride 107 bicarb is 26 BUN 85 and creatinine 1.82 and blood sugar 172 and calcium 10.7 11/15/2023 Patient is in the telemetry unit. Currently resting in the bed but still weak and lethargic and unable to provide much history. Afebrile. Continues to require 4 L oxygen via nasal cannula. Patient was given Lasix 20 mg IV x 1 overnight due to worsening respiratory status. Patient is also on Solu-Medrol 40 every 12Patient also remains on antibiotics in the form of Zosyn. Blood cultures preliminary negative so far. Laboratory data showed WBC 12.3 hemoglobin 13.8 and platelets 152, BUN 81 and creatinine 2.27 and potassium 3.7. Calcium 10.4 Current medications reviewed. Objective - Vital Signs Vital signs: Vital Signs Temp 97.7 F 11/15/23 08:25 Pulse 68 11/15/23 08:54 Resp 18 11/15/23 08:25 BP 164/89 11/15/23 08:25 Pulse Ox 93 L 11/15/23 08:25 FiO2 Intake & Output 11/14/23 11/15/23 11/15/23 18:59 06:59 18:59 Intake Total 60 Output Total 400 600 700 Balance -340 -600 -700 Weight 58.06 kg Intake: Oral 60 Output: Urine 400 600 700 Other: Voiding Method External Catheter External Catheter External Catheter - Exam PHYSICAL EXAMINATION: Patient is lying in the bed , no acute distress, awake alert but lethargic and weak.. Generalized tenderness with palpation.. HEENT: Normocephalic. Neck is supple. Pupils reactive. Nostrils clear. Oral cavity is moist. Neck reveals no JVD, carotid bruits, or thyromegaly. CHEST EXAMINATION: Trachea is central. Symmetrical expansion. Mild expiratory wheezing. Bibasal coarse breath sounds. Nonlabored breathing. CARDIAC: Normal S1, S2 with no gallops. Positive systolic murmur ABDOMEN: Soft. Bowel sounds present. No organomegaly. No abdominal bruits. Extremities: reveal no edema. No clubbing or cyanosis Neurologically awake, alert, oriented x 1-2 able to move extremities.. No gross focal deficits noted Skin: No rash or skin lesions. Psychiatric: Coperative. Could not be assessed completely Musculoskeletal: No joint swelling or deformity. - Labs CBC & Chem 7: 11/15/23 09:36 11/15/23 09:36 Labs: Abnormal Lab Results - Last 24 Hours (Table) 11/14/23 11/15/23 11/15/23 Range/Units 13:12 09:36 09:36 WBC 12.3 H (3.8-10.6) k/uL RBC 4.20 L (4.30-5.90) m/uL MCV 105.0 H (80.0-100.0) fL Neutrophils # 11.5 H (1.3-7.7) k/uL Lymphocytes # 0.2 L (1.0-4.8) k/uL BUN 81 H (9-20) mg/dL Creatinine 2.27 H (0.66-1.25) mg/dL Calcium 10.4 H (8.4-10.2) mg/dL Troponin I 0.050 H* (0.000-0.034) ng/mL Microbiology - Last 24 Hours (Table) 11/12/23 15:35 Blood Culture - Preliminary Blood 11/12/23 15:50 Blood Culture - Preliminary Blood Assessment and Plan Assessment: Status post fall due to generalized weakness, fatigue along with poor oral intake and weight loss Acute hypoxic respiratory failure requiring oxygen at 4 L via nasal cannula. Multifactorial due to COPD exacerbation and pneumonia. Procalcitonin level is 0.2 Bibasilar pneumonia/airspace disease. Right upper lobe 1.4 cm lung nodule with suspected malignancy as per chest x- ray. CT thorax showed no evidence of mass. Recommends repeat imaging once pneumonia improves. Elevated troponin level with possible NSTEMI Hypernatremia due to dehydration and volume depletion Hypokalemia Acute kidney injury likely vasomotor nephropathy. Creatinine 1.77 on admission baseline creatinine 1.5 Chronic atrial fibrillation on anticoagulation with Xarelto and pacemaker placement Generalized pain/tenderness Hyperlipidemia Plan: Continue with telemetry. Continue oxygen supplementation. Was given IV fluid bolus in the ER. Patient will be continued on antibiotics in the form of Zosyn and azithromycin. Blood cultures negative so far. Continue gentle IV hydration with D5 half- normal saline. Follow-up repeat CBC and BMP Patient was started back on Xarelto on 8. Heparin drip has been di scontinued. 2D echocardiogram showed normal EF and valvular abnormalities as noted above CT chest report reviewed. Continue with pain management. Replace electrolytes. Continue with IV Solu-Medrol 40 every 12, changed to prednisone 30 mg daily Pulmonary and cardiology is on board. Due to worsening recent weakness neurology was consulted for further evaluation. Nephrology consulted to increase the creatinine level. Prognosis is guarded at this time. Discussed with his at bedside in detail. Time with Patient: Greater than 30
[2023-11-15] MEDS: DOCUSATE 100 MG CAP PO SCH (11:51)
--- NOTE | 2023-11-15 13:19 | P.NPCON ---
History of Present Illness - Reason for Consult acute renal failure - History of Present Illness Reason for consultation: Acute kidney injury History of present illness: Patient is a 78-year-old male seen in renal consultation for acute kidney injury. Patient's creatinine in June 2021 was 1.0 and 1.5 dated September 18, 2023. This admission creatinine has been as low as 1.54 and is up to 2.27 today. Patient does not see profiler hand outpatient. Patient is not a reliable historian but his is present at bedside who provides history. Patient came to the hospital due to generalized weakness and poor intake. He is currently being treated for aspiration pneumonia and is on IV antibiotics. Patient does have history of coronary artery disease with cardiac stenting. There is also concern for lung nodule and bronchoscopy is being considered for tomorrow. Patient received 20 mg of IV Lasix this morning and is nonoliguric. Patient also has history of A-fib. Echocardiogram showed preserved ejection fraction with mild to moderate tricuspid regurgitation and mild aortic and mitral regurgi tation. Denies regular use of nonsteroidals. Denies personal history of malignancy. Does admit to taking vitamin D as well as Tums on a regular basis. Calcium level has been elevated as high as 11.8 this admission and was 10.4 this morning. Last albumin was 2.8 dated November 13, 2023. Vital signs are stable. General: Resting in bed. HEENT: Head exam is unremarkable. On nasal cannula. LUNGS: Scattered rhonchi. HEART: Rate and Rhythm are regular. ABDOMEN: Nontender. EXTREMITITES: No edema. Past Medical History Past Medical History: Atrial Fibrillation, Chest Pain / Angina, COPD, Hyperlipidemia, Pneumonia Additional Past Medical History / Comment(s): See Dr Mckeon H&P, chronic back pain, diverticulosis, History of Any Multi-Drug Resistant Organisms: None Reported Past Surgical History: Orthopedic Surgery, Pacemaker Additional Past Surgical History / Comment(s): 03/25/19 cinefluoroscpy, cardioversion,mateus rt knee/lower leg sx has 3 screws, colonoscopy, "bone aspiration" Past Anesthesia/Blood Transfusion Reactions: No Reported Reaction Additional Past Anesthesia/Blood Transfusion Reaction / Comment(s): per -pt never recieved any blood in past Type of Cardiac Device: Permanent Pacemaker Device Placement Date:: 04/15/19 Past Psychological History: No Psychological Hx Reported Smoking Status: Former smoker Past Alcohol Use History: None Reported Additional Past Alcohol Use History / Comment(s): started smoking at age 15(1960)stopped smoking in May 2017. past occ etoh-none since may 2017. Past Drug Use History: None Reported Additional Drug Use History / Comment(s): uses cbd oil - Past Family History Mother History Unknown: Yes Family Medical History: No Reported History Medications and Allergies Home Medications Medication Instructions Recorded Confirmed Type Cholecalciferol [Vitamin D3 (25 25 mcg PO HS 05/23/17 11/12/23 History Mcg = 1000 Iu)] Glucosamine Sulfate 500 mg PO HS 05/23/17 11/12/23 History Pravastatin Sodium [Pravachol] 40 mg PO HS 05/23/17 11/12/23 History Tamsulosin HCl [Flomax] 0.8 mg PO HS 05/29/17 11/12/23 History Hydrocodone/Acetaminophen 1 tab PO Q6HR PRN 08/17/17 11/12/23 History [Hydrocodone/Acetaminophen 10-325] Rivaroxaban [Xarelto] 20 mg PO DAILY 03/05/18 11/12/23 History Zolpidem Tartrate [Ambien] 10 mg PO HS PRN 03/05/18 11/12/23 History ALPRAZolam [Xanax] 0.25 mg PO DAILY PRN 10/13/18 11/12/23 History Verapamil [Isoptin] 40 mg PO DAILY 11/12/23 11/12/23 History Allergies Allergy/AdvReac Type Severity Reaction Status Date / Time cefuroxime Allergy Intermediate Diaphoretic, Verified 11/12/23 11:34 tingling sensation, anxiety, Rapid Heart Rate ciprofloxacin [From Cipro] Allergy Anaphylaxis Verified 11/12/23 11:34 metronidazole Allergy Anaphylaxis Verified 11/12/23 11:34 clindamycin AdvReac Severe Dizzy, Verified 11/12/23 11:34 diaphoretic, short of breath, tachycaRapid Heart Rate Physical Exam Vitals: Vital Signs Temp Pulse Pulse Resp BP BP Pulse Ox 11/15/23 12:00 60 18 144/86 95 11/15/23 11:57 68 11/15/23 11:45 70 11/15/23 08:54 68 11/15/23 08:43 70 11/15/23 08:34 66 11/15/23 08:25 97.7 F 60 18 164/89 93 L 11/15/23 04:00 96.8 F L 76 18 153/87 91 L 11/15/23 01:32 61 18 11/15/23 00:00 97.0 F L 61 18 149/83 91 L 11/14/23 20:00 97.8 F 60 20 136/76 93 L 11/14/23 16:57 97.0 F L 60 22 149/75 90 L 11/14/23 15:40 97.3 F L 63 22 151/74 90 L 11/14/23 15:39 64 11/14/23 15:32 64 Intake and Output 11/14/23 11/15/23 11/15/23 22:59 06:59 14:59 Intake Total 60 Output Total 400 600 700 Balance -340 -600 -700 Intake: Oral 60 Output: Urine 400 600 700 Other: Voiding Method External Catheter External Catheter External Catheter Weight 58.06 kg Results - Lab Results Most recent lab results Calcium 10.4 mg/dL (8.4-10.2) H 11/15/23 09:36 Magnesium Cancelled 11/12/23 10:36 11/15/23 09:36 11/15/23 09:36 Assessment and Plan Plan: Assessment: 1. Acute kidney injury secondary to ATN secondary to infection and component of cardiorenal syndrome. Creatinine as low as 1.54 this admission and is 2.27 today. Creatinine dated September 18, 2023 was 1.5 in June 24, 2021 1.0. 2. Aspiration pneumonia on antibiotics. 3. Acute on chronic diastolic CHF. 4. Volume overload with pleural effusions noted on chest CT. 5. Lung nodule concerning for malignancy. 6. Hypercalcemia secondary to calcium and vitamin D supplementation but also concern for hypercalcemia of malignancy. Plan: Status post 20 mg IV Lasix this morning. Avoid nephrotoxins. Check renal ultrasound. Check further workup for hypercalcemia. Check albumin level as well in the morning. Continue to monitor renal function and urine output. Thank you for the consultation. I will continue to follow the patient with you during his hospital stay.
[2023-11-15 13:40] VITALS: BMI 18.3
--- NOTE | 2023-11-15 14:36 | P.PN ---
Subjective Progress Note Date: 11/15/23 Principal diagnosis: Acute hypoxic respiratory failure secondary to acute bibasilar pneumonia, highly suspicious for aspiration pneumonia and acute exacerbation of COPD Patient is a 78-year-old white male with past medical history significant for paroxysmal atrial fibrillation with previous AV node ablation, permanent pacemaker, COPD, and former heavy tobacco use. Patient presented to the emergency room yesterday morning with a chief complaint of progressively worsening generalized weakness over the last 10 days. He is a poor historian, his is at bedside, and answers all questions. He can no longer ambulate to his bedroom, and his has set up a air mattress on the floor on the lower level. He did fall off the air mattress. This prompted the to contact EMS. He is currently resting in bed, on 4 L/min nasal cannula, in no acute distress. He reportedly does not wear home oxygen. states that he has appeared short of breath at times. No significant coughing or sputum production. No hemoptysis. No measured fevers. No sick contacts. He has no specific complaints but diffuse nonlocalized/nonspecific pain. He is very weak. Dry mucous membranes. Reportedly not eating and drinking much while at home. Brain CT done on arrival did not show any acute intracranial process. There is nonspecific white matter changes, likely secondary to chronic small vessel ischemic disease. Chest x-ray shows basilar atelectasis versus infiltrate with tiny effusion. Underlying pneumonia is not excluded. There is hyperinflation consistent with COPD. There is a 1.4 cm right apical opacity concerning for lung nodule. There is also a lucent lesion of the left proximal humerus. CBC on arrival unremarkable. No leukocytosis. Troponins elevated at 0.124, 0.132, and 0.109 respectively. EKG shows V paced rhythm. Patient was started on heparin infusion. Most recent APTT therapeutic. NT proBNP 1810. CMP done on arrival: Sodium 147, potassium 3.1, chloride 108, serum bicarb 32, BUN 77, creatinine 1.77, glucose 79. Lactic acid 0.6. CPK 53. TSH 0.879. Urinalysis shows trace protein, small leukocytes, otherwise unremarkable. Negative for influenza, RSV, COVID. Currently afebrile. Started on a combination of azithromycin and Zosyn in the emergency room. Half-normal saline is infusing at 75 mL/h. Vital signs are stable. The patient is seen today November 14, 2023 in follow-up in the emergency department. He is currently awake and alert in no acute distress. He is maintaining O2 saturations in the 90s on 5 L/min per nasal cannula. Currently afebrile. Hemodynamically stable. His procalcitonin is 0.20. His proBNP is 1810. Blood cultures are pending. White count 12.0. Hemoglobin 14.1. Platelets 153. Sodium 143. Potassium 4.4. Bicarb 26. BUN 85. Creatinine 1.82. He has been transition to Xarelto. Remains on Zosyn. Completed azithromycin. Remains on bronchodilators and steroids. Receiving 0.45% normal saline at [address] scan of the chest reveals bilateral airspace disease most likely pneumonia. Patient was reevaluated today on 11/15/2023, patient remains generally weak, according to the his weakness has been noted only in the last 2 weeks. Prior to this he was extremely active, and only in the last 2 weeks has been gradually going downhill, and developing significant weakness to the point that he cannot ambulate anymore. 2 weeks ago this patient was able to go up the stairways without any support. Patient had a CT of the chest, suggestive of bilateral pneumonia, I am suspecting that the patient is aspirating, swallow evaluation is in progress. However after reviewing the CT of the chest I am recommending bronchoscopy and BAL, just to rule out the possibility of underlying malignancy involving the lungs. Procalcitonin level is elevated WBC count is 12.3 hemoglobin 13 basic metabolic profile is normal renal profile is a bit worse today BUN is 81 creatinine 2.27, patient came in with creatinine of 1.77 went down to 1.54. And now it is 2.27, nephrology evaluated the patient felt that this is a picture of ATN or could be a cardiorenal syndrome. His echocardiogram showed good LV function, patient has moderate LV hypertrophy moderate pulmonary hypertension mild aortic and mitral regurgitation. Still the cardiac findings do not explain his pulmonary findings, patient clearly has bibasilar airspace disease, underlying malignancy is not entirely ruled out but felt to be less likely hence I am planning bronchoscopy and BAL of both lower lobes tomorrow meantime considering his profound weakness and worsening picture with his weakness which seems to be his main issue I am recommending neurological evaluation Objective - Vital Signs Vital signs: Vital Signs Temp 97.7 F 11/15/23 08:25 Pulse 60 11/15/23 12:00 Resp 18 11/15/23 12:00 BP 144/86 11/15/23 12:00 Pulse Ox 95 11/15/23 12:00 FiO2 Intake & Output 11/14/23 11/15/23 11/15/23 18:59 06:59 18:59 Intake Total 60 Output Total 400 600 700 Balance -340 -600 -700 Weight 58.06 kg 58.06 kg Intake: Oral 60 Output: Urine 400 600 700 Other: Voiding Method External Catheter External Catheter External Catheter - Exam GENERAL EXAM: Revealed a 78-year-old white male, lethargic, seems to have difficulty swallowing. And seems to be generally weak. HEAD: Normocephalic and atraumatic EYES: Normal reaction of pupils, equal size. NOSE: Clear with pink turbinates. THROAT: No erythema or exudates. Dry mucous membranes. NECK: No masses, no JVD. CHEST: No chest wall deformity. Left chest implanted device LUNGS: Equal air entry crackles at the bases. No wheezing noted today. CVS: S1 and S2 normal with no audible murmur, regular rhythm. No extra heart sounds ABDOMEN: Soft nontender no megaly no rebound no guarding SKIN: No rashes CENTRAL NERVOUS SYSTEM: Patient is lethargic, arousable, follows simple instructions but profoundly weak. EXTREMITIES: There is no peripheral edema, clubbing, or cyanosis. Peripheral pulses are intact. - Labs CBC & Chem 7: 11/15/23 09:36 11/15/23 09:36 Labs: Abnormal Lab Results - Last 24 Hours (Table) 11/14/23 11/15/23 11/15/23 Range/Units 13:12 09:36 09:36 WBC 12.3 H (3.8-10.6) k/uL RBC 4.20 L (4.30-5.90) m/uL MCV 105.0 H (80.0-100.0) fL Neutrophils # 11.5 H (1.3-7.7) k/uL Lymphocytes # 0.2 L (1.0-4.8) k/uL BUN 81 H (9-20) mg/dL Creatinine 2.27 H (0.66-1.25) mg/dL Calcium 10.4 H (8.4-10.2) mg/dL Troponin I 0.050 H* (0.000-0.034) ng/mL Microbiology - Last 24 Hours (Table) 11/12/23 15:35 Blood Culture - Preliminary Blood 11/12/23 15:50 Blood Culture - Preliminary Blood Assessment and Plan Assessment: Impression: Unexplained weakness which has had been progressively worse over the last 2 weeks according to . Patient needs evaluation by neurology. Bilateral pneumonia most likely aspiration pneumonia unless proven otherwise. No evidence of apical lung nodule as noted on CT of the chest Acute kidney injury Acute metabolic encephalopathy History of pacemaker implantation History of paroxysmal atrial fibrillation Benign essential hypertension History of underlying COPD presently inactive History of BPH Recommendation: Continue Zosyn Continue bronchodilators Will arrange for bronchoscopy tomorrow and BAL of left and right lower lobes Hold Xarelto for the next 24 hours Will transition to Xarelto tomorrow again. Titrate FiO2 accordingly Will continue to follow Patient will need full swallow evaluation and may be a modified barium swallow Patient will need evaluation by neurology for his profound weakness Time with Patient: Less than 30
--- NOTE | 2023-11-15 14:43 | XR ---
EXAMINATION TYPE: XR chest 1V portable DATE OF EXAM: 11/15/2023 COMPARISON: 11/13/2023 HISTORY: Shortness of breath TECHNIQUE: Single frontal view of the chest is obtained. FINDINGS: Bilateral consolidation and small effusion with limited inspiration. Multi lead cardiac de vice with diffuse interstitial pattern. Diffuse osteopenia with arthropathy of the shoulders and karel led appearance of the scapula. Intraosseous lesion is not excluded. No pneumothorax. Heart is enlarge d. IMPRESSION: Increasing bilateral consolidation and small effusion correlate for mild venous congesti on otherwise consider pneumonia.
--- NOTE | 2023-11-15 14:47 | US ---
EXAMINATION TYPE: US kidneys/renal and bladder DATE OF EXAM: 11/15/2023 COMPARISON: CT 07/08/2017 CLINICAL INDICATION: Male, 78 years old with history of girma; AMS EXAM MEASUREMENTS: Right Kidney: 11.0 x 4.6 x 5.9 cm Left Kidney: 11.9 x 6.0 x 5.1 cm Post Void Residual Volume: NA mL Right Kidney: Prominent renal pelvis Left Kidney: Prominent renal pelvis Bladder: WNL Bilateral Jets seen: No Normal Post Void Residual: Asked patient to urinate, patient stated "I quit" No nephrolithiasis is seen. No masses are identified. The urinary bladder is anechoic. Renal tara x echogenicity and thickness maintained. IMPRESSION: Bilateral mild pelvocaliectasis with markedly distended bladder. Bladder a left obstruction in the di fferential diagnosis correlate clinically.
--- NOTE | 2023-11-15 15:15 | P.PN ---
Subjective Progress Note Date: 11/15/23 Reason for Consult (text): NSTEMI History of present illness: History of present illness: This is a 78-year-old male patient of Dr. 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 We have been asked to evaluate the patient for non-ST elevated myocardial infarction. Patient's gives history that he came into the hospital because of dehydrat ion and pain all over his body. Whether week ago he was able to walk and carry on normally but by Sunday he was having trouble with ambulation could not do the stairs. By Sunday he was unable to feed himself. Patient had a fall in the bathroom. Patient has had no appetite. He has been confused for last 1 to 2 days. He also has complained of chest pain. voices concern about pacemaker battery but this seems to be fine according to the office notes. Patient denies having any chest pain at this time. Patient has been started on heparin drip. Patient is seen today in the emergency center waiting for a bed on the cardiac stepdown unit. EKG ventricularly paced rhythm Chest x-ray: Bilateral infiltrates and small pleural effusion on the left. Correlation for pneumonia. Mild venous congestion excluded. There are persistent vague nodular density in the right lobe measuring 1.4 cm. WBC 6, hemoglobin 13.7, platelet count 172. INR 1.3. Sodium 152, potassium 3.1, chloride 113, CO2 25, BUN 69 and creatinine 1.5. Initially BUN was 77 and creatinine 1.77. Blood sugar 123. Troponins 0.124, 0.132, 0.109. proBNP 1810. Procalcitonin 0.2. Urinalysis revealed leukoesterase small cast 82. Influenza A, influenza B, COVID-19, RSV not detected. Home cardiac medications: Pravastatin 40 mg at bedtime, Xarelto 20 mg daily, verapamil 40 mg daily Echocardiogram performed in the office on 08/14/2022 revealed EF of 50 to 55% with mild concentric left ventricular hypertrophy. Mild aortic regurgitation. Moderate to severe mitral regurgitation. Severe tricuspid regurgitation. PASP of 52 mmHg. Mild pulmonic regurgitation. 11/13 Patient is seen today in follow-up in the emergency center. Echocardiogram reveals EF of 60 to 65%, moderate left ventricular hypertrophy. Moderate pulmonary hypertension. Mild RV enlargement with normal RV function. Mild to moderate tricuspid regurgitation. Mild aortic and mitral regurgitation. Blood pressure 141/65, heart rate 61, pulse ox 95% on 5 L nasal cannula. Repeat blood work reveals hemoglobin 14.1. Potassium 4.4, BUN 85 creatinine 1.82. Patient states that his breathing is okay. No complaints of chest pain. 11/14 Patient is noted to have more chest congestion today. He is receiving a dose of IV Lasix and pulmonary is planning for bronchoscopy tomorrow. Patient continues to complain of all over pain and no specific chest pain. Blood pressure 144/86, heart rate 60, pulse ox 95% on 4 L nasal cannula. Repeat blood work reveals WBC 12.3, hemoglobin 13.8. Potassium 3.7, BUN 81 creatinine 2.27. Physical examination: Gen: This is a ill-appearing 78-year-old male in no acute distress. VS: reviewed HEENT: Head is atraumatic, normocephalic. Pupils equal, round. Sclerae is anicteric. NECK: Supple. No JVD. LUNGS: Diminished breath sounds, scattered rhonchi. No intercostal retractions. HEART: Irregular ate and rhythm. Systolic murmur. ABDOMEN: Soft No tenderness. EXTREMITIES: No pedal edema. No calf tenderness. NEUROLOGICAL: Patient is awake. Assessment: Chest pain Elevated troponin, type II [place] Acute hypoxic respiratory failure secondary to acute exacerbation of COPD, possible pneumonia Right apical lung nodule Acute kidney injury Hypokalemia Metabolic encephalopathy Permanent atrial fibrillation Status post pacemaker Remote history of tobacco use and dependence Plan: Continue patient's home cardiac medications Continue Xarelto which is on hold for bronchoscopy and may be resumed following procedure No plan for any cardiac ischemic workup at this time due to multiple medical problems including acute kidney injury. Patient has no chest pain at this time and echocardiogram is stable. Continue patient on aspirin 81 mg daily and Toprol XL 12.5 mg daily Further recommendations to follow based upon clinical course Nurse practitioner note has been reviewed, I agree with documented findings and plan of care. Patient was seen and examined. Objective - Vital Signs Vital signs: Vital Signs Temp 97.7 F 11/15/23 08:25 Pulse 60 11/15/23 12:00 Resp 18 11/15/23 12:00 BP 144/86 11/15/23 12:00 Pulse Ox 95 11/15/23 12:00 FiO2 Intake & Output 11/14/23 11/15/23 11/15/23 18:59 06:59 18:59 Intake Total 60 Output Total 400 600 700 Balance -340 -600 -700 Weight 58.06 kg 58.06 kg Intake: Oral 60 Output: Urine 400 600 700 Other: Voiding Method External Catheter External Catheter External Catheter - Labs CBC & Chem 7: 11/15/23 09:36 11/15/23 09:36 Labs: Abnormal Lab Results - Last 24 Hours (Table) 11/14/23 11/15/23 11/15/23 Range/Units 13:12 09:36 09:36 WBC 12.3 H (3.8-10.6) k/uL RBC 4.20 L (4.30-5.90) m/uL MCV 105.0 H (80.0-100.0) fL Neutrophils # 11.5 H (1.3-7.7) k/uL Lymphocytes # 0.2 L (1.0-4.8) k/uL BUN 81 H (9-20) mg/dL Creatinine 2.27 H (0.66-1.25) mg/dL Calcium 10.4 H (8.4-10.2) mg/dL Troponin I 0.050 H* (0.000-0.034) ng/mL Microbiology - Last 24 Hours (Table) 11/12/23 15:35 Blood Culture - Preliminary Blood 11/12/23 15:50 Blood Culture - Preliminary Blood
--- NOTE | 2023-11-15 17:53 | P.CNNES ---
History of Present Illness Consult date: 11/15/23 Requesting physician: Yelena Contreras Reason for Consult: profound weakness History of Present Illness: This is a 78-year-old gentleman with history of paroxysmal atrial fibrillation on Xarelto, previous AV dalia ablation, pacemaker, hypertension, heavy tobacco use send emergency department because of generalized weakness over the last 2 weeks. History is obtained from the patient's but is very tangential in providing the history. It seems that the patient has developed generalized weakness out of the sudden according to the and initially last Sunday he notified her that he is weak and he required assistance going up and down then he could not and then Sunday he was just laying was severely weak. I states that there is no improvement for the weakness when he is resting or vice versa. No complaint of visual disturbance. Patient's stated that this was all of a sudden and denied any recent cough or fevers or any recent sickness. She denies any similar episodes like this in the past. She stated that baseline he walks without any assistance. He stated that he has chronic back pain and knee pain. They deny any history of stroke or seizure. Denies any cancer. It seems that the patient was a heavy smoker and used to smoke 2 packs a day. It seems that the patient developed bilateral pneumonia most likely aspiration and sounds very coarse. Chest x-ray it seems that there is a persistent vague nodular density in the right lobe measuring 1.4 cm. Some of the other work-up consisted: Patient is afebrile White blood cell was normal on presentation and is currently trended up. CK level is 53. Vitamin B12 is 969 Red blood cell folate is 563 TSH 0.879 Ammonia is less than 9 Is 11.8 and the most recent 1 is 10.4 Sodium is currently 142 it was as high as 152 during this admission. Patient had a CT of the head in our facility and is reported as no acute intracranial process. Nonspecific white matter changes, likely secondary due to chronic small vessel ischemic disease. I personally reviewed the CT and agree with the report. Review of Systems Review of system is limited but apparent positive and negative as per HPI Past Medical History Past Medical History: Atrial Fibrillation, Chest Pain / Angina, COPD, Hyperlipidemia, Pneumonia Additional Past Medical History / Comment(s): See Dr Mckeon H&P, chronic back pain, diverticulosis, History of Any Multi-Drug Resistant Organisms: None Reported Past Surgical History: Orthopedic Surgery, Pacemaker Additional Past Surgical History / Comment(s): 03/25/19 cinefluoroscpy, cardioversion,mateus rt knee/lower leg sx has 3 screws, colonoscopy, "bone aspir ation" Past Anesthesia/Blood Transfusion Reactions: No Reported Reaction Additional Past Anesthesia/Blood Transfusion Reaction / Comment(s): per -pt never recieved any blood in past Type of Cardiac Device: Permanent Pacemaker Device Placement Date:: 04/15/19 Past Psychological History: No Psychological Hx Reported Smoking Status: Former smoker Past Alcohol Use History: None Reported Additional Past Alcohol Use History / Comment(s): started smoking at age 15(1960)stopped smoking in May 2017. past occ etoh-none since may 2017. Past Drug Use History: None Reported Additional Drug Use History / Comment(s): uses cbd oil - Past Family History Mother History Unknown: Yes Family Medical History: No Reported History Medications and Allergies Home Medications Medication Instructions Recorded Confirmed Type Cholecalciferol [Vitamin D3 (25 25 mcg PO HS 05/23/17 11/12/23 History Mcg = 1000 Iu)] Glucosamine Sulfate 500 mg PO HS 05/23/17 11/12/23 History Pravastatin Sodium [Pravachol] 40 mg PO HS 05/23/17 11/12/23 History Tamsulosin HCl [Flomax] 0.8 mg PO HS 05/29/17 11/12/23 History Hydrocodone/Acetaminophen 1 tab PO Q6HR PRN 08/17/17 11/12/23 History [Hydrocodone/Acetaminophen 10-325] Rivaroxaban [Xarelto] 20 mg PO DAILY 03/05/18 11/12/23 History Zolpidem Tartrate [Ambien] 10 mg PO HS PRN 03/05/18 11/12/23 History ALPRAZolam [Xanax] 0.25 mg PO DAILY PRN 10/13/18 11/12/23 History Verapamil [Isoptin] 40 mg PO DAILY 11/12/23 11/12/23 History Allergies Allergy/AdvReac Type Severity Reaction Status Date / Time cefuroxime Allergy Intermediate Diaphoretic, Verified 11/12/23 11:34 tingling sensation, anxiety, Rapid Heart Rate ciprofloxacin [From Cipro] Allergy Anaphylaxis Verified 11/12/23 11:34 metronidazole Allergy Anaphylaxis Verified 11/12/23 11:34 clindamycin AdvReac Severe Dizzy, Verified 11/12/23 11:34 diaphoretic, short of breath, tachycaRapid Heart Rate Physical Examination - Vital Signs Vital Signs: Vital Signs Temp Pulse Pulse Resp BP Pulse Ox 11/15/23 16:46 72 11/15/23 16:24 70 11/15/23 16:00 97.7 F 60 18 124/75 90 L 11/15/23 14:00 60 18 11/15/23 12:00 60 18 144/86 95 11/15/23 11:57 68 11/15/23 11:45 70 11/15/23 08:54 68 11/15/23 08:43 70 11/15/23 08:34 66 11/15/23 08:25 97.7 F 60 18 164/89 93 L 11/15/23 04:00 96.8 F L 76 18 153/87 91 L 11/15/23 01:32 61 18 11/15/23 00:00 97.0 F L 61 18 149/83 91 L 11/14/23 20:00 97.8 F 60 20 136/76 93 L Intake and Output 11/15/23 11/15/23 11/15/23 06:59 14:59 22:59 Intake Total 118 Output Total 600 700 800 Balance -600 582 -800 Intake: Oral 118 Output: Urine 600 700 800 Uretheral (Ba) 800 Other: Voiding Method External Catheter Indwelling Catheter Weight 58.06 kg General: Patient is lying in bed and appear lethargic. Is not in acute pain. Lung: Patient has severe coarse throughout. Neuro: Limited because of overall condition. Patient is moderately drowsy but is awakeable to voice. Is oriented to self and place. Is following simple commands. No aphasia from limited language. Pupils are 2mm and reactive to light. Visual varela are full to confrontation. EOM intact and no nystagmus. No facial weakness. Has severe hypophonia. Motor: Limited because he was drowsy. But had at least 4+ in uppers and lowers. Decrease tone throughout. Normal bulk. Cerebellar: Normal finger to nose. Sensation: Did not respond to light touch since drowsy. Reflex: Triceps 2+ b/l, otherwise 1+ in uppers, Patellar 2+ b/l and ankles are 1+. Plantars are mute bilaterally. Results - Laboratory Findings CBC and BMP: 11/15/23 09:36 11/15/23 09:36 Abnormal Lab Findings: Abnormal Labs 11/12/23 11/12/23 11/12/23 10:36 10:36 10:36 WBC RBC MCV 103.8 H Plt Count 145 L Neutrophils # 9.0 H Lymphocytes # 0.4 L PT 12.7 H INR 1.2 H APTT Sodium Potassium Chloride Carbon Dioxide BUN Creatinine Glucose Plasma Lactic Acid Ceht 0.6 L Calcium Total Bilirubin Alkaline Phosphatase Creatine Kinase Troponin I Total Protein Albumin Vitamin B12 Procalcitonin Urine Protein Ur Leukocyte Esterase Urine WBC Hyaline Casts Urine Mucus 11/12/23 11/12/23 11/12/23 10:36 13:13 13:13 WBC RBC MCV Plt Count Neutrophils # Lymphocytes # PT INR APTT Sodium 147 H Potassium 3.1 L Chloride 108 H Carbon Dioxide 32 H BUN 77 H Creatinine 1.77 H Glucose Plasma Lactic Acid Chet Calcium 11.8 H Total Bilirubin 1.9 H Alkaline Phosphatase 188 H Creatine Kinase 53 L Troponin I 0.124 H* Total Protein 9.3 H Albumin 3.3 L Vitamin B12 Procalcitonin Urine Protein Trace H Ur Leukocyte Esterase Small H Urine WBC 7 H Hyaline Casts 82 H Urine Mucus Occasional H 11/12/23 11/12/23 11/12/23 13:13 17:47 21:00 WBC RBC MCV Plt Count Neutrophils # Lymphocytes # PT INR APTT 57.2 H Sodium Potassium Chloride Carbon Dioxide BUN Creatinine Glucose Plasma Lactic Acid Chet Calcium Total Bilirubin Alkaline Phosphatase Creatine Kinase Troponin I 0.132 H* Total Protein Albumin Vitamin B12 Procalcitonin 0.20 H Urine Protein Ur Leukocyte Esterase Urine WBC Hyaline Casts Urine Mucus 11/12/23 11/13/23 11/13/23 21:00 10:03 10:03 WBC RBC 4.17 L MCV 105.9 H Plt Count Neutrophils # Lymphocytes # 0.3 L PT 13.4 H INR 1.3 H APTT Sodium Potassium Chloride Carbon Dioxide BUN Creatinine Glucose Plasma Lactic Acid Chet Calcium Total Bilirubin Alkaline Phosphatase Creatine Kinase Troponin I 0.109 H* Total Protein Albumin Vitamin B12 Procalcitonin Urine Protein Ur Leukocyte Esterase Urine WBC Hyaline Casts Urine Mucus 11/13/23 11/13/23 11/14/23 10:03 22:38 02:36 WBC 12.0 H RBC 4.24 L MCV 104.0 H Plt Count Neutrophils # 11.4 H Lymphocytes # 0.2 L PT INR APTT 60.0 H Sodium 152 H Potassium 3.1 L Chloride 113 H Carbon Dioxide BUN 69 H Creatinine 1.54 H Glucose 123 H Plasma Lactic Acid Chet Calcium Total Bilirubin 1.4 H Alkaline Phosphatase 181 H Creatine Kinase Troponin I Total Protein Albumin 2.8 L Vitamin B12 969.0 H Procalcitonin Urine Protein Ur Leukocyte Esterase Urine WBC Hyaline Casts Urine Mucus 11/14/23 11/14/23 11/15/23 02:36 13:12 09:36 WBC 12.3 H RBC 4.20 L MCV 105.0 H Plt Count Neutrophils # 11.5 H Lymphocytes # 0.2 L PT INR APTT Sodium Potassium Chloride Carbon Dioxide BUN 85 H Creatinine 1.82 H Glucose 172 H Plasma Lactic Acid Chet Calcium 10.9 H Total Bilirubin Alkaline Phosphatase Creatine Kinase Troponin I 0.050 H* Total Protein Albumin Vitamin B12 Procalcitonin Urine Protein Ur Leukocyte Esterase Urine WBC Hyaline Casts Urine Mucus 11/15/23 09:36 WBC RBC MCV Plt Count Neutrophils # Lymphocytes # PT INR APTT Sodium Potassium Chloride Carbon Dioxide BUN 81 H Creatinine 2.27 H Glucose Plasma Lactic Acid Chet Calcium 10.4 H Total Bilirubin Alkaline Phosphatase Creatine Kinase Troponin I Total Protein Albumin Vitamin B12 Procalcitonin Urine Protein Ur Leukocyte Esterase Urine WBC Hyaline Casts Urine Mucus Assessment and Plan Assessment: This is a 78-year-old gentleman with a history of heavy tobacco use who presents to the emergency department because of generalized weakness that is progressively getting worse as a result having difficulty ambulating. From the limited history no fever sick contacts. During this hospital stay it appears the patient had aspiration pneumonia that is assumed and patient is very coarse currently. Chest x-ray there was a concern for persistent vague nodular density in the right lobe measuring 1.4 cm. Also had hypercalcemia. On CT Chest no mention of mass. New rapid generalized weakness: Unsure exact etiology rule out lung mass which can result in paraneoplastic. Patient has hypercalcemia that can result in weakness. Initial CT head is unremarkable. Altered mental status due to metabolic encephalopathy, TERRY as well as aspiration pneumonia Nodular density in the right lobe 1.4 cm on chest x-ray but reported on CT chest Aspiration pneumonia and patient is very coarse even without auscultation Hypercalcemia Acute kidney injury Chronic back pain Chronic knee pain History of AV ablation Status post pacemaker Former heavy tobacco use Plan: I ordered ionized calcium, phosphorus, magnesium. Ordered Acetylcholine abs and Musk ab. Ordered a repeat CT of the head. I also ordered CT cervical, thoracic and lumbar spine. Able to obtain MRI because of the pacemaker. I recommend the patient to be transferred to ICU because of his pulmonary status currently. I notified the primary team. It seems that the patient is DNI and he stated that he wants to be left alone Consider PET scan of whole body. Pulmonary team is on board Nephrology team is on board Will defer the rest of the medical management to primary and other specialist The plan discussed with the patient's and his nurse as well as primary team. Thank for consultation Time with Patient: Greater than 30
[2023-11-15 19:11] LABS: Ionized Calcium 5.4 mg/dL (4.5-5.3)
[2023-11-15 19:13] LABS: Magnesium 2.2 mg/dL (1.6-2.3); Phosphorus 3.7 mg/dL (2.5-4.5)
[2023-11-16] MEDS: FUROSEMIDE 10 MG/ML 4 ML VIAL IV STA (05:55)
[2023-11-16 06:21] LABS: Glucose,Whole Blood 98 mg/dL (70-110)
[2023-11-16 07:03] LABS: Basophils % (A) 0 %; Eosinophils % (A) 0 %; HCT 48.2 % (39.0-53.0); HGB 14.9 gm/dL (13.0-17.5); Lymphocytes # (A) 0.2 k/uL (1.0-4.8); Lymphocytes % (A) 2 %; MCH 32.8 pg (25.0-35.0); MCV 105.8 fL (80.0-100.0); Macrocytosis Moderate; Monocytes # (A) 0.4 k/uL (0-1.0); Monocytes % (A) 4 %; Neutrophils # (A) 9.9 k/uL (1.3-7.7); Neutrophils % (A) 94 %; Platelet Count 159 k/uL (150-450); RBC 4.55 m/uL (4.30-5.90); RDW 14.3 % (11.5-15.5); WBC 10.6 k/uL (3.8-10.6)
[2023-11-16 07:13] LABS: ALT 20 U/L (4-49); AST 25 U/L (17-59); African American GFR (CKD) 34 (>60 ml/min/1.73 sqM); Albumin 3.6 g/dL (3.5-5.0); Alkaline Phosphatase 230 U/L (38-126); Anion Gap 9 mmol/L; Blood Urea Nitrogen 83 mg/dL (9-20); Calcium 10.1 mg/dL (8.4-10.2); Carbon Dioxide 30 mmol/L (22-30); Chloride 106 mmol/L (98-107); Glucose 110 mg/dL (74-99); Magnesium 2.3 mg/dL (1.6-2.3); Non-African American GFR(CKD) 30 (>60 ml/min/1.73 sqM); Potassium 4.2 mmol/L (3.5-5.1); Sodium 145 mmol/L (137-145); Total Bilirubin 1.4 mg/dL (0.2-1.3); Total Protein 9.1 g/dL (6.3-8.2)
--- NOTE | 2023-11-16 07:55 | XR ---
EXAMINATION TYPE: XR chest 1V portable DATE OF EXAM: 11/16/2023 COMPARISON: 11/25/2023 HISTORY: Respiratory distress TECHNIQUE: Single frontal view of the chest is obtained. FINDINGS: Bilateral consolidation and small effusion with limited inspiration. Multi lead cardiac de vice with diffuse interstitial pattern. Diffuse osteopenia with arthropathy of the shoulders and karel led appearance of the scapula. Intraosseous lesion is not excluded. No pneumothorax. Heart is enlarge d. IMPRESSION: Stable bilateral infiltrates small left effusion. Underlying venous congestion and exclu ded.
[2023-11-16] MEDS: LACTATED RINGERS 1,000 ML IV SCH (08:16)
[2023-11-16] MEDS: predniSONE 10 MG TAB PO SCH (08:17)
[2023-11-16 09:21] LABS: ABG Base Excess 4.2 mmol/L; ABG HCO3 31 mmol/L (21-25); ABG PCO2 49 mmHg (35-45); ABG PO2 86 mmHg (83-108); ABG TCO2 32 mmol/L (19-24)
[2023-11-16] MEDS: HEPARIN SOD,PORK IN 0.45% NACL 25,000 UNIT in 0.45% NACL 1 250ML.BAG IV SCH (09:21)
[2023-11-16 09:22] LABS: ABG Oxygen Saturation 96.7 % (94-97)
[2023-11-16 09:58] LABS: INR 1.1 (<1.2); Partial Thromboplastin Time 26.7 sec (22.0-30.0); Prothrombin Time 12.2 sec (10.0-12.5)
--- NOTE | 2023-11-16 10:12 | CT ---
EXAMINATION TYPE: CT brain wo con CT DLP: 2337 mGycm, Automated exposure control for dose reduction was used. DATE OF EXAM: 11/16/2023 10:05 AM COMPARISON: 11/12/2023.. CLINICAL INDICATION:Male, 78 years old with history of weakness and confusion, weakness and confusion TECHNIQUE: Brain: Axial CT images of the brain were obtained with coronal and sagittal reformats created and rev iewed. Contrast used: None. Oral contrast used: None. FINDINGS: Brain: Extra-axial spaces: No abnormal extra-axial fluid collections. Ventricular system: Dilatation in proportion to cerebral atrophy. Cerebral parenchyma: Cerebral atrophy. No acute intraparenchymal hemorrhage or mass effect. The song -white junction is well differentiated. Scattered hypoattenuating areas are seen within the white mat ter. Cerebellum: Unremarkable. Mass effect: No evidence of midline shift. Intracranial vasculature: unremarkable Soft tissues: Normal. Calvarium/osseous structures: No depressed skull fracture. Paranasal sinuses and mastoid air cells: Mild scattered paranasal sinus disease. Visualized orbits: Orbital contents are intact. IMPRESSION: 1. No acute intracranial process. 2. Nonspecific white matter changes, likely secondary to chronic small vessel ischemic disease.
--- NOTE | 2023-11-16 10:21 | CT ---
EXAMINATION TYPE: CT CervThorLumbar spine wo con CT DLP: 2337 mGycm, Automated exposure control for dose reduction was used. DATE OF EXAM: 11/16/2023 10:05 AM CLINICAL INDICATION:Male, 78 years old with history of weakness; weakness and confusion COMPARISON: 07/08/2017 TECHNIQUE: Axial images of the cervical, thoracic and lumbar spine were obtained without contrast. Co ernie and sagittal reformats were performed. 3-D reformats of the bones were created on a separate wo rkstation and submitted for review. CT Contrast: Contrast used: mL of , none. Oral contrast used: none. FINDINGS: Bones diffuse osseous demineralization and trabecular thickening appearance of the osseous structures limits evaluation for fracture. There is multilevel osteophyte formation, disc space narrowing, Schm orl's nodes, facet joint arthropathy. Additional uncovertebral joint arthropathy throughout the cervi saúl spine. There is a lytic lesion at T1 posteriorly with loss of the posterior endplate measuring at least 18 x 13 mm. Other small areas of lucency are seen scattered throughout the osseous structures. No evidence of cervical spine fracture. There is anterior wedging at T6 and T7 with at least 50% hei ght loss at T6 and 25/11/2026. Trabecular thickening throughout the osseous structures worse in the lo wer lumbar spine with large areas of lucency throughout the osseous structures. Large lucent areas in the sacrum on the right with cortical breakthrough through the sacroiliac joint measuring 30 x 27 mm and at that iliac bone near the sacroiliac joint measuring 37 x 20 mm. Spinal canal stenosis in the cervical spine worse at C3-C4 with moderate to severe and C5-C6 with mod erate to severe neural foraminal stenosis in the cervical spine is moderate to severe at C3-C4 bilate rally and moderate C4-C5 bilaterally and severe at C5-C6 on the right and moderate to severe on the l eft. No evidence for significant spinal canal stenosis throughout the lumbar spine however there is motion artifact which limits evaluation neural foraminal stenosis throughout the thoracic spine worse at wi th moderate to severe bilateral. There is mild disc bulging and mild spinal canal stenosis throughout the lumbar spine and multiple le vels. No foraminal stenosis worse at L1-L2, L3-L4 L4-L5 and L5-S1 with at least moderate stenosis alayna aterally. There is a large stool burden throughout the colon measuring up to 20 mm in transverse dimension. Fol ey catheter is present. Severe atherosclerosis of the arterial vasculature. Consolidation changes in the lung bases possibly secondary to atelectasis given bronchovascular crowding. Superimposed infecti on may also be present. IMPRESSION: 1. Extensive mottled appearance of the osseous structures with lytic lesions scattered throughout. C orrelate with patient's history of malignancy. Further evaluation with MRI with IV contrast recommend ed. Findings suggestive of diffuse metastatic disease. 2. Severe degeneration changes throughout the spine with compression deformities at T6 and T7. 3. Findings suggestive atelectasis within the lung bases with bronchial vascular crowding. Superimpo sed infection remains a possibility, correlate clinically. 4. Large stool burden throughout the colon. 5. No definitive evidence for fracture however patient's diffuse osseous demineralization and trabec ular coarsening limits evaluation.
--- NOTE | 2023-11-16 10:44 | P.PN ---
Subjective Patient is seen in follow-up for acute kidney injury. Transferred to the ICU last night due to respiratory distress. Received 40 mg IV Lasix earlier this morning. Nonoliguric. Currently on nonrebreather. Vital signs are stable. General: Sitting up in bed. HEENT: On nonrebreather. LUNGS: Scattered rhonchi. HEART: Rate and Rhythm are regular. ABDOMEN: Nontender. EXTREMITITES: No edema. Objective - Vital Signs Vital signs: Vital Signs Temp 98.3 F 11/16/23 08:00 Pulse 60 11/16/23 10:00 Resp 27 H 11/16/23 10:00 BP 130/71 11/16/23 10:00 Pulse Ox 93 L 11/16/23 10:00 FiO2 90 11/16/23 10:00 Intake & Output 11/15/23 11/16/23 11/16/23 18:59 06:59 18:59 Intake Total 118 115 Output Total 2900 1500 385 Balance -2782 -1500 -270 Weight 58.06 kg Intake: IV 115 Lactated Ringers 1,000 ml 15 @ 20 mls/hr IV .Q24H [facility] Rx#:[id number] Piperacillin-Tazobactam 3 100 .375 gm In Sodium Chloride 0.9% 100 ml @ 25 mls/hr IVPB Q8HR [facility] Rx# :[id number] Oral 118 Output: Urine 2900 1500 385 Uretheral (Ba) 800 Other: Voiding Method Indwelling Catheter Indwelling Catheter Indwelling Catheter # Bowel Movements 1 - Labs CBC & Chem 7: 11/16/23 06:44 11/16/23 06:44 Labs: Abnormal Lab Results - Last 24 Hours (Table) 11/15/23 11/15/23 11/15/23 Range/Units 09:36 09:36 18:29 WBC 12.3 H (3.8-10.6) k/uL RBC 4.20 L (4.30-5.90) m/uL MCV 105.0 H (80.0-100.0) fL Neutrophils # 11.5 H (1.3-7.7) k/uL Lymphocytes # 0.2 L (1.0-4.8) k/uL ABG pCO2 (35-45) mmHg ABG HCO3 (21-25) mmol/L ABG Total CO2 (19-24) mmol/L BUN 81 H (9-20) mg/dL Creatinine 2.27 H (0.66-1.25) mg/dL Glucose (74-99) mg/dL Calcium 10.4 H (8.4-10.2) mg/dL Ionized Calcium Yvon 5.4 H (4.5-5.3) mg/dL Total Bilirubin (0.2-1.3) mg/dL Alkaline Phosphatase (38-126) U/L Total Protein (6.3-8.2) g/dL 11/16/23 11/16/23 11/16/23 Range/Units 06:44 06:44 09:04 WBC (3.8-10.6) k/uL RBC (4.30-5.90) m/uL MCV 105.8 H (80.0-100.0) fL Neutrophils # 9.9 H (1.3-7.7) k/uL Lymphocytes # 0.2 L (1.0-4.8) k/uL ABG pCO2 49 H (35-45) mmHg ABG HCO3 31 H (21-25) mmol/L ABG Total CO2 32 H (19-24) mmol/L BUN 83 H (9-20) mg/dL Creatinine 2.07 H (0.66-1.25) mg/dL Glucose 110 H (74-99) mg/dL Calcium (8.4-10.2) mg/dL Ionized Calcium Yvon (4.5-5.3) mg/dL Total Bilirubin 1.4 H (0.2-1.3) mg/dL Alkaline Phosphatase 230 H (38-126) U/L Total Protein 9.1 H (6.3-8.2) g/dL Microbiology - Last 24 Hours (Table) 11/12/23 15:35 Blood Culture - Preliminary Blood 11/12/23 15:50 Blood Culture - Preliminary Blood Assessment and Plan Plan: Assessment: 1. Acute kidney injury secondary to ATN secondary to infection and component of cardiorenal syndrome. Creatinine as low as 1.54 this admission and peaked at 2.27 this admission -2.06 today. Creatinine dated September 18, 2023 was 1.5 in June 24, 2021 1.0. 2. Aspiration pneumonia on antibiotics. 3. Acute on chronic diastolic CHF. 4. Volume overload with pleural effusions noted on chest CT. 5. Lung nodule concerning for malignancy. Bronchoscopy pending. 6. Hypercalcemia secondary to calcium and vitamin D supplementation but also concern for hypercalcemia of malignancy. PTH 63. Vitamin D 69.3. Calcium level trending down. 7. Bilateral pelvocaliectasis noted on kidney ultrasound. Plan: Add IV Lasix 40 mg once daily. Avoid nephrotoxins. Follow-up pending workup for hypercalcemia. Continue to monitor renal function and urine output.
[2023-11-16 11:09] LABS: Angiotensin-1 Converting Enz. 17 U/L (8-52)
--- NOTE | 2023-11-16 11:52 | P.PN ---
Subjective Progress Note Date: 11/16/23 Principal diagnosis: Acute hypoxic respiratory failure secondary to acute bibasilar pneumonia, highly suspicious for aspiration pneumonia and acute exacerbation of COPD Patient is a 78-year-old white male with past medical history significant for paroxysmal atrial fibrillation with previous AV node ablation, permanent pacemaker, COPD, and former heavy tobacco use. Patient presented to the emergency room yesterday morning with a chief complaint of progressively worsening generalized weakness over the last 10 days. He is a poor historian, his is at bedside, and answers all questions. He can no longer ambulate to his bedroom, and his has set up a air mattress on the floor on the lower level. He did fall off the air mattress. This prompted the to contact EMS. He is currently resting in bed, on 4 L/min nasal cannula, in no acute distress. He reportedly does not wear home oxygen. states that he has appeared short of breath at times. No significant coughing or sputum production. No hemoptysis. No measured fevers. No sick contacts. He has no specific complaints but diffuse nonlocalized/nonspecific pain. He is very weak. Dry mucous membranes. Reportedly not eating and drinking much while at home. Brain CT done on arrival did not show any acute intracranial process. There is nonspecific white matter changes, likely secondary to chronic small vessel ischemic disease. Chest x-ray shows basilar atelectasis versus infiltrate with tiny effusion. Underlying pneumonia is not excluded. There is hyperinflation consistent with COPD. There is a 1.4 cm right apical opacity concerning for lung nodule. There is also a lucent lesion of the left proximal humerus. CBC on arrival unremarkable. No leukocytosis. Troponins elevated at 0.124, 0.132, and 0.109 respectively. EKG shows V paced rhythm. Patient was started on heparin infusion. Most recent APTT therapeutic. NT proBNP 1810. CMP done on arrival: Sodium 147, potassium 3.1, chloride 108, serum bicarb 32, BUN 77, creatinine 1.77, glucose 79. Lactic acid 0.6. CPK 53. TSH 0.879. Urinalysis shows trace protein, small leukocytes, otherwise unremarkable. Negative for influenza, RSV, COVID. Currently afebrile. Started on a combination of azithromycin and Zosyn in the emergency room. Half-normal saline is infusing at 75 mL/h. Vital signs are stable. The patient is seen today November 14, 2023 in follow-up in the emergency department. He is currently awake and alert in no acute distress. He is maintaining O2 saturations in the 90s on 5 L/min per nasal cannula. Currently afebrile. Hemodynamically stable. His procalcitonin is 0.20. His proBNP is 1810. Blood cultures are pending. White count 12.0. Hemoglobin 14.1. Platelets 153. Sodium 143. Potassium 4.4. Bicarb 26. BUN 85. Creatinine 1.82. He has been transition to Xarelto. Remains on Zosyn. Completed azithromycin. Remains on bronchodilators and steroids. Receiving 0.45% normal saline at [address] scan of the chest reveals bilateral airspace disease most likely pneumonia. Patient was reevaluated today on 11/15/2023, patient remains generally weak, according to the his weakness has been noted only in the last 2 weeks. Prior to this he was extremely active, and only in the last 2 weeks has been gradually going downhill, and developing significant weakness to the point that he cannot ambulate anymore. 2 weeks ago this patient was able to go up the stairways without any support. Patient had a CT of the chest, suggestive of bilateral pneumonia, I am suspecting that the patient is aspirating, swallow evaluation is in progress. However after reviewing the CT of the chest I am recommending bronchoscopy and BAL, just to rule out the possibility of underlying malignancy involving the lungs. Procalcitonin level is elevated WBC count is 12.3 hemoglobin 13 basic metabolic profile is normal renal profile is a bit worse today BUN is 81 creatinine 2.27, patient came in with creatinine of 1.77 went down to 1.54. And now it is 2.27, nephrology evaluated the patient felt that this is a picture of ATN or could be a cardiorenal syndrome. His echocardiogram showed good LV function, patient has moderate LV hypertrophy moderate pulmonary hypertension mild aortic and mitral regurgitation. Still the cardiac findings do not explain his pulmonary findings, patient clearly has bibasilar airspace disease, underlying malignancy is not entirely ruled out but felt to be less likely hence I am planning bronchoscopy and BAL of both lower lobes tomorrow meantime considering his profound weakness and worsening picture with his weakness which seems to be his main issue I am recommending neurological evaluation Today on 11/16/2023, the patient was supposed to undergo bronchoscopy and lavage today, however this morning his pulmonary status deteriorated, patient required to be placed on BiPAP, and required transfer to ICU. Apparently the patient was developing more shortness of breath earlier this morning, he was hypoxic, tachycardic., Patient was placed on BiPAP 12/6/100%, ABG showed a pO2 of 85 pCO2 48 and pH of 7.40. Bronchoscopy which was planned to be done today has been canceled, patient is DNI and the family would not want him to be on mechanical ventilation, hence I would not be able to perform bronchoscopy on this patient unless he is placed on mechanical ventilation. Bronchoscopy was canceled for today. Chest x-ray showed stable bilateral infiltrates and small effusion on the left side. Underlying pulmonary vascular congestion is not entirely ruled out. Considering his mental status and his overall neurological symptoms, CT of the brain showed no acute intracranial process. CT of the spine showed mottled appearance of the osseous structures with lytic lesions scattered throughout. Findings are highly suspicious for diffuse metastatic disease. PSA was ordered. Patient may eventually require a CT-guided needle biopsy of one of his lytic lesions to confirm diagnosis of metastatic disease to the spine. WBC count today is 10.6 hemoglobin 14.9, INR is 1.20 basic metabolic profile is normal however BUN is 83 creatinine 2.07, baseline creatinine is 1.77 on admission. Repeat serum calcium has been normal Objective - Vital Signs Vital signs: Vital Signs Temp 98.3 F 11/16/23 08:00 Pulse 62 11/16/23 11:27 Resp 26 H 11/16/23 11:27 BP 130/71 11/16/23 10:00 Pulse Ox 93 L 11/16/23 10:00 FiO2 80 11/16/23 11:17 Intake & Output 11/15/23 11/16/23 11/16/23 18:59 06:59 18:59 Intake Total 118 115 Output Total 2900 1500 385 Balance -3462 -1500 -270 Weight 58.06 kg Intake: IV 115 Lactated Ringers 1,000 ml 15 @ 20 mls/hr IV .Q24H [facility] Rx#:[id number] Piperacillin-Tazobactam 3 100 .375 gm In Sodium Chloride 0.9% 100 ml @ 25 mls/hr IVPB Q8HR [facility] Rx# :[id number] Oral 118 Output: Urine 2900 1500 385 Uretheral (Ba) 800 Other: Voiding Method Indwelling Catheter Indwelling Catheter Indwelling Catheter # Bowel Movements 1 - Exam GENERAL EXAM: Revealed a 78-year-old white male, lethargic, weak, on BiPAP, is at bedside. HEAD: Normocephalic and atraumatic EYES: Normal reaction of pupils, equal size. NOSE: Clear with pink turbinates. THROAT: No erythema or exudates. Dry mucous membranes. NECK: No masses, no JVD. CHEST: No chest wall deformity. Left chest implanted device LUNGS: Equal air entry crackles at the bases. No wheezing noted today. CVS: S1 and S2 normal with no audible murmur, regular rhythm. No extra heart sounds ABDOMEN: Soft nontender no megaly no rebound no guarding SKIN: No rashes CENTRAL NERVOUS SYSTEM: Patient is lethargic, arousable, follows simple instructions but profoundly weak. EXTREMITIES: There is no peripheral edema, clubbing, or cyanosis. Peripheral pulses are intact. - Labs CBC & Chem 7: 11/16/23 06:44 11/16/23 06:44 Labs: Abnormal Lab Results - Last 24 Hours (Table) 11/15/23 11/16/23 11/16/23 Range/Units 18:29 06:44 06:44 MCV 105.8 H (80.0-100.0) fL Neutrophils # 9.9 H (1.3-7.7) k/uL Lymphocytes # 0.2 L (1.0-4.8) k/uL ABG pCO2 (35-45) mmHg ABG HCO3 (21-25) mmol/L ABG Total CO2 (19-24) mmol/L BUN 83 H (9-20) mg/dL Creatinine 2.07 H (0.66-1.25) mg/dL Glucose 110 H (74-99) mg/dL Ionized Calcium Yvon 5.4 H (4.5-5.3) mg/dL Total Bilirubin 1.4 H (0.2-1.3) mg/dL Alkaline Phosphatase 230 H (38-126) U/L Total Protein 9.1 H (6.3-8.2) g/dL 11/16/23 Range/Units 09:04 MCV (80.0-100.0) fL Neutrophils # (1.3-7.7) k/uL Lymphocytes # (1.0-4.8) k/uL ABG pCO2 49 H (35-45) mmHg ABG HCO3 31 H (21-25) mmol/L ABG Total CO2 32 H (19-24) mmol/L BUN (9-20) mg/dL Creatinine (0.66-1.25) mg/dL Glucose (74-99) mg/dL Ionized Calcium Yvon (4.5-5.3) mg/dL Total Bilirubin (0.2-1.3) mg/dL Alkaline Phosphatase (38-126) U/L Total Protein (6.3-8.2) g/dL Microbiology - Last 24 Hours (Table) 11/12/23 15:35 Blood Culture - Preliminary Blood 11/12/23 15:50 Blood Culture - Preliminary Blood Assessment and Plan Assessment: Impression: 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 Unexplained weakness but most likely it is related to possible metastatic malignancy. Aspiration pneumonia is strongly suspected No evidence of apical lung nodule as noted on CT of the chest Acute kidney injury Acute metabolic encephalopathy History of pacemaker implantation History of paroxysmal atrial fibrillation Benign essential hypertension History of underlying COPD presently inactive History of BPH Recommendation: Continue BiPAP Cancel bronchoscopy for today since the patient does not want to be intubated, and it is difficult to perform bronchoscopy on someone with marginal pulmonary status without possibly intubating the patient. Continue Zosyn Continue bronchodilators Patient to be restarted on heparin and continue to hold Xarelto Oncology to evaluate the patient. Titrate FiO2 accordingly Will continue to follow Patient will need full swallow evaluation and may be a modified barium swallow Will continue to follow prognosis is guarded Discussed patient's condition and status with the at bedside Time with Patient: Less than 30
--- NOTE | 2023-11-16 13:33 | P.PN ---
Subjective Progress Note Date: 11/16/23 I am following-up with patient and it seems patient was transferred to ICU because of his worsening of his condition yesterday. He is on Non-Rebreather. Today he feels somewhat better. Objective - Vital Signs Vital signs: Vital Signs Temp 97.8 F 11/16/23 12:00 Pulse 63 11/16/23 12:00 Resp 22 11/16/23 12:00 BP 145/74 11/16/23 12:00 Pulse Ox 94 L 11/16/23 12:00 FiO2 80 11/16/23 11:17 Intake & Output 11/15/23 11/16/23 11/16/23 18:59 06:59 18:59 Intake Total 118 125 Output Total 2900 1500 520 Balance -2782 -1500 -395 Weight 58.06 kg Intake: IV 125 Lactated Ringers 1,000 ml 25 @ 20 mls/hr IV .Q24H [facility] Rx#:[id number] Piperacillin-Tazobactam 3 100 .375 gm In Sodium Chloride 0.9% 100 ml @ 25 mls/hr IVPB Q8HR [facility] Rx# :[id number] Oral 118 Output: Urine 2900 1500 520 Uretheral (Ba) 800 Other: Voiding Method Indwelling Catheter Indwelling Catheter Indwelling Catheter # Bowel Movements 1 1 - Exam General: Lying in bed and is not in acute distress. Lung: Sound less coarse and congested today compared to yesterday. Neuro: Limited because on Non-Breather The patient is awake, alert, oriented to self. Is following simple commands. No facial weakness. Motor: Strength is lifting uppers and lowers above gravity and seems equal. Some of the other work-up consisted: Patient is afebrile White blood cell was normal on presentation and is currently trended up. CK level is 53. Vitamin B12 is 969 Red blood cell folate is 563 TSH 0.879 Ammonia is less than 9 Calcium Is 11.8 and the most recent 1 is 10.4 Ionized calcium is 5.4 PTH 63.0 Phosphorus: 3.7 Magnesium 2.3 Sodium is currently 142 it was as high as 152 during this admission. Patient had a CT of the head in our facility and is reported as no acute intracranial process. Nonspecific white matter changes, likely secondary due to chronic small vessel ischemic disease. I personally reviewed the CT and agree with the report. - Labs CBC & Chem 7: 11/16/23 06:44 11/16/23 06:44 Labs: Abnormal Lab Results - Last 24 Hours (Table) 11/15/23 11/16/23 11/16/23 Range/Units 18:29 06:44 06:44 MCV 105.8 H (80.0-100.0) fL Neutrophils # 9.9 H (1.3-7.7) k/uL Lymphocytes # 0.2 L (1.0-4.8) k/uL ABG pCO2 (35-45) mmHg ABG HCO3 (21-25) mmol/L ABG Total CO2 (19-24) mmol/L BUN 83 H (9-20) mg/dL Creatinine 2.07 H (0.66-1.25) mg/dL Glucose 110 H (74-99) mg/dL Ionized Calcium Yvon 5.4 H (4.5-5.3) mg/dL Total Bilirubin 1.4 H (0.2-1.3) mg/dL Alkaline Phosphatase 230 H (38-126) U/L Total Protein 9.1 H (6.3-8.2) g/dL 11/16/23 Range/Units 09:04 MCV (80.0-100.0) fL Neutrophils # (1.3-7.7) k/uL Lymphocytes # (1.0-4.8) k/uL ABG pCO2 49 H (35-45) mmHg ABG HCO3 31 H (21-25) mmol/L ABG Total CO2 32 H (19-24) mmol/L BUN (9-20) mg/dL Creatinine (0.66-1.25) mg/dL Glucose (74-99) mg/dL Ionized Calcium Yvon (4.5-5.3) mg/dL Total Bilirubin (0.2-1.3) mg/dL Alkaline Phosphatase (38-126) U/L Total Protein (6.3-8.2) g/dL Microbiology - Last 24 Hours (Table) 11/12/23 15:35 Blood Culture - Preliminary Blood 11/12/23 15:50 Blood Culture - Preliminary Blood Assessment and Plan Assessment: This is a 78-year-old gentleman with a history of heavy tobacco use who presents to the emergency department because of generalized weakness that is progressively getting worse as a result having difficulty ambulating. From the limited history no fever sick contacts. During this hospital stay it appears the patient had aspiration pneumonia that is assumed and patient is very coarse currently. Chest x-ray there was a concern for persistent vague nodular density in the right lobe measuring 1.4 cm. Also had hypercalcemia. On CT Chest no mention of mass. New rapid generalized weakness: Unsure exact etiology rule out lung mass which can result in paraneoplastic. Patient has hypercalcemia that can result in weakness. Initial CT head is unremarkable. Altered mental status due to metabolic encephalopathy, TERRY as well as aspiration pneumonia Nodular density in the right lobe 1.4 cm on chest x-ray but reported on CT chest Aspiration pneumonia and patient is very coarse even without auscultation Hypercalcemia Acute kidney injury Chronic back pain Chronic knee pain History of AV ablation Status post pacemaker Former heavy tobacco use Plan: Pending Acetylcholine abs and Musk ab. Consider Lambert-Eaton syndrome work-up if he does have cancer. Pending repeat CT of the head. Pending CT cervical, thoracic and lumbar spine. Unable to obtain MRI because of the pacemaker. Consider PET scan of whole body. Consider oncology consultation Pulmonary team is on board Nephrology team is on board Will defer the rest of the medical management to primary/ICU team and other specialists The plan discussed with his nurse. Dr. Villareal will resume neurology service tomorrow A.M. Time with Patient: Less than 30
--- NOTE | 2023-11-16 14:26 | P.PN ---
Subjective Progress Note Date: 11/16/23 78-year-old white male with past medical history significant for paroxysmal atrial fibrillation with previous AV node ablation, permanent pacemaker, COPD, and former heavy tobacco use. Patient presented to the emergency room yesterday morning with a chief complaint of progressively worsening generalized weakness over the last 10 days. He is a poor historian, his is at bedside, and answers all questions. He can no longer ambulate to his bedroom, and his has set up a air mattress on the floor on the lower level. He did fall off the air mattress. This prompted the to contact EMS. He is currently resting in bed, on 4 L/min nasal cannula, in no acute distress. He reportedly does not wear home oxygen. states that he has appeared short of breath at times. No significant coughing or sputum production. No hemoptysis. No measured fevers. No sick contacts. He has no specific complaints but diffuse nonlocalized/nonspecific pain. He is very weak. Dry mucous membranes. R eportedly not eating and drinking much while at home. Brain CT done on arrival did not show any acute intracranial process. There is nonspecific white matter changes, likely secondary to chronic small vessel ischemic disease. Chest x-ray shows basilar atelectasis versus infiltrate with tiny effusion. Underlying pneumonia is not excluded. There is hyperinflation consistent with COPD. There is a 1.4 cm right apical opacity concerning for lung nodule. There is also a lucent lesion of the left proximal humerus. CBC on arrival unremarkable. No leukocytosis. Troponins elevated at 0.124, 0.132, and 0.109 respectively. EKG shows V paced rhythm. Patient was started on heparin infusion. Most recent APTT therapeutic. NT proBNP 1810. CMP done on arrival: Sodium 147, potassium 3.1, chloride 108, serum bicarb 32, BUN 77, creatinine 1.77, glucose 79. Lactic acid 0.6. CPK 53. TSH 0.879. Urinalysis shows trace protein, small leukocytes, otherwise unremarkable. Negative for influenza, RSV, COVID. Currently afebrile. Started on a combination of azithromycin and Zosyn in the emergency room. Objective - Vital Signs Vital signs: Vital Signs Temp 98.3 F 11/16/23 08:00 Pulse 60 11/16/23 09:00 Resp 11 L 11/16/23 09:00 BP 141/72 11/16/23 09:00 Pulse Ox 97 11/16/23 09:00 FiO2 90 11/16/23 09:26 Intake & Output 11/15/23 11/16/23 11/16/23 18:59 06:59 18:59 Intake Total 118 110 Output Total 2900 1500 345 Balance -2782 -1500 -235 Weight 58.06 kg Intake: IV 110 Lactated Ringers 1,000 ml 10 @ 20 mls/hr IV .Q24H [facility] Rx#:[id number] Piperacillin-Tazobactam 3 100 .375 gm In Sodium Chloride 0.9% 100 ml @ 25 mls/hr IVPB Q8HR [facility] Rx# :[id number] Oral 118 Output: Urine 2900 1500 345 Uretheral (Ba) 800 Other: Voiding Method Indwelling Catheter Indwelling Catheter # Bowel Movements 1 - Exam GENERAL EXAM: Alert, 78-year-old weak, disheveled male patient, on 5 L nasal cannula, comfortable in no apparent distress. HEAD: Normocephalic and atraumatic EYES: Normal reaction of pupils, equal size. NOSE: Clear with pink turbinates. THROAT: No erythema or exudates. Dry mucous membranes. NECK: No masses, no JVD. CHEST: No chest wall deformity. Left chest implanted device LUNGS: Equal air entry with diffuse coarse rhonchi heard bilaterally and throughout. No conversational dyspnea. CVS: S1 and S2 normal with no audible murmur, regular rhythm. No extra heart sounds ABDOMEN: No hepatosplenomegaly, active bowel sounds, no guarding or rigidity. CENTRAL NERVOUS SYSTEM: No focal deficits, tone is normal in all 4 extremities. EXTREMITIES: There is no peripheral edema, clubbing, or cyanosis. Peripheral pulses are intact. - Labs CBC & Chem 7: 11/16/23 06:44 11/16/23 06:44 Labs: Abnormal Lab Results - Last 24 Hours (Table) 11/15/23 11/15/23 11/15/23 Range/Units 09:36 09:36 18:29 WBC 12.3 H (3.8-10.6) k/uL RBC 4.20 L (4.30-5.90) m/uL MCV 105.0 H (80.0-100.0) fL Neutrophils # 11.5 H (1.3-7.7) k/uL Lymphocytes # 0.2 L (1.0-4.8) k/uL ABG pCO2 (35-45) mmHg ABG HCO3 (21-25) mmol/L ABG Total CO2 (19-24) mmol/L BUN 81 H (9-20) mg/dL Creatinine 2.27 H (0.66-1.25) mg/dL Glucose (74-99) mg/dL Calcium 10.4 H (8.4-10.2) mg/dL Ionized Calcium Yvon 5.4 H (4.5-5.3) mg/dL Total Bilirubin (0.2-1.3) mg/dL Alkaline Phosphatase (38-126) U/L Total Protein (6.3-8.2) g/dL 11/16/23 11/16/23 11/16/23 Range/Units 06:44 06:44 09:04 WBC (3.8-10.6) k/uL RBC (4.30-5.90) m/uL MCV 105.8 H (80.0-100.0) fL Neutrophils # 9.9 H (1.3-7.7) k/uL Lymphocytes # 0.2 L (1.0-4.8) k/uL ABG pCO2 49 H (35-45) mmHg ABG HCO3 31 H (21-25) mmol/L ABG Total CO2 32 H (19-24) mmol/L BUN 83 H (9-20) mg/dL Creatinine 2.07 H (0.66-1.25) mg/dL Glucose 110 H (74-99) mg/dL Calcium (8.4-10.2) mg/dL Ionized Calcium Yvon (4.5-5.3) mg/dL Total Bilirubin 1.4 H (0.2-1.3) mg/dL Alkaline Phosphatase 230 H (38-126) U/L Total Protein 9.1 H (6.3-8.2) g/dL Microbiology - Last 24 Hours (Table) 11/12/23 15:35 Blood Culture - Preliminary Blood 11/12/23 15:50 Blood Culture - Preliminary Blood Assessment and Plan Assessment: Acute hypoxemic respiratory failure, secondary to acute COPD exacerbation and possible left basilar community-acquired pneumonia. Chest x-ray demonstrates some left basilar atelectasis or infiltrate with tiny effusion. Underlying pneumonia is not excluded. Negative for influenza, RSV, COVID. Suspect right apical lung nodule measuring 1.[address] scan of the chest without contrast reveals small bilateral pleural effusions. Bilateral airspace conso lidation with air bronchograms. No mention of right upper lobe pulmonary nodule Severe dehydration and reduced oral intake Acute kidney injury, secondary to above Hypokalemia, replaced and recovered Altered mental status, consider acute metabolic encephalopathy, secondary to pneumonia/sepsis Elevated troponins, rule out non-ST elevation MT, currently on heparin infusion per protocol. History of paroxysmal atrial fibrillation status post AV dalia ablation with previous permanent implantation V-paced rhythm History of hyperlipidemia History of hypertension History of tobacco dependence, quit smoking approximately 8 years ago, heavy smoker prior and greater than [id number] History of BPH Plan: The patient was seen and evaluated The scan of the chest, labs and medications reviewed Continue Zosyn Completed azithromycin Continue bronchodilators and steroids Transitioned back to Xarelto per cardiology Titrate the FiO2 as tolerated We will continue to follow
[2023-11-16] MEDS: HEPARIN SODIUM 1,000 UN/ML (10ML VL) IV PRN (15:35)
--- NOTE | 2023-11-16 16:14 | P.PN ---
Subjective History of present illness: This is a 78-year-old male patient of Dr. 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 We have been asked to evaluate the patient for non-ST elevated myocardial infarction. Patient's gives history that he came into the hospital because of dehydration and pain all over his body. Whether week ago he was able to walk and carry on normally but by Sunday he was having trouble with ambulation could not do the stairs. By Sunday he was unable to feed himself. Patient had a fall in the bathroom. Patient has had no appetite. He has been confused for last 1 to 2 days. He also has complained of chest pain. voices concern about pacemaker battery but this seems to be fine according to the office notes. Patient denies having any chest pain at this time. Patient has been started on heparin drip. Patient is seen today in the emergency center waiting for a bed on the cardiac stepdown unit. EKG ventricularly paced rhythm Chest x-ray: Bilateral infiltrates and small pleural effusion on the left. Correlation for pneumonia. Mild venous congestion excluded. There are persistent vague nodular density in the right lobe measuring 1.4 cm. WBC 6, hemoglobin 13.7, platelet count 172. INR 1.3. Sodium 152, potassium 3.1, chloride 113, CO2 25, BUN 69 and creatinine 1.5. Initially BUN was 77 and creatinine 1.77. Blood sugar 123. Troponins 0.124, 0.132, 0.109. proBNP 1810. Procalcitonin 0.2. Urinalysis revealed leukoesterase small cast 82. Influenza A, influenza B, COVID-19, RSV not detected. Home cardiac medications: Pravastatin 40 mg at bedtime, Xarelto 20 mg daily, verapamil 40 mg daily Echocardiogram performed in the office on 08/14/2022 revealed EF of 50 to 55% with mild concentric left ventricular hypertrophy. Mild aortic regurgitation. Moderate to severe mitral regurgitation. Severe tricuspid regurgitation. PASP of 52 mmHg. Mild pulmonic regurgitation. 11/13 Patient is seen today in follow-up in the emergency center. Echocardiogram reveals EF of 60 to 65%, moderate left ventricular hypertrophy. Moderate pulmonary hypertension. Mild RV enlargement with normal RV function. Mild to moderate tricuspid regurgitation. Mild aortic and mitral regurgitation. Blood pressure 141/65, heart rate 61, pulse ox 95% on 5 L nasal cannula. Repeat blood work reveals hemoglobin 14.1. Potassium 4.4, BUN 85 creatinine 1.82. Patient states that his breathing is okay. No complaints of chest pain. 11/14 Patient is noted to have more chest congestion today. He is receiving a dose of IV Lasix and pulmonary is planning for bronchoscopy tomorrow. Patient continues to complain of all over pain and no specific chest pain. Blood pressure 144/86, heart rate 60, pulse ox 95% on 4 L nasal cannula. Repeat blood work reveals WBC 12.3, hemoglobin 13.8. Potassium 3.7, BUN 81 creatinine 2.27. 11/15 Patient seen and examined. Patient was scheduled to undergo bronchoscopy ho wever worsening respiratory status and therefore this was canceled. He was transferred to ICU and placed on BiPAP and changed over to nonrebreather. He has been nothing by mouth for possible aspiration. He does not have any appetite. He has had nothing by mouth. His creatinine mildly increased to 2.0 today. He does not have any significant lower extremity edema. He is DO NOT INTUBATE and therefore may not be a good candidate for bronchoscopy. Physical examination: Gen: This is a ill-appearing 78-year-old male in no acute distress. VS: reviewed HEENT: Head is atraumatic, normocephalic. Pupils equal, round. Sclerae is anicteric. NECK: Supple. No JVD. LUNGS: Diminished breath sounds, scattered rhonchi. No intercostal retractions. HEART: Irregular ate and rhythm. Systolic murmur. ABDOMEN: Soft No tenderness. EXTREMITIES: No pedal edema. No calf tenderness. NEUROLOGICAL: Patient is awake. Assessment: Chest pain Elevated troponin, type II IA Acute hypoxic respiratory failure secondary to acute exacerbation of COPD, possible pneumonia Right apical lung nodule Acute kidney injury Hypokalemia Metabolic encephalopathy Permanent atrial fibrillation Status post pacemaker Remote history of tobacco use and dependence Plan: Continue with current regimen. Restart Xarelto if not going for procedures or bronchoscopy. Does not currently appear volume overloaded and may need gentle IV fluids if not eating. Prognosis very guarded. No further recommendations from cardiology standpoint. Please call with questions. Objective - Vital Signs Vital signs: Vital Signs Temp 97.8 F 11/16/23 12:00 Pulse 61 11/16/23 15:00 Resp 20 11/16/23 15:00 BP 122/76 11/16/23 15:00 Pulse Ox 94 L 11/16/23 15:00 FiO2 80 11/16/23 15:00 Intake & Output 11/15/23 11/16/23 11/16/23 18:59 06:59 18:59 Intake Total 118 183.195 Output Total 2900 1500 700 Balance -2782 -1500 -516.805 Weight 58.06 kg Intake: IV 140 Lactated Ringers 1,000 ml 40 @ 20 mls/hr IV .Q24H [facility] Rx#:[id number] Piperacillin-Tazobactam 3 100 .375 gm In Sodium Chloride 0.9% 100 ml @ 25 mls/hr IVPB Q8HR [facility] Rx# :[id number] Intake, IV Titration 43.195 Amount Heparin Sod,Pork in 0.45% 43.195 NaCl 25,000 unit In 0.45 % NaCl 1 250ml.bag @ 12 UNITS/KG/HR 6.967 mls/hr IV .Q24H [facility] Rx#: [id number] Oral 118 Output: Urine 2900 1500 700 Uretheral (Ba) 800 Other: Voiding Method Indwelling Catheter Indwelling Catheter Indwelling Catheter # Bowel Movements 1 1 - Labs CBC & Chem 7: 11/16/23 06:44 11/16/23 06:44 Labs: Abnormal Lab Results - Last 24 Hours (Table) 11/15/23 11/16/23 11/16/23 Range/Units 18:29 06:44 06:44 MCV 105.8 H (80.0-100.0) fL Neutrophils # 9.9 H (1.3-7.7) k/uL Lymphocytes # 0.2 L (1.0-4.8) k/uL APTT (22.0-30.0) sec ABG pCO2 (35-45) mmHg ABG HCO3 (21-25) mmol/L ABG Total CO2 (19-24) mmol/L BUN 83 H (9-20) mg/dL Creatinine 2.07 H (0.66-1.25) mg/dL Glucose 110 H (74-99) mg/dL Ionized Calcium Yvon 5.4 H (4.5-5.3) mg/dL Total Bilirubin 1.4 H (0.2-1.3) mg/dL Alkaline Phosphatase 230 H (38-126) U/L Total Protein 9.1 H (6.3-8.2) g/dL 11/16/23 11/16/23 Range/Units 09:04 14:49 MCV (80.0-100.0) fL Neutrophils # (1.3-7.7) k/uL Lymphocytes # (1.0-4.8) k/uL APTT 35.2 H (22.0-30.0) sec ABG pCO2 49 H (35-45) mmHg ABG HCO3 31 H (21-25) mmol/L ABG Total CO2 32 H (19-24) mmol/L BUN (9-20) mg/dL Creatinine (0.66-1.25) mg/dL Glucose (74-99) mg/dL Ionized Calcium Yvon (4.5-5.3) mg/dL Total Bilirubin (0.2-1.3) mg/dL Alkaline Phosphatase (38-126) U/L Total Protein (6.3-8.2) g/dL Microbiology - Last 24 Hours (Table) 11/12/23 15:35 Blood Culture - Preliminary Blood 11/12/23 15:50 Blood Culture - Preliminary Blood
--- NOTE | 2023-11-16 16:39 | P.CONS ---
History of Present Illness - Reason for Consult Consult date: 11/16/23 Bone lesions on imaging - History of Present Illness The patient is a 78-year-old white male with multiple medical problems. The patient was admitted because of progressive weakness, and shortness of breath, with symptoms progressing over the past month or so. He has lost about 20 pounds in weight. There was also associated decrease in appetite. The patient is currently in the ICU, because of acute respiratory failure, on BiPAP. He has had multiple imaging studies including chest x-rays and CT of the chest, showing bilateral consolidation suggestive of pneumonia with underlying obstructive pathology cannot rule out at this time. The patient has also been lethargic and confused due to which CT of the brain was performed, showing chronic microvascular ischemic changes. During this admission the patient was noted to have increasing creatinine compared to baseline with ultrasound showing probable obstructive uropathy. 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 He had CT of the spine done, that showed a mottled appearance throughout, with possible scattered lytic lesions, most prominently at T1 and then in the right ilium and right sacrum/sacroiliac joint. There is sacral lesion also appears to be associated with some cortical breakthrough. Consult to this was placed to evaluate for possible metastatic malignancy. According to his there is no prior history of malignancy. His PSA in 09/29 was normal. The patient has a longstanding history of smoking, about 2 packs a day since his teens. He quit smoking about 10 years ago. His labs show borderline high calcium which improved with hydration. PTH was elevated at 63. Review of Systems Obtained from , and chart Constitutional: Reports fatigue, Reports poor appetite, Reports weakness, Reports weight loss Eyes: denies blurred vision, denies pain Ears: deny: decreased hearing, ear discharge, earache, tinnitus Ears, nose, mouth and throat: Denies headache, Denies sore throat Cardiovascular: Reports as per HPI (PPM), Reports shortness of breath Respiratory: Reports cough with sputum, Reports dyspnea Gastrointestinal: Denies abdominal pain, Denies diarrhea, Denies nausea, Denies vomiting Genitourinary: Reports as per HPI Musculoskeletal: Reports low back pain, Reports muscle weakness Integumentary: Denies pruritus, Denies rash Neurological: Reports confusion, Reports weakness Psychiatric: Reports confusion Endocrine: Reports fatigue, Reports weight change Hematologic/Lymphatic: Reports as per HPI Past Medical History Past Medical History: Atrial Fibrillation, Chest Pain / Angina, COPD, Hyperlipidemia, Pneumonia Additional Past Medical History / Comment(s): See Dr Mckeon H&P, chronic back pain, diverticulosis, History of Any Multi-Drug Resistant Organisms: None Reported Past Surgical History: Orthopedic Surgery, Pacemaker Additional Past Surgical History / Comment(s): 03/25/19 cinefluoroscpy, ca rdioversion,mateus rt knee/lower leg sx has 3 screws, colonoscopy, "bone aspiration" Past Anesthesia/Blood Transfusion Reactions: No Reported Reaction Additional Past Anesthesia/Blood Transfusion Reaction / Comm: per -pt never recieved any blood in past Type of Cardiac Device: Permanent Pacemaker Device Placement Date:: 04/15/19 Past Psychological History: No Psychological Hx Reported Smoking Status: Former smoker Past Alcohol Use History: None Reported Additional Past Alcohol Use History / Comment(s): started smoking at age 15(1960)stopped smoking in May 2017. past occ etoh-none since may 2017. Past Drug Use History: None Reported Additional Drug Use History / Comment(s): uses cbd oil - Past Family History Mother History Unknown: Yes Family Medical History: No Reported History Medications and Allergies Home Medications Medication Instructions Recorded Confirmed Type Cholecalciferol [Vitamin D3 (25 25 mcg PO HS 05/23/17 11/12/23 History Mcg = 1000 Iu)] Glucosamine Sulfate 500 mg PO HS 05/23/17 11/12/23 History Pravastatin Sodium [Pravachol] 40 mg PO HS 05/23/17 11/12/23 History Tamsulosin HCl [Flomax] 0.8 mg PO HS 05/29/17 11/12/23 History Hydrocodone/Acetaminophen 1 tab PO Q6HR PRN 08/17/17 11/12/23 History [Hydrocodone/Acetaminophen 10-325] Rivaroxaban [Xarelto] 20 mg PO DAILY 03/05/18 11/12/23 History Zolpidem Tartrate [Ambien] 10 mg PO HS PRN 03/05/18 11/12/23 History ALPRAZolam [Xanax] 0.25 mg PO DAILY PRN 10/13/18 11/12/23 History Verapamil [Isoptin] 40 mg PO DAILY 11/12/23 11/12/23 History Allergies Allergy/AdvReac Type Severity Reaction Status Date / Time cefuroxime Allergy Intermediate Diaphoretic, Verified 11/12/23 11:34 tingling sensation, anxiety, Rapid Heart Rate ciprofloxacin [From Cipro] Allergy Anaphylaxis Verified 11/12/23 11:34 metronidazole Allergy Anaphylaxis Verified 11/12/23 11:34 clindamycin AdvReac Severe Dizzy, Verified 11/12/23 11:34 diaphoretic, short of breath, tachycaRapid Heart Rate Physical Exam Vitals: Vital Signs Temp Pulse Pulse Resp BP BP Pulse Ox 11/16/23 15:00 61 20 122/76 94 L 11/16/23 14:50 59 L 21 11/16/23 14:42 59 L 27 H 11/16/23 14:00 61 16 118/66 94 L 11/16/23 13:00 60 16 142/79 93 L 11/16/23 12:00 97.8 F 63 22 145/74 94 L 11/16/23 11:27 62 26 H 11/16/23 11:17 11/16/23 11:15 60 19 11/16/23 11:00 59 L 22 131/74 93 L 11/16/23 10:00 60 27 H 130/71 93 L 11/16/23 09:26 11/16/23 09:00 60 26 H 141/72 97 11/16/23 08:36 61 11/16/23 08:10 61 11/16/23 08:00 98.3 F 60 27 H 127/76 93 L 11/16/23 07:53 61 98 11/16/23 07:47 11/16/23 07:00 60 21 118/71 94 L 11/16/23 06:46 11/16/23 06:04 11/16/23 06:00 77 26 H 164/78 88 L 11/16/23 03:35 67 20 92 L 11/16/23 03:00 97.1 F L 62 13 123/54 85 L 11/16/23 02:00 60 18 11/16/23 00:00 97.2 F L 60 18 122/77 95 11/15/23 21:24 74 11/15/23 21:12 72 11/15/23 21:11 72 11/15/23 20:57 70 11/15/23 20:00 97.6 F 60 22 134/80 94 L 11/15/23 17:57 90 L 11/15/23 16:50 91 L 11/15/23 16:46 72 FiO2 11/16/23 15:00 80 11/16/23 14:50 11/16/23 14:42 11/16/23 14:00 80 11/16/23 13:00 80 11/16/23 12:00 80 11/16/23 11:27 11/16/23 11:17 80 11/16/23 11:15 11/16/23 11:00 90 11/16/23 10:00 90 11/16/23 09:26 90 11/16/23 09:00 100 11/16/23 08:36 11/16/23 08:10 11/16/23 08:00 100 11/16/23 07:53 100 11/16/23 07:47 100 11/16/23 07:00 11/16/23 06:46 100 11/16/23 06:04 100 11/16/23 06:00 11/16/23 03:35 11/16/23 03:00 11/16/23 02:00 11/16/23 00:00 11/15/23 21:24 11/15/23 21:12 11/15/23 21:11 11/15/23 20:57 11/15/23 20:00 11/15/23 17:57 11/15/23 16:50 11/15/23 16:46 Intake and Output 11/16/23 11/16/23 11/16/23 06:59 14:59 22:59 Intake Total 135 48.195 Output Total 900 625 75 Balance -900 -490 -26.805 Intake: IV 135 5 Lactated Ringers 1,000 ml 35 5 @ 20 mls/hr IV .Q24H [facility] Rx#:[id number] Piperacillin-Tazobactam 3 100 .375 gm In Sodium Chloride 0.9% 100 ml @ 25 mls/hr IVPB Q8HR [facility] Rx# :[id number] Intake, IV Titration 43.195 Amount Heparin Sod,Pork in 0.45% 43.195 NaCl 25,000 unit In 0.45 % NaCl 1 250ml.bag @ 12 UNITS/KG/HR 6.967 mls/hr IV .Q24H [facility] Rx#: [id number] Output: Urine 900 625 75 Other: Voiding Method Indwelling Catheter Indwelling Catheter Indwelling Catheter # Bowel Movements 1 1 - Constitutional General appearance: mild distress ( on BiPAP) - EENT Eyes: EOMI, PERRLA ENT: hearing grossly normal, normal oropharynx - Neck Neck: no lymphadenopathy Thyroid: bilateral: normal size - Respiratory Respiratory: bilateral: rales (Bases) - Cardiovascular Pacemaker left chest wall Rhythm: regular Heart sounds: normal: S1, S2 - Gastrointestinal General gastrointestinal: decreased bowel sounds, soft - Neurologic Neurologic: CNII-XII intact - Musculoskeletal Musculoskeletal: generalized weakness, strength equal bilaterally - Psychiatric Patient is lethargic. He is able to answer some simple questions. Recall appears to be significantly reduced at this time Results CBC & Chem 7: 11/16/23 06:44 11/16/23 06:44 Labs: Abnormal Lab Results - Last 24 Hours (Table) 11/15/23 11/16/23 11/16/23 Range/Units 18:29 06:44 06:44 MCV 105.8 H (80.0-100.0) fL Neutrophils # 9.9 H (1.3-7.7) k/uL Lymphocytes # 0.2 L (1.0-4.8) k/uL APTT (22.0-30.0) sec ABG pCO2 (35-45) mmHg ABG HCO3 (21-25) mmol/L ABG Total CO2 (19-24) mmol/L BUN 83 H (9-20) mg/dL Creatinine 2.07 H (0.66-1.25) mg/dL Glucose 110 H (74-99) mg/dL Ionized Calcium Yvon 5.4 H (4.5-5.3) mg/dL Total Bilirubin 1.4 H (0.2-1.3) mg/dL Alkaline Phosphatase 230 H (38-126) U/L Total Protein 9.1 H (6.3-8.2) g/dL 11/16/23 11/16/23 Range/Units 09:04 14:49 MCV (80.0-100.0) fL Neutrophils # (1.3-7.7) k/uL Lymphocytes # (1.0-4.8) k/uL APTT 35.2 H (22.0-30.0) sec ABG pCO2 49 H (35-45) mmHg ABG HCO3 31 H (21-25) mmol/L ABG Total CO2 32 H (19-24) mmol/L BUN (9-20) mg/dL Creatinine (0.66-1.25) mg/dL Glucose (74-99) mg/dL Ionized Calcium Yvon (4.5-5.3) mg/dL Total Bilirubin (0.2-1.3) mg/dL Alkaline Phosphatase (38-126) U/L Total Protein (6.3-8.2) g/dL Microbiology - Last 24 Hours (Table) 11/12/23 15:35 Blood Culture - Preliminary Blood 11/12/23 15:50 Blood Culture - Preliminary Blood Chest x-ray: report reviewed CT scan - abdomen: report reviewed CT scan - chest: report reviewed CT scan - pelvis: report reviewed US - abdomen: report reviewed Assessment and Plan (1) Abnormal CT of spine Narrative/Plan: Consult was placed because of abnormal imaging on CT spine survey. On ques tioning the patient denies any increase in his chronic musculoskeletal pain issues. There is a diffuse mottled appearance of the bone, which could be due to malignancy, but also due to benign processes such as osteoporosis. However the lesions noted in the right ilium and sacrum, as well as in the T-spine appear to be more suspicious. - Results and implications were discussed in detail with the patient and his . They were advised that the findings are suspicious enough to warrant further workup to evaluate for malignancy. At this time I will order protein electrophoresis studies. If these are benign, I will proceed to a bone scan and CT imaging with contrast. This will be performed when the patient is more stable in terms of his current complaints, as well as improvement in terms of his renal function so that CT dye can be administered. -Labs are overall unrevealing with PSA normal in 09/29. Calcium was mildly elevated, but given renal insufficiency and high PTH, is not consistent with malignant hypercalcemia Current Visit: Yes Status: Acute Code(s): R93.7 - ABNORMAL FINDINGS ON DIAGNOSTIC IMAGING OF PRT [facility] SNOMED Code(s): 836860896 Plan: Defer to the admitting service and other consultants for management of his other medical problems. Chest imaging does raise the possibility of underlying obstructive mass. Patient was to have a bronchoscopy, but that is on hold for now.
[2023-11-16 18:45] LABS: Vitamin D, 1, 25-Dihydroxy 29 pg/mL (20 - 79)
[2023-11-16 20:42] LABS: Albumin 2.98 g/dL (3.80-4.90); Gamma Globulin 3.51 g/dL (0.70-1.50)
--- NOTE | 2023-11-16 21:53 | P.GSCN ---
History of Present Illness Consult date: 11/16/23 Reason for Consult: Hydronephrosis Requesting physician: Leroy Hillman History of present illness: The patient is a 78-year-old white male admitted November 12, 2023 with generalized weakness, fatigue, and weight loss. He has been found to have acute hypoxemic respiratory failure secondary to acute COPD exacerbation, and is being managed in the ICU for this reason. The history was obtained from the patient's , who states that he has an unremarkable urologic history. She denies any prior history of voiding dysfunction, though it is noted that he has taken tamsulosin 0.8 mg daily for at least several years. She states that the patient held his urine for a prolonged time in the ER prior to admission, possibly causing the retention. Renal ultrasound performed yesterday showed evidence of mild bilateral hydronephrosis and bladder distention. A Ba catheter was placed, with return of 1200 cc of urine. Review of Systems - Constitutional Reports fatigue, Reports weakness, Reports weight loss - Genitourinary Reports as per HPI Past Medical History Past Medical History: Atrial Fibrillation, Chest Pain / Angina, COPD, Hyperlipidemia, Pneumonia Additional Past Medical History / Comment(s): See Dr Mckeon H&P, chronic back pain, diverticulosis, History of Any Multi-Drug Resistant Organisms: None Reported Past Surgical History: Orthopedic Surgery, Pacemaker Additional Past Surgical History / Comment(s): 03/25/19 cinefluoroscpy, cardioversion,mateus rt knee/lower leg sx has 3 screws, colonoscopy, "bone aspiration" Past Anesthesia/Blood Transfusion Reactions: No Reported Reaction Additional Past Anesthesia/Blood Transfusion Reaction / Comm: per -pt never recieved any blood in past Type of Cardiac Device: Permanent Pacemaker Device Placement Date:: 04/15/19 Past Psychological History: No Psychological Hx Reported Smoking Status: Former smoker Past Alcohol Use History: None Reported Additional Past Alcohol Use History / Comment(s): started smoking at age 15(1960)stopped smoking in May 2017. past occ etoh-none since may 2017. Past Drug Use History: None Reported Additional Drug Use History / Comment(s): uses cbd oil - Past Family History Mother History Unknown: Yes Family Medical History: No Reported History Medications and Allergies Home Medications Medication Instructions Recorded Confirmed Type Cholecalciferol [Vitamin D3 (25 25 mcg PO HS 05/23/17 11/12/23 History Mcg = 1000 Iu)] Glucosamine Sulfate 500 mg PO HS 05/23/17 11/12/23 History Pravastatin Sodium [Pravachol] 40 mg PO HS 05/23/17 11/12/23 History Tamsulosin HCl [Flomax] 0.8 mg PO HS 05/29/17 11/12/23 History Hydrocodone/Acetaminophen 1 tab PO Q6HR PRN 08/17/17 11/12/23 History [Hydrocodone/Acetaminophen 10-325] Rivaroxaban [Xarelto] 20 mg PO DAILY 03/05/18 11/12/23 History Zolpidem Tartrate [Ambien] 10 mg PO HS PRN 03/05/18 11/12/23 History ALPRAZolam [Xanax] 0.25 mg PO DAILY PRN 10/13/18 11/12/23 History Verapamil [Isoptin] 40 mg PO DAILY 11/12/23 11/12/23 History Allergies Allergy/AdvReac Type Severity Reaction Status Date / Time cefuroxime Allergy Intermediate Diaphoretic, Verified 11/12/23 11:34 tingling sensation, anxiety, Rapid Heart Rate ciprofloxacin [From Cipro] Allergy Anaphylaxis Verified 11/12/23 11:34 metronidazole Allergy Anaphylaxis Verified 11/12/23 11:34 clindamycin AdvReac Severe Dizzy, Verified 11/12/23 11:34 diaphoretic, short of breath, tachycaRapid Heart Rate Surgical - Exam Vital Signs Temp Pulse Resp BP Pulse Ox 97.6 F 67 14 145/88 91 L 11/12/23 10:11 11/12/23 10:11 11/12/23 10:11 11/12/23 10:11 11/12/23 10:11 - General well developed, well nourished, no distress - Respiratory normal respiratory effort - Abdomen Abdomen: soft, non tender, no guarding, no rigid, no rebound - Genitourinary normal penis with no external lesions, testicles non-tender Results - Labs 11/16/23 06:44 11/16/23 06:44 Abnormal Lab Results - Last 24 Hours (Table) 11/15/23 11/16/23 11/16/23 Range/Units 18:29 06:44 06:44 MCV 105.8 H (80.0-100.0) fL Neutrophils # 9.9 H (1.3-7.7) k/uL Lymphocytes # 0.2 L (1.0-4.8) k/uL ABG pCO2 (35-45) mmHg ABG HCO3 (21-25) mmol/L ABG Total CO2 (19-24) mmol/L BUN 83 H (9-20) mg/dL Creatinine 2.07 H (0.66-1.25) mg/dL Glucose 110 H (74-99) mg/dL Ionized Calcium Yvon 5.4 H (4.5-5.3) mg/dL Total Bilirubin 1.4 H (0.2-1.3) mg/dL Alkaline Phosphatase 230 H (38-126) U/L Total Protein 9.1 H (6.3-8.2) g/dL 11/16/23 Range/Units 09:04 MCV (80.0-100.0) fL Neutrophils # (1.3-7.7) k/uL Lymphocytes # (1.0-4.8) k/uL ABG pCO2 49 H (35-45) mmHg ABG HCO3 31 H (21-25) mmol/L ABG Total CO2 32 H (19-24) mmol/L BUN (9-20) mg/dL Creatinine (0.66-1.25) mg/dL Glucose (74-99) mg/dL Ionized Calcium Yvon (4.5-5.3) mg/dL Total Bilirubin (0.2-1.3) mg/dL Alkaline Phosphatase (38-126) U/L Total Protein (6.3-8.2) g/dL Microbiology - Last 24 Hours (Table) 11/12/23 15:35 Blood Culture - Preliminary Blood 11/12/23 15:50 Blood Culture - Preliminary Blood Diabetes panel 11/16/23 Range/Units 06:44 Sodium 145 (137-145) mmol/L Potassium 4.2 (3.5-5.1) mmol/L Chloride 106 (98-107) mmol/L Carbon Dioxide 30 (22-30) mmol/L BUN 83 H (9-20) mg/dL Creatinine 2.07 H (0.66-1.25) mg/dL Glucose 110 H (74-99) mg/dL Calcium 10.1 (8.4-10.2) mg/dL AST 25 (17-59) U/L ALT 20 (4-49) U/L Alkaline Phosphatase 230 H (38-126) U/L Total Protein 9.1 H (6.3-8.2) g/dL Albumin 3.6 (3.5-5.0) g/dL Calcium panel 11/15/23 11/16/23 Range/Units 18:29 06:44 Calcium 10.1 (8.4-10.2) mg/dL Ionized Calcium Yvon 5.4 H (4.5-5.3) mg/dL Phosphorus 3.7 (2.5-4.5) mg/dL Albumin 3.6 (3.5-5.0) g/dL Pituitary panel 11/16/23 Range/Units 06:44 Sodium 145 (137-145) mmol/L Potassium 4.2 (3.5-5.1) mmol/L Chloride 106 (98-107) mmol/L Carbon Dioxide 30 (22-30) mmol/L BUN 83 H (9-20) mg/dL Creatinine 2.07 H (0.66-1.25) mg/dL Glucose 110 H (74-99) mg/dL Calcium 10.1 (8.4-10.2) mg/dL Adrenal panel 11/16/23 Range/Units 06:44 Sodium 145 (137-145) mmol/L Potassium 4.2 (3.5-5.1) mmol/L Chloride 106 (98-107) mmol/L Carbon Dioxide 30 (22-30) mmol/L BUN 83 H (9-20) mg/dL Creatinine 2.07 H (0.66-1.25) mg/dL Glucose 110 H (74-99) mg/dL Calcium 10.1 (8.4-10.2) mg/dL Total Bilirubin 1.4 H (0.2-1.3) mg/dL AST 25 (17-59) U/L ALT 20 (4-49) U/L Alkaline Phosphatase 230 H (38-126) U/L Total Protein 9.1 H (6.3-8.2) g/dL Albumin 3.6 (3.5-5.0) g/dL - Imaging US - kidney/bladder: report reviewed Assessment and Plan (1) Unspecified hydronephrosis Current Visit: Yes Status: Acute Code(s): N13.30 - UNSPECIFIED HYDRONEPHROSIS SNOMED Code(s): 57526746 (2) Retention of urine, unspecified Current Visit: Yes Status: Acute Code(s): R33.9 - RETENTION OF URINE, UNSPECIFIED SNOMED Code(s): 761014701 Plan: The patient currently has an indwelling Ba catheter, which is draining clear yellow urine. I would suggest that the catheter remain in place until the patient's overall condition improves. He should then be given a voiding trial, and bladder scan utilized to assess bladder emptying and determine whether or not replacement of the catheter would be required. I would suggest he continue to receive tamsulosin 0.8 mg daily. Time with Patient: Greater than 30
[2023-11-17 02:36] LABS: HCT 38.8 % (39.0-53.0); HGB 12.5 gm/dL (13.0-17.5); MCH 33.4 pg (25.0-35.0); MCHC 32.1 g/dL (31.0-37.0); MCV 104.3 fL (80.0-100.0); Macrocytosis Moderate; Mean Platelet Volume 10.8; Platelet Count 140 k/uL (150-450); RBC 3.73 m/uL (4.30-5.90); RDW 14.7 % (11.5-15.5); WBC 10.3 k/uL (3.8-10.6)
[2023-11-17 02:50] LABS: Band Neutrophils % 26 %; Monocytes # (M) 0.31 k/uL (0-1.0); Neutrophils % (M) 71 %; Nucleated Red Blood Cells 0 /100 WBC (0-0); Total Cells Counted 200
[2023-11-17 02:51] LABS: Toxic Granulation Present; Toxic Vacuolation Present
[2023-11-17] MEDS: NOREPINEPHRINE 4 MG in SODIUM CHLORIDE 0.9% 250 ML IV SCH (03:06)
[2023-11-17 03:17] LABS: Immunoglobulin M 43.3 mg/dL (40.0-280.0)
[2023-11-17 03:29] LABS: Immunoglobulin G <300.0 mg/dL (700.0-1600.0)
[2023-11-17] MEDS: SODIUM CHLORIDE 0.9% 1,000 ML IV ONE (03:30)
[2023-11-17 04:51] LABS: Basophils % (A) 0 %; Eosinophils # (A) 0.1 k/uL (0-0.7); Eosinophils % (A) 0 %; HCT 27.4 % (39.0-53.0); Lymphocytes # (A) 0.3 k/uL (1.0-4.8); Lymphocytes % (A) 3 %; MCH 35.3 pg (25.0-35.0); MCHC 33.8 g/dL (31.0-37.0); MCV 104.6 fL (80.0-100.0); Macrocytosis Moderate; Mean Platelet Volume 11.2; Monocytes # (A) 0.4 k/uL (0-1.0); Monocytes % (A) 4 %; Neutrophils # (A) 10.3 k/uL (1.3-7.7); Neutrophils % (A) 93 %; Platelet Count 129 k/uL (150-450); RBC 2.62 m/uL (4.30-5.90); RDW 14.7 % (11.5-15.5); WBC 11.1 k/uL (3.8-10.6)
[2023-11-17] MEDS: SODIUM CHLORIDE 0.9% 1,000 ML IV SCH (04:51)
[2023-11-17 04:58] LABS: HGB 9.3 gm/dL (13.0-17.5)
[2023-11-17 05:04] LABS: African American GFR (CKD) 44 (>60 ml/min/1.73 sqM); Anion Gap 8 mmol/L; Blood Urea Nitrogen 75 mg/dL (9-20); Calcium 8.1 mg/dL (8.4-10.2); Carbon Dioxide 21 mmol/L (22-30); Chloride 117 mmol/L (98-107); Glucose 121 mg/dL (74-99); Non-African American GFR(CKD) 38 (>60 ml/min/1.73 sqM); Potassium 2.9 mmol/L (3.5-5.1); Sodium 146 mmol/L (137-145)
[2023-11-17] MEDS: POTASSIUM CHLORIDE 10 MEQ in WATER FOR INJECTION 1 100ML.BAG IVPB SCH (05:27)
[2023-11-17] MEDS ORDERED: IMMUNE GLOBULIN (GAMMAGARD) 20 GM in EMPTY BAG 1 BAG IV NR ×2 (06:00→17:00)
[2023-11-17] MEDS: SODIUM CHLORIDE 0.9% 500 ML 500 ML IV ONE (06:20)
[2023-11-17] MEDS: FUROSEMIDE 10 MG/ML 4 ML VIAL IV SCH (08:18)
[2023-11-17] MEDS: PANTOPRAZOLE 40 MG/10 ML VIAL IVP SCH (08:53)
[2023-11-17] MEDS: FUROSEMIDE 10 MG/ML 10 ML VIAL IV STA (08:53)
[2023-11-17] MEDS: LACTATED RINGERS 1,000 ML IV SCH (09:00)
--- NOTE | 2023-11-17 09:24 | XR ---
EXAMINATION TYPE: XR chest 1V portable DATE OF EXAM: 11/17/2023 Comparison: 11/16/2023 Clinical History: 78-year-old male follow up with previous, CHF/PNM/COPD Findings: Heart borderline enlarged. Hyperinflation. Diffuse interstitial opacities persist with patchy lower l obe opacities. Rounded density left midlung suspected corresponds to an old rib fracture deformity. T here may be a small left effusion. Left anterior chest wall pacemaker generator with 3 leads. Impression: COPD with ongoing superimposed interstitial lung disease as well as patchy lower lung airspace diseas e.
--- NOTE | 2023-11-17 09:59 | P.PN ---
Subjective Progress Note Date: 11/17/23 Principal diagnosis: Acute hypoxic respiratory failure secondary to acute bibasilar pneumonia, highly suspicious for aspiration pneumonia and acute exacerbation of COPD Patient is a 78-year-old white male with past medical history significant for paroxysmal atrial fibrillation with previous AV node ablation, permanent pacemaker, COPD, and former heavy tobacco use. Patient presented to the emergency room yesterday morning with a chief complaint of progressively worsening generalized weakness over the last 10 days. He is a poor historian, his is at bedside, and answers all questions. He can no longer ambulate to his bedroom, and his has set up a air mattress on the floor on the lower level. He did fall off the air mattress. This prompted the to contact EMS. He is currently resting in bed, on 4 L/min nasal cannula, in no acute distress. He reportedly does not wear home oxygen. states that he has appeared short of breath at times. No significant coughing or sputum production. No hemoptysis. No measured fevers. No sick contacts. He has no specific complaints but diffuse nonlocalized/nonspecific pain. He is very weak. Dry mucous membranes. Reportedly not eating and drinking much while at home. Brain CT done on arrival did not show any acute intracranial process. There is nonspecific white matter changes, likely secondary to chronic small vessel ischemic disease. Chest x-ray shows basilar atelectasis versus infiltrate with tiny effusion. Underlying pneumonia is not excluded. There is hyperinflation consistent with COPD. There is a 1.4 cm right apical opacity concerning for lung nodule. There is also a lucent lesion of the left proximal humerus. CBC on arrival unremarkable. No leukocytosis. Troponins elevated at 0.124, 0.132, and 0.109 respectively. EKG shows V paced rhythm. Patient was started on heparin infusion. Most recent APTT therapeutic. NT proBNP 1810. CMP done on arrival: Sodium 147, potassium 3.1, chloride 108, serum bicarb 32, BUN 77, creatinine 1.77, glucose 79. Lactic acid 0.6. CPK 53. TSH 0.879. Urinalysis shows trace protein, small leukocytes, otherwise unremarkable. Negative for influenza, RSV, COVID. Currently afebrile. Started on a combination of azithromycin and Zosyn in the emergency room. Half-normal saline is infusing at 75 mL/h. Vital signs are stable. The patient is seen today November 14, 2023 in follow-up in the emergency department. He is currently awake and alert in no acute distress. He is maintaining O2 saturations in the 90s on 5 L/min per nasal cannula. Currently afebrile. Hemodynamically stable. His procalcitonin is 0.20. His proBNP is 1810. Blood cultures are pending. White count 12.0. Hemoglobin 14.1. Platelets 153. Sodium 143. Potassium 4.4. Bicarb 26. BUN 85. Creatinine 1.82. He has been transition to Xarelto. Remains on Zosyn. Completed azithromycin. Remains on bronchodilators and steroids. Receiving 0.45% normal saline at [address] scan of the chest reveals bilateral airspace disease most likely pneumonia. Patient was reevaluated today on 11/15/2023, patient remains generally weak, according to the his weakness has been noted only in the last 2 weeks. Prior to this he was extremely active, and only in the last 2 weeks has been gradually going downhill, and developing significant weakness to the point that he cannot ambulate anymore. 2 weeks ago this patient was able to go up the stairways without any support. Patient had a CT of the chest, suggestive of bilateral pneumonia, I am suspecting that the patient is aspirating, swallow evaluation is in progress. However after reviewing the CT of the chest I am recommending bronchoscopy and BAL, just to rule out the possibility of underlying malignancy involving the lungs. Procalcitonin level is elevated WBC count is 12.3 hemoglobin 13 basic metabolic profile is normal renal profile is a bit worse today BUN is 81 creatinine 2.27, patient came in with creatinine of 1.77 went down to 1.54. And now it is 2.27, nephrology evaluated the patient felt that this is a picture of ATN or could be a cardiorenal syndrome. His echocardiogram showed good LV function, patient has moderate LV hypertrophy moderate pulmonary hypertension mild aortic and mitral regurgitation. Still the cardiac findings do not explain his pulmonary findings, patient clearly has bibasilar airspace disease, underlying malignancy is not entirely ruled out but felt to be less likely hence I am planning bronchoscopy and BAL of both lower lobes tomorrow meantime considering his profound weakness and worsening picture with his weakness which seems to be his main issue I am recommending neurological evaluation Today on 11/16/2023, the patient was supposed to undergo bronchoscopy and lavage today, however this morning his pulmonary status deteriorated, patient required to be placed on BiPAP, and required transfer to ICU. Apparently the patient was developing more shortness of breath earlier this morning, he was hypoxic, tachycardic., Patient was placed on BiPAP 12/6/100%, ABG showed a pO2 of 85 pCO2 48 and pH of 7.40. Bronchoscopy which was planned to be done today has been canceled, patient is DNI and the family would not want him to be on mechanical ventilation, hence I would not be able to perform bronchoscopy on this patient unless he is placed on mechanical ventilation. Bronchoscopy was canceled for today. Chest x-ray showed stable bilateral infiltrates and small effusion on the left side. Underlying pulmonary vascular congestion is not entirely ruled out. Considering his mental status and his overall neurological symptoms, CT of the brain showed no acute intracranial process. CT of the spine showed mottled appearance of the osseous structures with lytic lesions scattered throughout. Findings are highly suspicious for diffuse metastatic disease. PSA was ordered. Patient may eventually require a CT-guided needle biopsy of one of his lytic lesions to confirm diagnosis of metastatic disease to the spine. WBC count today is 10.6 hemoglobin 14.9, INR is 1.20 basic metabolic profile is normal however BUN is 83 creatinine 2.07, baseline creatinine is 1.77 on admission. Repeat serum calcium has been normal Patient was evaluated today on 11/17/2023, patient remains in the ICU, remains on BiPAP 12/6/70%, patient developed an episode of significant GI bleeding last night, and he required a unit of packed RBCs, arrangements were being made to transfer the patient to a tertiary care center since we have no GI coverage, chest surgery declined to see the patient because of the fact that there is no GI coverage, hence patient remains in the ICU, being managed, declined transfer the patient to a tertiary care center. Patient is now off heparin he is requiring norepinephrine at 0.02 mcg/kg/min he is on IV fluid at 150 cc/h. He did receive 1 unit of packed RBCs last night. And he is remaining on Zosyn for presumptive aspiration pneumonia. Patient seems to be very comfortable on BiPAP. His WBC count today is 11.1, hemoglobin is 9.3, his last PTT was elevated, however his heparin was discontinued. Electrolytes showed a sodium of 146 potassium 2.9 chloride 117 bicarb is 21 BUN is 79 creatinine 1 point is 1.7 his urine output is marginal, and the patient has no active GI bleeding at present. May consider a trial of diuretics however considering the patient is marginal with his blood pressure, will hold on diuretics for now. Chest x-ray this morning showed COPD with some interstitial changes and patchy bilateral airspace disease consistent with a picture of aspiration pneumonia. Patient is still getting workup to determine whether he has underlying malignancy, his CT of the spine raised the possibility of multiple lytic lesions, serum protein electrophoresis is pending, patient was seen by oncology on consultation and workup is pending. Objective - Vital Signs Vital signs: Vital Signs Temp 98.4 F 11/17/23 08:40 Pulse 60 11/17/23 09:00 Resp 20 11/17/23 09:00 BP 117/56 11/17/23 09:00 Pulse Ox 95 11/17/23 09:00 FiO2 70 11/17/23 07:30 Intake & Output 11/16/23 11/17/23 11/17/23 18:59 06:59 18:59 Intake Total 473.634 1607.150 950 Output Total 955 490 110 Balance -467.230 2257.150 840 Weight 59.3 kg Intake: IV 260 1490 950 Lactated Ringers 1,000 ml 60 40 @ 20 mls/hr IV .Q24H [facility] Rx#:[id number] Piperacillin-Tazobactam 3 200 .375 gm In Sodium Chloride 0.9% 100 ml @ 25 mls/hr IVPB Q8HR [facility] Rx# :[id number] Sodium Chloride 0.9% 1, 450 450 000 ml @ 150 mls/hr IV . Q6H40M [facility] Rx#:[id number] Sodium Chloride 0.9% 1, 1000 000 ml @ 999 mls/hr IV . Q1H1M [facility] Rx#:[id number] Sodium Chloride 0.9% 500 500 ml 500 ml @ 999 mls/hr IV .Q31M [facility] Rx#:[id number] Intake, IV Titration 43.195 113.150 Amount Heparin Sod,Pork in 0.45% 43.195 87.380 NaCl 25,000 unit In 0.45 % NaCl 1 250ml.bag @ 12 UNITS/KG/HR 6.967 mls/hr IV .Q24H [facility] Rx#: [id number] Norepinephrine 4 mg In 25.77 Sodium Chloride 0.9% 250 ml @ 0.03 MCG/KG/MIN 6. 636 mls/hr IV .Q24H [facility] Rx#:[id number] Blood Product 0 0 Rc As-1 Unit 0 0 [id number] Output: Urine 955 490 110 Other: Voiding Method Indwelling Catheter Indwelling Catheter Indwelling Catheter # Bowel Movements 1 2 - Exam GENERAL EXAM: Revealed a 78-year-old white male, on BiPAP, patient seems to be a bit lethargic but follows simple instructions. HEAD: Normocephalic and atraumatic EYES: Normal reaction of pupils, equal size. NOSE: Clear with pink turbinates. THROAT: No erythema or exudates. Dry mucous membranes. NECK: No masses, no JVD. CHEST: No chest wall deformity. Left chest implanted device LUNGS: Equal air entry crackles at the bases. No wheezing noted today. CVS: S1 and S2 normal with no audible murmur, regular rhythm. No extra heart matt nds ABDOMEN: Soft nontender no megaly no rebound no guarding SKIN: No rashes CENTRAL NERVOUS SYSTEM: Patient is lethargic, follows simple instructions, generally weak. EXTREMITIES: No clubbing, no edema, no cyanosis. - Labs CBC & Chem 7: 11/17/23 04:40 11/17/23 04:40 Labs: Abnormal Lab Results - Last 24 Hours (Table) 11/15/23 11/16/23 11/16/23 Range/Units 15:25 14:49 14:49 WBC (3.8-10.6) k/uL RBC (4.30-5.90) m/uL Hgb (13.0-17.5) gm/dL Hct (39.0-53.0) % MCV (80.0-100.0) fL MCH (25.0-35.0) pg Plt Count (150-450) k/uL Neutrophils # (1.3-7.7) k/uL Neutrophils # (Manual) (1.3-7.7) k/uL Lymphocytes # (1.0-4.8) k/uL APTT 35.2 H (22.0-30.0) sec Sodium (137-145) mmol/L Potassium (3.5-5.1) mmol/L Chloride (98-107) mmol/L Carbon Dioxide (22-30) mmol/L BUN (9-20) mg/dL Creatinine (0.66-1.25) mg/dL Glucose (74-99) mg/dL Calcium (8.4-10.2) mg/dL Albumin (PEP) 2.98 L (3.80-4.90) g/dL Jefqc-2-Fsmnqsium 0.58 L (0.60-1.00) g/dL Beta Globulins 0.58 L (0.60-1.30) g/dL Gamma Globulins 3.51 H (0.70-1.50) g/dL IgG <300.0 L (700.0-1600.0) mg/dL IgA 3281.0 H (60.0-350.0) mg/dL Crossmatch 11/16/23 11/17/23 11/17/23 Range/Units 21:11 02:02 02:02 WBC (3.8-10.6) k/uL RBC 3.73 L (4.30-5.90) m/uL Hgb 12.5 L (13.0-17.5) gm/dL Hct 38.8 L (39.0-53.0) % MCV 104.3 H (80.0-100.0) fL MCH (25.0-35.0) pg Plt Count 140 L (150-450) k/uL Neutrophils # (1.3-7.7) k/uL Neutrophils # (Manual) 9.90 H (1.3-7.7) k/uL Lymphocytes # (1.0-4.8) k/uL APTT 42.5 H 59.4 H (22.0-30.0) sec Sodium (137-145) mmol/L Potassium (3.5-5.1) mmol/L Chloride (98-107) mmol/L Carbon Dioxide (22-30) mmol/L BUN (9-20) mg/dL Creatinine (0.66-1.25) mg/dL Glucose (74-99) mg/dL Calcium (8.4-10.2) mg/dL Albumin (PEP) (3.80-4.90) g/dL Fssxt-8-Jrvktlweb (0.60-1.00) g/dL Beta Globulins (0.60-1.30) g/dL Gamma Globulins (0.70-1.50) g/dL IgG (700.0-1600.0) mg/dL IgA (60.0-350.0) mg/dL Crossmatch 11/17/23 11/17/23 11/17/23 Range/Units 02:02 04:40 04:40 WBC 11.1 H (3.8-10.6) k/uL RBC 2.62 L (4.30-5.90) m/uL Hgb 9.3 L D (13.0-17.5) gm/dL Hct 27.4 L (39.0-53.0) % MCV 104.6 H (80.0-100.0) fL MCH 35.3 H (25.0-35.0) pg Plt Count 129 L (150-450) k/uL Neutrophils # 10.3 H (1.3-7.7) k/uL Neutrophils # (Manual) (1.3-7.7) k/uL Lymphocytes # 0.3 L (1.0-4.8) k/uL APTT (22.0-30.0) sec Sodium 146 H (137-145) mmol/L Potassium 2.9 L (3.5-5.1) mmol/L Chloride 117 H (98-107) mmol/L Carbon Dioxide 21 L (22-30) mmol/L BUN 75 H (9-20) mg/dL Creatinine 1.70 H (0.66-1.25) mg/dL Glucose 121 H (74-99) mg/dL Calcium 8.1 L (8.4-10.2) mg/dL Albumin (PEP) (3.80-4.90) g/dL Ryaqd-2-Tkvmfltma (0.60-1.00) g/dL Beta Globulins (0.60-1.30) g/dL Gamma Globulins (0.70-1.50) g/dL IgG (700.0-1600.0) mg/dL IgA (60.0-350.0) mg/dL Crossmatch See Detail Assessment and Plan Assessment: Impression: 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 Unexplained weakness but most likely it is related to possible metastatic malignancy. Aspiration pneumonia is strongly suspected No evidence of apical lung nodule as noted on CT of the chest Acute kidney injury Acute metabolic encephalopathy History of pacemaker implantation History of paroxysmal atrial fibrillation Benign essential hypertension History of underlying COPD presently inactive History of BPH Acute GI bleeding, patient may require transfer since we have no GI coverage, however the declined the transfer, surgical consult was placed however surgery is recommending transfer. Hypotension requiring norepinephrine, most likely related to GI bleeding, p atient will remain on norepinephrine for now in the meantime he was given fluids and he will be given blood accordingly maintaining hemoglobin above 7. Hematuria, being addressed by urology on the case. Oligoria most likely secondary to acute kidney injury and hypotension requiring norepinephrine at Recommendation: Continue to monitor in the ICU Continue to monitor serial hemoglobin hematocrit and transfuse accordingly Nurses will discuss with the again to agree to transfer to a tertiary care center or to a place where GI is available Continue BiPAP Previous plans for bronchoscopy have been canceled because of his clinical deterioration Continue Zosyn Continue bronchodilators Stop heparin Titrate FiO2 accordingly Keep the patient n.p.o., patient was seen by speech therapy, and felt that the patient is aspirating hence patient will remain n.p.o. for now. Continue Protonix 40 mg IV push twice daily Surgery consulted to evaluate the patient but again preferably the patient needs transfer. Patient is critically ill Critical care time is over 30 minutes Will continue to follow Time with Patient: Greater than 30
--- NOTE | 2023-11-17 11:49 | P.PN ---
Subjective Progress Note Date: 11/17/23 Principal diagnosis: Urinary retention Patient is resting and appears weak. He has no specific complaints. He has developed a GI bleed, and urethral bleeding around the Ba catheter was noted overnight. However, there is no evidence of urethral bleeding this morning, and the Ba catheter is draining clear urine. CT scan of the spine has shown multiple lytic lesions. The patient is required treatment for hypotension and oliguria. Objective - Vital Signs Vital signs: Vital Signs Temp 98.4 F 11/17/23 08:40 Pulse 61 11/17/23 11:00 Resp 19 11/17/23 11:00 BP 120/63 11/17/23 11:00 Pulse Ox 95 11/17/23 11:00 FiO2 70 11/17/23 10:32 Intake & Output 11/16/23 11/17/23 11/17/23 18:59 06:59 18:59 Intake Total 651.526 7261.150 1257.263 Output Total 955 490 170 Balance -243.632 3403.150 1087.263 Weight 59.3 kg Intake: IV 260 1490 1250 Lactated Ringers 1,000 ml 60 40 @ 20 mls/hr IV .Q24H [facility] Rx#:[id number] Piperacillin-Tazobactam 3 200 .375 gm In Sodium Chloride 0.9% 100 ml @ 25 mls/hr IVPB Q8HR [facility] Rx# :[id number] Sodium Chloride 0.9% 1, 450 750 000 ml @ 150 mls/hr IV . Q6H40M [facility] Rx#:[id number] Sodium Chloride 0.9% 1, 1000 000 ml @ 999 mls/hr IV . Q1H1M [facility] Rx#:[id number] Sodium Chloride 0.9% 500 500 ml 500 ml @ 999 mls/hr IV .Q31M [facility] Rx#:[id number] Intake, IV Titration 43.195 113.150 7.263 Amount Heparin Sod,Pork in 0.45% 43.195 87.380 NaCl 25,000 unit In 0.45 % NaCl 1 250ml.bag @ 12 UNITS/KG/HR 6.967 mls/hr IV .Q24H [facility] Rx#: [id number] Norepinephrine 4 mg In 25.77 7.263 Sodium Chloride 0.9% 250 ml @ 0.03 MCG/KG/MIN 6. 636 mls/hr IV .Q24H [facility] Rx#:[id number] Blood Product 0 0 Rc As-1 Unit 0 0 [id number] Output: Urine 955 490 170 Other: Voiding Method Indwelling Catheter Indwelling Catheter Indwelling Catheter # Bowel Movements 1 2 - Constitutional Constitutional Comment(s): Average body habitus, weak, no apparent distress. - Psychiatric Psychiatric: Present: A&O x's 3 - Labs CBC & Chem 7: 11/17/23 04:40 11/17/23 04:40 Labs: Abnormal Lab Results - Last 24 Hours (Table) 11/15/23 11/16/23 11/16/23 Range/Units 15:25 14:49 14:49 WBC (3.8-10.6) k/uL RBC (4.30-5.90) m/uL Hgb (13.0-17.5) gm/dL Hct (39.0-53.0) % MCV (80.0-100.0) fL MCH (25.0-35.0) pg Plt Count (150-450) k/uL Neutrophils # (1.3-7.7) k/uL Neutrophils # (Manual) (1.3-7.7) k/uL Lymphocytes # (1.0-4.8) k/uL APTT 35.2 H (22.0-30.0) sec Sodium (137-145) mmol/L Potassium (3.5-5.1) mmol/L Chloride (98-107) mmol/L Carbon Dioxide (22-30) mmol/L BUN (9-20) mg/dL Creatinine (0.66-1.25) mg/dL Glucose (74-99) mg/dL Calcium (8.4-10.2) mg/dL Albumin (PEP) 2.98 L (3.80-4.90) g/dL Yujyk-1-Nitfmexep 0.58 L (0.60-1.00) g/dL Beta Globulins 0.58 L (0.60-1.30) g/dL Gamma Globulins 3.51 H (0.70-1.50) g/dL IgG <300.0 L (700.0-1600.0) mg/dL IgA 3281.0 H (60.0-350.0) mg/dL Crossmatch 11/16/23 11/17/23 11/17/23 Range/Units 21:11 02:02 02:02 WBC (3.8-10.6) k/uL RBC 3.73 L (4.30-5.90) m/uL Hgb 12.5 L (13.0-17.5) gm/dL Hct 38.8 L (39.0-53.0) % MCV 104.3 H (80.0-100.0) fL MCH (25.0-35.0) pg Plt Count 140 L (150-450) k/uL Neutrophils # (1.3-7.7) k/uL Neutrophils # (Manual) 9.90 H (1.3-7.7) k/uL Lymphocytes # (1.0-4.8) k/uL APTT 42.5 H 59.4 H (22.0-30.0) sec Sodium (137-145) mmol/L Potassium (3.5-5.1) mmol/L Chloride (98-107) mmol/L Carbon Dioxide (22-30) mmol/L BUN (9-20) mg/dL Creatinine (0.66-1.25) mg/dL Glucose (74-99) mg/dL Calcium (8.4-10.2) mg/dL Albumin (PEP) (3.80-4.90) g/dL Dnqhe-9-Rfzgvjkhk (0.60-1.00) g/dL Beta Globulins (0.60-1.30) g/dL Gamma Globulins (0.70-1.50) g/dL IgG (700.0-1600.0) mg/dL IgA (60.0-350.0) mg/dL Crossmatch 11/17/23 11/17/23 11/17/23 Range/Units 02:02 04:40 04:40 WBC 11.1 H (3.8-10.6) k/uL RBC 2.62 L (4.30-5.90) m/uL Hgb 9.3 L D (13.0-17.5) gm/dL Hct 27.4 L (39.0-53.0) % MCV 104.6 H (80.0-100.0) fL MCH 35.3 H (25.0-35.0) pg Plt Count 129 L (150-450) k/uL Neutrophils # 10.3 H (1.3-7.7) k/uL Neutrophils # (Manual) (1.3-7.7) k/uL Lymphocytes # 0.3 L (1.0-4.8) k/uL APTT (22.0-30.0) sec Sodium 146 H (137-145) mmol/L Potassium 2.9 L (3.5-5.1) mmol/L Chloride 117 H (98-107) mmol/L Carbon Dioxide 21 L (22-30) mmol/L BUN 75 H (9-20) mg/dL Creatinine 1.70 H (0.66-1.25) mg/dL Glucose 121 H (74-99) mg/dL Calcium 8.1 L (8.4-10.2) mg/dL Albumin (PEP) (3.80-4.90) g/dL Zjhms-2-Cvzlkolor (0.60-1.00) g/dL Beta Globulins (0.60-1.30) g/dL Gamma Globulins (0.70-1.50) g/dL IgG (700.0-1600.0) mg/dL IgA (60.0-350.0) mg/dL Crossmatch See Detail Assessment and Plan (1) Unspecified hydronephrosis Current Visit: Yes Status: Acute Code(s): N13.30 - UNSPECIFIED HYDRONEPHROSIS SNOMED Code(s): 77128125 (2) Retention of urine, unspecified Current Visit: Yes Status: Acute Code(s): R33.9 - RETENTION OF URINE, UNSPECIFIED SNOMED Code(s): 200950310 Plan: The patient has multiple medical problems. I would suggest that the catheter remain in place until the patient's overall condition improves. He should then be given a voiding trial, and bladder scan utilized to assess bladder emptying and determine whether or not replacement of the catheter would be required. I would suggest he continue to receive tamsulosin 0.8 mg daily.
[2023-11-17] MEDS: FUROSEMIDE 10 MG/ML 4 ML VIAL IV STA (12:18)
[2023-11-17 12:21] LABS: Anisocytosis Slight; Basophils % (A) 0 %; Eosinophils % (A) 0 %; HCT 36.8 % (39.0-53.0); HGB 12.2 gm/dL (13.0-17.5); Lymphocytes # (A) 0.2 k/uL (1.0-4.8); Lymphocytes % (A) 2 %; MCH 32.8 pg (25.0-35.0); Macrocytosis Slight; Monocytes # (A) 0.3 k/uL (0-1.0); Monocytes % (A) 3 %; Neutrophils # (A) 9.3 k/uL (1.3-7.7); Neutrophils % (A) 94 %; Platelet Count 103 k/uL (150-450); WBC 9.9 k/uL (3.8-10.6)
[2023-11-17 12:30] LABS: MCV 99.5 fL (80.0-100.0)
--- NOTE | 2023-11-17 13:10 | P.PN ---
Subjective Progress Note Date: 11/17/23 Patient is seen in follow-up for acute kidney injury. Episodes of GI bleed and hypotension over night. Improved today and Lasix restarted. Family at bedside, all questions answered. Vital signs are stable. General: NAD. HEENT: On Bipap LUNGS: Scattered rhonchi. HEART: Rate and Rhythm are regular. ABDOMEN: Nontender. EXTREMITITES: No edema. Objective - Vital Signs Vital signs: Vital Signs Temp 98.4 F 11/17/23 08:40 Pulse 60 11/17/23 09:00 Resp 20 11/17/23 09:00 BP 117/56 11/17/23 09:00 Pulse Ox 95 11/17/23 09:00 FiO2 70 11/17/23 07:30 Intake & Output 11/16/23 11/17/23 11/17/23 18:59 06:59 18:59 Intake Total 337.721 8751.150 950 Output Total 955 490 110 Balance -372.217 4367.150 840 Weight 59.3 kg Intake: IV 260 1490 950 Lactated Ringers 1,000 ml 60 40 @ 20 mls/hr IV .Q24H [facility] Rx#:[id number] Piperacillin-Tazobactam 3 200 .375 gm In Sodium Chloride 0.9% 100 ml @ 25 mls/hr IVPB Q8HR [facility] Rx# :[id number] Sodium Chloride 0.9% 1, 450 450 000 ml @ 150 mls/hr IV . Q6H40M [facility] Rx#:[id number] Sodium Chloride 0.9% 1, 1000 000 ml @ 999 mls/hr IV . Q1H1M [facility] Rx#:[id number] Sodium Chloride 0.9% 500 500 ml 500 ml @ 999 mls/hr IV .Q31M [facility] Rx#:[id number] Intake, IV Titration 43.195 113.150 Amount Heparin Sod,Pork in 0.45% 43.195 87.380 NaCl 25,000 unit In 0.45 % NaCl 1 250ml.bag @ 12 UNITS/KG/HR 6.967 mls/hr IV .Q24H [facility] Rx#: [id number] Norepinephrine 4 mg In 25.77 Sodium Chloride 0.9% 250 ml @ 0.03 MCG/KG/MIN 6. 636 mls/hr IV .Q24H [facility] Rx#:[id number] Blood Product 0 0 Rc As-1 Unit 0 0 [id number] Output: Urine 955 490 110 Other: Voiding Method Indwelling Catheter Indwelling Catheter Indwelling Catheter # Bowel Movements 1 2 - Labs CBC & Chem 7: 11/17/23 12:05 11/17/23 04:40 Labs: Abnormal Lab Results - Last 24 Hours (Table) 11/15/23 11/16/23 11/16/23 Range/Units 15:25 14:49 14:49 WBC (3.8-10.6) k/uL RBC (4.30-5.90) m/uL Hgb (13.0-17.5) gm/dL Hct (39.0-53.0) % MCV (80.0-100.0) fL MCH (25.0-35.0) pg Plt Count (150-450) k/uL Neutrophils # (1.3-7.7) k/uL Neutrophils # (Manual) (1.3-7.7) k/uL Lymphocytes # (1.0-4.8) k/uL APTT 35.2 H (22.0-30.0) sec Sodium (137-145) mmol/L Potassium (3.5-5.1) mmol/L Chloride (98-107) mmol/L Carbon Dioxide (22-30) mmol/L BUN (9-20) mg/dL Creatinine (0.66-1.25) mg/dL Glucose (74-99) mg/dL Calcium (8.4-10.2) mg/dL Albumin (PEP) 2.98 L (3.80-4.90) g/dL Klcvj-3-Onsgsovlw 0.58 L (0.60-1.00) g/dL Beta Globulins 0.58 L (0.60-1.30) g/dL Gamma Globulins 3.51 H (0.70-1.50) g/dL IgG <300.0 L (700.0-1600.0) mg/dL IgA 3281.0 H (60.0-350.0) mg/dL Crossmatch 11/16/23 11/17/23 11/17/23 Range/Units 21:11 02:02 02:02 WBC (3.8-10.6) k/uL RBC 3.73 L (4.30-5.90) m/uL Hgb 12.5 L (13.0-17.5) gm/dL Hct 38.8 L (39.0-53.0) % MCV 104.3 H (80.0-100.0) fL MCH (25.0-35.0) pg Plt Count 140 L (150-450) k/uL Neutrophils # (1.3-7.7) k/uL Neutrophils # (Manual) 9.90 H (1.3-7.7) k/uL Lymphocytes # (1.0-4.8) k/uL APTT 42.5 H 59.4 H (22.0-30.0) sec Sodium (137-145) mmol/L Potassium (3.5-5.1) mmol/L Chloride (98-107) mmol/L Carbon Dioxide (22-30) mmol/L BUN (9-20) mg/dL Creatinine (0.66-1.25) mg/dL Glucose (74-99) mg/dL Calcium (8.4-10.2) mg/dL Albumin (PEP) (3.80-4.90) g/dL Wbskc-3-Hogwlonev (0.60-1.00) g/dL Beta Globulins (0.60-1.30) g/dL Gamma Globulins (0.70-1.50) g/dL IgG (700.0-1600.0) mg/dL IgA (60.0-350.0) mg/dL Crossmatch 11/17/23 11/17/23 11/17/23 Range/Units 02:02 04:40 04:40 WBC 11.1 H (3.8-10.6) k/uL RBC 2.62 L (4.30-5.90) m/uL Hgb 9.3 L D (13.0-17.5) gm/dL Hct 27.4 L (39.0-53.0) % MCV 104.6 H (80.0-100.0) fL MCH 35.3 H (25.0-35.0) pg Plt Count 129 L (150-450) k/uL Neutrophils # 10.3 H (1.3-7.7) k/uL Neutrophils # (Manual) (1.3-7.7) k/uL Lymphocytes # 0.3 L (1.0-4.8) k/uL APTT (22.0-30.0) sec Sodium 146 H (137-145) mmol/L Potassium 2.9 L (3.5-5.1) mmol/L Chloride 117 H (98-107) mmol/L Carbon Dioxide 21 L (22-30) mmol/L BUN 75 H (9-20) mg/dL Creatinine 1.70 H (0.66-1.25) mg/dL Glucose 121 H (74-99) mg/dL Calcium 8.1 L (8.4-10.2) mg/dL Albumin (PEP) (3.80-4.90) g/dL Wmplh-2-Xwukexcsh (0.60-1.00) g/dL Beta Globulins (0.60-1.30) g/dL Gamma Globulins (0.70-1.50) g/dL IgG (700.0-1600.0) mg/dL IgA (60.0-350.0) mg/dL Crossmatch See Detail Assessment and Plan Plan: Assessment: 1. Acute kidney injury secondary to ATN secondary to infection and component of cardiorenal syndrome. Creatinine as low as 1.54 this admission and peaked at 2.27 this admission -1.7 today. Creatinine dated September 18, 2023 was 1.5 in June 24, 2021 1.0. 2. Aspiration pneumonia on antibiotics. 3. Acute on chronic diastolic CHF. 4. Volume overload with pleural effusions noted on chest CT. 5. Lung nodule concerning for malignancy. Bronchoscopy pending. 6. Hypercalcemia secondary to calcium and vitamin D supplementation but also concern for hypercalcemia of malignancy. PTH 63. Vitamin D 69.3. Calcium level trending down. 7. Bilateral pelvocaliectasis noted on kidney ultrasound. Plan: IV Lasix held overnight due to hypotension. Avoid nephrotoxins. Hypercalcemia improved. Continue to monitor renal function and urine output. Per nursing family considering hospice.
--- NOTE | 2023-11-17 14:30 | P.PN ---
Subjective Progress Note Date: 11/17/23 78-year-old white male with past medical history significant for paroxysmal atrial fibrillation with previous AV node ablation, permanent pacemaker, COPD, and former heavy tobacco use. Patient presented to the emergency room yesterday morning with a chief complaint of progressively worsening generalized weakness over the last 10 days. He is a poor historian, his is at bedside, and answers all questions. He can no longer ambulate to his bedroom, and his has set up a air mattress on the floor on the lower level. He did fall off the air mattress. This prompted the to contact EMS. He is currently resting in bed, on 4 L/min nasal cannula, in no acute distress. He reportedly does not wear home oxygen. states that he has appeared short of breath at times. No significant coughing or sputum production. No hemoptysis. No measured fevers. No sick contacts. He has no specific complaints but diffuse nonlocalized/nonspecific pain. He is very weak. Dry mucous membranes. R eportedly not eating and drinking much while at home. Brain CT done on arrival did not show any acute intracranial process. There is nonspecific white matter changes, likely secondary to chronic small vessel ischemic disease. Chest x-ray shows basilar atelectasis versus infiltrate with tiny effusion. Underlying pneumonia is not excluded. There is hyperinflation consistent with COPD. There is a 1.4 cm right apical opacity concerning for lung nodule. There is also a lucent lesion of the left proximal humerus. CBC on arrival unremarkable. No leukocytosis. Troponins elevated at 0.124, 0.132, and 0.109 respectively. EKG shows V paced rhythm. Patient was started on heparin infusion. Most recent APTT therapeutic. NT proBNP 1810. CMP done on arrival: Sodium 147, potassium 3.1, chloride 108, serum bicarb 32, BUN 77, creatinine 1.77, glucose 79. Lactic acid 0.6. CPK 53. TSH 0.879. Urinalysis shows trace protein, small leukocytes, otherwise unremarkable. Negative for influenza, RSV, COVID. Currently afebrile. Started on a combination of azithromycin and Zosyn in the emergency room. 11/17/2023 patient is seen and evaluated with at bedside; remains in the ICU, remains on BiPAP 06/13/70% - patient developed an episode of significant GI bleeding last night, and he required a unit of packed RBCs; general surgery was consulted and they recommended patient be transferred to a tertiary care center due to no GI coverage, declined transfer the patient to a tertiary care center. Patient is now off heparin he is requiring norepinephrine at 0.02 mcg/kg/min he is on IV fluid at 150 cc/h. He did receive 1 unit of packed RBCs last night. Patient remains on Zosyn for presumptive aspiration pneumonia. Patient seems to be very comfortable on BiPAP. -- WBC count today is 11.1, hemoglobin is 9.3, his last PTT was elevated, however his heparin was discontinued. Electrolytes showed a sodium of 146 potassium 2.9 chloride 117 bicarb is 21 BUN is 79 creatinine 1 point is 1.7 his urine output is marginal Chest x-ray this morning showed COPD with some interstitial changes and patchy bilateral airspace disease consistent with a picture of aspiration pneumonia. P atient is still getting workup to determine whether he has underlying malignancy, his CT of the spine raised the possibility of multiple lytic lesions, serum protein electrophoresis is pending, patient was seen by oncology on consultation and workup is pending. --Plan of care discussed with in great detail; patient currently wants to continue with current management with requesting patient DNR/DNI; she did talk briefly about comfort care and hospice care; would want to take patient home [facility] hosp[facility]; understands patient is at risk of grave complications but states she has already spoken to the patient and he wants to be kept comfortable --We will plan to continue with current management at this time; leaning towards hospice/comfort care Objective - Vital Signs Vital signs: Vital Signs Temp 98.4 F 11/17/23 08:40 Pulse 59 L 11/17/23 08:40 Resp 17 11/17/23 08:40 BP 103/57 11/17/23 08:40 Pulse Ox 95 11/17/23 07:00 FiO2 70 11/17/23 07:30 Intake & Output 11/16/23 11/17/23 11/17/23 18:59 06:59 18:59 Intake Total 101.507 4001.150 650 Output Total 955 490 30 Balance -490.720 5273.150 620 Weight 59.3 kg Intake: IV 260 1490 650 Lactated Ringers 1,000 ml 60 40 @ 20 mls/hr IV .Q24H [facility] Rx#:[id number] Piperacillin-Tazobactam 3 200 .375 gm In Sodium Chloride 0.9% 100 ml @ 25 mls/hr IVPB Q8HR [facility] Rx# :[id number] Sodium Chloride 0.9% 1, 450 150 000 ml @ 150 mls/hr IV . Q6H40M [facility] Rx#:[id number] Sodium Chloride 0.9% 1, 1000 000 ml @ 999 mls/hr IV . Q1H1M [facility] Rx#:[id number] Sodium Chloride 0.9% 500 500 ml 500 ml @ 999 mls/hr IV .Q31M [facility] Rx#:[id number] Intake, IV Titration 43.195 113.150 Amount Heparin Sod,Pork in 0.45% 43.195 87.380 NaCl 25,000 unit In 0.45 % NaCl 1 250ml.bag @ 12 UNITS/KG/HR 6.967 mls/hr IV .Q24H [facility] Rx#: [id number] Norepinephrine 4 mg In 25.77 Sodium Chloride 0.9% 250 ml @ 0.03 MCG/KG/MIN 6. 636 mls/hr IV .Q24H [facility] Rx#:[id number] Blood Product 0 0 Rc As-1 Unit 0 0 [id number] Output: Urine 955 490 30 Other: Voiding Method Indwelling Catheter Indwelling Catheter # Bowel Movements 1 2 - Exam GENERAL EXAM: Alert, 78-year-old weak, disheveled male patient, on 5 L nasal cannula, comfortable in no apparent distress. HEAD: Normocephalic and atraumatic EYES: Normal reaction of pupils, equal size. NOSE: Clear with pink turbinates. THROAT: No erythema or exudates. Dry mucous membranes. NECK: No masses, no JVD. CHEST: No chest wall deformity. Left chest implanted device LUNGS: Equal air entry with diffuse coarse rhonchi heard bilaterally and throughout. No conversational dyspnea. CVS: S1 and S2 normal with no audible murmur, regular rhythm. No extra heart sounds ABDOMEN: No hepatosplenomegaly, active bowel sounds, no guarding or rigidity. CENTRAL NERVOUS SYSTEM: No focal deficits, tone is normal in all 4 extremities. EXTREMITIES: There is no peripheral edema, clubbing, or cyanosis. Peripheral pulses are intact. - Labs CBC & Chem 7: 11/17/23 12:05 11/17/23 04:40 Labs: Abnormal Lab Results - Last 24 Hours (Table) 11/15/23 11/16/23 11/16/23 Range/Units 15:25 14:49 14:49 WBC (3.8-10.6) k/uL RBC (4.30-5.90) m/uL Hgb (13.0-17.5) gm/dL Hct (39.0-53.0) % MCV (80.0-100.0) fL MCH (25.0-35.0) pg Plt Count (150-450) k/uL Neutrophils # (1.3-7.7) k/uL Neutrophils # (Manual) (1.3-7.7) k/uL Lymphocytes # (1.0-4.8) k/uL APTT 35.2 H (22.0-30.0) sec Sodium (137-145) mmol/L Potassium (3.5-5.1) mmol/L Chloride (98-107) mmol/L Carbon Dioxide (22-30) mmol/L BUN (9-20) mg/dL Creatinine (0.66-1.25) mg/dL Glucose (74-99) mg/dL Calcium (8.4-10.2) mg/dL Albumin (PEP) 2.98 L (3.80-4.90) g/dL Sanrr-0-Egdiddere 0.58 L (0.60-1.00) g/dL Beta Globulins 0.58 L (0.60-1.30) g/dL Gamma Globulins 3.51 H (0.70-1.50) g/dL IgG <300.0 L (700.0-1600.0) mg/dL IgA 3281.0 H (60.0-350.0) mg/dL Crossmatch 11/16/23 11/17/23 11/17/23 Range/Units 21:11 02:02 02:02 WBC (3.8-10.6) k/uL RBC 3.73 L (4.30-5.90) m/uL Hgb 12.5 L (13.0-17.5) gm/dL Hct 38.8 L (39.0-53.0) % MCV 104.3 H (80.0-100.0) fL MCH (25.0-35.0) pg Plt Count 140 L (150-450) k/uL Neutrophils # (1.3-7.7) k/uL Neutrophils # (Manual) 9.90 H (1.3-7.7) k/uL Lymphocytes # (1.0-4.8) k/uL APTT 42.5 H 59.4 H (22.0-30.0) sec Sodium (137-145) mmol/L Potassium (3.5-5.1) mmol/L Chloride (98-107) mmol/L Carbon Dioxide (22-30) mmol/L BUN (9-20) mg/dL Creatinine (0.66-1.25) mg/dL Glucose (74-99) mg/dL Calcium (8.4-10.2) mg/dL Albumin (PEP) (3.80-4.90) g/dL Otnie-9-Xzgahwhhl (0.60-1.00) g/dL Beta Globulins (0.60-1.30) g/dL Gamma Globulins (0.70-1.50) g/dL IgG (700.0-1600.0) mg/dL IgA (60.0-350.0) mg/dL Crossmatch 11/17/23 11/17/23 11/17/23 Range/Units 02:02 04:40 04:40 WBC 11.1 H (3.8-10.6) k/uL RBC 2.62 L (4.30-5.90) m/uL Hgb 9.3 L D (13.0-17.5) gm/dL Hct 27.4 L (39.0-53.0) % MCV 104.6 H (80.0-100.0) fL MCH 35.3 H (25.0-35.0) pg Plt Count 129 L (150-450) k/uL Neutrophils # 10.3 H (1.3-7.7) k/uL Neutrophils # (Manual) (1.3-7.7) k/uL Lymphocytes # 0.3 L (1.0-4.8) k/uL APTT (22.0-30.0) sec Sodium 146 H (137-145) mmol/L Potassium 2.9 L (3.5-5.1) mmol/L Chloride 117 H (98-107) mmol/L Carbon Dioxide 21 L (22-30) mmol/L BUN 75 H (9-20) mg/dL Creatinine 1.70 H (0.66-1.25) mg/dL Glucose 121 H (74-99) mg/dL Calcium 8.1 L (8.4-10.2) mg/dL Albumin (PEP) (3.80-4.90) g/dL Qulmp-9-Mixhnvnmc (0.60-1.00) g/dL Beta Globulins (0.60-1.30) g/dL Gamma Globulins (0.70-1.50) g/dL IgG (700.0-1600.0) mg/dL IgA (60.0-350.0) mg/dL Crossmatch See Detail Assessment and Plan Assessment: Acute hypoxemic respiratory failure, secondary to acute COPD exacerbation and possible left basilar community-acquired pneumonia. Chest x-ray demonstrates some left basilar atelectasis or infiltrate with tiny effusion. Underlying pneumonia is not excluded. Negative for influenza, RSV, COVID. Suspect right apical lung nodule measuring 1.[address] scan of the chest without contrast reveals small bilateral pleural effusions. Bilateral airspace consolidation with air bronchograms. No mention of right upper lobe pulmonary nodule Severe dehydration and reduced oral intake Acute kidney injury, secondary to above Hypokalemia, replaced and recovered Altered mental status, consider acute metabolic encephalopathy, secondary to pneumonia/sepsis Elevated troponins, rule out non-ST elevation NC, currently on heparin infusion per protocol. History of paroxysmal atrial fibrillation status post AV dalia ablation with previous permanent implantation V-paced rhythm History of hyperlipidemia History of hypertension History of tobacco dependence, quit smoking approximately 8 years ago, heavy smoker prior and greater than [id number] History of BPH Plan: The patient was seen and evaluated The scan of the chest, labs and medications reviewed Continue Zosyn Completed azithromycin Continue bronchodilators and steroids Transitioned back to Xarelto per cardiology Titrate the FiO2 as tolerated We will continue to follow
--- NOTE | 2023-11-17 18:06 | P.GSCN ---
History of Present Illness Consult date: 11/17/23 Reason for Consult: abdominal pain History of present illness: Patient is a 78 yo male who is currently hospitalized in the icu, surgery was co nsulted 2/2 a large bloody bowel movement during the night. is at bedside and states patient has a history of hemorhoids/diverticulosis. The bowel movement was describe as liquid with a bright red blood. Hgb at that time was 9ish w/ hypotension. Patient was transfused 1 unit of packed red blood cells. Repeat hgb was 12ish. This am patient had a small bowel movement with a small amount of blood. He is no longer on pressor support. Currently denies abdominal pain, nausea, vomiting, fevers, or chills at this time. . Review of Systems - Constitutional Constitutional Comment(s): a 12 point review of symptoms was performed and is otherwise negative except for the above HPI. Past Medical History Past Medical History: Atrial Fibrillation, Chest Pain / Angina, COPD, Hyperlipidemia, Pneumonia Additional Past Medical History / Comment(s): See Dr Mckeon H&P, chronic back pain, diverticulosis, History of Any Multi-Drug Resistant Organisms: None Reported Past Surgical History: Orthopedic Surgery, Pacemaker Additional Past Surgical History / Comment(s): 03/25/19 cinefluoroscpy, ca rdioversion,mateus rt knee/lower leg sx has 3 screws, colonoscopy, "bone aspiration" Past Anesthesia/Blood Transfusion Reactions: No Reported Reaction Additional Past Anesthesia/Blood Transfusion Reaction / Comm: per -pt never recieved any blood in past Type of Cardiac Device: Permanent Pacemaker Device Placement Date:: 04/15/19 Past Psychological History: No Psychological Hx Reported Smoking Status: Former smoker Past Alcohol Use History: None Reported Additional Past Alcohol Use History / Comment(s): started smoking at age 15(1960)stopped smoking in May 2017. past occ etoh-none since may 2017. Past Drug Use History: None Reported Additional Drug Use History / Comment(s): uses cbd oil - Past Family History Mother History Unknown: Yes Family Medical History: No Reported History Medications and Allergies Home Medications Medication Instructions Recorded Confirmed Type Cholecalciferol [Vitamin D3 (25 25 mcg PO HS 05/23/17 11/12/23 History Mcg = 1000 Iu)] Glucosamine Sulfate 500 mg PO HS 05/23/17 11/12/23 History Pravastatin Sodium [Pravachol] 40 mg PO HS 05/23/17 11/12/23 History Tamsulosin HCl [Flomax] 0.8 mg PO HS 05/29/17 11/12/23 History Hydrocodone/Acetaminophen 1 tab PO Q6HR PRN 08/17/17 11/12/23 History [Hydrocodone/Acetaminophen 10-325] Rivaroxaban [Xarelto] 20 mg PO DAILY 03/05/18 11/12/23 History Zolpidem Tartrate [Ambien] 10 mg PO HS PRN 03/05/18 11/12/23 History ALPRAZolam [Xanax] 0.25 mg PO DAILY PRN 10/13/18 11/12/23 History Verapamil [Isoptin] 40 mg PO DAILY 11/12/23 11/12/23 History Allergies Allergy/AdvReac Type Severity Reaction Status Date / Time cefuroxime Allergy Intermediate Diaphoretic, Verified 11/12/23 11:34 tingling sensation, anxiety, Rapid Heart Rate ciprofloxacin [From Cipro] Allergy Anaphylaxis Verified 11/12/23 11:34 metronidazole Allergy Anaphylaxis Verified 11/12/23 11:34 clindamycin AdvReac Severe Dizzy, Verified 11/12/23 11:34 diaphoretic, short of breath, tachycaRapid Heart Rate Surgical - Exam Osteopathic Statement: *. No significant issues noted on an osteopathic structu ral exam other than those noted in the History and Physical/Consult. Vital Signs Temp Pulse Resp BP Pulse Ox 97.6 F 67 14 145/88 91 L 11/12/23 10:11 11/12/23 10:11 11/12/23 10:11 11/12/23 10:11 11/12/23 10:11 - General gen: nad cv: rrr pul: non labored breathing abd: soft, non tender to palpation, no guarding or rebound tenderness rectum: moderate amount of bright red blood in stool Results - Labs 11/17/23 12:05 11/17/23 16:22 Abnormal Lab Results - Last 24 Hours (Table) 11/15/23 11/16/23 11/16/23 Range/Units 15:25 14:49 21:11 WBC (3.8-10.6) k/uL RBC (4.30-5.90) m/uL Hgb (13.0-17.5) gm/dL Hct (39.0-53.0) % MCV (80.0-100.0) fL MCH (25.0-35.0) pg RDW (11.5-15.5) % Plt Count (150-450) k/uL Neutrophils # (1.3-7.7) k/uL Neutrophils # (Manual) (1.3-7.7) k/uL Lymphocytes # (1.0-4.8) k/uL APTT 42.5 H (22.0-30.0) sec Sodium (137-145) mmol/L Potassium (3.5-5.1) mmol/L Chloride (98-107) mmol/L Carbon Dioxide (22-30) mmol/L BUN (9-20) mg/dL Creatinine (0.66-1.25) mg/dL Glucose (74-99) mg/dL Calcium (8.4-10.2) mg/dL Albumin (PEP) 2.98 L (3.80-4.90) g/dL Voxir-7-Sjitjtwyp 0.58 L (0.60-1.00) g/dL Beta Globulins 0.58 L (0.60-1.30) g/dL Gamma Globulins 3.51 H (0.70-1.50) g/dL IgG <300.0 L (700.0-1600.0) mg/dL IgA 3281.0 H (60.0-350.0) mg/dL Crossmatch 11/17/23 11/17/23 11/17/23 Range/Units 02:02 02:02 02:02 WBC (3.8-10.6) k/uL RBC 3.73 L (4.30-5.90) m/uL Hgb 12.5 L (13.0-17.5) gm/dL Hct 38.8 L (39.0-53.0) % MCV 104.3 H (80.0-100.0) fL MCH (25.0-35.0) pg RDW (11.5-15.5) % Plt Count 140 L (150-450) k/uL Neutrophils # (1.3-7.7) k/uL Neutrophils # (Manual) 9.90 H (1.3-7.7) k/uL Lymphocytes # (1.0-4.8) k/uL APTT 59.4 H (22.0-30.0) sec Sodium (137-145) mmol/L Potassium (3.5-5.1) mmol/L Chloride (98-107) mmol/L Carbon Dioxide (22-30) mmol/L BUN (9-20) mg/dL Creatinine (0.66-1.25) mg/dL Glucose (74-99) mg/dL Calcium (8.4-10.2) mg/dL Albumin (PEP) (3.80-4.90) g/dL Imizj-6-Zvyhfcrux (0.60-1.00) g/dL Beta Globulins (0.60-1.30) g/dL Gamma Globulins (0.70-1.50) g/dL IgG (700.0-1600.0) mg/dL IgA (60.0-350.0) mg/dL Crossmatch See Detail 11/17/23 11/17/23 11/17/23 Range/Units 04:40 04:40 12:05 WBC 11.1 H (3.8-10.6) k/uL RBC 2.62 L 3.70 L (4.30-5.90) m/uL Hgb 9.3 L D 12.2 L (13.0-17.5) gm/dL Hct 27.4 L 36.8 L (39.0-53.0) % MCV 104.6 H (80.0-100.0) fL MCH 35.3 H (25.0-35.0) pg RDW 18.0 H (11.5-15.5) % Plt Count 129 L 103 L (150-450) k/uL Neutrophils # 10.3 H 9.3 H (1.3-7.7) k/uL Neutrophils # (Manual) (1.3-7.7) k/uL Lymphocytes # 0.3 L 0.2 L (1.0-4.8) k/uL APTT (22.0-30.0) sec Sodium 146 H (137-145) mmol/L Potassium 2.9 L (3.5-5.1) mmol/L Chloride 117 H (98-107) mmol/L Carbon Dioxide 21 L (22-30) mmol/L BUN 75 H (9-20) mg/dL Creatinine 1.70 H (0.66-1.25) mg/dL Glucose 121 H (74-99) mg/dL Calcium 8.1 L (8.4-10.2) mg/dL Albumin (PEP) (3.80-4.90) g/dL Ajqdg-5-Shaniferf (0.60-1.00) g/dL Beta Globulins (0.60-1.30) g/dL Gamma Globulins (0.70-1.50) g/dL IgG (700.0-1600.0) mg/dL IgA (60.0-350.0) mg/dL Crossmatch Diabetes panel 11/17/23 11/17/23 Range/Units 04:40 16:22 Sodium 146 H (137-145) mmol/L Potassium 2.9 L 4.5 (3.5-5.1) mmol/L Chloride 117 H (98-107) mmol/L Carbon Dioxide 21 L (22-30) mmol/L BUN 75 H (9-20) mg/dL Creatinine 1.70 H (0.66-1.25) mg/dL Glucose 121 H (74-99) mg/dL Calcium 8.1 L (8.4-10.2) mg/dL Calcium panel 11/17/23 Range/Units 04:40 Calcium 8.1 L (8.4-10.2) mg/dL Pituitary panel 11/17/23 11/17/23 Range/Units 04:40 16:22 Sodium 146 H (137-145) mmol/L Potassium 2.9 L 4.5 (3.5-5.1) mmol/L Chloride 117 H (98-107) mmol/L Carbon Dioxide 21 L (22-30) mmol/L BUN 75 H (9-20) mg/dL Creatinine 1.70 H (0.66-1.25) mg/dL Glucose 121 H (74-99) mg/dL Calcium 8.1 L (8.4-10.2) mg/dL Adrenal panel 11/17/23 11/17/23 Range/Units 04:40 16:22 Sodium 146 H (137-145) mmol/L Potassium 2.9 L 4.5 (3.5-5.1) mmol/L Chloride 117 H (98-107) mmol/L Carbon Dioxide 21 L (22-30) mmol/L BUN 75 H (9-20) mg/dL Creatinine 1.70 H (0.66-1.25) mg/dL Glucose 121 H (74-99) mg/dL Calcium 8.1 L (8.4-10.2) mg/dL Assessment and Plan Assessment: 78 yo male w/ likely lower GI bleed 2/2 hemorrhoids vs diverticulosis -heparin discontinued, ptt never greater than 60 -monitor hgb q12 vs q24 hrs -transfuse is symptomatic, or significant decrease in hgb -no need for colonoscopy as the frequency of bleeding has not increased
[2023-11-17 20:38] LABS: Anisocytosis Slight; HCT 32.8 % (39.0-53.0); HGB 11.3 gm/dL (13.0-17.5); MCH 32.7 pg (25.0-35.0); MCHC 34.5 g/dL (31.0-37.0); MCV 94.7 fL (80.0-100.0); Macrocytosis Slight; Mean Platelet Volume 11.6; Platelet Count 104 k/uL (150-450); RBC 3.46 m/uL (4.30-5.90); RDW 18.6 % (11.5-15.5); WBC 12.1 k/uL (3.8-10.6)
[2023-11-17] MEDS: IMMUNE GLOBULIN (GAMMAGARD) 20 GM in EMPTY BAG 1 BAG IV NR ×2 (21:25→23:22)
--- NOTE | 2023-11-18 02:11 | P.PN ---
Subjective Progress Note Date: 11/17/23 Patient seen in ICU at today's visit. Patient is lethargic and easily falls asleep during visit. is at bedside who is DPOA. Discussed findings of paraproteinemia workup. Immunofixation showing IgA kappa paraprotein. M spike 3.46. Discussed with that labs are consistent with multiple myeloma and we would recommend bone marrow biopsy once patient is stable to confirm diagnosis. IgG less than 300. Patient currently be treated for aspiration pneumonia. IVIG ordered. CBC reviewed, WBC 9.9, hemoglobin 12.2, platelets 103,000. Creatinine improving, 1.70 today. Objective - Vital Signs Vital signs: Vital Signs Temp 98.2 F 11/17/23 12:00 Pulse 69 11/17/23 14:00 Resp 19 11/17/23 14:00 BP 129/63 11/17/23 14:00 Pulse Ox 97 11/17/23 13:00 FiO2 70 11/17/23 10:32 Intake & Output 11/16/23 11/17/23 11/17/23 18:59 06:59 18:59 Intake Total 305.031 8713.150 1707.263 Output Total 955 490 600 Balance -879.371 1118.150 1107.263 Weight 59.3 kg Intake: IV 260 1490 1700 Lactated Ringers 1,000 ml 60 40 @ 20 mls/hr IV .Q24H [facility] Rx#:[id number] Piperacillin-Tazobactam 3 200 .375 gm In Sodium Chloride 0.9% 100 ml @ 25 mls/hr IVPB Q8HR [facility] Rx# :[id number] Sodium Chloride 0.9% 1, 450 1200 000 ml @ 150 mls/hr IV . Q6H40M [facility] Rx#:[id number] Sodium Chloride 0.9% 1, 1000 000 ml @ 999 mls/hr IV . Q1H1M [facility] Rx#:[id number] Sodium Chloride 0.9% 500 500 ml 500 ml @ 999 mls/hr IV .Q31M [facility] Rx#:[id number] Intake, IV Titration 43.195 113.150 7.263 Amount Heparin Sod,Pork in 0.45% 43.195 87.380 NaCl 25,000 unit In 0.45 % NaCl 1 250ml.bag @ 12 UNITS/KG/HR 6.967 mls/hr IV .Q24H [facility] Rx#: [id number] Norepinephrine 4 mg In 25.77 7.263 Sodium Chloride 0.9% 250 ml @ 0.03 MCG/KG/MIN 6. 636 mls/hr IV .Q24H [facility] Rx#:[id number] Blood Product 0 0 Rc As-1 Unit 0 0 [id number] Output: Urine 955 490 600 Other: Voiding Method Indwelling Catheter Indwelling Catheter Indwelling Catheter # Bowel Movements 1 2 - Constitutional General appearance: Present: average body habitus, no acute distress - Respiratory Details: breathing is even and unlabored - Cardiovascular Details: skin warm and dry - Integumentary Integumentary: Absent: cyanotic, jaundiced - Neurologic Neurologic Comment(s): lethargic - Musculoskeletal Musculoskeletal: Present: generalized weakness - Labs CBC & Chem 7: 11/17/23 19:36 11/17/23 16:22 Labs: Abnormal Lab Results - Last 24 Hours (Table) 11/15/23 11/16/23 11/16/23 Range/Units 15:25 14:49 14:49 WBC (3.8-10.6) k/uL RBC (4.30-5.90) m/uL Hgb (13.0-17.5) gm/dL Hct (39.0-53.0) % MCV (80.0-100.0) fL MCH (25.0-35.0) pg RDW (11.5-15.5) % Plt Count (150-450) k/uL Neutrophils # (1.3-7.7) k/uL Neutrophils # (Manual) (1.3-7.7) k/uL Lymphocytes # (1.0-4.8) k/uL APTT 35.2 H (22.0-30.0) sec Sodium (137-145) mmol/L Potassium (3.5-5.1) mmol/L Chloride (98-107) mmol/L Carbon Dioxide (22-30) mmol/L BUN (9-20) mg/dL Creatinine (0.66-1.25) mg/dL Glucose (74-99) mg/dL Calcium (8.4-10.2) mg/dL Albumin (PEP) 2.98 L (3.80-4.90) g/dL Gayje-5-Rudqxhxdj 0.58 L (0.60-1.00) g/dL Beta Globulins 0.58 L (0.60-1.30) g/dL Gamma Globulins 3.51 H (0.70-1.50) g/dL IgG <300.0 L (700.0-1600.0) mg/dL IgA 3281.0 H (60.0-350.0) mg/dL Crossmatch 11/16/23 11/17/23 11/17/23 Range/Units 21:11 02:02 02:02 WBC (3.8-10.6) k/uL RBC 3.73 L (4.30-5.90) m/uL Hgb 12.5 L (13.0-17.5) gm/dL Hct 38.8 L (39.0-53.0) % MCV 104.3 H (80.0-100.0) fL MCH (25.0-35.0) pg RDW (11.5-15.5) % Plt Count 140 L (150-450) k/uL Neutrophils # (1.3-7.7) k/uL Neutrophils # (Manual) 9.90 H (1.3-7.7) k/uL Lymphocytes # (1.0-4.8) k/uL APTT 42.5 H 59.4 H (22.0-30.0) sec Sodium (137-145) mmol/L Potassium (3.5-5.1) mmol/L Chloride (98-107) mmol/L Carbon Dioxide (22-30) mmol/L BUN (9-20) mg/dL Creatinine (0.66-1.25) mg/dL Glucose (74-99) mg/dL Calcium (8.4-10.2) mg/dL Albumin (PEP) (3.80-4.90) g/dL Gpgsy-4-Cyrmlufxj (0.60-1.00) g/dL Beta Globulins (0.60-1.30) g/dL Gamma Globulins (0.70-1.50) g/dL IgG (700.0-1600.0) mg/dL IgA (60.0-350.0) mg/dL Crossmatch 11/17/23 11/17/23 11/17/23 Range/Units 02:02 04:40 04:40 WBC 11.1 H (3.8-10.6) k/uL RBC 2.62 L (4.30-5.90) m/uL Hgb 9.3 L D (13.0-17.5) gm/dL Hct 27.4 L (39.0-53.0) % MCV 104.6 H (80.0-100.0) fL MCH 35.3 H (25.0-35.0) pg RDW (11.5-15.5) % Plt Count 129 L (150-450) k/uL Neutrophils # 10.3 H (1.3-7.7) k/uL Neutrophils # (Manual) (1.3-7.7) k/uL Lymphocytes # 0.3 L (1.0-4.8) k/uL APTT (22.0-30.0) sec Sodium 146 H (137-145) mmol/L Potassium 2.9 L (3.5-5.1) mmol/L Chloride 117 H (98-107) mmol/L Carbon Dioxide 21 L (22-30) mmol/L BUN 75 H (9-20) mg/dL Creatinine 1.70 H (0.66-1.25) mg/dL Glucose 121 H (74-99) mg/dL Calcium 8.1 L (8.4-10.2) mg/dL Albumin (PEP) (3.80-4.90) g/dL Xjfhj-2-Trbqzvenv (0.60-1.00) g/dL Beta Globulins (0.60-1.30) g/dL Gamma Globulins (0.70-1.50) g/dL IgG (700.0-1600.0) mg/dL IgA (60.0-350.0) mg/dL Crossmatch See Detail 11/17/23 Range/Units 12:05 WBC (3.8-10.6) k/uL RBC 3.70 L (4.30-5.90) m/uL Hgb 12.2 L (13.0-17.5) gm/dL Hct 36.8 L (39.0-53.0) % MCV (80.0-100.0) fL MCH (25.0-35.0) pg RDW 18.0 H (11.5-15.5) % Plt Count 103 L (150-450) k/uL Neutrophils # 9.3 H (1.3-7.7) k/uL Neutrophils # (Manual) (1.3-7.7) k/uL Lymphocytes # 0.2 L (1.0-4.8) k/uL APTT (22.0-30.0) sec Sodium (137-145) mmol/L Potassium (3.5-5.1) mmol/L Chloride (98-107) mmol/L Carbon Dioxide (22-30) mmol/L BUN (9-20) mg/dL Creatinine (0.66-1.25) mg/dL Glucose (74-99) mg/dL Calcium (8.4-10.2) mg/dL Albumin (PEP) (3.80-4.90) g/dL Ulnpf-2-Rnikmbtil (0.60-1.00) g/dL Beta Globulins (0.60-1.30) g/dL Gamma Globulins (0.70-1.50) g/dL IgG (700.0-1600.0) mg/dL IgA (60.0-350.0) mg/dL Crossmatch Assessment and Plan (1) Paraproteinemia Current Visit: Yes Status: Acute Code(s): D89.2 - HYPERGAMMAGLOBULINEMIA, UNSPECIFIED SNOMED Code(s): 330045581 (2) TERRY (acute kidney injury) Current Visit: Yes Status: Acute Code(s): N17.9 - ACUTE KIDNEY FAILURE, UNSPECIFIED SNOMED Code(s): 23411816 (3) Abnormal CT of spine Current Visit: Yes Status: Acute Code(s): R93.7 - ABNORMAL FINDINGS ON DIAGN OSTIC IMAGING OF PRT MS [place] SNOMED Code(s): 778278444 Plan: Consult was placed because of abnormal imaging on CT spine survey. On questioni ng the patient denies any increase in his chronic musculoskeletal pain issues. There is a diffuse mottled appearance of the bone, which could be due to malignancy, but also due to benign processes such as osteoporosis. However the lesions noted in the right ilium and sacrum, as well as in the T-spine appear to be more suspicious. - Results and implications were discussed in detail with the patient and his . They were advised that the findings are suspicious enough to warrant further workup to evaluate for malignancy. At this time I will order protein electrophoresis studies. If these are benign, I will proceed to a bone scan and CT imaging with contrast. -Labs are overall unrevealing with PSA normal on 09/29. Calcium was mildly elevated, but given renal insufficiency and high PTH, is not consistent with malignant hypercalcemia -Discussed findings of paraproteinemia workup with patient and spouse. Immunofixation showing IgA kappa paraprotein. M spike 3.46. IgA elevated at 3 281. Discussed with that labs are consistent with multiple myeloma and that a bone marrow biopsy would be recommended to confirm diagnosis once patient is stable. She states she is unsure if patient would be willing to undergo procedure or any systemic treatment if diagnosed. Had long discussion with spouse today regarding diagnosis, workup and potential treatment options for MM. Further discussed that in patient's current condition, poor PS and his comorbidities, he would not be a candidate for treatment at this time, but once he has acutely recovered and can undergo further workup if he decides to at that time, we can schedule f/u in the outpt setting. At this time wants to hold off on scheduling any further workup, until patient has recovered so they can further discuss findings and patients wishes. Will continue to follow -IgG less than 300. Patient currently be treated for aspiration pneumonia. IVIG ordered for additional immune support. Continues on IV abx Plan: Defer to the admitting service and other consultants for management of his other medical problems. Chest imaging does raise the possibility of underlying obstructive mass. Patient was to have a bronchoscopy, but that is on hold for now.
[2023-11-18 04:30] LABS: Anisocytosis Slight; Basophils % (A) 0 %; Eosinophils % (A) 0 %; Lymphocytes # (A) 0.5 k/uL (1.0-4.8); Lymphocytes % (A) 4 %; MCH 31.3 pg (25.0-35.0); MCHC 31.2 g/dL (31.0-37.0); Macrocytosis Moderate; Mean Platelet Volume 11.5; Monocytes # (A) 0.4 k/uL (0-1.0); Monocytes % (A) 3 %; Neutrophils # (A) 9.6 k/uL (1.3-7.7); Neutrophils % (A) 91 %; Platelet Count 118 k/uL (150-450); RBC 2.99 m/uL (4.30-5.90); RDW 18.4 % (11.5-15.5); WBC 10.5 k/uL (3.8-10.6)
[2023-11-18 04:39] LABS: African American GFR (CKD) 49 (>60 ml/min/1.73 sqM); Anion Gap 7 mmol/L; Blood Urea Nitrogen 79 mg/dL (9-20); Calcium 8.5 mg/dL (8.4-10.2); Carbon Dioxide 27 mmol/L (22-30); Chloride 114 mmol/L (98-107); Glucose 121 mg/dL (74-99); Non-African American GFR(CKD) 42 (>60 ml/min/1.73 sqM); Potassium 3.3 mmol/L (3.5-5.1); Sodium 148 mmol/L (137-145)
[2023-11-18 04:48] LABS: HGB 9.4 gm/dL (13.0-17.5); MCV 100.3 fL (80.0-100.0)
[2023-11-18] MEDS: SODIUM CHLORIDE 0.9% 1,000 ML IV ONE (04:50)
[2023-11-18] MEDS: POTASSIUM CHLORIDE 10 MEQ in WATER FOR INJECTION 1 100ML.BAG IVPB SCH (05:41)
[2023-11-18 06:27] LABS: Large Platelets Present
[2023-11-18 08:46] LABS: Anisocytosis Slight; HCT 28.6 % (39.0-53.0); HGB 9.3 gm/dL (13.0-17.5); MCH 31.4 pg (25.0-35.0); MCHC 32.5 g/dL (31.0-37.0); MCV 96.6 fL (80.0-100.0); Macrocytosis Slight; Mean Platelet Volume 12.2; Platelet Count 112 k/uL (150-450); Poikilocytosis Slight; RBC 2.96 m/uL (4.30-5.90); RDW 18.6 % (11.5-15.5); WBC 10.6 k/uL (3.8-10.6)
[2023-11-18] MEDS: DEXTROSE 5%-0.45% NACL 1,000 ML IV SCH (09:19)
[2023-11-18 09:45] VITALS: TEMP 97.5
[2023-11-18 10:54] LABS: Anisocytosis Slight; HGB 10.6 gm/dL (13.0-17.5); MCH 31.9 pg (25.0-35.0); MCHC 33.3 g/dL (31.0-37.0); Macrocytosis Slight; Mean Platelet Volume 11.1; Platelet Count 101 k/uL (150-450); Poikilocytosis Slight; RBC 3.33 m/uL (4.30-5.90); WBC 12.1 k/uL (3.8-10.6)
--- NOTE | 2023-11-18 10:55 | P.PN ---
Subjective Progress Note Date: 11/17/23 Patient was initially seen by Dr. Eliezer Espinal. Please refer to his note for details. Patient is a 78-year-old male with new onset accelerated generalized weakness, former heavy smoker, has aspiration pneumonia, CT spine showed osteolytic lesion and possible malignancy. Hematology on board, being worked up for possible multiple myeloma. Patient's was also present today. Also discussed with nursing staff and hematology. Per nursing report, patient had a GI bleed last night, for which patient received 1 unit of packed RBC. His hemoglobin is better. Patient is still having some bleeding, some maroon-colored clots coming. General surgery also on board and talk to the . Patient's is not recommending any further workup, and is considering hospice care. Patient on nonrebreather mask at this time. He is off Levophed and heparin drip. His blood pressure is holding well. Spoke to hospital account manager and patient has been diagnosed with multiple myeloma. Family declining bone marrow biopsy. Patient will be receiving IVIG, 0.5 g/kg for hypogammaglobulinemia. Some of the other work-up consisted: Patient is afebrile White blood cell was normal on presentation and is currently trended up. CK level is 53. Vitamin B12 is 969 Red blood cell folate is 563 TSH 0.879 Ammonia is less than 9 Calcium Is 11.8 and the most recent 1 is 10.4 Ionized calcium is 5.4 PTH 63.0 Phosphorus: 3.7 Magnesium 2.3 Sodium is currently 142 it was as high as 152 during this admission. Patient had a CT of the head in our facility and is reported as no acute intracranial process. Nonspecific white matter changes, likely secondary due to chronic small vessel ischemic disease. I personally reviewed the CT and agree with the report. Objective - Vital Signs Vital signs: Vital Signs Temp 98.0 F 11/17/23 16:00 Pulse 60 11/17/23 17:00 Resp 21 11/17/23 17:00 BP 120/58 11/17/23 17:00 Pulse Ox 97 11/17/23 17:00 FiO2 70 11/17/23 15:15 Intake & Output 11/16/23 11/17/23 11/17/23 18:59 06:59 18:59 Intake Total 424.997 3841.150 2157.263 Output Total 955 490 780 Balance -740.524 5831.150 1377.263 Weight 59.3 kg Intake: IV 260 1490 2150 Lactated Ringers 1,000 ml 60 40 @ 20 mls/hr IV .Q24H [facility] Rx#:[id number] Piperacillin-Tazobactam 3 200 .375 gm In Sodium Chloride 0.9% 100 ml @ 25 mls/hr IVPB Q8HR [facility] Rx# :[id number] Sodium Chloride 0.9% 1, 450 1650 000 ml @ 150 mls/hr IV . Q6H40M [facility] Rx#:[id number] Sodium Chloride 0.9% 1, 1000 000 ml @ 999 mls/hr IV . Q1H1M [facility] Rx#:[id number] Sodium Chloride 0.9% 500 500 ml 500 ml @ 999 mls/hr IV .Q31M [facility] Rx#:[id number] Intake, IV Titration 43.195 113.150 7.263 Amount Heparin Sod,Pork in 0.45% 43.195 87.380 NaCl 25,000 unit In 0.45 % NaCl 1 250ml.bag @ 12 UNITS/KG/HR 6.967 mls/hr IV .Q24H [facility] Rx#: [id number] Norepinephrine 4 mg In 25.77 7.263 Sodium Chloride 0.9% 250 ml @ 0.03 MCG/KG/MIN 6. 636 mls/hr IV .Q24H [facility] Rx#:[id number] Blood Product 0 0 Rc As-1 Unit 0 0 [id number] Output: Urine 955 490 780 Other: Voiding Method Indwelling Catheter Indwelling Catheter Indwelling Catheter # Bowel Movements 1 2 - Exam On examination patient is slightly lethargic, but does wake up. He follows directions. Patient appears encephalopathic. Speech and language functions appears normal. His pupils are equal, round and reacting, face is symmetric. Extraocular muscles intact, tongue protrudes to midline. On muscle strength testing, deltoid is 3+, biceps 4, triceps 5, director medical safety 4, hip flexion 2 3-/4+, ankle dorsiflexion 5/5. Patient's 5 noticed that she is rapidly getting weak. Patient has some bruises. Some edema. - Labs CBC & Chem 7: 11/18/23 08:11 11/18/23 04:03 Labs: Abnormal Lab Results - Last 24 Hours (Table) 11/15/23 11/16/23 11/16/23 Range/Units 15:25 14:49 21:11 WBC (3.8-10.6) k/uL RBC (4.30-5.90) m/uL Hgb (13.0-17.5) gm/dL Hct (39.0-53.0) % MCV (80.0-100.0) fL MCH (25.0-35.0) pg RDW (11.5-15.5) % Plt Count (150-450) k/uL Neutrophils # (1.3-7.7) k/uL Neutrophils # (Manual) (1.3-7.7) k/uL Lymphocytes # (1.0-4.8) k/uL APTT 42.5 H (22.0-30.0) sec Sodium (137-145) mmol/L Potassium (3.5-5.1) mmol/L Chloride (98-107) mmol/L Carbon Dioxide (22-30) mmol/L BUN (9-20) mg/dL Creatinine (0.66-1.25) mg/dL Glucose (74-99) mg/dL Calcium (8.4-10.2) mg/dL Albumin (PEP) 2.98 L (3.80-4.90) g/dL Udycj-0-Gmcuuhqmi 0.58 L (0.60-1.00) g/dL Beta Globulins 0.58 L (0.60-1.30) g/dL Gamma Globulins 3.51 H (0.70-1.50) g/dL IgG <300.0 L (700.0-1600.0) mg/dL IgA 3281.0 H (60.0-350.0) mg/dL Crossmatch 11/17/23 11/17/23 11/17/23 Range/Units 02:02 02:02 02:02 WBC (3.8-10.6) k/uL RBC 3.73 L (4.30-5.90) m/uL Hgb 12.5 L (13.0-17.5) gm/dL Hct 38.8 L (39.0-53.0) % MCV 104.3 H (80.0-100.0) fL MCH (25.0-35.0) pg RDW (11.5-15.5) % Plt Count 140 L (150-450) k/uL Neutrophils # (1.3-7.7) k/uL Neutrophils # (Manual) 9.90 H (1.3-7.7) k/uL Lymphocytes # (1.0-4.8) k/uL APTT 59.4 H (22.0-30.0) sec Sodium (137-145) mmol/L Potassium (3.5-5.1) mmol/L Chloride (98-107) mmol/L Carbon Dioxide (22-30) mmol/L BUN (9-20) mg/dL Creatinine (0.66-1.25) mg/dL Glucose (74-99) mg/dL Calcium (8.4-10.2) mg/dL Albumin (PEP) (3.80-4.90) g/dL Dsjwt-7-Taillnkuh (0.60-1.00) g/dL Beta Globulins (0.60-1.30) g/dL Gamma Globulins (0.70-1.50) g/dL IgG (700.0-1600.0) mg/dL IgA (60.0-350.0) mg/dL Crossmatch See Detail 11/17/23 11/17/23 11/17/23 Range/Units 04:40 04:40 12:05 WBC 11.1 H (3.8-10.6) k/uL RBC 2.62 L 3.70 L (4.30-5.90) m/uL Hgb 9.3 L D 12.2 L (13.0-17.5) gm/dL Hct 27.4 L 36.8 L (39.0-53.0) % MCV 104.6 H (80.0-100.0) fL MCH 35.3 H (25.0-35.0) pg RDW 18.0 H (11.5-15.5) % Plt Count 129 L 103 L (150-450) k/uL Neutrophils # 10.3 H 9.3 H (1.3-7.7) k/uL Neutrophils # (Manual) (1.3-7.7) k/uL Lymphocytes # 0.3 L 0.2 L (1.0-4.8) k/uL APTT (22.0-30.0) sec Sodium 146 H (137-145) mmol/L Potassium 2.9 L (3.5-5.1) mmol/L Chloride 117 H (98-107) mmol/L Carbon Dioxide 21 L (22-30) mmol/L BUN 75 H (9-20) mg/dL Creatinine 1.70 H (0.66-1.25) mg/dL Glucose 121 H (74-99) mg/dL Calcium 8.1 L (8.4-10.2) mg/dL Albumin (PEP) (3.80-4.90) g/dL Gpzmj-1-Onewgvzki (0.60-1.00) g/dL Beta Globulins (0.60-1.30) g/dL Gamma Globulins (0.70-1.50) g/dL IgG (700.0-1600.0) mg/dL IgA (60.0-350.0) mg/dL Crossmatch Assessment and Plan Assessment: This is a 78-year-old gentleman with a history of heavy tobacco use who presents to the emergency department because of generalized weakness that is progressively getting worse as a result having difficulty ambulating. From the limited history no fever sick contacts. During this hospital stay it appears the patient had aspiration pneumonia that is assumed and patient is very coarse currently. Chest x-ray there was a concern for persistent vague nodular density in the right lobe measuring 1.4 cm. Also had hypercalcemia. On CT Chest no mention of mass. New rapid generalized weakness: Patient diagnosed with multiple myeloma. Patient also has possible obstructing lung mass, which may need further workup. Patient has hypercalcemia related to multiple myeloma, that can result in wea kness. Initial CT head is unremarkable. Altered mental status due to metabolic encephalopathy, TERRY as well as aspiration pneumonia Nodular density in the right lobe 1.4 cm on chest x-ray but reported on CT chest Aspiration pneumonia Hypercalcemia Acute kidney injury Chronic back pain Chronic knee pain History of AV ablation Status post pacemaker Former heavy tobacco use Plan: Await acetylcholine abs and Musk ab. Consider Lambert-Eaton syndrome work-up if he does have cancer. Repeat CT head from 11/16/2023 revealed no acute process. Nonspecific white matter changes, likely secondary to chronic small vessel ischemic disease. I personally reviewed CT head, agree with the findings. CT of the cervical thoracic and lumbar spine revealed extensive mottled appearance of the osseous structures with lytic lesions scattered throughout. Correlate with patient's history of malignancy. Further evaluation with MRI with IV contrast recommended. Findings suggestive of diffuse metastatic disease. Severe degeneration changes throughout the spine with compression deformities at T6 and T7. Findings suggestive atelectasis within the lung bases with bronchial vascular crowding. Superimposed infection remains a possibility. Unable to obtain MRI because of the pacemaker. Consider whole-body bone scan. Oncology on board, appreciate recommendations. Patient being started on IVIG for hypogammaglobulinemia. Pulmonary team is on board Nephrology team is on board Will defer the rest of the medical management to primary/ICU team and other specialists Discussed with oncology, nursing staff and patient's in detail.
--- NOTE | 2023-11-18 10:57 | P.PN ---
Subjective Progress Note Date: 11/18/23 Principal diagnosis: Acute hypoxic respiratory failure secondary to acute bibasilar pneumonia, highly suspicious for aspiration pneumonia and acute exacerbation of COPD Patient is a 78-year-old white male with past medical history significant for paroxysmal atrial fibrillation with previous AV node ablation, permanent pacemaker, COPD, and former heavy tobacco use. Patient presented to the emergency room yesterday morning with a chief complaint of progressively worsening generalized weakness over the last 10 days. He is a poor historian, his is at bedside, and answers all questions. He can no longer ambulate to his bedroom, and his has set up a air mattress on the floor on the lower level. He did fall off the air mattress. This prompted the to contact EMS. He is currently resting in bed, on 4 L/min nasal cannula, in no acute distress. He reportedly does not wear home oxygen. states that he has appeared short of breath at times. No significant coughing or sputum production. No hemoptysis. No measured fevers. No sick contacts. He has no specific complaints but diffuse nonlocalized/nonspecific pain. He is very weak. Dry mucous membranes. Reportedly not eating and drinking much while at home. Brain CT done on arrival did not show any acute intracranial process. There is nonspecific white matter changes, likely secondary to chronic small vessel ischemic disease. Chest x-ray shows basilar atelectasis versus infiltrate with tiny effusion. Underlying pneumonia is not excluded. There is hyperinflation consistent with COPD. There is a 1.4 cm right apical opacity concerning for lung nodule. There is also a lucent lesion of the left proximal humerus. CBC on arrival unremarkable. No leukocytosis. Troponins elevated at 0.124, 0.132, and 0.109 respectively. EKG shows V paced rhythm. Patient was started on heparin infusion. Most recent APTT therapeutic. NT proBNP 1810. CMP done on arrival: Sodium 147, potassium 3.1, chloride 108, serum bicarb 32, BUN 77, creatinine 1.77, glucose 79. Lactic acid 0.6. CPK 53. TSH 0.879. Urinalysis shows trace protein, small leukocytes, otherwise unremarkable. Negative for influenza, RSV, COVID. Currently afebrile. Started on a combination of azithromycin and Zosyn in the emergency room. Half-normal saline is infusing at 75 mL/h. Vital signs are stable. The patient is seen today November 14, 2023 in follow-up in the emergency department. He is currently awake and alert in no acute distress. He is maintaining O2 saturations in the 90s on 5 L/min per nasal cannula. Currently afebrile. Hemodynamically stable. His procalcitonin is 0.20. His proBNP is 1810. Blood cultures are pending. White count 12.0. Hemoglobin 14.1. Platelets 153. Sodium 143. Potassium 4.4. Bicarb 26. BUN 85. Creatinine 1.82. He has been transition to Xarelto. Remains on Zosyn. Completed azithromycin. Remains on bronchodilators and steroids. Receiving 0.45% normal saline at [address] scan of the chest reveals bilateral airspace disease most likely pneumonia. Patient was reevaluated today on 11/15/2023, patient remains generally weak, according to the his weakness has been noted only in the last 2 weeks. Prior to this he was extremely active, and only in the last 2 weeks has been gradually going downhill, and developing significant weakness to the point that he cannot ambulate anymore. 2 weeks ago this patient was able to go up the stairways without any support. Patient had a CT of the chest, suggestive of bilateral pneumonia, I am suspecting that the patient is aspirating, swallow evaluation is in progress. However after reviewing the CT of the chest I am recommending bronchoscopy and BAL, just to rule out the possibility of underlying malignancy involving the lungs. Procalcitonin level is elevated WBC count is 12.3 hemoglobin 13 basic metabolic profile is normal renal profile is a bit worse today BUN is 81 creatinine 2.27, patient came in with creatinine of 1.77 went down to 1.54. And now it is 2.27, nephrology evaluated the patient felt that this is a picture of ATN or could be a cardiorenal syndrome. His echocardiogram showed good LV function, patient has moderate LV hypertrophy moderate pulmonary hypertension mild aortic and mitral regurgitation. Still the cardiac findings do not explain his pulmonary findings, patient clearly has bibasilar airspace disease, underlying malignancy is not entirely ruled out but felt to be less likely hence I am planning bronchoscopy and BAL of both lower lobes tomorrow meantime considering his profound weakness and worsening picture with his weakness which seems to be his main issue I am recommending neurological evaluation Today on 11/16/2023, the patient was supposed to undergo bronchoscopy and lavage today, however this morning his pulmonary status deteriorated, patient required to be placed on BiPAP, and required transfer to ICU. Apparently the patient was developing more shortness of breath earlier this morning, he was hypoxic, tachycardic., Patient was placed on BiPAP 12/6/100%, ABG showed a pO2 of 85 pCO2 48 and pH of 7.40. Bronchoscopy which was planned to be done today has been canceled, patient is DNI and the family would not want him to be on mechanical ventilation, hence I would not be able to perform bronchoscopy on this patient unless he is placed on mechanical ventilation. Bronchoscopy was canceled for today. Chest x-ray showed stable bilateral infiltrates and small effusion on the left side. Underlying pulmonary vascular congestion is not entirely ruled out. Considering his mental status and his overall neurological symptoms, CT of the brain showed no acute intracranial process. CT of the spine showed mottled appearance of the osseous structures with lytic lesions scattered throughout. Findings are highly suspicious for diffuse metastatic disease. PSA was ordered. Patient may eventually require a CT-guided needle biopsy of one of his lytic lesions to confirm diagnosis of metastatic disease to the spine. WBC count today is 10.6 hemoglobin 14.9, INR is 1.20 basic metabolic profile is normal however BUN is 83 creatinine 2.07, baseline creatinine is 1.77 on admission. Repeat serum calcium has been normal Patient was evaluated today on 11/17/2023, patient remains in the ICU, remains on BiPAP 12/6/70%, patient developed an episode of significant GI bleeding last night, and he required a unit of packed RBCs, arrangements were being made to transfer the patient to a tertiary care center since we have no GI coverage, chest surgery declined to see the patient because of the fact that there is no GI coverage, hence patient remains in the ICU, being managed, declined transfer the patient to a tertiary care center. Patient is now off heparin he is requiring norepinephrine at 0.02 mcg/kg/min he is on IV fluid at 150 cc/h. He did receive 1 unit of packed RBCs last night. And he is remaining on Zosyn for presumptive aspiration pneumonia. Patient seems to be very comfortable on BiPAP. His WBC count today is 11.1, hemoglobin is 9.3, his last PTT was elevated, however his heparin was discontinued. Electrolytes showed a sodium of 146 potassium 2.9 chloride 117 bicarb is 21 BUN is 79 creatinine 1 point is 1.7 his urine output is marginal, and the patient has no active GI bleeding at present. May consider a trial of diuretics however considering the patient is marginal with his blood pressure, will hold on diuretics for now. Chest x-ray this morning showed COPD with some interstitial changes and patchy bilateral airspace disease consistent with a picture of aspiration pneumonia. Patient is still getting workup to determine whether he has underlying malignancy, his CT of the spine raised the possibility of multiple lytic lesions, serum protein electrophoresis is pending, patient was seen by oncology on consultation and workup is pending. Patient was evaluated today on 11/18/2023, remains in the ICU, remains on BiPAP 06/13/70%. Patient had another episode of GI bleeding last night, required another unit of blood, patient also required a bolus of 0.9 normal saline/1 L for low blood pressure, today this morning he is off norepinephrine, remains on LR at 150 cc/h. Patient is not in distress, nonetheless we are keeping him on BiPAP, and his O2 saturation is marginal on 70% FiO2. Patient will receive more Lasix today. Over the last 2 days, patient received 2 units of packed RBCs, hemoglobin this morning is 9.3. And no active bleeding at this point. WBC count today is 10.6 hemoglobin 9.3 platelets are 112. Basic metabolic profile showed a bit of hypernatremia with a sodium of 148 BUN is 79 creatinine 1.55, patient had a significant urine output yesterday after he received 1 dose of Lasix. He will receive Lasix again today as the patient has been receiving blood and fluids over the last 24 hours. Patient was seen by general surgery again, no plans for any immediate procedures/scopes and it is best to manage medically for now. Objective - Vital Signs Vital signs: Vital Signs Temp 97.5 F L 11/18/23 08:00 Pulse 62 11/18/23 09:00 Resp 15 11/18/23 09:00 BP 112/58 11/18/23 09:00 Pulse Ox 97 11/18/23 06:02 FiO2 70 11/18/23 10:44 Intake & Output 11/17/23 11/18/23 11/18/23 18:59 06:59 18:59 Intake Total 2307.263 3119.401 450 Output Total 860 1475 150 Balance 6348.337 9061.401 300 Weight 60.9 kg Intake: IV 2300 2800 Sodium Chloride 0.9% 1, 1800 1800 000 ml @ 150 mls/hr IV . Q6H40M [facility] Rx#:[id number] Sodium Chloride 0.9% 1, 1000 000 ml @ 999 mls/hr IV . Q1H1M [facility] Rx#:[id number] Sodium Chloride 0.9% 500 500 ml 500 ml @ 999 mls/hr IV .Q31M [facility] Rx#:[id number] Intake, IV Titration 7.263 9.401 450 Amount Lactated Ringers 1,000 ml 450 @ 150 mls/hr IV .Q6H40M [facility] Rx#:[id number] Norepinephrine 4 mg In 7.263 9.401 Sodium Chloride 0.9% 250 ml @ 0.03 MCG/KG/MIN 6. 636 mls/hr IV .Q24H [facility] Rx#:[id number] Blood Product 0 310 Rc As-1 Unit 310 [id number] Rc As-1 Unit 0 [id number] Output: Urine 860 1475 150 Other: Voiding Method Indwelling Catheter Indwelling Catheter # Bowel Movements 1 - Exam GENERAL EXAM: Revealed a 78-year-old white male, on BiPAP, arousable, weak, follows simple instructions but nonetheless is a bit lethargic HEAD: Normocephalic and atraumatic EYES: Normal reaction of pupils, equal size. NOSE: Clear with pink turbinates. THROAT: No erythema or exudates. Dry mucous membranes. NECK: No masses, no JVD. CHEST: No chest wall deformity. Left chest implanted device LUNGS: Equal air entry crackles at the bases. No wheezing noted today. CVS: S1 and S2 normal with no audible murmur, regular rhythm. No extra heart sounds ABDOMEN: Soft nontender no megaly no rebound no guarding SKIN: No rashes CENTRAL NERVOUS SYSTEM: still lethargic, follows simple instructions, on BiPAP. EXTREMITIES: No clubbing, no edema, no cyanosis. - Labs CBC & Chem 7: 11/18/23 08:11 11/18/23 04:03 Labs: Abnormal Lab Results - Last 24 Hours (Table) 11/17/23 11/17/23 11/17/23 Range/Units 02:02 12:05 19:36 WBC 12.1 H (3.8-10.6) k/uL RBC 3.70 L 3.46 L (4.30-5.90) m/uL Hgb 12.2 L 11.3 L (13.0-17.5) gm/dL Hct 36.8 L 32.8 L (39.0-53.0) % MCV (80.0-100.0) fL RDW 18.0 H 18.6 H (11.5-15.5) % Plt Count 103 L 104 L (150-450) k/uL Neutrophils # 9.3 H (1.3-7.7) k/uL Lymphocytes # 0.2 L (1.0-4.8) k/uL Sodium (137-145) mmol/L Potassium (3.5-5.1) mmol/L Chloride (98-107) mmol/L BUN (9-20) mg/dL Creatinine (0.66-1.25) mg/dL Glucose (74-99) mg/dL Crossmatch See Detail 11/18/23 11/18/23 11/18/23 Range/Units 04:03 04:03 08:11 WBC (3.8-10.6) k/uL RBC 2.99 L 2.96 L (4.30-5.90) m/uL Hgb 9.4 L D 9.3 L (13.0-17.5) gm/dL Hct 30.0 L 28.6 L (39.0-53.0) % MCV 100.3 H D (80.0-100.0) fL RDW 18.4 H 18.6 H (11.5-15.5) % Plt Count 118 L 112 L (150-450) k/uL Neutrophils # 9.6 H (1.3-7.7) k/uL Lymphocytes # 0.5 L (1.0-4.8) k/uL Sodium 148 H (137-145) mmol/L Potassium 3.3 L (3.5-5.1) mmol/L Chloride 114 H (98-107) mmol/L BUN 79 H (9-20) mg/dL Creatinine 1.55 H (0.66-1.25) mg/dL Glucose 121 H (74-99) mg/dL Crossmatch Microbiology - Last 24 Hours (Table) 11/12/23 15:35 Blood Culture - Final Blood 11/12/23 15:50 Blood Culture - Final Blood Assessment and Plan Assessment: Impression: 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 Unexplained weakness but most likely it is related to possible metastatic malignancy. Aspiration pneumonia is strongly suspected, patient remains on Zosyn. No evidence of apical lung nodule as noted on CT of the chest, this was qu estioned initially on the chest x-ray, but not seen on CT of the chest Acute kidney injury Acute metabolic encephalopathy History of pacemaker implantation History of paroxysmal atrial fibrillation Benign essential hypertension History of underlying COPD presently inactive History of BPH Acute GI bleeding, refused transfer to a different facility because of no GI coverage at our institution nonetheless this patient is being followed by general surgery/Dr. Flores Hypotension requiring norepinephrine, today the patient is off norepinephrine he did receive a unit of packed RBCs yesterday received a liter of fluid bolus, and is still on 150 cc an hour of LR. Hematuria, resolved, this was addressed by urology Oligoria most likely secondary to acute kidney injury and hypotension improving. Urine output was excellent yesterday specially after he received Lasix. Recommendation: Continue to monitor in the ICU Continue to monitor serial hemoglobin hematocrit and transfuse accordingly, ma intain hemoglobin above 7 Continue BiPAP Continue Zosyn Continue bronchodilators Continue to hold anticoagulation therapy including heparin/Xarelto Titrate FiO2 accordingly Keep patient n.p.o. for now. Continue Protonix 40 mg IV push twice daily Patient is critically ill Critical care time is over 30 minutes Will continue to follow Overall prognosis remains guarded, not to mention the patient may have underlying malignancy which will need further workup down the line. Time with Patient: Greater than 30
--- NOTE | 2023-11-18 11:04 | P.PN ---
Subjective Progress Note Date: 11/18/23 the patient continued to have lower GI bleeding. Patient had another upright red bloody bowel movement. The patient should be transferred to a facility which has GI coverage. The patient's apparently is refusing transfer this time. On exam the patient appears hematemesis stable. The patient should be transferred for possible interventional radiology or GI evaluation. No surgical intervention planned. If the patient is to bleed he will need to be transferred urgently. Objective - Vital Signs Vital signs: Vital Signs Temp 97.5 F L 11/18/23 08:00 Pulse 62 11/18/23 09:00 Resp 15 11/18/23 09:00 BP 112/58 11/18/23 09:00 Pulse Ox 97 11/18/23 06:02 FiO2 70 11/18/23 10:44 Intake & Output 11/17/23 11/18/23 11/18/23 18:59 06:59 18:59 Intake Total 2307.263 3119.401 450 Output Total 860 1475 150 Balance 3782.285 9535.401 300 Weight 60.9 kg Intake: IV 2300 2800 Sodium Chloride 0.9% 1, 1800 1800 000 ml @ 150 mls/hr IV . Q6H40M [facility] Rx#:[id number] Sodium Chloride 0.9% 1, 1000 000 ml @ 999 mls/hr IV . Q1H1M [facility] Rx#:[id number] Sodium Chloride 0.9% 500 500 ml 500 ml @ 999 mls/hr IV .Q31M [facility] Rx#:[id number] Intake, IV Titration 7.263 9.401 450 Amount Lactated Ringers 1,000 ml 450 @ 150 mls/hr IV .Q6H40M [facility] Rx#:[id number] Norepinephrine 4 mg In 7.263 9.401 Sodium Chloride 0.9% 250 ml @ 0.03 MCG/KG/MIN 6. 636 mls/hr IV .Q24H [facility] Rx#:[id number] Blood Product 0 310 Rc As-1 Unit 310 [id number] Rc As-1 Unit 0 [id number] Output: Urine 860 1475 150 Other: Voiding Method Indwelling Catheter Indwelling Catheter # Bowel Movements 1 - Labs CBC & Chem 7: 11/18/23 10:24 11/18/23 04:03 Labs: Abnormal Lab Results - Last 24 Hours (Table) 11/17/23 11/17/23 11/17/23 Range/Units 02:02 12:05 19:36 WBC 12.1 H (3.8-10.6) k/uL RBC 3.70 L 3.46 L (4.30-5.90) m/uL Hgb 12.2 L 11.3 L (13.0-17.5) gm/dL Hct 36.8 L 32.8 L (39.0-53.0) % MCV (80.0-100.0) fL RDW 18.0 H 18.6 H (11.5-15.5) % Plt Count 103 L 104 L (150-450) k/uL Neutrophils # 9.3 H (1.3-7.7) k/uL Lymphocytes # 0.2 L (1.0-4.8) k/uL Sodium (137-145) mmol/L Potassium (3.5-5.1) mmol/L Chloride (98-107) mmol/L BUN (9-20) mg/dL Creatinine (0.66-1.25) mg/dL Glucose (74-99) mg/dL Crossmatch See Detail 11/18/23 11/18/23 11/18/23 Range/Units 04:03 04:03 08:11 WBC (3.8-10.6) k/uL RBC 2.99 L 2.96 L (4.30-5.90) m/uL Hgb 9.4 L D 9.3 L (13.0-17.5) gm/dL Hct 30.0 L 28.6 L (39.0-53.0) % MCV 100.3 H D (80.0-100.0) fL RDW 18.4 H 18.6 H (11.5-15.5) % Plt Count 118 L 112 L (150-450) k/uL Neutrophils # 9.6 H (1.3-7.7) k/uL Lymphocytes # 0.5 L (1.0-4.8) k/uL Sodium 148 H (137-145) mmol/L Potassium 3.3 L (3.5-5.1) mmol/L Chloride 114 H (98-107) mmol/L BUN 79 H (9-20) mg/dL Creatinine 1.55 H (0.66-1.25) mg/dL Glucose 121 H (74-99) mg/dL Crossmatch 11/18/23 Range/Units 10:24 WBC 12.1 H (3.8-10.6) k/uL RBC 3.33 L (4.30-5.90) m/uL Hgb 10.6 L (13.0-17.5) gm/dL Hct 32.0 L (39.0-53.0) % MCV (80.0-100.0) fL RDW 18.0 H (11.5-15.5) % Plt Count 101 L (150-450) k/uL Neutrophils # (1.3-7.7) k/uL Lymphocytes # (1.0-4.8) k/uL Sodium (137-145) mmol/L Potassium (3.5-5.1) mmol/L Chloride (98-107) mmol/L BUN (9-20) mg/dL Creatinine (0.66-1.25) mg/dL Glucose (74-99) mg/dL Crossmatch Microbiology - Last 24 Hours (Table) 11/12/23 15:35 Blood Culture - Final Blood 11/12/23 15:50 Blood Culture - Final Blood
--- NOTE | 2023-11-18 11:48 | P.PN ---
Subjective Progress Note Date: 11/18/23 Patient is seen in follow-up for acute kidney injury. Episodes of GI bleed and hypotension over night. On IV Lasix. Another episode of GI bleeding overnight. Remains on Bipap. Vital signs are stable. General: NAD. HEENT: On Bipap LUNGS: Scattered rhonchi. HEART: Rate and Rhythm are regular. ABDOMEN: Nontender. EXTREMITITES: No edema. Objective - Vital Signs Vital signs: Vital Signs Temp 97.5 F L 11/18/23 08:00 Pulse 62 11/18/23 09:00 Resp 15 11/18/23 09:00 BP 112/58 11/18/23 09:00 Pulse Ox 97 11/18/23 06:02 FiO2 70 11/18/23 07:27 Intake & Output 11/17/23 11/18/23 11/18/23 18:59 06:59 18:59 Intake Total 2307.263 3119.401 450 Output Total 860 1475 150 Balance 7828.972 1332.401 300 Weight 60.9 kg Intake: IV 2300 2800 Sodium Chloride 0.9% 1, 1800 1800 000 ml @ 150 mls/hr IV . Q6H40M [facility] Rx#:[id number] Sodium Chloride 0.9% 1, 1000 000 ml @ 999 mls/hr IV . Q1H1M [facility] Rx#:[id number] Sodium Chloride 0.9% 500 500 ml 500 ml @ 999 mls/hr IV .Q31M [facility] Rx#:[id number] Intake, IV Titration 7.263 9.401 450 Amount Lactated Ringers 1,000 ml 450 @ 150 mls/hr IV .Q6H40M [facility] Rx#:[id number] Norepinephrine 4 mg In 7.263 9.401 Sodium Chloride 0.9% 250 ml @ 0.03 MCG/KG/MIN 6. 636 mls/hr IV .Q24H [facility] Rx#:[id number] Blood Product 0 310 Rc As-1 Unit 310 [id number] Rc As-1 Unit 0 [id number] Output: Urine 860 1475 150 Other: Voiding Method Indwelling Catheter Indwelling Catheter # Bowel Movements 1 - Labs CBC & Chem 7: 11/18/23 10:24 11/18/23 04:03 Labs: Abnormal Lab Results - Last 24 Hours (Table) 11/17/23 11/17/23 11/17/23 Range/Units 02:02 12:05 19:36 WBC 12.1 H (3.8-10.6) k/uL RBC 3.70 L 3.46 L (4.30-5.90) m/uL Hgb 12.2 L 11.3 L (13.0-17.5) gm/dL Hct 36.8 L 32.8 L (39.0-53.0) % MCV (80.0-100.0) fL RDW 18.0 H 18.6 H (11.5-15.5) % Plt Count 103 L 104 L (150-450) k/uL Neutrophils # 9.3 H (1.3-7.7) k/uL Lymphocytes # 0.2 L (1.0-4.8) k/uL Sodium (137-145) mmol/L Potassium (3.5-5.1) mmol/L Chloride (98-107) mmol/L BUN (9-20) mg/dL Creatinine (0.66-1.25) mg/dL Glucose (74-99) mg/dL Crossmatch See Detail 11/18/23 11/18/23 11/18/23 Range/Units 04:03 04:03 08:11 WBC (3.8-10.6) k/uL RBC 2.99 L 2.96 L (4.30-5.90) m/uL Hgb 9.4 L D 9.3 L (13.0-17.5) gm/dL Hct 30.0 L 28.6 L (39.0-53.0) % MCV 100.3 H D (80.0-100.0) fL RDW 18.4 H 18.6 H (11.5-15.5) % Plt Count 118 L 112 L (150-450) k/uL Neutrophils # 9.6 H (1.3-7.7) k/uL Lymphocytes # 0.5 L (1.0-4.8) k/uL Sodium 148 H (137-145) mmol/L Potassium 3.3 L (3.5-5.1) mmol/L Chloride 114 H (98-107) mmol/L BUN 79 H (9-20) mg/dL Creatinine 1.55 H (0.66-1.25) mg/dL Glucose 121 H (74-99) mg/dL Crossmatch Microbiology - Last 24 Hours (Table) 11/12/23 15:35 Blood Culture - Final Blood 11/12/23 15:50 Blood Culture - Final Blood Assessment and Plan Plan: Assessment: 1. Acute kidney injury secondary to ATN secondary to infection and component of cardiorenal syndrome. Creatinine as low as 1.54 this admission and peaked at 2.27 this admission -1.55 today. Creatinine dated September 18, 2023 was 1.5 in June 24, 2021 1.0. 2. Aspiration pneumonia on antibiotics. 3. Acute on chronic diastolic CHF. 4. Volume overload with pleural effusions noted on chest CT. 5. Lung nodule concerning for malignancy. Bronchoscopy pending. 6. Hypercalcemia secondary to calcium and vitamin D supplementation but also concern for hypercalcemia of malignancy. PTH 63. Vitamin D 69.3. Calcium level trending down. 7. Bilateral pelvocaliectasis noted on kidney ultrasound. Plan: IV Lasix, sodium increasing, may need to hold if worsens or consider free water flushes. Avoid nephrotoxins. Hypercalcemia improved. Continue to monitor renal function and urine output. Replace potassium per protocol. Per nursing family considering hospice.
[2023-11-18 15:38] VITALS: BP 97/61
--- NOTE | 2023-11-18 16:38 | P.PN ---
Subjective Progress Note Date: 11/18/23 78-year-old white male with past medical history significant for paroxysmal atrial fibrillation with previous AV node ablation, permanent pacemaker, COPD, and former heavy tobacco use. Patient presented to the emergency room yesterday morning with a chief complaint of progressively worsening generalized weakness over the last 10 days. He is a poor historian, his is at bedside, and answers all questions. He can no longer ambulate to his bedroom, and his has set up a air mattress on the floor on the lower level. He did fall off the air mattress. This prompted the to contact EMS. He is currently resting in bed, on 4 L/min nasal cannula, in no acute distress. He reportedly does not wear home oxygen. states that he has appeared short of breath at times. No significant coughing or sputum production. No hemoptysis. No measured fevers. No sick contacts. He has no specific complaints but diffuse nonlocalized/nonspecific pain. He is very weak. Dry mucous membranes. R eportedly not eating and drinking much while at home. Brain CT done on arrival did not show any acute intracranial process. There is nonspecific white matter changes, likely secondary to chronic small vessel ischemic disease. Chest x-ray shows basilar atelectasis versus infiltrate with tiny effusion. Underlying pneumonia is not excluded. There is hyperinflation consistent with COPD. There is a 1.4 cm right apical opacity concerning for lung nodule. There is also a lucent lesion of the left proximal humerus. CBC on arrival unremarkable. No leukocytosis. Troponins elevated at 0.124, 0.132, and 0.109 respectively. EKG shows V paced rhythm. Patient was started on heparin infusion. Most recent APTT therapeutic. NT proBNP 1810. CMP done on arrival: Sodium 147, potassium 3.1, chloride 108, serum bicarb 32, BUN 77, creatinine 1.77, glucose 79. Lactic acid 0.6. CPK 53. TSH 0.879. Urinalysis shows trace protein, small leukocytes, otherwise unremarkable. Negative for influenza, RSV, COVID. Currently afebrile. Started on a combination of azithromycin and Zosyn in the emergency room. 11/17/2023 patient is seen and evaluated with at bedside; remains in the ICU, remains on BiPAP 06/13/70% - patient developed an episode of significant GI bleeding last night, and he required a unit of packed RBCs; general surgery was consulted and they recommended patient be transferred to a tertiary care center due to no GI coverage, declined transfer the patient to a tertiary care center. Patient is now off heparin he is requiring norepinephrine at 0.02 mcg/kg/min he is on IV fluid at 150 cc/h. He did receive 1 unit of packed RBCs last night. Patient remains on Zosyn for presumptive aspiration pneumonia. Patient seems to be very comfortable on BiPAP. -- WBC count today is 11.1, hemoglobin is 9.3, his last PTT was elevated, however his heparin was discontinued. Electrolytes showed a sodium of 146 potassium 2.9 chloride 117 bicarb is 21 BUN is 79 creatinine 1 point is 1.7 his urine output is marginal Chest x-ray this morning showed COPD with some interstitial changes and patchy bilateral airspace disease consistent with a picture of aspiration pneumonia. P atient is still getting workup to determine whether he has underlying malignancy, his CT of the spine raised the possibility of multiple lytic lesions, serum protein electrophoresis is pending, patient was seen by oncology on consultation and workup is pending. --Plan of care discussed with in great detail; patient currently wants to continue with current management with requesting patient DNR/DNI; she did talk briefly about comfort care and hospice care; would want to take patient home [facility] hosp[facility]; understands patient is at risk of grave complications but states she has already spoken to the patient and he wants to be kept comfortable --We will plan to continue with current management at this time; leaning towards hospice/comfort care 11/18/2023 Patient is seen and evaluated with patient's , daughter and son at bedside in presence of RN; patient's condition was discussed in great detail again patient's and children; I did update the family that patient did have 2 episodes of rectal bleed; patient's and children understand and still not agreeable to the transfer; patient's agreeing to proceed with hospice/comfort care at this time; hospice consult and comfort care medications have been placed; plan is to discontinue all IVs including pressor agents and discontinue all blood draws; and family want no more transfusion even if rectal bleeding continues; patient has already been made DNR Objective - Vital Signs Vital signs: Vital Signs Temp 97.5 F L 11/18/23 08:00 Pulse 62 11/18/23 09:00 Resp 15 11/18/23 09:00 BP 112/58 11/18/23 09:00 Pulse Ox 97 11/18/23 06:02 FiO2 70 11/18/23 07:27 Intake & Output 11/17/23 11/18/23 11/18/23 18:59 06:59 18:59 Intake Total 2307.263 3119.401 450 Output Total 860 1475 150 Balance 9316.969 3452.401 300 Weight 60.9 kg Intake: IV 2300 2800 Sodium Chloride 0.9% 1, 1800 1800 000 ml @ 150 mls/hr IV . Q6H40M [facility] Rx#:[id number] Sodium Chloride 0.9% 1, 1000 000 ml @ 999 mls/hr IV . Q1H1M [facility] Rx#:[id number] Sodium Chloride 0.9% 500 500 ml 500 ml @ 999 mls/hr IV .Q31M [facility] Rx#:[id number] Intake, IV Titration 7.263 9.401 450 Amount Lactated Ringers 1,000 ml 450 @ 150 mls/hr IV .Q6H40M [facility] Rx#:[id number] Norepinephrine 4 mg In 7.263 9.401 Sodium Chloride 0.9% 250 ml @ 0.03 MCG/KG/MIN 6. 636 mls/hr IV .Q24H [facility] Rx#:[id number] Blood Product 0 310 Rc As-1 Unit 310 [id number] Rc As-1 Unit 0 [id number] Output: Urine 860 1475 150 Other: Voiding Method Indwelling Catheter Indwelling Catheter # Bowel Movements 1 - Exam GENERAL EXAM: Alert, 78-year-old weak, disheveled male patient, on 5 L nasal cannula, comfortable in no apparent distress. HEAD: Normocephalic and atraumatic EYES: Normal reaction of pupils, equal size. NOSE: Clear with pink turbinates. THROAT: No erythema or exudates. Dry mucous membranes. NECK: No masses, no JVD. CHEST: No chest wall deformity. Left chest implanted device LUNGS: Equal air entry with diffuse coarse rhonchi heard bilaterally and throughout. No conversational dyspnea. CVS: S1 and S2 normal with no audible murmur, regular rhythm. No extra heart sounds ABDOMEN: No hepatosplenomegaly, active bowel sounds, no guarding or rigidity. CENTRAL NERVOUS SYSTEM: No focal deficits, tone is normal in all 4 extremities. EXTREMITIES: There is no peripheral edema, clubbing, or cyanosis. Peripheral pulses are intact. - Labs CBC & Chem 7: 11/18/23 10:24 11/18/23 04:03 Labs: Abnormal Lab Results - Last 24 Hours (Table) 11/17/23 11/17/23 11/17/23 Range/Units 02:02 12:05 19:36 WBC 12.1 H (3.8-10.6) k/uL RBC 3.70 L 3.46 L (4.30-5.90) m/uL Hgb 12.2 L 11.3 L (13.0-17.5) gm/dL Hct 36.8 L 32.8 L (39.0-53.0) % MCV (80.0-100.0) fL RDW 18.0 H 18.6 H (11.5-15.5) % Plt Count 103 L 104 L (150-450) k/uL Neutrophils # 9.3 H (1.3-7.7) k/uL Lymphocytes # 0.2 L (1.0-4.8) k/uL Sodium (137-145) mmol/L Potassium (3.5-5.1) mmol/L Chloride (98-107) mmol/L BUN (9-20) mg/dL Creatinine (0.66-1.25) mg/dL Glucose (74-99) mg/dL Crossmatch See Detail 11/18/23 11/18/23 11/18/23 Range/Units 04:03 04:03 08:11 WBC (3.8-10.6) k/uL RBC 2.99 L 2.96 L (4.30-5.90) m/uL Hgb 9.4 L D 9.3 L (13.0-17.5) gm/dL Hct 30.0 L 28.6 L (39.0-53.0) % MCV 100.3 H D (80.0-100.0) fL RDW 18.4 H 18.6 H (11.5-15.5) % Plt Count 118 L 112 L (150-450) k/uL Neutrophils # 9.6 H (1.3-7.7) k/uL Lymphocytes # 0.5 L (1.0-4.8) k/uL Sodium 148 H (137-145) mmol/L Potassium 3.3 L (3.5-5.1) mmol/L Chloride 114 H (98-107) mmol/L BUN 79 H (9-20) mg/dL Creatinine 1.55 H (0.66-1.25) mg/dL Glucose 121 H (74-99) mg/dL Crossmatch Microbiology - Last 24 Hours (Table) 11/12/23 15:35 Blood Culture - Final Blood 11/12/23 15:50 Blood Culture - Final Blood Assessment and Plan Assessment: Acute hypoxemic respiratory failure, secondary to acute COPD exacerbation and possible left basilar community-acquired pneumonia. Chest x-ray demonstrates so me left basilar atelectasis or infiltrate with tiny effusion. Underlying pneumonia is not excluded. Negative for influenza, RSV, COVID. Suspect right apical lung nodule measuring 1.[address] scan of the chest without contrast reveals small bilateral pleural effusions. Bilateral airspace consolid ation with air bronchograms. No mention of right upper lobe pulmonary nodule Severe dehydration and reduced oral intake Acute kidney injury, secondary to above Hypokalemia, replaced and recovered Altered mental status, consider acute metabolic encephalopathy, secondary to pneumonia/sepsis Elevated troponins, rule out non-ST elevation TN, currently on heparin infusion per protocol. History of paroxysmal atrial fibrillation status post AV dalia ablation with previous permanent implantation V-paced rhythm History of hyperlipidemia History of hypertension History of tobacco dependence, quit smoking approximately 8 years ago, heavy smoker prior and greater than [id number] History of BPH Plan: The patient was seen and evaluated The scan of the chest, labs and medications reviewed Continue Zosyn Completed azithromycin Continue bronchodilators and steroids Transitioned back to Xarelto per cardiology Titrate the FiO2 as tolerated We will continue to follow
[2023-11-18] MEDS ORDERED: MORPHINE SULFATE 2 MG/ML SYRINGE IV PRN (17:15)
[2023-11-18] MEDS ORDERED: LORazepam 2 MG/ML INJ IV PRN (17:15)
[2023-11-18] MEDS ORDERED: ATROPINE OPHTH SOLN 1% 5ML BTL SUBLINGUAL PRN (17:15)
[2023-11-18] MEDS ORDERED: GLYCOPYRROLATE 0.2 MG/ML 2 ML VIAL IVP PRN (17:15)
[2023-11-18] MEDS: MORPHINE SULFATE 4 MG/ML SYRINGE IV PRN (19:12)
[2023-11-18] MEDS: MORPHINE SULFATE (100 MG/2 ML) 100 MG in SODIUM CHLORIDE 0.9% 100 ML IV SCH (19:15)
[2023-11-19] MEDS ORDERED: LORazepam 1 MG/0.5 ML VIAL IV PRN (08:47)
--- NOTE | 2023-11-19 12:05 | P.PN ---
Subjective Progress Note Date: 11/19/23 Patient is a 78-year-old white male with past medical history significant for paroxysmal atrial fibrillation with previous AV node ablation, permanent pacemaker, COPD, and former heavy tobacco use. Patient presented to the emergency room yesterday morning with a chief complaint of progressively worsening generalized weakness over the last 10 days. He is a poor historian, his is at bedside, and answers all questions. He can no longer ambulate to his bedroom, and his has set up a air mattress on the floor on the lower level. He did fall off the air mattress. This prompted the to contact EMS. He is currently resting in bed, on 4 L/min nasal cannula, in no acute distress. He reportedly does not wear home oxygen. states that he has appeared short of breath at times. No significant coughing or sputum production. No hemoptysis. No measured fevers. No sick contacts. He has no specific complaints but diffuse nonlocalized/nonspecific pain. He is very weak. Dry mucous membranes. Reportedly not eating and drinking much while at home. Brain CT done on arrival did not show any acute intracranial process. There is nonspecific white matter changes, likely secondary to chronic small vessel ischemic disease. Chest x-ray shows basilar atelectasis versus infiltrate with tiny effusion. Underlying pneumonia is not excluded. There is hyperinflation consistent with COPD. There is a 1.4 cm right apical opacity concerning for lung nodule. There is also a lucent lesion of the left proximal humerus. CBC on arrival unremarkable. No leukocytosis. Troponins elevated at 0.124, 0.132, and 0.109 respectively. EKG shows V paced rhythm. Patient was started on heparin infusion. Most recent APTT therapeutic. NT proBNP 1810. CMP done on arrival: Sodium 147, potassium 3.1, chloride 108, serum bicarb 32, BUN 77, creatinine 1.77, glucose 79. Lactic acid 0.6. CPK 53. TSH 0.879. Urinalysis shows trace protein, small leukocytes, otherwise unremarkable. Negative for influenza, RSV, COVID. Currently afebrile. Started on a combination of azithromycin and Zosyn in the emergency room. Half-normal saline is infusing at 75 mL/h. Vital signs are stable. The patient is seen today November 14, 2023 in follow-up in the emergency department. He is currently awake and alert in no acute distress. He is maintaining O2 saturations in the 90s on 5 L/min per nasal cannula. Currently afebrile. Hemodynamically stable. His procalcitonin is 0.20. His proBNP is 1810. Blood cultures are pending. White count 12.0. Hemoglobin 14.1. Platelets 153. Sodium 143. Potassium 4.4. Bicarb 26. BUN 85. Creatinine 1.82. He has been transition to Xarelto. Remains on Zosyn. Completed azithromycin. Remains on bronchodilators and steroids. Receiving 0.45% normal saline at [address] scan of the chest reveals bilateral airspace disease most likely pneumonia. Patient was reevaluated today on 11/15/2023, patient remains generally weak, according to the his weakness has been noted only in the last 2 weeks. Prior to this he was extremely active, and only in the last 2 weeks has been gradually going downhill, and developing significant weakness to the point that he cannot ambulate anymore. 2 weeks ago this patient was able to go up the stairways without any support. Patient had a CT of the chest, suggestive of bilateral pneumonia, I am suspecting that the patient is aspirating, swallow evaluation is in progress. However after reviewing the CT of the chest I am recommending bronchoscopy and BAL, just to rule out the possibility of underlying malignancy involving the lungs. Procalcitonin level is elevated WBC count is 12.3 hemoglobin 13 basic metabolic profile is normal renal profile is a bit worse today BUN is 81 creatinine 2.27, patient came in with creatinine of 1.77 went down to 1.54. And now it is 2.27, nephrology evaluated the patient felt that this is a picture of ATN or could be a cardiorenal syndrome. His echocardiogram showed good LV function, patient has moderate LV hypertrophy moderate pulmonary hypertension mild aortic and mitral regurgitation. Still the cardiac findings do not explain his pulmonary findings, patient clearly has bibasilar airspace disease, underlying malignancy is not entirely ruled out but felt to be less likely hence I am planning bronchoscopy and BAL of both lower lobes tomorrow meantime considering his profound weakness and worsening picture with his weakness which seems to be his main issue I am recommending neurological evaluation Today on 11/16/2023, the patient was supposed to undergo bronchoscopy and lavage today, however this morning his pulmonary status deteriorated, patient required to be placed on BiPAP, and required transfer to ICU. Apparently the patient was developing more shortness of breath earlier this morning, he was hypoxic, tachycardic., Patient was placed on BiPAP 12/6/100%, ABG showed a pO2 of 85 pCO2 48 and pH of 7.40. Bronchoscopy which was planned to be done today has been canceled, patient is DNI and the family would not want him to be on mechanical ventilation, hence I would not be able to perform bronchoscopy on this patient unless he is placed on mechanical ventilation. Bronchoscopy was canceled for today. Chest x-ray showed stable bilateral infiltrates and small effusion on the left side. Underlying pulmonary vascular congestion is not enti rely ruled out. Considering his mental status and his overall neurological symptoms, CT of the brain showed no acute intracranial process. CT of the spine showed mottled appearance of the osseous structures with lytic lesions scattered throughout. Findings are highly suspicious for diffuse metastatic disease. PSA was ordered. Patient may eventually require a CT-guided needle biopsy of one of his lytic lesions to confirm diagnosis of metastatic disease to the spine. WBC count today is 10.6 hemoglobin 14.9, INR is 1.20 basic metabolic profile is normal however BUN is 83 creatinine 2.07, baseline creatinine is 1.77 on admission. Repeat serum calcium has been normal Patient was evaluated today on 11/17/2023, patient remains in the ICU, remains on BiPAP 12/6/70%, patient developed an episode of significant GI bleeding last night, and he required a unit of packed RBCs, arrangements were being made to transfer the patient to a tertiary care center since we have no GI coverage, chest surgery declined to see the patient because of the fact that there is no GI coverage, hence patient remains in the ICU, being managed, declined transfer the patient to a tertiary care center. Patient is now off heparin he is requiring norepinephrine at 0.02 mcg/kg/min he is on IV fluid at 150 cc/h. He did receive 1 unit of packed RBCs last night. And he is remaining on Zosyn for presumptive aspiration pneumonia. Patient seems to be very comfortable on BiPAP. His WBC count today is 11.1, hemoglobin is 9.3, his last PTT was elevated, however his heparin was discontinued. Electrolytes showed a sodium of 146 potassium 2.9 chloride 117 bicarb is 21 BUN is 79 creatinine 1 point is 1.7 his urine output is marginal, and the patient has no active GI bleeding at present. May consider a trial of diuretics however considering the patient is marginal with his blood pressure, will hold on diuretics for now. Chest x-ray this morning showed COPD with some interstitial changes and patchy bilateral airspace disease consistent with a picture of aspiration pneumonia. Patient is still getting workup to determine whether he has underlying malignancy, his CT of the spine raised the possibility of multiple lytic lesions, serum protein electrophoresis is pending, patient was seen by oncology on consultation and workup is pending. Patient was evaluated today on 11/18/2023, remains in the ICU, remains on BiPAP 06/13/70%. Patient had another episode of GI bleeding last night, required another unit of blood, patient also required a bolus of 0.9 normal saline/1 L for low blood pressure, today this morning he is off norepinephrine, remains on LR at 150 cc/h. Patient is not in distress, nonetheless we are keeping him on BiPAP, and his O2 saturation is marginal on 70% FiO2. Patient will receive more Lasix today. Over the last 2 days, patient received 2 units of packed RBCs, hemoglobin this morning is 9.3. And no active bleeding at this point. WBC count today is 10.6 hemoglobin 9.3 platelets are 112. Basic metabolic profile showed a bit of hypernatremia with a sodium of 148 BUN is 79 creatinine 1.55, patient had a significant urine output yesterday after he received 1 dose of L asix. He will receive Lasix again today as the patient has been receiving blood and fluids over the last 24 hours. Patient was seen by general surgery again, no plans for any immediate procedures/scopes and it is best to manage medically for now. The patient is seen today November 19, 2023 in follow-up on the regular medical floor. He has continued to deteriorate and his is considering comfort care. She is at the bedside. Currently on oxygen and initiated on a morphine drip at 6 mg an hour. He has shallow respirations. He did require 2 units of packed red blood cells this admission. Most recent hemoglobin 10.6. He is continued on bronchodilators for now. Objective - Vital Signs Vital signs: Vital Signs Temp 97.5 F L 11/18/23 12:00 Pulse 56 L 11/19/23 08:00 Resp 8 L 11/19/23 08:00 BP 97/61 11/18/23 15:00 Pulse Ox 100 11/18/23 15:00 FiO2 70 11/18/23 19:29 Intake & Output 11/18/23 11/19/23 11/19/23 18:59 06:59 18:59 Intake Total 1200 57.035 Output Total 375 1270 Balance 825 -1212.965 Intake: Intake, IV Titration 1200 57.035 Amount Lactated Ringers 1,000 ml 1200 @ 150 mls/hr IV .Q6H40M [facility] Rx#:[id number] Morphine Sulfate (100 mg/ 57.035 2 ml) 100 mg In Sodium Chloride 0.9% 100 ml @ 1 MG/HR 1.02 mls/hr IV . Q24H [facility] Rx#:[id number] Output: Urine 375 1270 Other: Voiding Method Indwelling Catheter Indwelling Catheter Indwelling Catheter - Exam GENERAL EXAM: [place], 78-year-old weak, male on 2 L nasal cannula, in no apparent distress. HEAD: Normocephalic and atraumatic EYES: Normal reaction of pupils, equal size. NOSE: Clear with pink turbinates. THROAT: No erythema or exudates. Dry mucous membranes. NECK: No masses, no JVD. CHEST: No chest wall deformity. Left chest implanted device LUNGS: Equal air entry with diffuse coarse rhonchi heard bilaterally and throughout. No conversational dyspnea. CVS: S1 and S2 normal with no audible murmur, regular rhythm. No extra heart sounds ABDOMEN: No hepatosplenomegaly, active bowel sounds, no guarding or rigidity. SPINE: No scoliosis or deformity SKIN: No rashes CENTRAL NERVOUS SYSTEM: No focal deficits, tone is normal in all 4 extremities. EXTREMITIES: There is no peripheral edema, clubbing, or cyanosis. Peripheral pulses are intact. - Labs CBC & Chem 7: 11/18/23 10:24 11/18/23 04:03 Assessment and Plan Assessment: Acute hypoxemic respiratory failure, secondary to acute COPD exacerbation and possible left basilar community-acquired pneumonia. Chest x-ray demonstrates some left basilar atelectasis or infiltrate with tiny effusion. Underlying pneumonia is not excluded. Negative for influenza, RSV, COVID. Suspect right apical lung nodule measuring 1.[address] scan of the chest without contrast reveals small bilateral pleural effusions. Bilateral airspace consolidation with air bronchograms. No mention of right upper lobe pulmonary nodule Severe dehydration and reduced oral intake Acute kidney injury, secondary to above Hypokalemia, replaced and recovered Altered mental status, consider acute metabolic encephalopathy, secondary to pneumonia/sepsis Elevated troponins, rule out non-ST elevation ND, currently on heparin infusion per protocol. History of paroxysmal atrial fibrillation status post AV dalia ablation with previous permanent implantation V-paced rhythm History of hyperlipidemia History of hypertension History of tobacco dependence, quit smoking approximately 8 years ago, heavy smoker prior and greater than [id number] History of BPH Plan: The patient was seen and evaluated Currently on 2 L nasal cannula He has continued to do poorly His is at the bedside Comfort care will be initiated This patient was seen independently by the pulmonary nurse practitioner addressing pulmonary issues I have personally seen and examined the patient, performed the documentation and the assessment and plan as written. Number of minutes spent on the visit: 22.
[2023-11-19 16:07] LABS: Free Kappa Lt Chain Qnt, Serum 2.44 mg/dL (0.33-1.94); Free Lambda Lt Chain Qnt, Seru 0.62 mg/dL (0.57-2.63)
--- NOTE | 2023-11-19 16:24 | P.PN ---
Subjective Progress Note Date: 11/19/23 CHIEF COMPLAINT: Lower GI bleed HISTORY OF PRESENT ILLNESS: Surgical service following regards to lower GI bleed. Patient has been transitioned to hospice. He is currently on morphine drip. Hemoglobin is up from 9.3 to 10.6 after receiving 2 units of blood PHYSICAL EXAM: VITAL SIGNS: Reviewed. GENERAL: no acute distress. ABDOMEN: Soft. ASSESSMENT: 1. Acute GI bleed requiring blood transfusion PLAN: -Agree with hospice and comfort care measures Physician Implementation Consultant note has been reviewed by physician. Signing provider agrees with the documented findings, assessment, and plan of care. Objective - Vital Signs Vital signs: Vital Signs Temp 97.5 F L 11/18/23 12:00 Pulse 58 L 11/19/23 16:00 Resp 12 11/19/23 16:00 BP 97/61 11/18/23 15:00 Pulse Ox 100 11/18/23 15:00 FiO2 70 11/18/23 19:29 Intake & Output 11/18/23 11/19/23 11/19/23 18:59 06:59 18:59 Intake Total 1200 57.035 Output Total 375 1270 Balance 825 -1212.965 Intake: Intake, IV Titration 1200 57.035 Amount Lactated Ringers 1,000 ml 1200 @ 150 mls/hr IV .Q6H40M [facility] Rx#:[id number] Morphine Sulfate (100 mg/ 57.035 2 ml) 100 mg In Sodium Chloride 0.9% 100 ml @ 1 MG/HR 1.02 mls/hr IV . Q24H [facility] Rx#:[id number] Output: Urine 375 1270 Other: Voiding Method Indwelling Catheter Indwelling Catheter Indwelling Catheter # Bowel Movements 1 - Labs CBC & Chem 7: 11/18/23 10:24 11/18/23 04:03 Labs: Abnormal Lab Results - Last 24 Hours (Table) 11/16/23 Range/Units 14:49 [facility] [place] LC, Quant 2.44 H (0.33-1.94) mg/dL
--- NOTE | 2023-11-19 18:56 | P.PN ---
Subjective 78-year-old white male with past medical history significant for paroxysmal atrial fibrillation with previous AV node ablation, permanent pacemaker, COPD, and former heavy tobacco use. Patient presented to the emergency room yesterday morning with a chief complaint of progressively worsening generalized weakness over the last 10 days. He is a poor historian, his is at bedside, and answers all questions. He can no longer ambulate to his bedroom, and his has set up a air mattress on the floor on the lower level. He did fall off the air mattress. This prompted the to contact EMS. He is currently resting in bed, on 4 L/min nasal cannula, in no acute distress. He reportedly does not wear home oxygen. states that he has appeared short of breath at times. No significant coughing or sputum production. No hemoptysis. No measured fevers. No sick contacts. He has no specific complaints but diffuse nonlocalized/nonspecific pain. He is very weak. Dry mucous membranes. Reportedly not eating and drinking much while at home. Brain CT done on arrival did not show any acute intracranial process. There is nonspecific white matter changes, likely secondary to chronic small vessel ischemic disease. Chest x-ray shows basilar atelectasis versus infiltrate with tiny effusion. Underlying pneumonia is not excluded. There is hyperinflation consistent with COPD. There is a 1.4 cm right apical opacity concerning for lung nodule. There is also a lucent lesion of the left proximal humerus. CBC on arrival unremarkable. No leukocytosis. Troponins elevated at 0.124, 0.132, and 0.109 respectively. EKG shows V paced rhythm. Patient was started on heparin infusion. Most recent APTT therapeutic. NT proBNP 1810. CMP done on arrival: Sodium 147, potassium 3.1, chloride 108, serum bicarb 32, BUN 77, creatinine 1.77, glucose 79. Lactic acid 0.6. CPK 53. TSH 0.879. Urinalysis shows trace protein, small leukocytes, otherwise unremarkable. Negative for influenza, RSV, COVID. Currently afebrile. Started on a combination of azithromycin and Zosyn in the emergency room. 11/17/2023 patient is seen and evaluated with at bedside; remains in the ICU, remains on BiPAP 06/13/70% - patient developed an episode of significant GI bleeding last night, and he required a unit of packed RBCs; general surgery was consulted and they recommended patient be transferred to a tertiary care center due to no GI co verage, declined transfer the patient to a tertiary care center. Patient is now off heparin he is requiring norepinephrine at 0.02 mcg/kg/min he is on IV fluid at 150 cc/h. He did receive 1 unit of packed RBCs last night. Patient remains on Zosyn for presumptive aspiration pneumonia. Patient seems to be very comfortable on BiPAP. -- WBC count today is 11.1, hemoglobin is 9.3, his last PTT was elevated, however his heparin was discontinued. Electrolytes showed a sodium of 146 potassium 2.9 chloride 117 bicarb is 21 BUN is 79 creatinine 1 point is 1.7 his urine output is marginal Chest x-ray this morning showed COPD with some interstitial changes and patchy bilateral airspace disease consistent with a picture of aspiration pneumonia. Patient is still getting workup to determine whether he has underlying malignancy, his CT of the spine raised the possibility of multiple lytic lesions, serum protein electrophoresis is pending, patient was seen by oncology on consultation and workup is pending. --Plan of care discussed with in great detail; patient currently wants to continue with current management with requesting patient DNR/DNI; she did talk briefly about comfort care and hospice care; would want to take patient home with hospice; understands patient is at risk of grave complications but states she has already spoken to the patient and he wants to be kept comfortable --We will plan to continue with current management at this time; leaning towards hospice/comfort care 11/18/2023 Patient is seen and evaluated with patient's , daughter and son at bedside in presence of RN; patient's condition was discussed in great detail again patient's and children; I did update the family that patient did have 2 episodes of rectal bleed; patient's and children understand and still not agreeable to the transfer; patient's agreeing to proceed with hospice/comfort care at this time; hospice consult and comfort care medications have been placed; plan is to discontinue all IVs including pressor agents and discontinue all blood draws; and family want no more transfusion even if rectal bleeding continues; patient has already been made DNR 11/18/2023 Patient under comfort care measures He looks comfortable On oxygen via nasal cannula On morphine drip at bedside Support is provided Objective - Vital Signs Vital signs: Vital Signs Temp 97.5 F L 11/18/23 12:00 Pulse 58 L 11/19/23 16:00 Resp 12 11/19/23 16:00 BP 97/61 11/18/23 15:00 Pulse Ox 100 11/18/23 15:00 FiO2 70 11/18/23 19:29 Intake & Output 11/18/23 11/19/23 11/19/23 18:59 06:59 18:59 Intake Total 1200 57.035 Output Total 375 1270 Balance 825 -1212.965 Intake: Intake, IV Titration 1200 57.035 Amount Lactated Ringers 1,000 ml 1200 @ 150 mls/hr IV .Q6H40M [facility] Rx#:[id number] Morphine Sulfate (100 mg/ 57.035 2 ml) 100 mg In Sodium Chloride 0.9% 100 ml @ 1 MG/HR 1.02 mls/hr IV . Q24H [facility] Rx#:[id number] Output: Urine 375 1270 Other: Voiding Method Indwelling Catheter Indwelling Catheter Indwelling Catheter # Bowel Movements 1 - Exam -GENERAL: The patient is nonverbal, obtund, with pallor, on oxygen via nasal cannula HEENT: Pupils are round and equally reacting to light. EOMI. No scleral icterus. No conjunctival pallor. Normocephalic, atraumatic. No pharyngeal erythema. No thyromegaly. CARDIOVASCULAR: S1 and S2 present. No murmurs, rubs, or gallops. PULMONARY: Chest is clear to auscultation, no wheezing , no crackles. ABDOMEN: Soft, nontender, nondistended, normoactive bowel sounds. No palpable organomegaly. MUSCULOSKELETAL: No joint swelling or deformity. EXTREMITIES: No cyanosis, clubbing, or pedal edema. NEUROLOGICAL: Gross neurological examination did not reveal any focal deficits. SKIN: No rashes. no petechiae. - Labs CBC & Chem 7: 11/18/23 10:24 11/18/23 04:03 Labs: Abnormal Lab Results - Last 24 Hours (Table) 11/16/23 Range/Units 14:49 [place] LC, Quant 2.44 H (0.33-1.94) mg/dL Assessment and Plan Assessment: Acute hypoxemic respiratory failure, secondary to acute COPD exacerbation and possible left basilar community-acquired pneumonia. Chest x-ray demonstrates some left basilar atelectasis or infiltrate with tiny effusion. Underlying pneumonia is not excluded. Negative for influenza, RSV, COVID. Suspect right apical lung nodule measuring 1.[address] scan of the chest without contrast reveals small bilateral pleural effusions. Bilateral airspace consolidation with air bronchograms. No mention of right upper lobe pulmonary nodule Severe dehydration and reduced oral intake Acute kidney injury, secondary to above Hypokalemia, replaced and recovered Altered mental status, consider acute metabolic encephalopathy, secondary to pneumonia/sepsis Elevated troponins, rule out non-ST elevation DC, currently on heparin infusion per protocol. History of paroxysmal atrial fibrillation status post AV dalia ablation with previous permanent implantation V-paced rhythm History of hyperlipidemia History of hypertension History of tobacco dependence, quit smoking approximately 8 years ago, heavy smoker prior and greater than [id number] History of BPH Plan: Continue with morphine drip Continue with comfort care measures Continue with oxygen for comfort Patient is no code Prognosis extremely poor
[2023-11-20 08:25] VITALS: PULSE 81; RESP 6
--- NOTE | 2023-11-20 23:57 | P.PN ---
Subjective 78-year-old white male with past medical history significant for paroxysmal atrial fibrillation with previous AV node ablation, permanent pacemaker, COPD, and former heavy tobacco use. Patient presented to the emergency room yesterday morning with a chief complaint of progressively worsening generalized weakness over the last 10 days. He is a poor historian, his is at bedside, and answers all questions. He can no longer ambulate to his bedroom, and his has set up a air mattress on the floor on the lower level. He did fall off the air mattress. This prompted the to contact EMS. He is currently resting in bed, on 4 L/min nasal cannula, in no acute distress. He reportedly does not wear home oxygen. states that he has appeared short of breath at times. No significant coughing or sputum production. No hemoptysis. No measured fevers. No sick contacts. He has no specific complaints but diffuse nonlocalized/nonspecific pain. He is very weak. Dry mucous membranes. Reportedly not eating and drinking much while at home. Brain CT done on arrival did not show any acute intracranial process. There is nonspecific white matter changes, likely secondary to chronic small vessel ischemic disease. Chest x-ray shows basilar atelectasis versus infiltrate with tiny effusion. Underlying pneumonia is not excluded. There is hyperinflation consistent with COPD. There is a 1.4 cm right apical opacity concerning for lung nodule. There is also a lucent lesion of the left proximal humerus. CBC on arrival unremarkable. No leukocytosis. Troponins elevated at 0.124, 0.132, and 0.109 respectively. EKG shows V paced rhythm. Patient was started on heparin infusion. Most recent APTT therapeutic. NT proBNP 1810. CMP done on arrival: Sodium 147, potassium 3.1, chloride 108, serum bicarb 32, BUN 77, creatinine 1.77, glucose 79. Lactic acid 0.6. CPK 53. TSH 0.879. Urinalysis shows trace protein, small leukocytes, otherwise unremarkable. Negative for influenza, RSV, COVID. Currently afebrile. Started on a combination of azithromycin and Zosyn in the emergency room. 11/17/2023 patient is seen and evaluated with at bedside; remains in the ICU, remains on BiPAP 06/13/70% - patient developed an episode of significant GI bleeding last night, and he required a unit of packed RBCs; general surgery was consulted and they recommended patient be transferred to a tertiary care center due to no GI co verage, declined transfer the patient to a tertiary care center. Patient is now off heparin he is requiring norepinephrine at 0.02 mcg/kg/min he is on IV fluid at 150 cc/h. He did receive 1 unit of packed RBCs last night. Patient remains on Zosyn for presumptive aspiration pneumonia. Patient seems to be very comfortable on BiPAP. -- WBC count today is 11.1, hemoglobin is 9.3, his last PTT was elevated, however his heparin was discontinued. Electrolytes showed a sodium of 146 potassium 2.9 chloride 117 bicarb is 21 BUN is 79 creatinine 1 point is 1.7 his urine output is marginal Chest x-ray this morning showed COPD with some interstitial changes and patchy bilateral airspace disease consistent with a picture of aspiration pneumonia. Patient is still getting workup to determine whether he has underlying malignancy, his CT of the spine raised the possibility of multiple lytic lesions, serum protein electrophoresis is pending, patient was seen by oncology on consultation and workup is pending. --Plan of care discussed with in great detail; patient currently wants to continue with current management with requesting patient DNR/DNI; she did talk briefly about comfort care and hospice care; would want to take patient home with hospice; understands patient is at risk of grave complications but states she has already spoken to the patient and he wants to be kept comfortable --We will plan to continue with current management at this time; leaning towards hospice/comfort care 11/18/2023 Patient is seen and evaluated with patient's , daughter and son at bedside in presence of RN; patient's condition was discussed in great detail again patient's and children; I did update the family that patient did have 2 episodes of rectal bleed; patient's and children understand and still not agreeable to the transfer; patient's agreeing to proceed with hospice/comfort care at this time; hospice consult and comfort care medications have been placed; plan is to discontinue all IVs including pressor agents and discontinue all blood draws; and family want no more transfusion even if rectal bleeding continues; patient has already been made DNR 11/18/2023 Patient under comfort care measures He looks comfortable On oxygen via nasal cannula On morphine drip at bedside Support is provided 11/19/2023 Patient comfortable at bedside Obtained and bradypnea Objective - Vital Signs Vital signs: Vital Signs Temp 97.5 F L 11/18/23 12:00 Pulse 81 11/20/23 08:24 Resp 6 L 11/20/23 14:31 BP 97/61 11/18/23 15:00 Pulse Ox 100 11/18/23 15:00 FiO2 70 11/18/23 19:29 Intake & Output 11/19/23 11/20/23 11/20/23 18:59 06:59 18:59 Intake Total 93.942 102 Output Total 25 Balance -25 93.942 102 Intake: Intake, IV Titration 93.942 102 Amount Morphine Sulfate (100 mg/ 93.942 102 2 ml) 100 mg In Sodium Chloride 0.9% 100 ml @ 1 MG/HR 1.02 mls/hr IV . Q24H [facility] Rx#:[id number] Output: Urine 25 Other: Voiding Method Indwelling Catheter Indwelling Catheter Indwelling Catheter # Bowel Movements 1 1 2 - Exam -GENERAL: The patient is nonverbal, obtund, with pallor, on oxygen via nasal cannula HEENT: Pupils are round and equally reacting to light. EOMI. No scleral icterus. No conjunctival pallor. Normocephalic, atraumatic. No pharyngeal erythema. No thyromegaly. CARDIOVASCULAR: S1 and S2 present. No murmurs, rubs, or gallops. PULMONARY: Chest is clear to auscultation, no wheezing , no crackles. ABDOMEN: Soft, nontender, nondistended, normoactive bowel sounds. No palpable organomegaly. MUSCULOSKELETAL: No joint swelling or deformity. EXTREMITIES: No cyanosis, clubbing, or pedal edema. NEUROLOGICAL: Gross neurological examination did not reveal any focal deficits. SKIN: No rashes. no petechiae. - Labs CBC & Chem 7: 11/18/23 10:24 11/18/23 04:03 Labs: Abnormal Lab Results - Last 24 Hours (Table) 11/16/23 Range/Units 14:49 Free [place] LC, Quant 2.44 H (0.33-1.94) mg/dL Assessment and Plan Assessment: Acute hypoxemic respiratory failure, secondary to acute COPD exacerbation and possible left basilar community-acquired pneumonia. Chest x-ray demonstrates some left basilar atelectasis or infiltrate with tiny effusion. Underlying pneumonia is not excluded. Negative for influenza, RSV, COVID. Suspect right apical lung nodule measuring 1.[address] scan of the chest without contrast reveals small bilateral pleural effusions. Bilateral airspace consolidation with air bronchograms. No mention of right upper lobe pulmonary nodule Severe dehydration and reduced oral intake Acute kidney injury, secondary to above Hypokalemia, replaced and recovered Altered mental status, consider acute metabolic encephalopathy, secondary to pneumonia/sepsis Elevated troponins, rule out non-ST elevation WI, currently on heparin infusion per protocol. History of paroxysmal atrial fibrillation status post AV dalia ablation with previous permanent implantation V-paced rhythm History of hyperlipidemia History of hypertension History of tobacco dependence, quit smoking approximately 8 years ago, heavy smoker prior and greater than [id number] History of BPH Plan: Continue with morphine drip Continue with comfort care measures Continue with oxygen for comfort Patient is no code Prognosis extremely poor
--- NOTE | 2023-11-28 09:57 | CDI ---
Documentation Clarification Form Date: 11/28/2023 09:44:56 AM From: Graciela Guajardo RN, CCDS Phone: [phone] Admit Date: 11/12/2023 03:27:00 PM Patient Name: Hossein George Visit Number: [id number] Discharge Date: 11/20/2023 09:30:00 PM ATTENTION: The Clinical Documentation Specialists (CDI) and [facility] Coding Staff appreciate your assistance in clarifying documentation. Please respond to the clarification below the line at the bottom and electronically sign. The CDI & [facility] Coding staff will review the response and follow-up if needed. Please note: Queries are made part of the Legal Health Record. If you have any questions, please contact the author of this message via ITS. Dr. Cindy Lopez The Registered Dietitian assessment on 11/14 indicates this patient meets criteria for acute severe malnutrition. Based on this information and the findings below, is there an additional diagnosis that is clinically appropriate for this patient? History/Risk Factors: A fib, COPD, HLD, pacemaker and CHF. Presented with generalized weakness and poor oral intake. Admitted with acute respiratory failure and aspiration pneumonia. Clinical Indicators: 5 H&P: "According to his at bedside, patient has lost a lot of weight recently." Current BMI 18.3, weight 58kg, height 5ft 10in 11/14 RD Consult Assessment: Poor po intake, underweight, severe acute malnutrition related to poor po intake as evidenced by 22% weight loss in 2 weeks. Treatment: from [facility] 11/14 note - pureed diet with nectar thick liquids; 1:1 assist with meals Supplements: commercial beverage, Magic cup BID Is there an additional diagnosis that is clinically appropriate for this patient? [ ] Mild Protein-Calorie Malnutrition [ ] Moderate Protein-Calorie Malnutrition [ x ] Severe Protein-Calorie Malnutrition [ ] No additional diagnosis/Not clinically significant [ ] Other condition, please specify [ ] Unable to Determine MTDD
--- NOTE | 2023-11-28 10:28 | CDI ---
Documentation Clarification Form Date: 11/28/2023 09:58:37 AM From: Graciela Guajardo RN, CCDS Phone: [phone] Admit Date: 11/12/2023 03:27:00 PM Patient Name: Hossein George Visit Number: [id number] Discharge Date: 11/20/2023 09:30:00 PM ATTENTION: The Clinical Documentation Specialists (CDI) and [facility] Coding Staff appreciate your assistance in clarifying documentation. Please respond to the clarification below the line at the bottom and electronically sign. The CDI & [facility] Coding staff will review the response and follow-up if needed. Please note: Queries are made part of the Legal Health Record. If you have any questions, please contact the author of this message via ITS. Dr. Nevaeh Abarca Hypotension requiring Norepinephrine is documented in the 11/16 progress note. Additional clarification regarding this diagnosis is requested. History/Risk Factors: A fib, COPD, HLD, pacemaker and CHF. Presented with generalized weakness and poor oral intake. Admitted with acute respiratory failure and aspiration pneumonia. Transferred to ICU on 11/14 due to respiratory distress and also developed GI bleed and hematuria. Clinical Indicators: 11/16 Pulmonary: "Hypotension requiring norepinephrine, most likely related to GI bleeding. Patient will remain on Norepinephrine for now. In the meantime he was given fluids and he will be given blood accordingly maintaining hemoglobin above 7." 11/16 Nursing note: "At approximately 1:45am patient found to have a large blood clot around cruz catheter and large amount of arnie red blood present. Hematuria noted in Cruz catheter tube as well. Heparin gtt stopped. Cathy Abarca and Sylvester notified. Patient also passing large bloody bowel movements. HGB dropped from 14.9 to 12.5." 11/16 Nephrology: "Episodes of GI bleed and hypotension overnight." 11/16 Urology: "The patient is requiring treatment for hypotension and oliguria." 11/16 VS: BP 81/54-97/64-96/62-132/75 Treatment: IV Norepinephrine titrated 11/16-11/17; 1 unit PRBC's on 11/16; 1 unit PRBC's on 11/17; 1L 0.9 NS IV bolus x1 on 11/16 and 11/17 Can the hypotension be further specified? [ x] Hypotension due to hemorrhagic shock from GI bleed [ ] Hypotension due to hypovolemic shock [ ] Other Condition, please specify [ ] Unable to determine MTDD
== END 2023-11-20 21:30 | disposition expired | DRG 177 ==
LOC: EC 10:08 → 3SCARD 15:27 → 2SICU 11-16 06:28 → 6NMEDSUR 11-19 00:53
PROVIDERS: ADMIT Internal Medicine; ATTEND Internal Medicine
PROC: 5A09557 Assistance with Respiratory Ventilation, Greater than 96 Consecutive Hours, Continuous Positive Airway Pressure (ICD-10-PCS; 2023-11-15)
PROC: 30233S1 Transfusion of Nonautologous Globulin into Peripheral Vein, Percutaneous Approach (ICD-10-PCS; principal; 2023-11-17)
PROC: 3E033XZ Introduction of Vasopressor into Peripheral Vein, Percutaneous Approach (ICD-10-PCS; 2023-11-18)
PROC: 30233N1 Transfusion of Nonautologous Red Blood Cells into Peripheral Vein, Percutaneous Approach (ICD-10-PCS; 2023-11-18)
DX: J69.0 Pneumonitis due to inhalation of food and vomit (principal); E43 Unspecified severe protein-calorie malnutrition; G93.41 Metabolic encephalopathy; I21.A1 Myocardial infarction type 2; J96.01 Acute respiratory failure with hypoxia; N17.0 Acute kidney failure with tubular necrosis; I50.33 Acute on chronic diastolic (congestive) heart failure; J44.1 Chronic obstructive pulmonary disease with (acute) exacerbation; I48.21 Permanent atrial fibrillation; E87.0 Hyperosmolality and hypernatremia; I13.0 Hypertensive heart and chronic kidney disease with heart failure and stage 1 through stage 4 chronic kidney disease, or unspecified chronic kidney disease; C90.00 Multiple myeloma not having achieved remission; D80.1 Nonfamilial hypogammaglobulinemia; E87.1 Hypo-osmolality and hyponatremia; J98.11 Atelectasis; N13.30 Unspecified hydronephrosis; K92.0 Hematemesis; K92.2 Gastrointestinal hemorrhage, unspecified; Z51.5 Encounter for palliative care; Z66 Do not resuscitate; E11.21 Type 2 diabetes mellitus with diabetic nephropathy; I08.3 Combined rheumatic disorders of mitral, aortic and tricuspid valves; E11.22 Type 2 diabetes mellitus with diabetic chronic kidney disease; I27.20 Pulmonary hypertension, unspecified; N18.9 Chronic kidney disease, unspecified; R57.8 Other shock; R31.9 Hematuria, unspecified; E83.52 Hypercalcemia; I48.0 Paroxysmal atrial fibrillation; N40.0 Benign prostatic hyperplasia without lower urinary tract symptoms; I25.10 Atherosclerotic heart disease of native coronary artery without angina pectoris; R33.8 Other retention of urine; E87.6 Hypokalemia; E86.0 Dehydration; E78.5 Hyperlipidemia, unspecified; G89.29 Other chronic pain; W06.XXXA Fall from bed, initial encounter; N32.89 Other specified disorders of bladder; N36.8 Other specified disorders of urethra; Z11.52 Encounter for screening for COVID-19; Z79.899 Other long term (current) drug therapy; Z95.0 Presence of cardiac pacemaker; Z95.5 Presence of coronary angioplasty implant and graft; Z87.891 Personal history of nicotine dependence; Y92.003 Bedroom of unspecified non-institutional (private) residence as the place of occurrence of the external cause; Z79.01 Long term (current) use of anticoagulants; Z88.1 Allergy status to other antibiotic agents
CPT/HCPCS: 36415; 36600; 70450; 71045; 71046; 71250; 72125; 72128; 72131; 76770; 80048; 80053; 81001; 82140; 82164; 82272; 82306; 82330; 82550; 82607; 82652; 82747; 82784; 82805; 83519; 83605; 83735; 83880; 83883; 83970; 84100; 84132; 84145; 84153; 84154; 84165; 84166; 84443; 84484; 85025; 85027; 85610; 85730; 86041; 86334; 86335; 86850; 86900; 86901; 86920; 87040; 87449; 87636; 93005; 93306; 94640; 94660; 94760; 96365; 96366; 96367; 96375; 96376; 99291